=== PATIENT | male | born 1930 | race Caucasian/White ===

== ENCOUNTER 2016-04-12 10:40 | Emergency (ER) | payer MEDICARE ==
[~2016-04-12] VITALS: Ht 170.2 cm; Wt 73.0 kg
[~2016-04-12 10:40] MED LIST: ACET-2267 PO; AMLO5TAB2 PO; CEPH500T PO; LISI10TA2 PO; LOPE2CAP PO; LORA10TA7 PO; ONDA4TAB8 PO; PRAV40TA2 PO; RT-ALBUINH INH
--- OUTSIDE RECORDS SUMMARY | 2016-04-12 10:46 | XMS REPORT | Continuity of Care Document ---
Author Author [facility] Organization [facility] Address Unknown Phone Unavailable Care Team Providers Care Yacht Captain Name Role Phone ROSY CLANCY DO PCP Insurance Providers Payer Name Policy Number Subscriber Name Relationship [facility] [id number] Rea He 18 Self / Same As Patient Advance Directives Directive Response Recorded Date/Time Advance Directives Yes 01/25/16 2:05pm Organ Donor No 01/25/16 2:05pm Resuscitation Status Full Code 01/25/16 2:05pm Chief Complaint and Reason for Visit Chief Complaint ACUTE RENAL FAILURE VOLUME DEPLETION DIARRHEA Reason for Visit Cellulitis Dehydration Diarrhea Problems Active Problems Medical Problem Onset Date Status Acute renal failure Unknown Acute Cellulitis Unknown Acute Dehydration Unknown Acute Diarrhea Unknown Acute Medications Current Home Medications Medication Dose Units Route Directions Days/Qty Instructions Start Date Pravastatin Sodium 40 Mg 40 Mg Oral Bedtime 10/11/15 Albuterol Sulfate 8.5 Gm 2 Puff Inhalation Four Times Daily as needed for Shortness Of Breath 10/11/15 Lisinopril 10 Mg 10 Mg Oral Daily 10/11/15 Loratadine 10 Mg 10 Mg Oral Daily 01/25/16 Ondansetron 4 Mg 4 Mg Oral Three Times A Day as needed for Nausea Acetaminophen 500 Mg 1,500 Mg Oral Three Times A Day as needed for Pain TAKES 3 (500MG) TABLETS 01/25/16 Past Home Medications Medication Directions Ordered Status Amlodipine Besylate 5 Mg Tablet, 5 Mg Oral Daily 10/11/15 Discontinued Cephalexin 500 Mg Tablet, 500 Mg Oral Three Times A Day 10/11/15 Discontinued Loperamide Hcl 2 Mg Capsule, 2 Mg Oral Three Times A Day as needed for Diarrhea 01/25/16 Discontinued Social History Social History Problem Response Recorded Date/Time Alcohol Use Occasionally Uses 01/25/2016 2:07pm Recreational Drug Use No 01/25/2016 2:07pm Recent Foreign Travel No 01/25/2016 2:09pm Recent Infectious Disease Exposure No 01/25/2016 2:09pm Hospitalization with Isolation Denies 01/27/2016 1:46pm Smoking Status Never a Smoker 01/25/2016 2:09pm Recent Hopitalizations No 01/25/2016 2:07pm Hospitalization with Isolation Denies 01/27/2016 1:46pm Query Response Start Date Stop Date Smoking Status Never a Smoker Hospital Discharge Instructions No hospital discharge instructions. Plan of Care Discharge Date 01/27/16 1:15pm Disposition 01 HOME, SELF-CARE Instructions/Education Provided Acute Kidney Failure Forms Provided PDI Medical Prescriptions See Medication Section Referrals ROSY CLANCY DO (Unspecified) - 5 Days Address: [address] [place] [id number] [phone] Reason(s) for Referral: SEE DR. CLANCY SUNDAY () AT 11:00 AM Functional Status Query Response Date Recorded Patient Orientation Person Place Time Situation January 27, 2016 1:46pm Comprehension Ability Understands Concepts January 26, 2016 8:00am Allergies, Adverse Reactions, Alerts Allergen Type Severity Reaction Status Last Updated shellfish derived ([id number]) Allergy Severe HIVES Active 10/11/15 Immunizations No immunization records. Vital Signs Acute Vital Signs Vital Response Date/Time Temperature (Fahrenheit) 98.8 degrees F (97.6 - 99.5) 01/27/2016 8:00am Temperature (Calculated Celsius) 37.94277 degrees C (36.4 - 37.5) 01/27/2016 8:00am Temperature Source Tympanic 01/27/2016 8:00am Pulse Rate (adult) 76 bpm (60 - 90) 01/27/2016 8:00am Respiratory Rate 18 bpm (12 - 24) 01/27/2016 8:00am O2 Sat by Pulse Oximetry 90 % (88 - 100) 01/27/2016 11:52am Blood Pressure 146/68 mm Hg 01/27/2016 8:00am Blood Pressure Mean 94 mm Hg 01/27/2016 8:00am Pain Numeric Pain Scale 0-No Pain 01/27/2016 8:00am Pain Numeric Pain Scale 5-Moderate Pain 01/27/2016 8:00am Height (Feet) 5 feet 01/25/2016 2:09pm Height (Inches) 7.00 inches 01/25/2016 2:09pm Height (Calculated Centimeters) 170.432395 cm 01/25/2016 2:09pm Weight (Pounds) 161 pounds 01/25/2016 2:09pm Weight (Ounces) 0.0 oz 01/25/2016 2:09pm Weight (Calculated Grams) 22097.37 gm 01/25/2016 2:09pm Weight (Calculated Kilograms) 73.992804 kilograms 01/25/2016 2:09pm Calculated BMI 25.2 01/25/2016 2:09pm Capillary Refill Capillary Refill Less Than 3 Seconds 01/26/2016 8:15pm Results Pending Laboratory Results Test Name Collection Date/Time Pending Microbiology Results Procedure Source Collection Date/Time Procedures No known history of procedures. Encounters Encounter Location Arrival/Admit Date Discharge/Depart Date Attending Provider Discharged Inpatient [facility] 01/25/16 12:55pm 1:15pm ROSY CLANCY DO Registered Clinic [facility] 12/29/15 2:15pm ROSY CLANCY DO Recent Diagnosis Cellulitis Dehydration Diarrhea
[2016-04-12] MEDS ORDERED: LIDOCAINE UROJET 2% GEL 10 ML PKG TOP ONE (11:15)
--- NOTE | 2016-04-12 11:23 | ED GU-Male ---
General Chief Complaint: -Male Stated Complaint: UNABLE TO URINATE Source: patient Exam Limitations: no limitations History of Present Illness Time seen by provider: 11:20 Initial Comments To ER with concerns of kidney dysfunction. States that he was here in the past with "kidneys shut down". He states that his last urination was at 2 a.m. this morning. He currently feels the need to urinate. He went to the bathroom and urinated 500 mL of clear yellow urine. Severity/Quality: moderate Location: unknown Radiation: none Activities at Onset: none Allergies and Home Medications Allergies Coded Allergies: shellfish derived (Verified Allergy, Severe, HIVES, 10/11/15) Home Medications Acetaminophen 500 Mg Tablet 1,500 MG PO TID PRN PRN PAIN (Reported) TAKES 3 (500MG) TABLETS Albuterol Sulfate 8.5 Gm Hfa.aer.ad 2 PUFF INH QID PRN PRN SHORTNESS OF BREATH ( Reported) Lisinopril 10 Mg Tablet 10 MG PO DAILY (Reported) Loratadine 10 Mg Tablet 10 MG PO DAILY (Reported) Ondansetron 4 Mg Tab.rapdis 4 MG PO TID PRN PRN NAUSEA (Reported) Pravastatin Sodium 40 Mg Tablet 40 MG PO HS (Reported) Constitutional: see HPI EENTM: see HPI Respiratory: no symptoms reported Cardiovascular: no symptoms reported Genitourinary: no symptoms reported Musculoskeletal: no symptoms reported Skin: no symptoms reported Psychiatric/Neurological: No Symptoms Reported Endocrine: No Symptoms Reported Hematologic/Lymphatic: No Symptoms Reported Past Yaeexcm-Zqmkge-Bjfkpg Hx Patient Social History Alcohol Use: Occasionally Uses Recreational Drug Use: No Smoking Status: Never a Smoker 2nd Hand Smoke Exposure: No Recent Foreign Travel: No Contact w/Someone Who Travel: No Recent Hopitalizations: No Immunizations Up To Date Date of Pneumonia Vaccine: Nov 16, 2015 Date of Influenza Vaccine: Nov 15, 2015 Surgeries HX Surgeries: Yes Surgeries: Appendectomy, Orthopedic, Prostatectomy Respiratory Hx Respiratory Disorders: No Cardiovascular Hx Cardiac Disorders: Yes Cardiac Disorders: High Cholesterol, Hypertension Neurological Hx Neurological Disorders: No Reproductive System Hx Reproductive Disorders: No Genitourinary Hx Genitourinary Disorders: No Gastrointestinal Hx Gastrointestinal Disorders: Yes (diverticulitis ) Musculoskeletal Hx Musculoskeletal Disorders: Yes Musculoskeletal Disorders: Arthritis Endocrine Hx Endocrine Disorders: No HEENT HX ENT Disorders: No Cancer Hx Cancer: No Psychosocial Hx Psychiatric Problems: No Family Medical History Significant Family History: No Pertinent Family Hx Physical Exam Vital Signs Vital Sign - Last 12Hours 04/12/16 11:05 Temp 97.4 Pulse 90 Resp 18 B/P 189/99 Pulse Ox 94 O2 Delivery Room Air Capillary Refill : General Appearance: WD/WN no apparent distress HEENT: PERRL/EOMI normal ENT inspection Neck: non-tender full range of motion Cardiovascular: regular rate, rhythm no murmur Respiratory: normal breath sounds no respiratory distress no accessory muscle use Gastrointestinal: normal bowel sounds non tender soft Extremities: normal range of motion non-tender Neurologic/Psychiatric: alert normal mood/affect oriented x 3 Skin: normal color warm/dry Progress/Results/Core Measures Results/Orders Lab Results Laboratory Tests Test 04/12/16 11:07 04/12/16 11:09 04/12/16 11:17 Range/Units Basophils # (Auto) 0.0 0.0-0.1 10^3/uL Basophils (%) (Auto) 1 0-10 % Eosinophils # (Auto) 0.2 0.0-0.3 10^3/uL Eosinophils (%) (Auto) 4 0-10 % Hematocrit 40 40-54 % Hemoglobin 12.4 L 13.3-17.7 G/DL Lymphocytes # (Auto) 1.2 1.0-4.0 X 10^3 Lymphocytes (%) (Auto) 21 12-44 % Mean Corpuscular Hemoglobin 32 25-34 PG Mean Corpuscular Hemoglobin Concent 31 L 32-36 G/DL Mean Corpuscular Volume 103 H 80-99 FL Mean Platelet Volume 9.8 7.4-10.4 FL Monocytes # (Auto) 0.7 0.0-1.0 X 10^3 Monocytes (%) (Auto) 11 0-12 % Neutrophils # (Auto) 3.7 1.8-7.8 X 10^3 Neutrophils (%) (Auto) 63 42-75 % Platelet Count 201 130-400 10^3/uL Red Blood Count 3.84 L 4.35-5.85 10^6/uL Red Cell Distribution Width 11.9 10.0-14.5 % White Blood Count 5.9 4.3-11.0 10^3/uL Urine Bacteria NEGATIVE /HPF Urine Bilirubin NEGATIVE NEGATIVE Urine Casts NONE /LPF Urine Clarity CLEAR Urine Color YELLOW Urine Crystals NONE /LPF Urine Culture Indicated NO Urine Glucose (UA) NEGATIVE NEGATIVE Urine Ketones NEGATIVE NEGATIVE Urine Leukocyte Esterase NEGATIVE NEGATIVE Urine Mucus NEGATIVE /LPF Urine Nitrite NEGATIVE NEGATIVE Urine Protein NEGATIVE NEGATIVE Urine RBC NONE /HPF Urine RBC (Auto) NEGATIVE NEGATIVE Urine Specific [place] 1.005 L 1.016-1.022 Urine Squamous Epithelial Cells RARE /HPF Urine Urobilinogen NORMAL NORMAL MG/DL Urine WBC NONE /HPF Urine pH 6 5-9 Anion Gap 11 5-14 MMOL/L BUN/Creatinine Ratio 15 Blood Urea Nitrogen 16 7-18 MG/DL Calcium Level 8.9 8.5-10.1 MG/DL Carbon Dioxide Level 23 21-32 MMOL/L Chloride Level 109 H 98-107 MMOL/L Creatinine 1.10 0.60-1.30 MG/DL Estimat Glomerular Filtration Rate > 60 Glucose Level 88 70-105 MG/DL Potassium Level 4.4 3.6-5.0 MMOL/L Sodium Level 143 135-145 MMOL/L My Orders Orders-HARDIK BRUNSON APRN Ua Culture If Indicated (04/12/16 11:03) Cbc With Automated Diff (04/12/16 11:03) Basic Metabolic Panel (04/12/16 11:03) Lidocaine 2% (Urojet) (Xylocaine Urojet) (04/12/16 11:15) Clonidine Tablet (Catapres Tablet) (04/12/16 11:30) Saline Lock/Iv-Start (04/12/16 11:17) Medications Given in ED Current Medications Medications Dose Ordered Sig/Zoey Route Start Time Stop Time Status Last Admin Dose Admin Clonidine HCl 0.1 mg ONCE ONCE PO 04/12/16 11:30 04/12/16 11:31 DC 04/12/16 11:27 0.1 MG Vital Signs/I&O Vital Sign - Last 12Hours 04/12/16 11:05 Temp 97.4 Pulse 90 Resp 18 B/P 189/99 Pulse Ox 94 O2 Delivery Room Air Departure Impression Impression: Primary Impression: General medical examination Disposition: 01 HOME, SELF-CARE Condition: Stable Departure-Patient Inst. Decision time for Depature: 11:48 Referrals: ROSY CLANCY DO (PCP/Family) Primary Care Physician Patient Instructions: NO INSTRUCTIONS GIVEN Add. Discharge Instructions: 1. Follow-up with Dr. Dr. Clancy as needed and to address your high blood pressure All discharge instructions reviewed with patient and/or family. Voiced understanding. Copy Copies To 1: ROSY CLANCY PETER J APRN Apr 12, 2016 11:23
[2016-04-12 11:25] LABS: BASOPHILS % (AUTO) 1 % (0-10); EOSINOPHILS # (AUTO) 0.2 10^3/uL (0.0-0.3); EOSINOPHILS % (AUTO) 4 % (0-10); LYMPHOCYTES # (AUTO) 1.2 X 10^3 (1.0-4.0); LYMPHOCYTES % (AUTO) 21 % (12-44); MEAN CORPUSCULAR HEMOGLOBIN 32 PG (25-34); MEAN CORPUSCULAR HGB CONC 31 G/DL (32-36); MEAN CORPUSCULAR VOLUME 103 FL (80-99); MEAN PLATELET VOLUME 9.8 FL (7.4-10.4); MONOCYTES # (AUTO) 0.7 X 10^3 (0.0-1.0); MONOCYTES % (AUTO) 11 % (0-12); NEUTROPHILS # (AUTO) 3.7 X 10^3 (1.8-7.8); NEUTROPHILS % (AUTO) 63 % (42-75); PLATELET COUNT 201 10^3/uL (130-400); RED BLOOD COUNT 3.84 10^6/uL (4.35-5.85); RED CELL DISTRIBUTION WIDTH 11.9 % (10.0-14.5); WHITE BLOOD COUNT 5.9 10^3/uL (4.3-11.0)
[2016-04-12 11:27] LABS: BILIRUBIN,URINE NEGATIVE (NEGATIVE); KETONES,URINE NEGATIVE (NEGATIVE); LEUKOCYTE ESTERASE ,URINE NEGATIVE (NEGATIVE); NITRITE,URINE NEGATIVE (NEGATIVE); PH,URINE 6 (5-9); PROTEIN,URINE NEGATIVE (NEGATIVE); UROBILINOGEN,URINE NORMAL (NORMAL)
[2016-04-12] MEDS ORDERED: cloNIDine 0.1 MG (CATAPRES) TAB PO ONE (11:30)
[2016-04-12 11:35] LABS: SQUAMOUS EPITHELIAL CELL,UR RARE /HPF
[2016-04-12 11:46] LABS: ANION GAP 11 MMOL/L (5-14); BLOOD UREA NITROGEN 16 MG/DL (7-18); BUN/CREATININE RATIO 15; CALCIUM 8.9 MG/DL (8.5-10.1); CARBON DIOXIDE 23 MMOL/L (21-32); CHLORIDE 109 MMOL/L (98-107); GFR ESTIMATED > 60; GLUCOSE 88 MG/DL (70-105); POTASSIUM 4.4 MMOL/L (3.6-5.0); SODIUM 143 MMOL/L (135-145)
[2016-04-12 12:04] VITALS: BP 157/83
== END 2016-04-12 12:05 | disposition home or self-care (01) ==
LOC: EDUNIT# 10:40 → ER 10:42
DX: R33.9 Retention of urine, unspecified (principal); I10 Essential (primary) hypertension; Z79.899 Other long term (current) drug therapy
CPT/HCPCS: 36415; 80048; 81000; 85025

== ENCOUNTER → 2017-06-20 | Outpatient (CLI) | payer MEDICARE ==
[~2017-06-20] MED LIST changes: +ACHD5005 PO; +ASPI-983 PO; +ATOR10TA66 PO; +CLOP75TA28 PO; +CLOP75TA69 PO; +DOXY100C42 PO; +HYDR-3812 PO; +HYDR12.5 PO; +LISI40TA PO; +MONT10TA24 PO; +PANT40SU PO; +PANT40TA2 PO; +PENT400T9 PO; +RT-ALBUINH IH; +TAMS0.4C2 PO; +TRAM50TA2 PO
== END ==
LOC: WOUNDCARE 09:51
PROVIDERS: ATTEND Surgery
DX: I70.245 Atherosclerosis of native arteries of left leg with ulceration of other part of foot (principal); L97.512 Non-pressure chronic ulcer of other part of right foot with fat layer exposed; G60.8 Other hereditary and idiopathic neuropathies
CPT/HCPCS: 11042

== ENCOUNTER → 2017-06-20 | Outpatient (CLI) | payer MEDICARE ==
--- NOTE | 2017-06-20 12:55 | Diagnostic Imaging Report ---
EXAMINATION: Left foot. INDICATION: Chronic ulcer. TECHNIQUE: Three views were obtained. FINDINGS: As noted on the prior exam of 05/13/2007, there is an orthopedic fixation wire securing a displaced fracture of the neck of the fifth metatarsal. The orthopedic hardware appears to be in good position and the fracture has healed with residual deformity. There is also some deformity of the proximal phalanx of the fourth digit. This is felt to be secondary to prior trauma and this finding is stable when compared to the previous study. The fracture of the neck of the third metatarsal seen previously is also no different. There is no acute fracture visualized. Reportedly, there is clinical concern regarding possible osteomyelitis of the great toe. A marker was placed along the plantar surface of the soft tissues adjacent to the distal phalanx of the great toe. There is no sign of bony destruction in this area to suggest osteomyelitis. However if further imaging is desired, then either a three-phase nuclear medicine bone scan or MRI would be recommended. IMPRESSION: 1. There is no evidence for an acute bony abnormality. In particular, there is no sign of bony destruction of distal phalanx of the great toe to indicate osteomyelitis. Recommendations, as above. 2. There are postsurgical and post-traumatic changes involving the forefoot as described above. Dictated by: Dictated on workstation # [id number]
== END ==
LOC: RAD 11:41
PROVIDERS: ATTEND Surgery
DX: L97.512 Non-pressure chronic ulcer of other part of right foot with fat layer exposed (principal); I70.245 Atherosclerosis of native arteries of left leg with ulceration of other part of foot; Z98.890 Other specified postprocedural states
CPT/HCPCS: 73630

== ENCOUNTER 2017-06-25 14:00 | Day surgery (SDC) | payer MEDICARE ==
[~2017-06-25] VITALS: Ht 170.2 cm; Wt 69.2 kg
[2017-06-25 14:00] VITALS: BP 125/68
[~2017-06-25 14:00] MED LIST changes: -ACHD5005 PO; -CLOP75TA69 PO; -DOXY100C42 PO; -HYDR-3812 PO; -PANT40TA2 PO
[2017-06-25 15:34] LABS: HEMOGLOBIN 8.8 G/DL (13.3-17.7); RED BLOOD COUNT 3.12 10^6/uL (4.35-5.85); RED CELL DISTRIBUTION WIDTH 13.5 % (10.0-14.5)
[2017-06-25] MEDS ORDERED: AMLO5TAB2 PO (15:47)
[2017-06-25] MEDS ORDERED: PANT40TA2 PO (15:47)
[2017-06-25] MEDS ORDERED: ASPI-983 PO (15:47)
[2017-06-25] MEDS ORDERED: CLOP75TA69 PO (15:47)
[2017-06-25] MEDS ORDERED: ATOR10TA66 PO (15:47)
[2017-06-25] MEDS ORDERED: PENT400T9 PO (15:47)
[2017-06-25] MEDS ORDERED: HYDR-3812 PO (15:47)
[2017-06-25 15:52] LABS: ALANINE AMINOTRANSFERASE 8 U/L (0-55); ALBUMIN 3.5 GM/DL (3.2-4.5); ALKALINE PHOSPHATASE 69 U/L (40-136); BILIRUBIN,TOTAL 0.3 MG/DL (0.1-1.0); BUN/CREATININE RATIO 23; CALCIUM 8.8 MG/DL (8.5-10.1); CARBON DIOXIDE 24 MMOL/L (21-32); CHLORIDE 110 MMOL/L (98-107); CREATININE SERUM 1.47 MG/DL (0.60-1.30); GFR ESTIMATED 46; GLUCOSE 98 MG/DL (70-105); POTASSIUM 4.6 MMOL/L (3.6-5.0); SODIUM 143 MMOL/L (135-145); TOTAL PROTEIN 6.6 GM/DL (6.4-8.2)
[2017-06-25 15:58] LABS: MYOGLOBIN SERUM 232.7 NG/ML (10.0-92.0)
[2017-06-25 16:20] LABS: INR 1.1 (0.8-1.4); PROTHROMBIN TIME PATIENT 13.8 SEC (12.2-14.7)
[2017-06-25 16:40] VITALS: BP 141/65
[2017-06-25] MEDS ORDERED: NON-FORMULARY MEDICATION 1 EA EA (Hydrocodone/Acetaminophen (Hydrocodone-Acetamin 5-325 mg PO PRN (16:45)
[2017-06-25] MEDS: NS IV 1000 ML 1,000 ML IV SCH (17:06)
--- NOTE | 2017-06-25 18:17 | History & Physicial ---
History of Present Illness History of Present Illness Reason for visit/HPI Severe pain in the left big toe. Patient had angiography done. Patient is seen wound care. Patient states she's not getting better and the pain in the toe is worse. Date of Admission June 25, 2017 at 1:54 pm Time Seen by Provider: 06:05 I consulted on this patient on 06/25/17 18:12 Attending Physician Amyaa Bermudez MD Admitting Physician Lucas Clancy DO Consult Allergies and Home Medications Allergies Coded Allergies: shellfish derived (Verified Allergy, Severe, HIVES/SWELLING, 06/25/17) Home Medications Albuterol Sulfate 1 Puff Puff, 2 PUFF IH QID PRN for SHORTNESS OF BREATH, ( Reported) Amlodipine Besylate 5 Mg Tablet, 5 MG PO DAILY, (Reported) Aspirin 81 Mg Tablet.dr, 81 MG PO DAILY, (Reported) Atorvastatin Calcium 10 Mg Tablet, 10 MG PO HS, (Reported) Clopidogrel Bisulfate 75 Mg Tablet, 75 MG PO DAILY, (Reported) Hydrochlorothiazide 12.5 Mg Capsule, 25 MG PO DAILY, (Reported) TAKES 2 (12.5MG) CAPSULES Hydrocodone/Acetaminophen 1 Each Tablet, 1 TAB PO TID PRN for PAIN-MODERATE, ( Reported) Pantoprazole Sodium 40 Mg Tablet.dr, 40 MG PO DAILY, (Reported) Pentoxifylline 400 Mg Tablet.er, 400 MG PO TID, (Reported) Patient Home Medication List Home Medication List Reviewed: Yes Past Zoixstl-Rvlmgu-Jsciei Hx Patient Social History Marrital Status: Employed/Student: retired Alcohol Use: Regular Use Number of Drinks Today: 0 Alcohol Beverage of Choice: Whiskey, [place] Recreational Drug Use: No Smoking Status: Former Smoker Former Smoker, Quit: Jun 05, 1992 Type Used: Cigarettes 2nd Hand Smoke Exposure: No Physical Abuse Screen: No Sexual Abuse: No Recent Foreign Travel: No Contact w/other who traveled: No Recent Hopitalizations: Yes Recent Infectious Disease Expo: No Immunizations Up To Date Pediatric: No Date of Pneumonia Vaccine: Nov 16, 2015 Date of Influenza Vaccine: Nov 15, 2015 Seasonal Allergies Seasonal Allergies: No Surgeries Yes Appendectomy, Orthopedic, Prostatectomy Respiratory No (USES INHALER, BUT UNSURE WHY) Asthma Currently Using CPAP: No Currently Using BIPAP: No Cardiovascular Yes High Cholesterol, Hypertension Neurological No Reproductive System Hx Reproductive Disorders: No Genitourinary Yes Prostate Problems Gastrointestinal Yes (diverticulitis ) Musculoskeletal Yes Arthritis Endocrine History of Endocrine Disorders: No HEENT History of HEENT Disorders: Yes Hearing Impairment: Hard of Hearing Cancer Yes Prostate Type of Treatment: Surgical Intervention Psychosocial History of Psychiatric Problem: No Integumentary History of Skin or Integumenta: Yes Skin/Integumentary Disorders: Recent Skin Changes Blood Transfusions History of Blood Disorders: No Family Medical History Significant Family History: No Pertinent Family Hx Family Hx: Completed stroke G8 SISTER Diabetes mellitus 19 MOTHER FH: prostate cancer 19 FATHER Constitutional: no symptoms reported EENTM: no symptoms reported Respiratory: no symptoms reported, wheezing Cardiovascular: no symptoms reported Gastrointestinal: no symptoms reported Genitourinary: no symptoms reported Physical Exam Vital Signs Vital Signs - First Documented 06/25/17 14:00 Temp 97.9 Pulse 72 Resp 18 B/P (MAP) 125/68 (87) Pulse Ox 93 O2 Delivery Room Air Capillary Refill : General Appearance: No Apparent Distress, WD/WN Eyes: Bilateral Eye Normal Inspection HEENT: Normal ENT Inspection Neck: Full Range of Motion, Normal Inspection Respiratory: Chest Non Tender, Lungs Clear, Normal Breath Sounds, No Accessory Muscle Use, No Respiratory Distress Cardiovascular: Regular Rate, Rhythm, No Murmur Gastrointestinal: Non Tender, Soft Assessment/Plan Assessment and Plan Ischemic left big toe. Severe pain. Dermatitis in groin. History of wheezing. Hypertension Admission Diagnosis Admission Status: Inpatient Order (span 2 midnights) Reason for Inpatient Admission: Ischemic left big toe with severe pain. May need amputation Clinical Quality Measures DVT/VTE Risk/Contraindication: Risk Factor Score Per Nursin RFS Level Per Nursing on Admit: 4+=Very High LUCAS CLANCY DO June 25, 2017 6:17 pm
[2017-06-25 20:10] VITALS: BP 124/60
[2017-06-25] MEDS: HYDROcodone/APAP 5 MG/325 MG (LORTAB) TAB PO PRN (20:15)
[2017-06-25] MEDS: BETAMETHASONE/CLOTRIM CREAM (LOTRISONE) 45 GM TP SCH (20:15)
[2017-06-25] MEDS ORDERED: ATORVASTATIN 10 MG (LIPITOR) TABLET PO SCH (21:00)
[2017-06-25] MEDS ORDERED: PENTOXIFYLLINE 400 MG (TRENtal) TAB PO SCH (21:00)
[2017-06-26] VITALS (16 sets, daily range): BP systolic 104–176; BP diastolic 54–96
[2017-06-26] MEDS: HYDROcodone/APAP 5 MG/325 MG (LORTAB) TAB PO PRN ×3 (02:14→18:19)
[2017-06-26] MEDS: NS IV 1000 ML 1,000 ML IV SCH ×4 (02:14→18:19)
[2017-06-26 05:17] LABS: MEAN PLATELET VOLUME 9.6 FL (7.4-10.4); RED BLOOD COUNT 3.18 10^6/uL (4.35-5.85); RED CELL DISTRIBUTION WIDTH 13.3 % (10.0-14.5)
[2017-06-26 05:40] LABS: CALCIUM 8.9 MG/DL (8.5-10.1); CREATININE SERUM 1.2 MG/DL (0.60-1.30); MAGNESIUM 2.2 MG/DL (1.8-2.4); POTASSIUM 4.7 MMOL/L (3.6-5.0)
[2017-06-26] MEDS ORDERED: PANTOPRAZOLE 40 MG (PROTONIX) TAB PO SCH (07:00)
--- NOTE | 2017-06-26 07:38 | Consultation-Cardiology ---
HPI-Cardiology Cardiology Consultation Date of Consultation 06/26/17 Date of Admission Time Seen by Provider: 07:44 Indication: Peripheral arterial disease HPI 87 years old gentleman with history of ischemic toe on his left foot area I saw him initially late in May and he has cyanosis on his first and third toe, to come for angiogram and did balloon angioplasty to the anterior tibial artery and mid and distal SFA with good results, had some improvement initially but the pain and cyanosis became worse on his first toe. Return to the office yesterday having more significant pain. Patient is known to have severe disease of the posterior tibial artery also. I saw him this morning and he still having active pain. I am planning to proceed with angiogram and evaluate the SFA and popliteal artery and possible intervention on the posterior tibial artery and attempting for another intervention to the anterior tibial artery. Home Medications & Allergies Allergies: Coded Allergies: shellfish derived (Verified Allergy, Severe, HIVES/SWELLING, 06/25/17) Home Medication List Reviewed: Yes MDX-Uhyuxb-Ufxucx Hx Patient Social History Marital Status: Employed/Student: retired Alcohol Use: Regular Use Recreational Drug Use: No Smoking Status: Former Smoker Type Used: Cigarettes 2nd Hand Smoke Exposure: No Recent Foreign Travel: No Recent Infectious Disease Expo: No Recent Hopitalizations: Yes Physical Abuse Screen: No Sexual Abuse: No Immunizations Up To Date Date of Pneumonia Vaccine: Nov 16, 2015 Date of Influenza Vaccine: Nov 15, 2015 Past Medical History Past medical history is discussed below Family Medical History Significant Family History: No Pertinent Family Hx Family History: Completed stroke G8 SISTER Diabetes mellitus 19 MOTHER FH: prostate cancer 19 FATHER Constitutional: no symptoms reported, see HPI EENTM: see HPI, no symptoms reported Respiratory: see HPI; No cough, No dyspnea on exertion, No hemoptysis, No orthopnea, No phlegm, No short of breath, No stridor, No wheezing, No other Cardiovascular: see HPI; No chest pain, No edema, No Hx of Intervention, No palpitations, No syncope, No vascular heart diseas, No other Gastrointestinal: no symptoms reported, see HPI Genitourinary: see HPI Musculoskeletal: see HPI, other Skin: see HPI, other (Cyanosis of his great toe on the left foot) Psychiatric/Neurological: No Symptoms Reported, See HPI Reviewed Test Results Reviewed Test Results Lab Laboratory Tests Test 5/14/18 15:25 06/26/17 05:09 Range/Units White Blood Count 5.0 5.0 4.3-11.0 10^3/uL Red Blood Count 3.12 L 3.18 L 4.35-5.85 10^6/uL Hemoglobin 8.8 L 9.0 L 13.3-17.7 G/DL Hematocrit 29 L 29 L 40-54 % Mean Corpuscular Volume 92 92 80-99 FL Mean Corpuscular Hemoglobin 28 28 25-34 PG Mean Corpuscular Hemoglobin Concent 31 L 31 L 32-36 G/DL Red Cell Distribution Width 13.5 13.3 10.0-14.5 % Platelet Count 275 283 130-400 10^3/uL Mean Platelet Volume 9.0 9.6 7.4-10.4 FL Prothrombin Time 13.8 12.2-14.7 SEC INR Comment 1.1 0.8-1.4 Activated Partial Thromboplast Time 30 24-35 SEC Sodium Level 143 144 135-145 MMOL/L Potassium Level 4.6 4.7 3.6-5.0 MMOL/L Chloride Level 110 H 111 H 98-107 MMOL/L Carbon Dioxide Level 24 21 21-32 MMOL/L Anion Gap 9 12 5-14 MMOL/L Blood Urea Nitrogen 34 H 29 H 7-18 MG/DL Creatinine 1.47 H 1.20 0.60-1.30 MG/DL Estimat Glomerular Filtration Rate 46 58 BUN/Creatinine Ratio 23 24 Glucose Level 98 110 H 70-105 MG/DL Calcium Level 8.8 8.9 8.5-10.1 MG/DL Total Bilirubin 0.3 0.1-1.0 MG/DL Aspartate Amino Transf (AST/SGOT) 14 5-34 U/L Alanine Aminotransferase (ALT/SGPT) 8 0-55 U/L Alkaline Phosphatase 69 40-136 U/L Myoglobin 232.7 H 10.0-92.0 NG/ML Troponin I < 0.30 <0.30 NG/ML Total Protein 6.6 6.4-8.2 GM/DL Albumin 3.5 3.2-4.5 GM/DL Magnesium Level 2.2 1.8-2.4 MG/DL Triglycerides Level 96 <150 MG/DL Cholesterol Level 148 < 200 MG/DL LDL Cholesterol Direct 68 1-129 MG/DL VLDL Cholesterol 19 5-40 MG/DL HDL Cholesterol 56 40-60 MG/DL Physical Exam Vital Signs Vital Signs - First Documented 06/25/17 14:00 Temp 97.9 Pulse 72 Resp 18 B/P (MAP) 125/68 (87) Pulse Ox 93 O2 Delivery Room Air Capillary Refill : General Appearance: WD/WN Eyes: Bilateral Eye Normal Inspection, Bilateral Eye PERRL, Bilateral Eye EOMI HEENT: PERRL/EOMI, TMs Normal, Normal ENT Inspection, Pharynx Normal Neck: Full Range of Motion, Normal Inspection, Non Tender, Supple, Carotid Bruit Respiratory: Chest Non Tender, Lungs Clear, Normal Breath Sounds, No Accessory Muscle Use, No Respiratory Distress Cardiovascular: Regular Rate, Rhythm, No Edema, No Gallop, No JVD, No Murmur, Normal Peripheral Pulses Gastrointestinal: Normal Bowel Sounds, No Organomegaly, No Pulsatile Mass, Non Tender, Soft Back: Normal Inspection, No CVA Tenderness, No Vertebral Tenderness Extremity: Normal Range of Motion, No Calf Tenderness, No Pedal Edema, Other ( Cyanosis and pain with acute ischemic changes of the toe) Neurologic/Psychiatric: Alert, Oriented x3, No Motor/Sensory Deficits, Normal Mood/Affect Skin: Normal Color, Warm/Dry Lymphatic: No Adenopathy A/P-Cardiology Admission Diagnosis PAD Ischemic foot HTN Hyperlipidemia Assessment/Plan Severe peripheral arterial disease with ischemic toe on the left side, underwent angiogram on June 06, 2017 showing total occlusion of the anterior tibial artery with successful balloon angioplasty with some improvement of the flow still had the sluggish flow. Has severe proximal stenosis at the posterior tibial artery that was treated medically, the distal SFA and popliteal artery has severe stenosis underwent drug-coated balloon angioplasty with good results. Initially reported improvement, however continues to have worsening of the ulcer and cyanosis of his first great toe. The third toe has improved significantly. Patient having increasing pain over the past week, admitted yesterday, still having significant pain, planning to proceed with angiogram, possible angioplasty Hypertension, restarted on home meds Hyperlipidemia, lipid profile was done in May 2017 showing total cholesterol 158, triglyceride 46, HDL 80, LDL 63. Continue to monitor History of back pain. History of prostatectomy secondary to prostate cancer History of bilateral foot surgery History of tobaccoism in the remote past, stopped smoking 22 years ago Clinical Quality Measures DVT/VTE Risk/Contraindication: Risk Factor Score Per Nursin RFS Level Per Nursing on Admit: 4+=Very High EVITA LONDON MD June 26, 2017 07:38
--- NOTE | 2017-06-26 08:09 | Progress Note (SOAP) ---
Subjective Time Seen by Provider: 08:00 Subjective/Events-last exam having pain in this big toe. Severe peripheral artery disease. Ischemic big toe. Hypertension history. hyperlipidemia Objective Exam Vital Signs Date Time Temp Pulse Resp B/P (MAP) Pulse Ox O2 Delivery O2 Flow Rate FiO2 06/26/17 04:00 97.9 71 18 124/57 (79) 92 Room Air 06/26/17 00:00 97.4 81 18 149/65 (93) 92 Room Air 06/25/17 20:10 98.6 76 18 124/60 (81) 92 Room Air 06/25/17 16:40 97.5 78 20 141/65 (90) 93 Room Air 06/25/17 14:00 97.9 72 18 125/68 (87) 93 Room Air I & O 06/26/17 07:00 Intake Total 370 ml Balance 370 ml Capillary Refill : General Appearance: No Apparent Distress, WD/WN HEENT: Normal ENT Inspection Neck: Normal Inspection, Non Tender Respiratory: Chest Non Tender, Lungs Clear, No Accessory Muscle Use, No Respiratory Distress Cardiovascular: Regular Rate, Rhythm, No Murmur Gastrointestinal: non tender, soft Results Lab Laboratory Tests 06/25/17 15:25: White Blood Count 5.0, Red Blood Count 3.12L, Hemoglobin 8.8L, Hematocrit 29L, Mean Corpuscular Volume 92, Mean Corpuscular Hemoglobin 28, Mean Corpuscular Hemoglobin Concent 31L, Red Cell Distribution Width 13.5, Platelet Count 275, Mean Platelet Volume 9.0, Prothrombin Time 13.8, INR Comment 1.1, Activated Partial Thromboplast Time 30, Sodium Level 143, Potassium Level 4.6, Chloride Level 110H, Carbon Dioxide Level 24, Anion Gap 9, Blood Urea Nitrogen 34H, Creatinine 1.47H, Estimat Glomerular Filtration Rate 46, BUN/Creatinine Ratio 23 , Glucose Level 98, Calcium Level 8.8, Total Bilirubin 0.3, Aspartate Amino Transf (AST/SGOT) 14, Alanine Aminotransferase (ALT/SGPT) 8, Alkaline Phosphatase 69, Myoglobin 232.7H, Troponin I < 0.30, Total Protein 6.6, Albumin 3.5 06/26/17 05:09: White Blood Count 5.0, Red Blood Count 3.18L, Hemoglobin 9.0L, Hematocrit 29L, Mean Corpuscular Volume 92, Mean Corpuscular Hemoglobin 28, Mean Corpuscular Hemoglobin Concent 31L, Red Cell Distribution Width 13.3, Platelet Count 283, Mean Platelet Volume 9.6, Sodium Level 144, Potassium Level 4.7, Chloride Level 111H, Carbon Dioxide Level 21, Anion Gap 12, Blood Urea Nitrogen 29H, Creatinine 1.20, Estimat Glomerular Filtration Rate 58, BUN/Creatinine Ratio 24 , Glucose Level 110H, Calcium Level 8.9, Magnesium Level 2.2, Triglycerides Level 96, Cholesterol Level 148, LDL Cholesterol Direct 68, VLDL Cholesterol 19 , HDL Cholesterol 56 Assessment/Plan Assessment/Plan Assess & Plan/Chief Complaint Peripheral artery disease. Ischemic big toe. Ischemic foot. Hypertension. Hyperlipidemia. Breaking out in groin is getting better Clinical Quality Measures Admission Status Admission Dx Ischemic left big toe. Severe pain. Dermatitis in groin. History of wheezing. Hypertension DVT/VTE Risk/Contraindication: Risk Factor Score Per Nursin RFS Level Per Nursing on Admit: 4+=Very High ROSY CLANCY DO June 26, 2017 08:09
[2017-06-26] MEDS: BETAMETHASONE/CLOTRIM CREAM (LOTRISONE) 45 GM TP SCH ×3 (08:38→20:59)
[2017-06-26] MEDS ORDERED: PATIENT MAY USE OWN MEDS, ALL MC SCH (08:45)
[2017-06-26] MEDS ORDERED: CLOPIDOGREL 75 MG (PLAVIX) TABLET PO SCH (09:00)
[2017-06-26] MEDS ORDERED: NON-FORMULARY MEDICATION 1 EA EA (Hydrochlorothiazide 25 MG) PO SCH (09:00)
[2017-06-26] MEDS ORDERED: NON-FORMULARY MEDICATION 1 EA EA (Amlodipine Besylate 5 MG) PO SCH (09:00)
[2017-06-26] MEDS ORDERED: ASPIRIN E.C. 81 MG (ECOTRIN) TAB PO SCH (09:00)
[2017-06-26] MEDS ORDERED: amLODIPine 5 MG (NORVASC) TAB PO SCH (09:00)
[2017-06-26] MEDS: amLODIPine 5 MG (NORVASC) TAB PO SCH (09:15)
[2017-06-26] MEDS: HYDROCHLOROTHIAZIDE 25 MG (HCTZ) TAB PO SCH (09:15)
[2017-06-26] MEDS: ASPIRIN E.C. 81 MG (ECOTRIN) TAB PO SCH (09:17)
[2017-06-26] MEDS: PENTOXIFYLLINE 400 MG (TRENtal) TAB PO SCH ×3 (09:17→20:58)
[2017-06-26] MEDS: CLOPIDOGREL 75 MG (PLAVIX) TABLET PO SCH (09:18)
[2017-06-26] MEDS: PANTOPRAZOLE 40 MG (PROTONIX) TAB PO SCH (09:19)
[2017-06-26] MEDS ORDERED: LIDOCAINE 1% INJ 20 ML 20 ML VIAL ONE (14:53)
[2017-06-26] MEDS ORDERED: NS IV 1000 ML 1,000 ML ONE ×2 (14:53→15:24)
[2017-06-26] MEDS ORDERED: MIDAZOLAM 5 MG/5 ML (VERSED) VIAL ONE (14:58)
[2017-06-26] MEDS ORDERED: diphenhydrAMINE 50 MG/ML INJ (BENADRYL) ONE (14:58)
[2017-06-26] MEDS ORDERED: methylPREDNISolone 125 MG (Solu-MEDROL) VIAL ONE ×2 (14:59→15:28)
[2017-06-26] MEDS ORDERED: HEParin 1000 UNIT/ML (10ML VIAL) FOR BOLUS ONE (14:59)
[2017-06-26] MEDS ORDERED: fentaNYL INJECTION 100 MCG/2 ML AMP ONE (15:01)
--- NOTE | 2017-06-26 15:17 | Cardiac Procedure Note-CS/ASA ---
Pre-Procedure Note Pre-Op Procedure Note H&P Reviewed The H&P was reviewed, patient examined and no changes noted. Date H&P Reviewed: June 26, 2017 Time H&P Reviewed: 15:17 Conscious Sedation Pre-Proced Time Reviewed: 15:17 ASA Class: 3 Airway Mallampati Classification: (miami appropriate class) I. II. III, IV Lungs Heart ASA score ASA 1: a normal healthy patient ASA 2: a patient with a mild systemic disease (mid diabetes, controlled hypertension, obesity x ASA 3: a patient with a severe systemic disease that limits activity (angina , COPD, prior Myocardial infarction) ASA 4: a patient with an incapacitating disease that is a constant threat to life (CHF, renal failure) ASA 5: a moribund patient not expected to survive 24 hrs. (ruptured aneurysm) ASA 6: a declared brain patient whose organs are being harvested. For emergent operations, add the letter E after the classification Grade 3 Sedation Plan: Analgesia, Amnesia, Plan communicated to team members, Discussed options with patient/fam, Discussed risks with patient/fam Note The patient is an appropriate candidate to undergo the planned procedure, sedation, and anesthesia. The patient immediately re-assessed prior to indication. EVITA LONDON MD June 26, 2017 15:17
[2017-06-26] MEDS ORDERED: PATIENT MAY USE OWN MEDS, ALL PO SCH (16:15)
--- NOTE | 2017-06-26 16:24 | Peripheral Report ---
Peripheral Report Physician (s)/Caisson Worker (s) Physician EVITA LONDON MD Pre-Procedure Diagnosis Pre-Procedure Diagnosis: ischemic foot Post-Procedure Note Procedure Start Date: June 26, 2017 Name of Procedure: Unilateral lower extremity runoff Third order Findings/Procedure Note PROCEDURE NOTE: After explaining the procedure to the patient, all pros and cons were explained , all questions were answered. The patient signed the consent and then he was placed on the cardiac catheterization laboratory. The patient was placed on the cardiac catheterization laboratory. Groin was prepped SL fashion local anesthesia was used. Sheath placed in the right femoral artery. Using rim catheter I was able to cross over and did runoff of the left lower extremity using the rim catheter then advanced stroke wire down to the tibial peroneal trunk, exchanged the rim catheter into a long straight catheter and did multiple imaging of the left lower extremity below the knee and to the foot. Then the straight catheter was pulled back to the abdominal aortogram abdominal aortogram was done to evaluate the bifurcation, no complication noted , sheath was removed and closure device used with no complications FINDINGS: Left lower extremity runoff showed: 1. Total occlusion of the anterior tibial artery 2. Multiple segment of moderate to severe disease in the posterior tibial artery but still have excellent flow down to the toes 3. Peroneal artery has mild disease proximally 4. Superficial femoral artery and popliteal artery has mild disease with excellent flow CONCLUSIONS: Total occlusion of the anterior tibial artery at the midportion not amendable to intervention Moderate severe disease in multiple segment of the posterior tibial artery still providing excellent flow down to the toes Mild disease in the superficial femoral artery and popliteal artery DISCUSSION AND RECOMMENDATIONS: Medical therapy is recommended, it appear that the distal portion of the toe is receiving some collateral blood does not appear to be sufficient at that point. Patient had multiple balloon angioplasty to the anterior tibial artery with prolonged inflation up to 5 minutes at multiple segment with significant recoil and occlusion. Not a candidate for stent or bypass Anesthesia Type: Conscious Sedation Estimated blood loss (mL): 10 ml Contrast Amount: 28 ml Total Radiation Dose: 88 mGy Post-Procedure Diagnosis Post-operative diagnosis: Subacute ischemic foot Peripheral arterial disease Hypertension Gangrene EVITA LONDON MD June 26, 2017 16:24
[2017-06-26] MEDS ORDERED: NITROGLYCERIN 2% OINT 1 GM UNIT DOSE PACKET ONE (17:01)
[2017-06-26] MEDS: NITROGLYCERIN 2% OINT 1 GM UNIT DOSE PACKET TOP SCH ×2 (17:18→23:51)
--- NOTE | 2017-06-26 19:08 | Wound Care Assessment ---
Wound Care Assessment Date Seen by Provider: June 26, 2017 Time Seen by Provider: 18:30 Chief Complaint Pain L great toe. HPI The patient is an 87 year old male with recent ischemic changes of L forefoot, which has now progressed to gangrene of the distal pad of the L great toe. He is having a lot of pain in the toe, relieved with oral narcotic. Remainder of foot is warm and pink. There does not appear to be at this time an area of marginal viability. I do not believe that Hyperbaric Oxygen Treatments would be beneficial at this time because the tissue of the foot appears either clearly necrotic or clearly well perfused. Will change dressing to Betadine paint; I agree with topical NTG, in the hope that it might increase collateral flow. This is worth a try, but unlikely to change course of events. At this time the patient states his pain is enough that he would prefer an amputation to conservative measures. Past Medical History: Admits Cancer, Treaments (Prestate) Smoking Status: Former Smoker Recreational Drug Use: No Alcohol Use: Regular Use Review of Systems Pulmonary: No Dyspnea Cardiovascular: No: Chest Pain Musculoskeletal: foot pain (L great toe.) Exam Vital Signs Date Time Temp Pulse Resp B/P (MAP) Pulse Ox O2 Delivery O2 Flow Rate FiO2 06/26/17 18:00 74 14 153/68 (96) 94 Nasal Cannula 0.50 06/26/17 16:30 97.5 Capillary Refill : Less Than 3 Seconds General Appearance: no apparent distress Skin: other (L great toe --- 2.0 x 3.5 x 0.2 cm, base 100% moist black eschar , no drainage.) Results Laboratory Tests 06/26/17 05:09: White Blood Count 5.0, Red Blood Count 3.18L, Hemoglobin 9.0L, Hematocrit 29L, Mean Corpuscular Volume 92, Mean Corpuscular Hemoglobin 28, Mean Corpuscular Hemoglobin Concent 31L, Red Cell Distribution Width 13.3, Platelet Count 283, Mean Platelet Volume 9.6, Sodium Level 144, Potassium Level 4.7, Chloride Level 111H, Carbon Dioxide Level 21, Anion Gap 12, Blood Urea Nitrogen 29H, Creatinine 1.20, Estimat Glomerular Filtration Rate 58, BUN/Creatinine Ratio 24 , Glucose Level 110H, Calcium Level 8.9, Magnesium Level 2.2, Triglycerides Level 96, Cholesterol Level 148, LDL Cholesterol Direct 68, VLDL Cholesterol 19 , HDL Cholesterol 56 Assessment/Plan/Dx 1. Gangrene of L great toe, with arterial ulcer. 2. Atherosclerotic peripheral arterial disease, with re-occlusion of L anterior tibial artery. Plan: the appearance of the toe is such that it may well be possible to maintain the toe with careful dressings and local care. However, his pain is so great, it may well be the better option to proceed with amputation. However , with amputation the level of amputation at which healing is probable is a clinical judgement without a TCOM or other functional perfusion measure. BETO BUGROS MD June 26, 2017 19:08
[2017-06-26] MEDS: POVIDONE (BETADINE) 10% SOLN 240 ML BTL TOP SCH (20:57)
[2017-06-26] MEDS: ATORVASTATIN 10 MG (LIPITOR) TABLET PO SCH (20:58)
[2017-06-27] VITALS: BP 120/66
[2017-06-27 04:00] VITALS: BP 153/69
[2017-06-27] MEDS: NITROGLYCERIN 2% OINT 1 GM UNIT DOSE PACKET TOP SCH ×4 (05:40→23:51)
[2017-06-27] MEDS: NS IV 1000 ML 1,000 ML IV SCH ×3 (05:40→20:41)
[2017-06-27] MEDS: HYDROcodone/APAP 5 MG/325 MG (LORTAB) TAB PO PRN ×2 (05:40→18:51)
[2017-06-27] MEDS: PANTOPRAZOLE 40 MG (PROTONIX) TAB PO SCH (05:41)
[2017-06-27 05:51] LABS: HEMOGLOBIN 9.2 G/DL (13.3-17.7); MEAN PLATELET VOLUME 9.4 FL (7.4-10.4); RED BLOOD COUNT 3.26 10^6/uL (4.35-5.85); RED CELL DISTRIBUTION WIDTH 13.4 % (10.0-14.5); WHITE BLOOD COUNT 3.5 10^3/uL (4.3-11.0)
[2017-06-27 06:07] LABS: BUN/CREATININE RATIO 21; CALCIUM 8.7 MG/DL (8.5-10.1); CARBON DIOXIDE 18 MMOL/L (21-32); CHLORIDE 113 MMOL/L (98-107); CREATININE SERUM 1.08 MG/DL (0.60-1.30); GFR ESTIMATED > 60; GLUCOSE 121 MG/DL (70-105); POTASSIUM 4.7 MMOL/L (3.6-5.0); SODIUM 143 MMOL/L (135-145)
--- NOTE | 2017-06-27 07:56 | Cardiology Progress Note ---
Subjective Date Seen by Provider: June 27, 2017 Time Seen by Provider: 07:49 Subjective/Events-last exam Patient is in bed, still having pain in his toe, no chest pain or shortness of breath Review of Systems General: No Chills, No Night Sweats, No Fatigue, No Malaise, No Appetite, No Other HEENT: No Head Aches, No Visual Changes, No Eye Pain, No Ear Pain, No Dysphasia , No Sinus Congestion, No Post Nasal Drip, No Sore Throat, No Other Pulmonary: No Dyspnea, No Cough, No Pleuritic Chest Pain, No Other Cardiovascular: No: Chest Pain, Palpitations, Orthopnea, Paroxysmal Noc. Dyspnea, Edema, Lt Headedness, Other Objective-Cardiology Exam Last Set of Vital Signs Vital Signs 06/27/17 06/27/17 04:00 07:00 Temp 97.3 Pulse 78 Resp 16 B/P (MAP) 153/69 (97) Pulse Ox 96 O2 Delivery Nasal Cannula O2 Flow Rate 0.50 Capillary Refill : Less Than 3 Seconds I&O Intake and Output 06/27/17 00:00 Intake Total 470 ml Output Total 750 ml Balance -280 ml Intake Oral 470 ml Output Urine Total 750 ml # Voids 4 General: Alert, Oriented X3, Cooperative, Mild Distress HEENT: Atraumatic, PERRLA Neck: Supple, No JVD, No Thyromegaly Lungs: Clear to Auscultation, Normal Air Movement Heart: Regular Rate, Normal S1, Normal S2, Other (sm @lsb) Abdomen: Normal Bowel Sounds, Soft, No Tenderness, No Hepatosplenomegaly, No Masses Extremities: No Clubbing, No Edema, Other (pain and gangrene on the left 1st toe) Skin: No Rashes, No Breakdown, No Significant Lesion Neuro: Normal Gait, Normal Speech, Strength at 5/5 X4 Ext, Normal Tone, Sensation Intact Psych/Mental Status: Mental Status NL, Mood NL Results Lab Laboratory Tests 06/27/17 05:37 A/P-Cardiology Admission Diagnosis PAD Ischemic foot HTN Hyperlipidemia Assessment/Plan Severe peripheral arterial disease with ischemic toe on the left side, underwent angiogram on June 06, 2017 showing total occlusion of the anterior tibial artery with successful balloon angioplasty with some improvement of the flow still had the sluggish flow. Has severe proximal stenosis at the posterior tibial artery that was treated medically, the distal SFA and popliteal artery has severe stenosis underwent drug-coated balloon angioplasty with good results. Initially reported improvement, however continues to have worsening of the ulcer and cyanosis of his first great toe. The third toe has improved significantly. Patient having increasing pain over the past week, angiogram showed worsening of the small vessels disease on the foot at the distal anterior tibial, the 1st toe is painful and have a small gangrene, the 2nd and 3ed toes are much better, had a long discussion with the patient and Dr Chowdhury and Dr Mora, the best option for him at this point is amputation, patient is becoming disabled with the pain Last angiogram was done on 06/26/17 Total occlusion of the anterior tibial artery at the midportion not amendable to intervention Moderate severe disease in multiple segment of the posterior tibial artery still providing excellent flow down to the toes Mild disease in the superficial femoral artery and popliteal artery Hypertension, restarted on home meds Hyperlipidemia, lipid profile was done in May 2017 showing total cholesterol 158, triglyceride 46, HDL 80, LDL 63. Continue to monitor History of back pain. History of prostatectomy secondary to prostate cancer History of bilateral foot surgery History of tobaccoism in the remote past, stopped smoking 22 years ago Preoperative cardiovascular evaluation, patient is considered at intermediate risk for perioperative cardiovascular complications, decision regarding the surgery, risks vs benefits is deferred to the surgeon. Clinical Quality Measures DVT/VTE Risk/Contraindication: Risk Factor Score Per Nursin RFS Level Per Nursing on Admit: 4+=Very High EVITA LONDON MD June 27, 2017 07:55
[2017-06-27 08:00] VITALS: BP 160/74
[2017-06-27] MEDS: HYDROCHLOROTHIAZIDE 25 MG (HCTZ) TAB PO SCH (08:06)
[2017-06-27] MEDS: amLODIPine 5 MG (NORVASC) TAB PO SCH (08:06)
--- NOTE | 2017-06-27 08:08 | Progress Note (SOAP) ---
Subjective Time Seen by Provider: 08:00 Subjective/Events-last exam Patient having pain in big toe. Patient to have toe amputated today. Patient wanting pain to go away Objective Exam Vital Signs Date Time Temp Pulse Resp B/P (MAP) Pulse Ox O2 Delivery O2 Flow Rate FiO2 06/27/17 07:00 78 06/27/17 04:00 97.3 89 16 153/69 (97) 96 Nasal Cannula 0.50 06/27/17 01:00 79 06/27/17 00:00 97.7 74 18 120/66 (84) 98 Nasal Cannula 0.50 06/26/17 23:05 75 16 120/67 (84) 96 Nasal Cannula 0.50 06/26/17 22:00 85 18 114/65 (81) 95 Nasal Cannula 0.50 06/26/17 21:00 79 18 104/54 (71) 97 Nasal Cannula 0.50 06/26/17 20:18 Nasal Cannula 0.50 06/26/17 20:00 97.8 83 16 132/72 (92) 95 Nasal Cannula 0.50 06/26/17 19:00 95 06/26/17 19:00 86 16 174/82 (112) 96 Nasal Cannula 0.50 06/26/17 18:28 81 16 166/72 (103) 96 Nasal Cannula 0.50 06/26/17 18:00 74 14 153/68 (96) 94 Nasal Cannula 0.50 06/26/17 17:30 78 13 136/82 (100) 95 Room Air 06/26/17 17:15 77 15 147/74 (98) 96 Nasal Cannula 2.00 06/26/17 17:00 89 23 166/96 (119) 93 Nasal Cannula 2.00 06/26/17 16:45 80 16 152/78 (102) 94 Nasal Cannula 2.00 06/26/17 16:30 97.5 80 16 163/83 (109) 91 Nasal Cannula 2.00 06/26/17 13:00 76 06/26/17 12:30 97.2 76 20 150/72 (98) 92 Room Air 06/26/17 08:30 97.1 76 18 176/77 (110) 94 Room Air I & O 06/27/17 07:00 Intake Total 720 ml Output Total 1450 ml Balance -730 ml Capillary Refill : Less Than 3 Seconds General Appearance: No Apparent Distress, WD/WN HEENT: Normal ENT Inspection Neck: Full Range of Motion, Normal Inspection Respiratory: Chest Non Tender, Lungs Clear, No Accessory Muscle Use, No Respiratory Distress Cardiovascular: Regular Rate, Rhythm, No Murmur Gastrointestinal: non tender, soft Results Lab Laboratory Tests 06/27/17 05:37 Laboratory Tests 06/27/17 05:37: White Blood Count 3.5L, Red Blood Count 3.26L, Hemoglobin 9.2L, Hematocrit 30L, Mean Corpuscular Volume 91, Mean Corpuscular Hemoglobin 28, Mean Corpuscular Hemoglobin Concent 31L, Red Cell Distribution Width 13.4, Platelet Count 303, Mean Platelet Volume 9.4, Sodium Level 143, Potassium Level 4.7, Chloride Level 113H, Carbon Dioxide Level 18L, Anion Gap 12, Blood Urea Nitrogen 23H, Creatinine 1.08, Estimat Glomerular Filtration Rate > 60, BUN/Creatinine Ratio 21, Glucose Level 121H, Calcium Level 8.7 Assessment/Plan Assessment/Plan Assess & Plan/Chief Complaint Peripheral artery disease. Ischemic big toe. Ischemic foot. Hypertension. Hyperlipidemia. Breaking out in groin is getting better. . 06/27/17. Ischemic toe. Peripheral artery disease. Patient having severe pain and once toe removed. Gangrene Clinical Quality Measures Admission Status Admission Dx Ischemic left big toe. Severe pain. Dermatitis in groin. History of wheezing. Hypertension DVT/VTE Risk/Contraindication: Risk Factor Score Per Nursin RFS Level Per Nursing on Admit: 4+=Very High ROSY CLANCY DO June 27, 2017 08:08
[2017-06-27] MEDS: POVIDONE (BETADINE) 10% SOLN 240 ML BTL TOP SCH (09:00)
[2017-06-27] MEDS: ASPIRIN E.C. 81 MG (ECOTRIN) TAB PO SCH (09:00)
[2017-06-27] MEDS: PENTOXIFYLLINE 400 MG (TRENtal) TAB PO SCH ×3 (09:00→20:42)
[2017-06-27] MEDS: CLOPIDOGREL 75 MG (PLAVIX) TABLET PO SCH (09:00)
--- NOTE | 2017-06-27 10:41 | Progress Note-Pre Operative ---
Pre-Operative Progress Note H&P Reviewed The H&P was reviewed, patient examined and no changes noted. Date Seen by Provider: June 27, 2017 Time Seen by Provider: 09:55 Date H&P Reviewed: June 26, 2017 Time H&P Reviewed: 10:41 Pre-Operative Diagnosis: Gangrenous left big toe JULISA FLORES MD June 27, 2017 10:41 am
--- NOTE | 2017-06-27 10:41 | Progress Note-Standard ---
Standard Progress Note Progress Notes/Assess & Plan Date Seen by Provider: June 27, 2017 Time Seen by Provider: 09:55 Progress/Assessment & Plan This gentleman has developed gangrenous left big toe despite revascularization using angioplasty. On examination, the plantar aspect of his left big toe is gangrenous and very sensitive. The skin over the base of the toe is well- perfused and therefore the risk of flap necrosis following amputation is very minimal. I've discussed the procedure details and is in agreement Final Diagnosis Gangrenous left big toe JLUISA FLORES MD June 27, 2017 10:41 am
[2017-06-27] MEDS ORDERED: ceFAZolin INJECTION 1,000 MG in NS (IVPB) 50 ML IV NR (10:45)
[2017-06-27] MEDS ORDERED: BUP/EPI 0.5% 1:200,000 (SENSORCAINE) 30 ML VIAL ONE (11:06)
[2017-06-27] MEDS: BETAMETHASONE/CLOTRIM CREAM (LOTRISONE) 45 GM TP SCH ×3 (11:13→20:41)
[2017-06-27] MEDS ORDERED: LACTATED RINGERS 1,000 ML IV PRN (11:29)
[2017-06-27] MEDS ORDERED: SEVOFLURANE (ULTANE) 15 ML INHAL SOLN ONE ×2 (12:25→12:57)
[2017-06-27] MEDS ORDERED: fentaNYL INJECTION 100 MCG/2 ML AMP ONE (12:25)
[2017-06-27] MEDS ORDERED: LIDOCAINE PF 2% 5 ML (XYLOCAINE) VIAL ONE (12:25)
[2017-06-27] MEDS ORDERED: proPOfol 200 MG/20 ML (DIPRIVAN) VIAL IV ONE (12:25)
[2017-06-27] MEDS ORDERED: MIDAZOLAM 2 MG/2 ML (VERSED) VIAL ONE (12:27)
[2017-06-27] MEDS ORDERED: DEXAMETHASONE 10 MG/ML (DECADRON) 1 ML VIAL ONE (12:57)
[2017-06-27] MEDS ORDERED: ONDANSETRON 4 MG/2 ML (SDV) Z0FRAN ONE (12:57)
--- NOTE | 2017-06-27 13:08 | Operative Report ---
Operative Report Date of Procedure/Surgery June 27, 2017 Surgeon (s) JULISA FLORES MD Family And Divorce Legal Assistant (s): N/A Post-Operative Diagnosis Gangrenous left big toe Procedure Performed Amputation of left big toe Description of Procedure Anesthesia Type: General Estimated blood loss (mL): Minimal Specimen(s) collected/removed gangrenous left toe Description of the Procedure Indication for the procedure: This gentleman presented with a gangrenous left big toe due to peripheral vascular disease. Following angioplasty, perfusion was restored, but the big toe was ischemic with severe symptoms. Therefore, it was felt reasonable to amputate it. Informed consent was obtained after reviewing the details of the procedure and highlighting the potential for flap necrosis and further surgery. Description of carol procedure: He was placed supine on the operative table and general anesthesia induced. A gram of Ancef was administered intravenously as prophylaxis against wound infection. Left foot was prepared and draped in the usual sterile manner. Pre-emptive analgesia was established using 0.5 percent Marcaine with epinephrine. An elliptical incision was made at the base of the ischemic toe, dissection being continued to the metatarsophalangeal joint. It was disarticulated at the MTP joint and the gangrenous toe removed. The flexor tendons were trimmed short and the area was irrigated with saline. The incision was closed using 3-0 Vicryl for the subcutaneous tissue and 4-0 Vicryl for skin, in a subcuticular fashion. Steri-Strips and and a nonadherent dressing were then applied. He tolerated the procedure well, was extubated in the operating room and taken to the recovery room in a stable condition. Findings of the Procedure see op report Allergies and Home Medications Allergies Coded Allergies: shellfish derived (Verified Allergy, Severe, HIVES/SWELLING, 06/25/17) Home Medications Albuterol Sulfate 1 Puff Puff, 2 PUFF IH QID PRN for SHORTNESS OF BREATH, ( Reported) Amlodipine Besylate 5 Mg Tablet, 5 MG PO DAILY, (Reported) Aspirin 81 Mg Tablet.dr, 81 MG PO DAILY, (Reported) Atorvastatin Calcium 10 Mg Tablet, 10 MG PO HS, (Reported) Clopidogrel Bisulfate 75 Mg Tablet, 75 MG PO DAILY, (Reported) Hydrochlorothiazide 12.5 Mg Capsule, 25 MG PO DAILY, (Reported) TAKES 2 (12.5MG) CAPSULES Hydrocodone/Acetaminophen 1 Each Tablet, 1 TAB PO TID PRN for PAIN-MODERATE, ( Reported) Pantoprazole Sodium 40 Mg Tablet.dr, 40 MG PO DAILY, (Reported) Pentoxifylline 400 Mg Tablet.er, 400 MG PO TID, (Reported) Patient Home Medication List Home Medication List Reviewed: JULISA Dhaliwal MD June 27, 2017 1:08 pm
--- NOTE | 2017-06-27 13:46 | Anesthesia-General Post-Op ---
General Patient Condition Mental Status/LOC: Same as Preop Cardiovascular: Satisfactory Nausea/Vomiting: Absent Respiratory: Satisfactory Pain: Controlled Complications: Absent Post Op Complications Complications None Follow Up Care/Instructions Patient Instructions None needed. Anesthesia/Patient Condition Patient Condition Patient is doing well, no complaints, stable vital signs, no apparent adverse anesthesia problems. No complications reported per nursing. CRIS DENNIS CRNA June 27, 2017 13:46
[2017-06-27 14:19] VITALS: BP 132/68
[2017-06-27 15:45] VITALS: BP 135/61
[2017-06-27 19:15] VITALS: BP 118/55
[2017-06-27] MEDS: ATORVASTATIN 10 MG (LIPITOR) TABLET PO SCH (20:42)
[2017-06-27] MEDS: HYDROcodone/APAP 10 MG/325 MG (LORTAB) TAB PO PRN (23:51)
[2017-06-28 00:33] VITALS: BP 127/60
[2017-06-28 04:22] VITALS: BP 131/65
[2017-06-28] MEDS: PANTOPRAZOLE 40 MG (PROTONIX) TAB PO SCH (05:10)
[2017-06-28] MEDS: NITROGLYCERIN 2% OINT 1 GM UNIT DOSE PACKET TOP SCH ×2 (05:10→13:00)
[2017-06-28 05:40] LABS: HEMOGLOBIN 8.3 G/DL (13.3-17.7); MEAN PLATELET VOLUME 9.3 FL (7.4-10.4); RED BLOOD COUNT 2.94 10^6/uL (4.35-5.85); RED CELL DISTRIBUTION WIDTH 13.1 % (10.0-14.5); WHITE BLOOD COUNT 7.5 10^3/uL (4.3-11.0)
[2017-06-28 06:05] LABS: BUN/CREATININE RATIO 23; CALCIUM 8.6 MG/DL (8.5-10.1); CARBON DIOXIDE 22 MMOL/L (21-32); CHLORIDE 111 MMOL/L (98-107); GFR ESTIMATED > 60; GLUCOSE 114 MG/DL (70-105); POTASSIUM 4.9 MMOL/L (3.6-5.0); SODIUM 141 MMOL/L (135-145)
[2017-06-28] MEDS: NS IV 1000 ML 1,000 ML IV SCH (06:55)
[2017-06-28 07:52] VITALS: BP 139/63
--- NOTE | 2017-06-28 08:17 | Progress Note (SOAP) ---
Subjective Time Seen by Provider: 08:15 Subjective/Events-last exam feeling better today. No pain when had amputated big toe. Patient had only 1 pain pill last night Objective Exam Vital Signs Date Time Temp Pulse Resp B/P (MAP) Pulse Ox O2 Delivery O2 Flow Rate FiO2 06/28/17 07:52 98.1 70 16 139/63 (88) 92 Room Air 06/28/17 04:22 97.7 81 18 131/65 (87) 94 Room Air 06/28/17 01:00 75 06/28/17 00:33 97.8 77 17 127/60 (82) 93 Room Air 06/27/17 19:15 97.5 75 18 118/55 (76) 93 Room Air 06/27/17 19:00 91 06/27/17 15:45 97.0 82 16 135/61 (85) 93 Room Air 06/27/17 14:19 96.3 79 18 132/68 (89) 92 Room Air I & O 06/28/17 07:00 Intake Total 1520 ml Output Total 700 ml Balance 820 ml Capillary Refill : Less Than 3 Seconds General Appearance: No Apparent Distress, WD/WN HEENT: Normal ENT Inspection Neck: Full Range of Motion, Normal Inspection Respiratory: Lungs Clear, No Accessory Muscle Use, No Respiratory Distress Cardiovascular: Regular Rate, Rhythm, No Murmur Gastrointestinal: non tender, soft Results Lab Laboratory Tests 06/28/17 05:30: White Blood Count 7.5, Red Blood Count 2.94L, Hemoglobin 8.3L, Hematocrit 27L, Mean Corpuscular Volume 92, Mean Corpuscular Hemoglobin 28, Mean Corpuscular Hemoglobin Concent 31L, Red Cell Distribution Width 13.1, Platelet Count 281, Mean Platelet Volume 9.3, Sodium Level 141, Potassium Level 4.9, Chloride Level 111H, Carbon Dioxide Level 22, Anion Gap 8, Blood Urea Nitrogen 23H, Creatinine 1.00, Estimat Glomerular Filtration Rate > 60, BUN/Creatinine Ratio 23, Glucose Level 114H, Calcium Level 8.6 Microbiology 06/26/17 MRSA Screen - Final, Complete MRSA not isolated Assessment/Plan Assessment/Plan Assess & Plan/Chief Complaint Peripheral artery disease. Ischemic big toe. Ischemic foot. Hypertension. Hyperlipidemia. Breaking out in groin is getting better. . 06/27/17. Ischemic toe. Peripheral artery disease. Patient having severe pain and once toe removed. Gangrene. . 06/28/17. Ischemically toe. Peripheral artery disease. No more pain. Gangrene. Patient feeling good today Clinical Quality Measures Admission Status Admission Dx Ischemic left big toe. Severe pain. Dermatitis in groin. History of wheezing. Hypertension DVT/VTE Risk/Contraindication: Risk Factor Score Per Nursin RFS Level Per Nursing on Admit: 4+=Very High ROSY CLANCY DO June 28, 2017 08:17
--- NOTE | 2017-06-28 08:21 | Cardiology Progress Note ---
Subjective Date Seen by Provider: June 28, 2017 Time Seen by Provider: 08:15 Subjective/Events-last exam Patient is sitting up in bed, no new complaint. Reports significant improvement in pain since undergoing toe amputation yesterday. Review of Systems General: No Night Sweats, No Fatigue, No Malaise HEENT: No Visual Changes, No Dysphasia Pulmonary: No Dyspnea, No Cough Cardiovascular: No: Chest Pain, Palpitations Gastrointestinal: No: Nausea, Vomiting, Abdominal Pain Genitourinary: No Dysuria, No Frequency Musculoskeletal: No: neck pain, back pain Neurological: No: Weakness, Numbness, Change in speech, Confusion Objective-Cardiology Exam Last Set of Vital Signs Vital Signs 06/27/17 06/28/17 04:00 07:52 Temp 98.1 Pulse 70 Resp 16 B/P (MAP) 139/63 (88) Pulse Ox 92 O2 Delivery Room Air O2 Flow Rate 0.50 Capillary Refill : Less Than 3 Seconds I&O Intake and Output 06/28/17 00:00 Intake Total 620 ml Output Total 1400 ml Balance -780 ml Intake Oral 570 ml IV Total 50 ml Output Urine Total 1400 ml # Voids 2 # Bowel Movements 1 General: Alert, Oriented X3, Cooperative, Mild Distress HEENT: Atraumatic, PERRLA Neck: Supple, No JVD, No Thyromegaly Lungs: Clear to Auscultation, Normal Air Movement Heart: Regular Rate, Normal S1, Normal S2, Other (systolic murmur at LSB) Abdomen: Normal Bowel Sounds, Soft, No Tenderness, No Hepatosplenomegaly, No Masses Extremities: No Clubbing, No Edema, Other (dressing to left foot C/D/I) Skin: No Rashes, No Breakdown, No Significant Lesion Neuro: Normal Gait, Normal Speech, Strength at 5/5 X4 Ext, Normal Tone, Sensation Intact Psych/Mental Status: Mental Status NL, Mood NL Results Lab Laboratory Tests 06/28/17 05:30 A/P-Cardiology Admission Diagnosis PAD Ischemic foot HTN Hyperlipidemia Assessment/Plan Severe peripheral arterial disease with ischemic toe on the left side, underwent angiogram on June 06, 2017 showing total occlusion of the anterior tibial artery with successful balloon angioplasty with some improvement of the flow still had the sluggish flow. Has severe proximal stenosis at the posterior tibial artery that was treated medically, the distal SFA and popliteal artery has severe stenosis underwent drug-coated balloon angioplasty with good results. Initially reported improvement, however continues to have worsening of the ulcer and cyanosis of his first great toe. The third toe has improved significantly. s/p Left great toe amputation done yesterday by Dr. Mora with improvement in his pain. Last angiogram was done on 06/26/17 Total occlusion of the anterior tibial artery at the midportion not amendable to intervention Moderate severe disease in multiple segment of the posterior tibial artery still providing excellent flow down to the toes Mild disease in the superficial femoral artery and popliteal artery s/p Left great toe amputation done 06/27/17. Hypertension, controlled. Continue to monitor BP/HR. Hyperlipidemia, lipid profile was done in May 2017 showing total cholesterol 158, triglyceride 46, HDL 80, LDL 63. Continue to monitor History of back pain. History of prostatectomy secondary to prostate cancer History of bilateral foot surgery History of tobaccoism in the remote past, stopped smoking 22 years ago OK for discharge from cardiology standpoint. Follow up in office in 1-2 weeks. Clinical Quality Measures DVT/VTE Risk/Contraindication: Risk Factor Score Per Nursin RFS Level Per Nursing on Admit: 4+=Very High SCOTT ESPINOZA June 28, 2017 08:21
--- NOTE | 2017-06-28 08:43 | Cardiology Progress Note ---
Subjective Date Seen by Provider: June 28, 2017 Time Seen by Provider: 08:41 Subjective/Events-last exam Patient is laying down in bed, feeling better, reporting that the pain is better. Had some bleeding from his wound site Review of Systems General: No Chills, No Night Sweats, No Fatigue, No Malaise, No Appetite, No Other HEENT: No Head Aches, No Visual Changes, No Eye Pain, No Ear Pain, No Dysphasia , No Sinus Congestion, No Post Nasal Drip, No Sore Throat, No Other Pulmonary: No Dyspnea, No Cough, No Pleuritic Chest Pain, No Other Cardiovascular: No: Chest Pain, Palpitations, Orthopnea, Paroxysmal Noc. Dyspnea, Edema, Lt Headedness, Other Objective-Cardiology Exam Last Set of Vital Signs Vital Signs 06/27/17 06/28/17 04:00 07:52 Temp 98.1 Pulse 70 Resp 16 B/P (MAP) 139/63 (88) Pulse Ox 92 O2 Delivery Room Air O2 Flow Rate 0.50 Capillary Refill : Less Than 3 Seconds I&O Intake and Output 06/28/17 00:00 Intake Total 620 ml Output Total 1400 ml Balance -780 ml Intake Oral 570 ml IV Total 50 ml Output Urine Total 1400 ml # Voids 2 # Bowel Movements 1 General: Alert, Oriented X3, Cooperative, Mild Distress HEENT: Atraumatic, PERRLA Neck: Supple, No JVD, No Thyromegaly Lungs: Clear to Auscultation, Normal Air Movement Heart: Regular Rate, Normal S1, Normal S2, Other (systolic murmur at LSB) Abdomen: Normal Bowel Sounds, Soft, No Tenderness, No Hepatosplenomegaly, No Masses Extremities: No Clubbing, No Edema, Other (dressing to left foot C/D/I) Skin: No Rashes, No Breakdown, No Significant Lesion Neuro: Normal Gait, Normal Speech, Strength at 5/5 X4 Ext, Normal Tone, Sensation Intact Psych/Mental Status: Mental Status NL, Mood NL Results Lab Laboratory Tests 06/28/17 05:30 A/P-Cardiology Admission Diagnosis PAD Ischemic foot HTN Hyperlipidemia Assessment/Plan Severe peripheral arterial disease with ischemic toe on the left side, underwent angiogram on June 06, 2017 showing total occlusion of the anterior tibial artery with successful balloon angioplasty with some improvement of the flow still had the sluggish flow. Has severe proximal stenosis at the posterior tibial artery that was treated medically, the distal SFA and popliteal artery has severe stenosis underwent drug-coated balloon angioplasty with good results. Initially reported improvement, however continues to have worsening of the ulcer and cyanosis of his first great toe. The third toe has improved significantly. s/p Left great toe amputation done yesterday by Dr. Mora with improvement in his pain. Last angiogram was done on 06/26/17 Total occlusion of the anterior tibial artery at the midportion not amendable to intervention Moderate severe disease in multiple segment of the posterior tibial artery still providing excellent flow down to the toes Mild disease in the superficial femoral artery and popliteal artery S/p Left great toe amputation done 06/27/17, had some bleeding from the wound site, maintained on aspirin and Plavix, may hold them if needed but overall having active bleeding is considered good sign about perfusion for that area. Hypertension, controlled. Continue to monitor BP/HR. Hyperlipidemia, lipid profile was done in May 2017 showing total cholesterol 158, triglyceride 46, HDL 80, LDL 63. Continue to monitor History of back pain. History of prostatectomy secondary to prostate cancer History of bilateral foot surgery History of tobaccoism in the remote past, stopped smoking 22 years ago OK for discharge from cardiology standpoint. Follow up in office in 1-2 weeks. Clinical Quality Measures DVT/VTE Risk/Contraindication: Risk Factor Score Per Nursin RFS Level Per Nursing on Admit: 4+=Very High EVITA LONDON MD June 28, 2017 08:43
[2017-06-28] MEDS ORDERED: MILK OF MAGNESIA 400 MG/5 ML 30 ML UDC ONE (10:21)
[2017-06-28] MEDS ORDERED: MILK OF MAGNESIA 400 MG/5 ML 30 ML UDC PO ONE (10:30)
[2017-06-28] MEDS: amLODIPine 5 MG (NORVASC) TAB PO SCH (10:32)
[2017-06-28] MEDS: HYDROCHLOROTHIAZIDE 25 MG (HCTZ) TAB PO SCH (10:32)
[2017-06-28] MEDS: PENTOXIFYLLINE 400 MG (TRENtal) TAB PO SCH (10:33)
[2017-06-28] MEDS: BETAMETHASONE/CLOTRIM CREAM (LOTRISONE) 45 GM TP SCH ×2 (10:33→13:07)
[2017-06-28] MEDS: ASPIRIN E.C. 81 MG (ECOTRIN) TAB PO SCH (10:34)
[2017-06-28] MEDS: CLOPIDOGREL 75 MG (PLAVIX) TABLET PO SCH (10:34)
[2017-06-28 11:31] VITALS: BP 148/65
--- NOTE | 2017-06-28 12:50 | Progress Note-Standard ---
Standard Progress Note Progress Notes/Assess & Plan Date Seen by Provider: June 28, 2017 Time Seen by Provider: 12:49 Progress/Assessment & Plan This gentleman has developed gangrenous left big toe despite revascularization using angioplasty. On examination, the plantar aspect of his left big toe is gangrenous and very sensitive. The skin over the base of the toe is well- perfused and therefore the risk of flap necrosis following amputation is very minimal. I've discussed the procedure details and is in agreement 06/28/17: Ischemic pain resolved. Home today Final Diagnosis Gangrenous left big toe JULISA FLORES MD June 28, 2017 12:50 pm
[2017-06-28] MEDS ORDERED: ACHD5005 PO (12:51)
--- NOTE | 2017-06-28 12:52 | Discharge Inst-Simple/Standard ---
Discharge Inst-Standard Discharge Medications New, Converted or Re-Newed RX: RX on Chart Patient Instructions/Follow Up Plan of Care/Instructions/FU: F/U with my nurse on Sunday, the Activity as Tolerated: Yes Discharge Diet: No Restrictions JULISA FLORES MD June 28, 2017 12:52 pm
[2017-06-28] MEDS: HYDROcodone/APAP 10 MG/325 MG (LORTAB) TAB PO PRN (13:35)
--- NOTE | 2017-07-03 07:22 | Discharge Summary ---
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 Severe pain. Hypertension. Dermatitis in groin. History of wheezing. Peripheral artery disease. Hyperlipidemia. Renal insufficiency. Anemia Reason Hospital Visit Severe pain in the left big toe. Patient had angiography done. Patient is seen wound care. Patient states she's not getting better and the pain in the toe is worse. Discharge Summary Procedures Surgical amputation of big toe Consultations Surgeon. Cardiology. Wound care Discharge Physical Examination Allergies: Coded Allergies: shellfish derived (Verified Allergy, Severe, HIVES/SWELLING, 06/25/17) Vitals & I&Os Vital Signs Date Time Temp Pulse Resp B/P (MAP) Pulse Ox O2 Delivery O2 Flow Rate FiO2 06/28/17 13:39 06/28/17 11:31 96.9 74 18 94 Room Air 06/27/17 04:00 0.50 Hospital Course Patient in hospital did well Labs (last 24 hrs) Laboratory Tests 06/25/17 15:25: White Blood Count 5.0, Red Blood Count 3.12L, Hemoglobin 8.8L, Hematocrit 29L, Mean Corpuscular Volume 92, Mean Corpuscular Hemoglobin 28, Mean Corpuscular Hemoglobin Concent 31L, Red Cell Distribution Width 13.5, Platelet Count 275, Mean Platelet Volume 9.0, Prothrombin Time 13.8, INR Comment 1.1, Activated Partial Thromboplast Time 30, Sodium Level 143, Potassium Level 4.6, Chloride Level 110H, Carbon Dioxide Level 24, Anion Gap 9, Blood Urea Nitrogen 34H, Creatinine 1.47H, Estimat Glomerular Filtration Rate 46, BUN/Creatinine Ratio 23 , Glucose Level 98, Calcium Level 8.8, Total Bilirubin 0.3, Aspartate Amino Transf (AST/SGOT) 14, Alanine Aminotransferase (ALT/SGPT) 8, Alkaline Phosphatase 69, Myoglobin 232.7H, Troponin I < 0.30, Total Protein 6.6, Albumin 3.5 06/26/17 05:09: White Blood Count 5.0, Red Blood Count 3.18L, Hemoglobin 9.0L, Hematocrit 29L, Mean Corpuscular Volume 92, Mean Corpuscular Hemoglobin 28, Mean Corpuscular Hemoglobin Concent 31L, Red Cell Distribution Width 13.3, Platelet Count 283, Mean Platelet Volume 9.6, Sodium Level 144, Potassium Level 4.7, Chloride Level 111H, Carbon Dioxide Level 21, Anion Gap 12, Blood Urea Nitrogen 29H, Creatinine 1.20, Estimat Glomerular Filtration Rate 58, BUN/Creatinine Ratio 24 , Glucose Level 110H, Calcium Level 8.9, Magnesium Level 2.2, Triglycerides Level 96, Cholesterol Level 148, LDL Cholesterol Direct 68, VLDL Cholesterol 19 , HDL Cholesterol 56 06/27/17 05:37: White Blood Count 3.5L, Red Blood Count 3.26L, Hemoglobin 9.2L, Hematocrit 30L, Mean Corpuscular Volume 91, Mean Corpuscular Hemoglobin 28, Mean Corpuscular Hemoglobin Concent 31L, Red Cell Distribution Width 13.4, Platelet Count 303, Mean Platelet Volume 9.4, Sodium Level 143, Potassium Level 4.7, Chloride Level 113H, Carbon Dioxide Level 18L, Anion Gap 12, Blood Urea Nitrogen 23H, Creatinine 1.08, Estimat Glomerular Filtration Rate > 60, BUN/Creatinine Ratio 21, Glucose Level 121H, Calcium Level 8.7 06/28/17 05:30: White Blood Count 7.5, Red Blood Count 2.94L, Hemoglobin 8.3L, Hematocrit 27L, Mean Corpuscular Volume 92, Mean Corpuscular Hemoglobin 28, Mean Corpuscular Hemoglobin Concent 31L, Red Cell Distribution Width 13.1, Platelet Count 281, Mean Platelet Volume 9.3, Sodium Level 141, Potassium Level 4.9, Chloride Level 111H, Carbon Dioxide Level 22, Anion Gap 8, Blood Urea Nitrogen 23H, Creatinine 1.00, Estimat Glomerular Filtration Rate > 60, BUN/Creatinine Ratio 23, Glucose Level 114H, Calcium Level 8.6 Microbiology 06/26/17 MRSA Screen - Final, Complete MRSA not isolated Laboratory Tests 06/25/17 15:25 06/26/17 05:09 06/27/17 05:37 06/28/17 05:30 Pending Labs Microbiology Date/Time Source Procedure Growth Status 06/26/17 11:03 Nasal MRSA Screen - Final MRSA not isolated Complete Laboratory Tests 06/25/17 15:25: White Blood Count 5.0, Red Blood Count 3.12, Hemoglobin 8.8, Hematocrit 29, Mean Corpuscular Volume 92, Mean Corpuscular Hemoglobin 28, Mean Corpuscular Hemoglobin Concent 31, Red Cell Distribution Width 13.5, Platelet Count 275, Mean Platelet Volume 9.0, Prothrombin Time 13.8, INR Comment 1.1, Activated Partial Thromboplast Time 30, Sodium Level 143, Potassium Level 4.6, Chloride Level 110, Carbon Dioxide Level 24, Anion Gap 9, Blood Urea Nitrogen 34, Creatinine 1.47, Estimat Glomerular Filtration Rate 46, BUN/Creatinine Ratio 23 , Glucose Level 98, Calcium Level 8.8, Total Bilirubin 0.3, Aspartate Amino Transf (AST/SGOT) 14, Alanine Aminotransferase (ALT/SGPT) 8, Alkaline Phosphatase 69, Myoglobin 232.7, Troponin I < 0.30, Total Protein 6.6, Albumin 3.5 06/26/17 05:09: White Blood Count 5.0, Red Blood Count 3.18, Hemoglobin 9.0, Hematocrit 29, Mean Corpuscular Volume 92, Mean Corpuscular Hemoglobin 28, Mean Corpuscular Hemoglobin Concent 31, Red Cell Distribution Width 13.3, Platelet Count 283, Mean Platelet Volume 9.6, Sodium Level 144, Potassium Level 4.7, Chloride Level 111, Carbon Dioxide Level 21, Anion Gap 12, Blood Urea Nitrogen 29, Creatinine 1.20, Estimat Glomerular Filtration Rate 58, BUN/Creatinine Ratio 24, Glucose Level 110, Calcium Level 8.9, Magnesium Level 2.2, Triglycerides Level 96, Cholesterol Level 148, LDL Cholesterol Direct 68, VLDL Cholesterol 19, HDL Cholesterol 56 06/27/17 05:37: White Blood Count 3.5, Red Blood Count 3.26, Hemoglobin 9.2, Hematocrit 30, Mean Corpuscular Volume 91, Mean Corpuscular Hemoglobin 28, Mean Corpuscular Hemoglobin Concent 31, Red Cell Distribution Width 13.4, Platelet Count 303, Mean Platelet Volume 9.4, Sodium Level 143, Potassium Level 4.7, Chloride Level 113, Carbon Dioxide Level 18, Anion Gap 12, Blood Urea Nitrogen 23, Creatinine 1.08, Estimat Glomerular Filtration Rate > 60, BUN/Creatinine Ratio 21, Glucose Level 121, Calcium Level 8.7 06/28/17 05:30: White Blood Count 7.5, Red Blood Count 2.94, Hemoglobin 8.3, Hematocrit 27, Mean Corpuscular Volume 92, Mean Corpuscular Hemoglobin 28, Mean Corpuscular Hemoglobin Concent 31, Red Cell Distribution Width 13.1, Platelet Count 281, Mean Platelet Volume 9.3, Sodium Level 141, Potassium Level 4.9, Chloride Level 111, Carbon Dioxide Level 22, Anion Gap 8, Blood Urea Nitrogen 23, Creatinine 1.00, Estimat Glomerular Filtration Rate > 60, BUN/Creatinine Ratio 23, Glucose Level 114, Calcium Level 8.6 Discharge Home Medications: Active Scripts Active Reported Aspirin EC (Aspirin) 81 Mg Tablet.dr 81 Mg PO DAILY Protonix (Pantoprazole Sodium) 40 Mg Tablet.dr 40 Mg PO DAILY Plavix (Clopidogrel Bisulfate) 75 Mg Tablet 75 Mg PO DAILY Atorvastatin Calcium 10 Mg Tablet 10 Mg PO HS Amlodipine Besylate 5 Mg Tablet 5 Mg PO DAILY Pentoxifylline 400 Mg Tablet.er 400 Mg PO TID Proair Hfa (Albuterol Sulfate) 1 Puff Puff 2 Puff IH QID PRN Hydrochlorothiazide 12.5 Mg Capsule 25 Mg PO DAILY TAKES 2 (12.5MG) CAPSULES Instructions to patient/family Please see electronic discharge instructions given to patient. Clinical Quality Measures DVT/VTE Risk/Contraindication: Risk Factor Score Per Nursin RFS Level Per Nursing on Admit: 4+=Very High ROSY CLANCY DO July 03, 2017 07:22
[2017-07-10] MEDS ORDERED: DOXY100C42 PO (08:01)
== END 2017-06-28 13:39 | disposition home or self-care (01) ==
LOC: CATH 14:00 → UNDOADMIN 14:00 → UNDOADMOB 14:00 → 4TH 14:00 → EDSTATUS 14:35 → UNDODISOB 06-28 13:39 → UNDODISIN 06-28 13:39 → CATH 06-28 13:39
PROVIDERS: ATTEND Internal Medicine Cardiovascular Disease
DX: I70.245 Atherosclerosis of native arteries of left leg with ulceration of other part of foot (principal); I70.262 Atherosclerosis of native arteries of extremities with gangrene, left leg; I10 Essential (primary) hypertension; E78.5 Hyperlipidemia, unspecified; J45.909 Unspecified asthma, uncomplicated; L30.9 Dermatitis, unspecified; M19.91 Primary osteoarthritis, unspecified site; H91.90 Unspecified hearing loss, unspecified ear; Z87.891 Personal history of nicotine dependence; Z85.46 Personal history of malignant neoplasm of prostate; Z90.79 Acquired absence of other genital organ(s); Z87.19 Personal history of other diseases of the digestive system
CPT/HCPCS: 36248; 36415; 80048; 80053; 80061; 83735; 83874; 84484; 85027; 85610; 85730; 87081; 88305; 88311; 93306; G0378

== ENCOUNTER 2017-07-02 05:18 | Inpatient (IN) | payer MEDICARE ==
[~2017-07-02] VITALS: Ht 167.6 cm; Wt 77.1 kg
[~2017-07-02 05:18] MED LIST changes: +ACHD5005 PO; +CLOP75TA69 PO; +HYDR-3812 PO; +PANT40TA2 PO
[2017-07-02] MEDS ORDERED: LACTATED RINGERS 1,000 ML IV ONE (05:21)
[2017-07-02] MEDS ORDERED: fentaNYL INJECTION 100 MCG/2 ML AMP IVP STA (05:21)
[2017-07-02 05:43] LABS: BASOPHILS % (AUTO) 0 % (0-10); EOSINOPHILS # (AUTO) 0.2 10^3/uL (0.0-0.3); EOSINOPHILS % (AUTO) 2 % (0-10); HEMATOCRIT 28 % (40-54); HEMOGLOBIN 8.6 G/DL (13.3-17.7); LYMPHOCYTES # (AUTO) 1.3 X 10^3 (1.0-4.0); LYMPHOCYTES % (AUTO) 13 % (12-44); MEAN CORPUSCULAR HEMOGLOBIN 28 PG (25-34); MEAN CORPUSCULAR HGB CONC 31 G/DL (32-36); MEAN CORPUSCULAR VOLUME 89 FL (80-99); MEAN PLATELET VOLUME 9.9 FL (7.4-10.4); MONOCYTES # (AUTO) 1.2 X 10^3 (0.0-1.0); MONOCYTES % (AUTO) 13 % (0-12); NEUTROPHILS # (AUTO) 7.1 X 10^3 (1.8-7.8); NEUTROPHILS % (AUTO) 72 % (42-75); PLATELET COUNT 269 10^3/uL (130-400); RED BLOOD COUNT 3.13 10^6/uL (4.35-5.85); RED CELL DISTRIBUTION WIDTH 13.3 % (10.0-14.5); WHITE BLOOD COUNT 9.8 10^3/uL (4.3-11.0)
--- NOTE | 2017-07-02 05:55 | ED Lower Extremity ---
General Chief Complaint: Lower Extremity Stated Complaint: POST AMPUTATION L GREAT TOE/PAIN/REDNESS Source: patient, spouse History of Present Illness Date Seen by Provider: July 02, 2017 Time Seen by Provider: 05:20 Initial Comments PT ARRIVES VIA EMS FROM HOME PT HAD LEFT GREAT TOE AMPUTATED BY DR. FLORES ON 06/25/17. DISMISSED FROM HOSPITAL ON 06/28/17--PRIOR TO THAT, PT WAS ADMITTED 06/06-06/08 FOR ISCHEMIC FOOT AND UNDERWENT BALLOON ANGIOPLASTY OF LEFT LEG PT HAS NOT BEEN OUT OF BED FOR OVER 2 DAYS C/O GENERALIZED WEAKNESS C/O NO APPETITE, ONLY INTAKE YESTERDAY WAS A LITTLE OATMEAL "HAS BEEN URINATING ALL NIGHT" PER PT C/O PAIN TO TOE --WAS SUPPOSED TO HAVE A NURSE VISIT TODAY AT DR. FLORES' OFFICE FOR DRESSING CHANGE, BUT CAME HERE INSTEAD PT/ HAVE NOT REMOVED DRESSING SINCE HE WAS DISMISSED TO HOME DRESSING HAD SOAKED THROUGH WITH BLOOD DENIES ANY INJURY TO AREA SINCE HE GOT HOME PT HAS HAD SUBJECTIVE FEVER AND CHILLS TOOK HYDROCODONE AT 0330 FOR PAIN --NO RELIEF PT IS NOT CURRENTLY ON ANTIBIOTICS Allergies and Home Medications Allergies Coded Allergies: shellfish derived (Verified Allergy, Severe, HIVES/SWELLING, 06/25/17) Home Medications Albuterol Sulfate 1 Puff Puff, 2 PUFF IH QID PRN for SHORTNESS OF BREATH, ( Reported) Amlodipine Besylate 5 Mg Tablet, 5 MG PO DAILY, (Reported) Aspirin 81 Mg Tablet.dr, 81 MG PO DAILY, (Reported) Atorvastatin Calcium 10 Mg Tablet, 10 MG PO HS, (Reported) Clopidogrel Bisulfate 75 Mg Tablet, 75 MG PO DAILY, (Reported) Hydrochlorothiazide 12.5 Mg Capsule, 25 MG PO DAILY, (Reported) TAKES 2 (12.5MG) CAPSULES Hydrocodone Bit/Acetaminophen 1 Tab Tab, 1-2 TAB PO 4-6HR PRN for PAIN Prescribed by: JULISA FLORES on 06/28/17 1251 Hydrocodone/Acetaminophen 1 Each Tablet, 1 TAB PO TID PRN for PAIN-MODERATE, ( Reported) Pantoprazole Sodium 40 Mg Tablet.dr, 40 MG PO DAILY, (Reported) Pentoxifylline 400 Mg Tablet.er, 400 MG PO TID, (Reported) Patient Home Medication List Home Medication List Reviewed: Yes Constitutional: see HPI, chills, fever, malaise, weakness Respiratory: no symptoms reported; No cough, No short of breath Cardiovascular: no symptoms reported Gastrointestinal: see HPI, loss of appetite Musculoskeletal: see HPI Skin: no symptoms reported Psychiatric/Neurological: No Symptoms Reported Past Zfrcoco-Airzaw-Vuoqty Hx Patient Social History Alcohol Use: Regular Use Alcohol Beverage of Choice: Whiskey, [place] Recreational Drug Use: No Smoking Status: Former Smoker Type Used: Cigarettes Former Smoker, Quit: Jun 05, 1992 2nd Hand Smoke Exposure: No Recent Hopitalizations: Yes Immunizations Up To Date PED Vaccines UTD: No Date of Pneumonia Vaccine: Nov 16, 2015 Date of Influenza Vaccine: Nov 15, 2015 Seasonal Allergies Seasonal Allergies: No Past Medical History Surgeries: Yes (LEFT GREAT TOE AMPUTATION 06/27/17-DR. FLORES; BILATERAL FOOT SURGERY-LEFT 5TH METATARSAL WITH HARDWARE; ANGIOPLASTY OF LEFT LEG 06/06/17 ) Amputation, Appendectomy, Orthopedic, Prostatectomy Respiratory: No (USES INHALER, BUT UNSURE WHY) Currently Using CPAP: No Currently Using BIPAP: No Cardiac: Yes (SEVERE PAD--ESPECIALLY LEFT LEG--ISCHEMIC FOOT-S/P LEFT LEG ANGIOPLASTY AND GREAT TOE AMPUTATION ) High Cholesterol, Hypertension, Peripheral Vascular Neurological: No Reproductive Disorders: No Genitourinary: Yes Prostate Problems Gastrointestinal: Yes (diverticulitis ) Diverticulosis Musculoskeletal: Yes (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) Arthritis Endocrine: No HEENT: Yes Hearing Impairment: Hard of Hearing Cancer: Yes Prostate Did You Recieve Any Treatments: Yes What Type of Treatment Did You: Surgical Intervention Psychosocial: No Integumentary: Yes Recent Skin Changes Blood Disorders: No Family Medical History Completed stroke G8 SISTER Diabetes mellitus 19 MOTHER FH: prostate cancer 19 FATHER No Pertinent Family Hx Physical Exam Vital Signs Capillary Refill : General Appearance: WD/WN, no apparent distress Neck: normal inspection Cardiovascular: regular rate, rhythm, no murmur Respiratory: normal breath sounds, no respiratory distress, no accessory muscle use Gastrointestinal: soft Feet: left foot other (LEFT GREAT TOE AMPUTATION SITE--SLIGHT OOZING OF BLOOD FROM SURGICAL SITE. SURROUNDING AREA WITH MILD ERYTHEMA AND WARMTH AND MILD INDURATION. NO AREAS OF FLUCTUANCE. NO STREAKS. OTHER TOES ARM PINK AND WARM. 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, no motor/sensory deficits, alert, normal mood/affect, oriented x 3 Skin: normal color, warm/dry Progress/Results/Core Measures Results/Orders Lab Results Laboratory Tests Test 07/02/17 05:34 Range/Units White Blood Count 9.8 4.3-11.0 10^3/uL Red Blood Count 3.13 L 4.35-5.85 10^6/uL Hemoglobin 8.6 L 13.3-17.7 G/DL Hematocrit 28 L 40-54 % Mean Corpuscular Volume 89 80-99 FL Mean Corpuscular Hemoglobin 28 25-34 PG Mean Corpuscular Hemoglobin Concent 31 L 32-36 G/DL Red Cell Distribution Width 13.3 10.0-14.5 % Platelet Count 269 130-400 10^3/uL Mean Platelet Volume 9.9 7.4-10.4 FL Neutrophils (%) (Auto) 72 42-75 % Lymphocytes (%) (Auto) 13 12-44 % Monocytes (%) (Auto) 13 H 0-12 % Eosinophils (%) (Auto) 2 0-10 % Basophils (%) (Auto) 0 0-10 % Neutrophils # (Auto) 7.1 1.8-7.8 X 10^3 Lymphocytes # (Auto) 1.3 1.0-4.0 X 10^3 Monocytes # (Auto) 1.2 H 0.0-1.0 X 10^3 Eosinophils # (Auto) 0.2 0.0-0.3 10^3/uL Basophils # (Auto) 0.0 0.0-0.1 10^3/uL Sodium Level 137 135-145 MMOL/L Potassium Level 4.0 3.6-5.0 MMOL/L Chloride Level 104 98-107 MMOL/L Carbon Dioxide Level 21 21-32 MMOL/L Anion Gap 12 5-14 MMOL/L Blood Urea Nitrogen 20 H 7-18 MG/DL Creatinine 1.06 0.60-1.30 MG/DL Estimat Glomerular Filtration Rate > 60 BUN/Creatinine Ratio 19 Glucose Level 105 70-105 MG/DL Lactic Acid Level 0.82 0.50-2.00 MMOL/L Calcium Level 9.0 8.5-10.1 MG/DL Total Bilirubin 0.7 0.1-1.0 MG/DL Aspartate Amino Transf (AST/SGOT) 16 5-34 U/L Alanine Aminotransferase (ALT/SGPT) 7 0-55 U/L Alkaline Phosphatase 70 40-136 U/L Total Protein 6.5 6.4-8.2 GM/DL Albumin 3.5 3.2-4.5 GM/DL My Orders Orders - VIKI LESLIE DO Saline Lock/Iv-Start (07/02/17 05:21) Cbc With Automated Diff (07/02/17 05:21) Comprehensive Metabolic Panel (07/02/17 05:21) Lactic Acid Analyzer (07/02/17 05:21) Ua Culture If Indicated (07/02/17 05:21) Blood Culture (07/02/17 05:21) Wound Culture (07/02/17 05:21) Foot, Left, 3 Views (07/02/17 05:21) Saline Lock/Iv-Start (07/02/17 05:21) Lactated Ringers (Lr 1000 Ml Iv Solution (07/02/17 05:21) Fentanyl Injection (Sublimaze Injection (07/02/17 05:21) Medications Given in ED Current Medications Medications Dose Ordered Sig/Zoey Route Start Time Stop Time Status Last Admin Dose Admin Lactated Ringer's 1,000 ml @ 0 mls/hr Q0M ONCE IV 07/02/17 05:21 07/02/17 05:31 DC 07/02/17 05:46 0 MLS/HR Progress Progress Note : Progress Note PAIN RELIEVED WITH FENTANYL Diagnostic Imaging Comments XRAYS LEFT FOOT--POST SURGICAL CHANGES, NO ACUTE PROCESS--PENDING RADIOLOGIST REVIEW Reviewed: Reviewed by Me Departure Communication (Admissions) [id number]--SPOKE WITH DR. FLORES, ADVISES ADMIT TO PCP AND HE WILL SEE PT IN CONSULT. ADVISES TO START [facility]OS[facility] [id number]--SPOKE WITH DR. CLANCY, ACCEPTS PT FOR ADMIT Impression Primary Impression: POST OP WOUND INFECTION LEFT FOOT Additional Impressions: INTRACTABLE POST OP PAIN Anemia Mild dehydration Disposition: ADMITTED INPATIENT Condition: Improved Admissions Decision to Admit Reason: Admit from ER (General) Decision to Admit/Date: July 02, 2017 Time/Decision to Admit Time: 06:10 Departure-Patient Inst. Referrals: ROSY CLANCY DO (PCP/Family) Primary Care Physician VIKI LESLIE DO July 02, 2017 05:55
[2017-07-02 06:03] LABS: ALANINE AMINOTRANSFERASE 7 U/L (0-55); ALBUMIN 3.5 GM/DL (3.2-4.5); ALKALINE PHOSPHATASE 70 U/L (40-136); BILIRUBIN,TOTAL 0.7 MG/DL (0.1-1.0); BUN/CREATININE RATIO 19; CARBON DIOXIDE 21 MMOL/L (21-32); CHLORIDE 104 MMOL/L (98-107); CREATININE SERUM 1.06 MG/DL (0.60-1.30); GFR ESTIMATED > 60; GLUCOSE 105 MG/DL (70-105); SODIUM 137 MMOL/L (135-145); TOTAL PROTEIN 6.5 GM/DL (6.4-8.2)
[2017-07-02] MEDS ORDERED: PIPERACILLIN/TAZO 4.5 GM VIAL (ZOSYN) IV ONE (06:20)
[2017-07-02] MEDS ORDERED: D5W 100 ML IVPB 100 ML IV ONE (06:20)
[2017-07-02] MEDS ORDERED: PIPERACILLIN SODIUM/TAZOBACTAM 4.5 GM in D5W 100 ML IVPB 100 ML IV ONE (06:30)
--- NOTE | 2017-07-02 06:44 | Diagnostic Imaging Report ---
Indication: Recent amputation with wound drainage. Comparison: 06/20/2017 Findings: Three views of the left foot are obtained. There is mild generalized osteopenia. There are new postoperative findings of amputation of the first toe at the level of the metatarsophalangeal joint. There is some mild osseous fragmentation along the medial distal aspect of the first metatarsal head which is new. This may be postoperative. No underlying destructive process is seen at the first metatarsal head to suggest osteomyelitis at this time although plain radiographs are insensitive to early osteomyelitis. Postoperative changes of the distal fifth metatarsal are unchanged. Degenerative changes are stable. Impression: There is new amputation of the first toe at the level of the metatarsophalangeal joint as described. There is no convincing evidence of osteomyelitis at this time however plain radiographs are insensitive to early osteomyelitis and if clinical concern persists MRI or three-phase bone scan may be of additional benefit. Otherwise stable foot. Dictated by: Dictated on workstation # [id number]
[2017-07-02 07:16] LABS: BILIRUBIN,URINE NEGATIVE (NEGATIVE); CLARITY,URINE CLEAR; COLOR,URINE YELLOW; GLUCOSE, URINE (UA) NEGATIVE (NEGATIVE); KETONES,URINE NEGATIVE (NEGATIVE); LEUKOCYTE ESTERASE ,URINE NEGATIVE (NEGATIVE); NITRITE,URINE NEGATIVE (NEGATIVE); PH,URINE 7 (5-9); PROTEIN,URINE NEGATIVE (NEGATIVE); UROBILINOGEN,URINE NORMAL (NORMAL)
[2017-07-02 07:25] LABS: BACTERIA,URINE NEGATIVE /HPF
[2017-07-02 08:00] VITALS: BP 155/67
[2017-07-02] MEDS: fentaNYL INJECTION 100 MCG/2 ML AMP IV PRN ×3 (08:20→19:37)
[2017-07-02] MEDS: D5 1/2 NS 1000 ML IV SOLUTION 1,000 ML IV SCH ×2 (08:20→17:50)
--- NOTE | 2017-07-02 08:47 | History & Physicial ---
History of Present Illness History of Present Illness Reason for visit/HPI Patient came to the hospital by ambulance. Patient weak. Patient yesterday in bed all day. Patient had to call neighbor across the street to help him twice to get out of bed. Patient not eating much. Last week patient had amputation of the big toe. Has redness around amputated digit. Patient admitted Date of Admission July 02, 2017 at 06:10 Time Seen by Provider: 08:45 I consulted on this patient on 07/02/17 08:43 Attending Physician Lucas Clancy DO Admitting Physician Lucas Clancy DO Consult Allergies and Home Medications Allergies Coded Allergies: shellfish derived (Verified Allergy, Severe, HIVES/SWELLING, 06/25/17) Home Medications Albuterol Sulfate 1 Puff Puff, 2 PUFF IH QID PRN for SHORTNESS OF BREATH, ( Reported) Amlodipine Besylate 5 Mg Tablet, 5 MG PO DAILY, (Reported) Aspirin 81 Mg Tablet.dr, 81 MG PO DAILY, (Reported) Atorvastatin Calcium 10 Mg Tablet, 10 MG PO HS, (Reported) Clopidogrel Bisulfate 75 Mg Tablet, 75 MG PO DAILY, (Reported) Hydrochlorothiazide 12.5 Mg Capsule, 25 MG PO DAILY, (Reported) TAKES 2 (12.5MG) CAPSULES Hydrocodone Bit/Acetaminophen 1 Tab Tab, 1-2 TAB PO 4-6HR PRN for PAIN Prescribed by: JULISA FLORES on 06/28/17 1251 Hydrocodone/Acetaminophen 1 Each Tablet, 1 TAB PO TID PRN for PAIN-MODERATE, ( Reported) Pantoprazole Sodium 40 Mg Tablet.dr, 40 MG PO DAILY, (Reported) Pentoxifylline 400 Mg Tablet.er, 400 MG PO TID, (Reported) Patient Home Medication List Home Medication List Reviewed: No Past Vtzmywp-Ymfimf-Rvalor Hx Patient Social History Alcohol Use: Regular Use Number of Drinks Today: GG Alcohol Beverage of Choice: Whiskey, [place] Recreational Drug Use: No Smoking Status: Former Smoker Former Smoker, Quit: Jun 05, 1992 Type Used: Cigarettes 2nd Hand Smoke Exposure: No Recent Foreign Travel: No Contact w/other who traveled: No Recent Hopitalizations: Yes Recent Infectious Disease Expo: No Immunizations Up To Date Pediatric: No Date of Pneumonia Vaccine: Nov 16, 2015 Date of Influenza Vaccine: Nov 15, 2015 Seasonal Allergies Seasonal Allergies: No Surgeries Yes (LEFT GREAT TOE AMPUTATION 06/27/17-DR. FLORES; BILATERAL FOOT SURGERY- LEFT 5TH METATARSAL WITH HARDWARE; ANGIOPLASTY OF LEFT LEG 06/06/17 ) Amputation, Appendectomy, Orthopedic, Prostatectomy Respiratory No (USES INHALER, BUT UNSURE WHY) Asthma Currently Using CPAP: No Currently Using BIPAP: No Cardiovascular Yes (SEVERE PAD--ESPECIALLY LEFT LEG--ISCHEMIC FOOT-S/P LEFT LEG ANGIOPLASTY AND GREAT TOE AMPUTATION ) High Cholesterol, Hypertension, Peripheral Vascular Neurological No Reproductive System Hx Reproductive Disorders: No Genitourinary Yes Prostate Problems Gastrointestinal Yes (diverticulitis ) Diverticulosis Musculoskeletal Yes (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) Arthritis Endocrine History of Endocrine Disorders: No HEENT History of HEENT Disorders: Yes Hearing Impairment: Hard of Hearing Cancer Yes Prostate Did You Recieve Any Treatments: Yes Type of Treatment: Surgical Intervention Psychosocial History of Psychiatric Problem: No Integumentary History of Skin or Integumenta: Yes Skin/Integumentary Disorders: Recent Skin Changes Blood Transfusions History of Blood Disorders: No Family Medical History Significant Family History: No Pertinent Family Hx Family Hx: Completed stroke G8 SISTER Diabetes mellitus 19 MOTHER FH: prostate cancer 19 FATHER Constitutional: malaise, weakness EENTM: no symptoms reported Respiratory: no symptoms reported Cardiovascular: no symptoms reported Gastrointestinal: no symptoms reported Genitourinary: no symptoms reported Physical Exam Vital Signs Vital Signs - First Documented 07/02/17 06:15 Temp 97.4 Pulse 89 Resp 14 B/P (MAP) 147/68 (94) Pulse Ox 93 O2 Delivery Room Air Capillary Refill : Less Than 3 Seconds General Appearance: No Apparent Distress, WD/WN Eyes: Bilateral Eye Normal Inspection HEENT: Normal ENT Inspection Neck: Full Range of Motion, Normal Inspection Respiratory: Chest Non Tender, Lungs Clear, No Accessory Muscle Use, No Respiratory Distress Cardiovascular: Regular Rate, Rhythm, No Murmur Gastrointestinal: Non Tender, Soft Assessment/Plan Assessment and Plan Postop wound infected left big toe area. Intractable pain postop. Anemia. Mild dehydration Admission Diagnosis Admission Status: Observation Reason for Inpatient Admission: Cellulitis. Anemia. Mild dehydration. Weakness LUCAS CLANCY DO July 02, 2017 08:47
[2017-07-02 11:33] VITALS: BP 127/73
[2017-07-02] MEDS ORDERED: RT-ALBUTEROL SULF 2.5 MG/3 ML PRE-MIX VIAL IH PRN (11:45)
[2017-07-02] MEDS: PIPERACILLIN/TAZO 4.5 GM/D5W 100 ML IVPB IV SCH ×4 (12:47→21:14)
[2017-07-02 15:30] VITALS: BP 139/63
--- NOTE | 2017-07-02 15:56 | Physical Therapy Progress Note ---
Therapy Progress Note Attempted PT visit. Pt reports he just got back in bed as he walked with the Dr and the nurse. Reported he preferred to wait until tomorrow to get up again. Will re check tomorrow. RACHELLE FARIAS PT July 02, 2017 15:56
[2017-07-02] MEDS: PENTOXIFYLLINE 400 MG (TRENtal) TAB PO SCH ×2 (16:14→21:14)
[2017-07-02] MEDS: FERROUS SULF 325 MG (IRON) TAB PO SCH (16:16)
[2017-07-02] MEDS: HYDROcodone/APAP 5 MG/325 MG (LORTAB) TAB PO PRN ×2 (16:16→21:16)
[2017-07-02 19:10] VITALS: BP 118/56
[2017-07-02] MEDS: ATORVASTATIN 10 MG (LIPITOR) TABLET PO SCH (21:15)
[2017-07-03] VITALS (9 sets, daily range): BP systolic 100–128; BP diastolic 52–70
[2017-07-03] MEDS: D5 1/2 NS 1000 ML IV SOLUTION 1,000 ML IV SCH ×2 (03:48→11:02)
[2017-07-03] MEDS: PIPERACILLIN/TAZO 4.5 GM/D5W 100 ML IVPB IV SCH ×2 (04:35)
[2017-07-03] MEDS: HYDROcodone/APAP 5 MG/325 MG (LORTAB) TAB PO PRN ×4 (04:42→17:36)
[2017-07-03 04:48] LABS: BASOPHILS % (AUTO) 0 % (0-10); EOSINOPHILS # (AUTO) 0.4 10^3/uL (0.0-0.3); EOSINOPHILS % (AUTO) 5 % (0-10); HEMATOCRIT 24 % (40-54); HEMOGLOBIN 7.4 G/DL (13.3-17.7); LYMPHOCYTES # (AUTO) 1.2 X 10^3 (1.0-4.0); LYMPHOCYTES % (AUTO) 15 % (12-44); MEAN CORPUSCULAR HEMOGLOBIN 28 PG (25-34); MEAN CORPUSCULAR HGB CONC 31 G/DL (32-36); MEAN CORPUSCULAR VOLUME 90 FL (80-99); MEAN PLATELET VOLUME 10.2 FL (7.4-10.4); MONOCYTES # (AUTO) 1.2 X 10^3 (0.0-1.0); MONOCYTES % (AUTO) 16 % (0-12); NEUTROPHILS # (AUTO) 5.1 X 10^3 (1.8-7.8); NEUTROPHILS % (AUTO) 64 % (42-75); PLATELET COUNT 242 10^3/uL (130-400); RED BLOOD COUNT 2.68 10^6/uL (4.35-5.85); RED CELL DISTRIBUTION WIDTH 13.6 % (10.0-14.5); WHITE BLOOD COUNT 7.9 10^3/uL (4.3-11.0)
[2017-07-03 05:12] LABS: ALANINE AMINOTRANSFERASE 7 U/L (0-55); ALBUMIN 2.9 GM/DL (3.2-4.5); ALKALINE PHOSPHATASE 55 U/L (40-136); BILIRUBIN,TOTAL 0.4 MG/DL (0.1-1.0); BUN/CREATININE RATIO 14; CALCIUM 8.3 MG/DL (8.5-10.1); CARBON DIOXIDE 23 MMOL/L (21-32); CHLORIDE 108 MMOL/L (98-107); CREATININE SERUM 1.14 MG/DL (0.60-1.30); GFR ESTIMATED > 60; GLUCOSE 128 MG/DL (70-105); POTASSIUM 3.6 MMOL/L (3.6-5.0); SODIUM 141 MMOL/L (135-145); TOTAL PROTEIN 5.6 GM/DL (6.4-8.2)
[2017-07-03] MEDS: FERROUS SULF 325 MG (IRON) TAB PO SCH ×2 (06:21→17:33)
--- NOTE | 2017-07-03 08:13 | Progress Note (SOAP) ---
Subjective Time Seen by Provider: 08:10 Subjective/Events-last exam Patient feeling better today. Blood cultures came back positive MRSA to put on vancomycin. Patient more anemic. To give 1 unit of blood. Focused Exam Lactate Level 07/02/17 05:34: Lactic Acid Level 0.82 Objective Exam Vital Signs Date Time Temp Pulse Resp B/P (MAP) Pulse Ox O2 Delivery O2 Flow Rate FiO2 07/03/17 07:46 92 Nasal Cannula 2.00 07/03/17 04:00 97.8 76 16 107/53 (71) 92 Room Air 07/03/17 00:00 97.6 76 17 100/52 (68) 92 Room Air 07/02/17 20:50 92 Room Air 07/02/17 19:10 98.2 90 18 118/56 (76) 91 Room Air 07/02/17 15:30 99.8 85 18 139/63 (88) 95 Room Air 07/02/17 11:33 98.9 80 18 127/73 (91) 94 Room Air I & O 07/03/17 07:00 Intake Total 2180 ml Output Total 1300 ml Balance 880 ml Capillary Refill : Less Than 3 Seconds General Appearance: No Apparent Distress, WD/WN HEENT: Normal ENT Inspection Neck: Full Range of Motion, Normal Inspection Respiratory: No Accessory Muscle Use, No Respiratory Distress Cardiovascular: Regular Rate, Rhythm, No Murmur Gastrointestinal: non tender, soft Results Lab Laboratory Tests 07/03/17 03:35 Laboratory Tests 07/03/17 03:35: White Blood Count 7.9, Red Blood Count 2.68L, Hemoglobin 7.4L, Hematocrit 24L, Mean Corpuscular Volume 90, Mean Corpuscular Hemoglobin 28, Mean Corpuscular Hemoglobin Concent 31L, Red Cell Distribution Width 13.6, Platelet Count 242, Mean Platelet Volume 10.2, Neutrophils (%) (Auto) 64, Lymphocytes (%) (Auto) 15 , Monocytes (%) (Auto) 16H, Eosinophils (%) (Auto) 5, Basophils (%) (Auto) 0, Neutrophils # (Auto) 5.1, Lymphocytes # (Auto) 1.2, Monocytes # (Auto) 1.2H, Eosinophils # (Auto) 0.4H, Basophils # (Auto) 0.0, Sodium Level 141, Potassium Level 3.6, Chloride Level 108H, Carbon Dioxide Level 23, Anion Gap 10, Blood Urea Nitrogen 16, Creatinine 1.14, Estimat Glomerular Filtration Rate > 60, BUN/ Creatinine Ratio 14, Glucose Level 128H, Calcium Level 8.3L, Total Bilirubin 0.4 , Aspartate Amino Transf (AST/SGOT) 10, Alanine Aminotransferase (ALT/SGPT) 7, Alkaline Phosphatase 55, Total Protein 5.6L, Albumin 2.9L Microbiology 07/02/17 Blood Culture - Preliminary, Resulted No growth 07/02/17 Gram Stain - Final, Resulted 07/02/17 Wound Culture - Preliminary, Resulted Staphylococcus aureus Assessment/Plan Assessment/Plan Assess & Plan/Chief Complaint Cellulitis of amputated toe. MRSA positive. Patient anemic. Patient feeling good. Patient put on vancomycin. Patient be given a unit of blood Clinical Quality Measures Admission Status Admission Dx Postop wound infected left big toe area. Intractable pain postop. Anemia. Mild dehydration DVT/VTE Risk/Contraindication: Risk Factor Score Per Nursin RFS Level Per Nursing on Admit: 4+=Very High Contraindications-Pharm: Other *list below* ROSY CLANCY DO July 03, 2017 08:13
[2017-07-03] MEDS: amLODIPine 5 MG (NORVASC) TAB PO SCH (08:34)
[2017-07-03] MEDS: HYDROCHLOROTHIAZIDE 25 MG (HCTZ) TAB PO SCH (08:34)
[2017-07-03] MEDS: PANTOPRAZOLE 40 MG (PROTONIX) TAB PO SCH (08:34)
[2017-07-03] MEDS: PENTOXIFYLLINE 400 MG (TRENtal) TAB PO SCH ×3 (08:34→20:36)
[2017-07-03] MEDS: fentaNYL INJECTION 100 MCG/2 ML AMP IV PRN ×2 (08:35→20:36)
--- NOTE | 2017-07-03 08:38 | Consultation-Cardiology ---
HPI-Cardiology Cardiology Consultation Date of Consultation 07/03/17 Date of Admission Time Seen by Provider: 08:36 Indication: left foot pain, anemia HPI Patient is an 87 year old male with history of peripheral vascular disease, underwent left great toe amputation June 27, 2017. Complaining of increasing weakness and fatigue at home over the weekend. Patient began having left foot pain. He presented to the ER, found to have anemia, cellulitis of left foot. Wound culture revealed MRSA. Patient is currently on vancomycin. He is complaining of ongoing left foot pain. Denies any chest pain or palpitation. Complaining of generalized weakness. This is an 87 years old gentleman with history of peripheral arterial disease underwent left great toe amputation last week, patient came in for generalized weakness and loss of energy, unsteady gait and bleeding from his foot in addition to foot pain. Denied any chest pain or shortness of breath. He was severely anemic. Denied any palpitation or syncope. Home Medications & Allergies Allergies: Coded Allergies: shellfish derived (Verified Allergy, Severe, HIVES/SWELLING, 06/25/17) Home Medication List Reviewed: Yes [id number] Hx Patient Social History Marital Status: Employed/Student: retired Alcohol Use: Regular Use Recreational Drug Use: No Smoking Status: Former Smoker Type Used: Cigarettes 2nd Hand Smoke Exposure: No Recent Foreign Travel: No Recent Infectious Disease Expo: No Recent Hopitalizations: Yes Physical Abuse Screen: No Sexual Abuse: No Immunizations Up To Date Date of Pneumonia Vaccine: Nov 16, 2015 Date of Influenza Vaccine: Nov 15, 2015 Past Medical History Peripheral vascular disease, hypertension Family Medical History Significant Family History: No Pertinent Family Hx Family History: Completed stroke G8 SISTER Diabetes mellitus 19 MOTHER FH: prostate cancer 19 FATHER Constitutional: No chills, No diaphoresis, No fever; malaise, weakness EENTM: No blurred vision, No double vision, No vision loss, No nose pain, No throat pain Respiratory: No cough, No dyspnea on exertion Cardiovascular: No chest pain, No Hx of Intervention, No palpitations, No vascular heart diseas Gastrointestinal: No abdominal pain, No constipation; loss of appetite Genitourinary: No frequency, No hematuria Musculoskeletal: No back pain, No joint pain; other (left foot pain) Skin: other (cellulitis to left foot) Psychiatric/Neurological: Denies Anxiety, Denies Depressed Reviewed Test Results Reviewed Test Results Lab Laboratory Tests 07/03/17 03:35: White Blood Count 7.9, Red Blood Count 2.68L, Hemoglobin 7.4L, Hematocrit 24L, Mean Corpuscular Volume 90, Mean Corpuscular Hemoglobin 28, Mean Corpuscular Hemoglobin Concent 31L, Red Cell Distribution Width 13.6, Platelet Count 242, Mean Platelet Volume 10.2, Neutrophils (%) (Auto) 64, Lymphocytes (%) (Auto) 15 , Monocytes (%) (Auto) 16H, Eosinophils (%) (Auto) 5, Basophils (%) (Auto) 0, Neutrophils # (Auto) 5.1, Lymphocytes # (Auto) 1.2, Monocytes # (Auto) 1.2H, Eosinophils # (Auto) 0.4H, Basophils # (Auto) 0.0, Sodium Level 141, Potassium Level 3.6, Chloride Level 108H, Carbon Dioxide Level 23, Anion Gap 10, Blood Urea Nitrogen 16, Creatinine 1.14, Estimat Glomerular Filtration Rate > 60, BUN/ Creatinine Ratio 14, Glucose Level 128H, Calcium Level 8.3L, Total Bilirubin 0.4 , Aspartate Amino Transf (AST/SGOT) 10, Alanine Aminotransferase (ALT/SGPT) 7, Alkaline Phosphatase 55, Total Protein 5.6L, Albumin 2.9L Microbiology 07/02/17 Blood Culture - Preliminary, Resulted No growth 07/02/17 Gram Stain - Final, Resulted 07/02/17 Wound Culture - Preliminary, Resulted Staphylococcus aureus Physical Exam Vital Signs Vital Signs - First Documented 07/02/17 07/03/17 06:15 07:46 Temp 97.4 Pulse 89 Resp 14 B/P (MAP) 147/68 (94) Pulse Ox 93 O2 Delivery Room Air O2 Flow Rate 2.00 Capillary Refill : Less Than 3 Seconds General Appearance: No Apparent Distress, WD/WN HEENT: Normal ENT Inspection Neck: Full Range of Motion, Non Tender, Supple Respiratory: Chest Non Tender, Lungs Clear, Normal Breath Sounds, No Accessory Muscle Use, No Respiratory Distress Cardiovascular: Regular Rate, Rhythm, No Edema, No Gallop, No JVD, No Murmur, Other (diminished pulse left lower extremity, however present. Left foot is warm to touch.) Gastrointestinal: No Pulsatile Mass, Non Tender, Soft Rectal: Deferred Back: No CVA Tenderness Extremity: Non Tender, No Calf Tenderness, No Pedal Edema Neurologic/Psychiatric: Alert, Oriented x3, golf stud riveter II-XII Norm as Tested A/P-Cardiology Admission Diagnosis left foot cellulitis PVD Anemia HTN Assessment/Plan Left foot cellulitis, MRSA + culture, started on IV Vanco. Continue antibiotics and continue to monitor. Anemia-hemoglobin 7.5 today. Patient getting blood transfusion. We will hold aspirin and Plavix at this point. Continue to monitor. Severe peripheral arterial disease with ischemic toe on the left side, underwent angiogram on June 06, 2017 showing total occlusion of the anterior tibial artery with successful balloon angioplasty with some improvement of the flow still had the sluggish flow. Has severe proximal stenosis at the posterior tibial artery that was treated medically, the distal SFA and popliteal artery has severe stenosis underwent drug-coated balloon angioplasty with good results. Initially reported improvement, however continued to have worsening of the ulcer and cyanosis of his first great toe and subsequently underwent left great toe amputation on June 27, 2017. Left foot is warm to touch with diminished, yet present palpable pulse. We will continue conservative treatment. Unable to tolerate aspirin and Plavix at this time secondary to anemia. 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 Currently being treated for cellulitis of left foot. Continue to monitor. Hypertension, restart home blood pressure medication and continue to monitor. Hyperlipidemia, lipid profile was done in May 2017 showing total cholesterol 158, triglyceride 46, HDL 80, LDL 63. Continue to monitor Generalized weakness, likely secondary to his anemia. Continue to monitor. Continue PT/OT. History of back pain. History of prostatectomy secondary to prostate cancer History of bilateral foot surgery History of tobaccoism in the remote past, stopped smoking 22 years ago Thank you for allowing us to participate in management of Mr. Mcguire. This is Clarissa Giron, acting as a scribe for Dr. Bermudez. This is Dr. Bermudez, I have seen and evaluated the patient with Clarissa, interviewed the patient and examine him, I agree with the current scribe. Patient had left foot cellulitis, has been having worsening weakness, he is severely anemic requiring blood transfusion. At this time I'll hold aspirin and Plavix. Continue to monitor his electrolytes. Monitor H&H. On examination lungs were clear to auscultation bilaterally, heart is regular rate and rhythm. I reviewed the note and made few minor modifications using Italic Font Clinical Quality Measures DVT/VTE Risk/Contraindication: Risk Factor Score Per Nursin RFS Level Per Nursing on Admit: 4+=Very High Contraindications-Pharm: Other *list below* CLARISSA ESPINOZA July 03, 2017 08:38 EVITA BERMUDEZ MD July 03, 2017 14:29
[2017-07-03] MEDS ORDERED: VANCOMYCIN 1,750 MG/NS 500 ML IVPB IV NR ×2 (09:00)
[2017-07-03] MEDS ORDERED: ASPIRIN E.C. 81 MG (ECOTRIN) TAB PO SCH (09:00)
[2017-07-03] MEDS ORDERED: CLOPIDOGREL 75 MG (PLAVIX) TABLET PO SCH (09:00)
[2017-07-03] MEDS ORDERED: diphenhydrAMINE 25 MG TAB (BENADRYL) PO NR (09:46)
--- NOTE | 2017-07-03 10:09 | Physical Therapy Evaluation ---
PT Evaluation-General Medical Diagnosis Admission Date July 02, 2017 at 06:10 Medical Diagnosis: post op infection Onset Date: July 02, 2017 Therapy Diagnosis Therapy Diagnosis: weakness; abn gait Height/Weight Height (Feet): 5 Height (Inches): 6.00 Weight (Pounds): 170 Weight (Ounces): 0.0 Precautions Precautions/Isolations: Fall Prevention, Contact/Enteric Isolation Weight Bear Status Right Lower Extremity: Right Weight Bearing/Tolerated Left Lower Extremity: Left Weight Bearing/Tolerated Referral Physician: Morgan Reason for Referral: Evaluation/Treatment Medical History Pertinent Medical History: HTN, PVD Additional Medical History high cholesterol angioplasty left LE 06/06/17; amputation right great toe 06/27/17 Current History Admitted to Acute due to post op infection post amputation of great toe; cellulitis Reviewed History: Yes Social History Home: Single Level Current Living Status: Spouse Entry Into Home: Stairs With Railing Prior/Core FIM Prior Level of Function Functional [place] Measure 0=Not Assessed/NA 4=Minimal Assistance 1=Total Assistance 5=Supervision or Setup 2=Maximal Assistance 6=Modified [place] 3=Moderate Assistance 7=Complete [place] Bed Mobility: 7 Transfers (B,C,W/C) (FIM): 6 Gait: 6 Pt uses a cane at home; he is a community ambulator. PT Evaluation-Current Subjective Agrees to PT after encouragement. Pt/Family Goals Home with spouse when able. Objective Patient Orientation: Person, Place, Time, Situation Problem Solving: Fair Attachments: Oxygen ROM/Strength ROM Lower Extremities WFL Strength Lower Extremities grossly 4-/5 throughout Integumentary/Posture Integumentary refer to nursing notes. Bowel Incontinence: No Bladder Incontinence: Yes Posture rounded shoulders. Neuromuscular (Tone, Coordination, Reflexes) WFL Sensory Vision: Wears Glasses Hearing: Functional Hand Dominance: Right Sensation Right Lower Extremit: Intact Sensation Left Lower Extremity: Intact Transfers Functional [place] Measure 0=Not Assessed/NA 4=Minimal Assistance 1=Total Assistance 5=Supervision or Setup 2=Maximal Assistance 6=Modified [place] 3=Moderate Assistance 7=Complete [place] Transfers (B, C, W/C) (FIM): 4 (min assist to transfer to sit EOB) Supine to/from Sit: 4 Sit to/from Stand: 4 Gait Mode of Locomotion: Walk Anticipated Mode of Locomotion: Walk Gait (FIM): 2 Distance (FIM): 1=up to 49 ft Distance: 40 ft Gait Level of Assist: 4 (min assist for safety) Gait Assistive Device: FWW Comments/Gait Description slow gait, narrow DEBORAH and decreased step length. Tends to lean slightly to the right Balance Sitting Static: Good Sitting Dynamic: Good Standing Static: Fair Standing Dynamic: Fair Treatment Gait training. Pt up in chair after treatment with needs met, oxygen in situ. Assessment/Needs Decreased functional strength and ability to safely ambulate. He will benefit from skilled PT to work on functional mobility and safety to allow hime to return [email or web address] Rehab Potential: Good PT Half-Way Goals Half-Way Goals PT Preparer Making Department Goals Time Frame: July 10, 2017 Transfers (B,C,W/C) (FIM): 7 Gait (FIM): 6 Gait distance (FIM): 3=150 ft Gait Assistive Device: FWW PT Plan Problem List Problem List: Activity Tolerance, Functional Strength, Safety, Balance, Gait, Transfer, Bed Mobility Treatment/Plan Treatment Plan: Continue Plan of Care Treatment Plan: Bed Mobility, Education, Functional Activity Vito, Functional Strength, Gait, Safety, Therapeutic Exercise, Transfers Treatment Duration: July 10, 2017 Frequency: 6 times per week Estimated Hrs Per Day: .5 hour per day Patient and/or Family Agrees t: Yes Safety Risks/Education Patient Education: Transfer Techniques, Safety Issues Teaching Recipient: Patient Teaching Methods: Demonstration, Discussion Response to Teaching: Reinforcement Needed Time/GCodes Time In: 835 Time Out: 904 Total Billed Treatment Time: 29 Total Billed Treatment visit EVM 15 GT 14 RACHELLE FARIAS PT July 03, 2017 10:09
[2017-07-03] MEDS ORDERED: ACETAMINOPHEN 325 MG TABLET/CAPLET (TYLENOL) PO ONE (11:30)
[2017-07-03] MEDS ORDERED: NS IV 500 ML 500 ML IV SCH (12:15)
--- NOTE | 2017-07-03 14:35 | Progress Note-Standard ---
Standard Progress Note Progress Notes/Assess & Plan Date Seen by Provider: July 02, 2017 Time Seen by Provider: 15:00 Progress/Assessment & Plan 07/02/17: Readmitted with cellulitis around the site of recent amputation of the big toe. Very faint Doppler signal over the dorsalis pedis artery. We'll continue to the observe and use antibiotics Final Diagnosis Gangrenous big toe. Postoperative cellulitis Focused Exam Lactate Level 07/02/17 05:34: Lactic Acid Level 0.82 JULISA FLORES MD July 03, 2017 2:34 pm
[2017-07-03] MEDS: ATORVASTATIN 10 MG (LIPITOR) TABLET PO SCH (20:36)
[2017-07-04 00:10] VITALS: BP 120/61
[2017-07-04 04:45] VITALS: BP 134/73
[2017-07-04] MEDS: HYDROcodone/APAP 5 MG/325 MG (LORTAB) TAB PO PRN ×3 (04:56→20:43)
[2017-07-04 06:15] LABS: HEMOGLOBIN 8.5 G/DL (13.3-17.7); RED BLOOD COUNT 3.09 10^6/uL (4.35-5.85); RED CELL DISTRIBUTION WIDTH 14.6 % (10.0-14.5); WHITE BLOOD COUNT 7.7 10^3/uL (4.3-11.0)
[2017-07-04] MEDS: FERROUS SULF 325 MG (IRON) TAB PO SCH ×2 (06:20→16:45)
[2017-07-04 06:30] LABS: BUN/CREATININE RATIO 16; CALCIUM 8.4 MG/DL (8.5-10.1); CARBON DIOXIDE 23 MMOL/L (21-32); CHLORIDE 108 MMOL/L (98-107); CREATININE SERUM 1.01 MG/DL (0.60-1.30); GFR ESTIMATED > 60; GLUCOSE 106 MG/DL (70-105); SODIUM 141 MMOL/L (135-145)
--- NOTE | 2017-07-04 07:58 | Progress Note (SOAP) ---
Subjective Time Seen by Provider: 07:55 Subjective/Events-last exam Patient feeling better today. Patient having less pain in amputated toe. Blood culture so MRSA. Patient constipated to put on milk of magnesia and prune juice. Focused Exam Lactate Level 07/02/17 05:34: Lactic Acid Level 0.82 Objective Exam Vital Signs Date Time Temp Pulse Resp B/P (MAP) Pulse Ox O2 Delivery O2 Flow Rate FiO2 07/04/17 04:45 97.7 80 17 134/73 (93) 94 Room Air 07/04/17 00:10 97.8 89 17 120/61 (80) 95 Room Air 07/03/17 20:35 Room Air 07/03/17 19:57 90 Room Air 2.00 07/03/17 19:30 98.6 78 18 123/56 (78) 94 Room Air 07/03/17 16:00 97.3 62 18 128/63 (84) 95 Room Air 07/03/17 15:50 97.3 62 128/63 07/03/17 13:45 97.8 71 112/70 07/03/17 13:27 98.3 71 112/55 07/03/17 12:00 98.3 71 20 112/55 (74) 97 Room Air 07/03/17 08:15 92 Room Air 07/03/17 08:00 97.3 65 20 100/52 (68) 99 Room Air I & O 07/04/17 07:00 Intake Total 1817 ml Output Total 1300 ml Balance 517 ml Capillary Refill : Less Than 3 Seconds General Appearance: No Apparent Distress, WD/WN HEENT: Normal ENT Inspection Neck: Full Range of Motion, Normal Inspection Respiratory: No Accessory Muscle Use, No Respiratory Distress Cardiovascular: Regular Rate, Rhythm, No Murmur Gastrointestinal: non tender, soft Results Lab Laboratory Tests 07/04/17 06:00: White Blood Count 7.7, Red Blood Count 3.09L, Hemoglobin 8.5L, Hematocrit 28L, Mean Corpuscular Volume 89, Mean Corpuscular Hemoglobin 28, Mean Corpuscular Hemoglobin Concent 31L, Red Cell Distribution Width 14.6H, Platelet Count 255, Mean Platelet Volume 10.0, Sodium Level 141, Potassium Level 4.0, Chloride Level 108H, Carbon Dioxide Level 23, Anion Gap 10, Blood Urea Nitrogen 16, Creatinine 1.01, Estimat Glomerular Filtration Rate > 60, BUN/Creatinine Ratio 16, Glucose Level 106H, Calcium Level 8.4L Microbiology 07/02/17 Blood Culture - Preliminary, Resulted No growth 07/02/17 Gram Stain - Final, Resulted 07/02/17 Wound Culture - Preliminary, Resulted Staphylococcus aureus Assessment/Plan Assessment/Plan Assess & Plan/Chief Complaint Cellulitis of amputated toe. MRSA positive. Patient anemic. Patient feeling good. Patient put on vancomycin. Patient be given a unit of blood. . 07/04/17. MRSA and blood strain. Anemia. Patient received a unit of blood yesterday. Patient constipated. Patient feeling better area Patient on vancomycin Clinical Quality Measures Admission Status Admission Dx Postop wound infected left big toe area. Intractable pain postop. Anemia. Mild dehydration DVT/VTE Risk/Contraindication: Risk Factor Score Per Nursin RFS Level Per Nursing on Admit: 4+=Very High Contraindications-Pharm: Other *list below* ROSY CLANCY DO July 04, 2017 07:58
[2017-07-04 08:00] VITALS: BP 136/61
--- NOTE | 2017-07-04 08:34 | Cardiology Progress Note ---
Subjective Date Seen by Provider: July 04, 2017 Time Seen by Provider: 08:31 Subjective/Events-last exam Patient is sitting up in bed, continues to complain of left foot pain. Denies any CP or dyspnea. Review of Systems General: No Night Sweats, No Fatigue, No Malaise HEENT: No Visual Changes, No Dysphasia, No Sore Throat Pulmonary: No Dyspnea, No Cough Cardiovascular: No: Chest Pain, Palpitations, Paroxysmal Noc. Dyspnea, Edema Gastrointestinal: No: Nausea, Vomiting, Abdominal Pain Genitourinary: No Dysuria, No Frequency Musculoskeletal: foot pain (left foot pain, erythema); No: neck pain, back pain Neurological: No: Weakness, Numbness Focused Exam Lactate Level 07/02/17 05:34: Lactic Acid Level 0.82 Objective-Cardiology Exam Last Set of Vital Signs Vital Signs 07/03/17 07/04/17 07/04/17 19:57 04:45 08:15 Temp 97.7 Pulse 80 Resp 17 B/P (MAP) 134/73 (93) Pulse Ox 91 O2 Delivery Room Air O2 Flow Rate 2.00 Capillary Refill : Less Than 3 Seconds I&O Intake and Output 07/04/17 00:00 Intake Total 3267 ml Output Total 1350 ml Balance 1917 ml Intake Oral 1550 ml IV Total 1717 ml Output Urine Total 1350 ml General: Alert, Oriented X3, Cooperative HEENT: Atraumatic, PERRLA Neck: Supple, No JVD, No Thyromegaly Lungs: Clear to Auscultation, Normal Air Movement Heart: Regular Rate, Normal S1, Normal S2, No Murmurs Abdomen: Normal Bowel Sounds, Soft, No Tenderness, No Hepatosplenomegaly, No Masses Extremities: No Clubbing, No Cyanosis, No Edema, Normal Pulses, No Tenderness/ Swelling Skin: No Rashes, No Significant Lesion, Other (left foot mildly erythematous, warm to touch) Neuro: Cranial Nerves 3-12 NL Psych/Mental Status: Mental Status NL, Mood NL Results Lab Laboratory Tests 07/04/17 06:00 A/P-Cardiology Admission Diagnosis left foot cellulitis PVD Anemia HTN Assessment/Plan Left foot cellulitis, MRSA + culture, started on IV Vanco. Continue antibiotics and continue to monitor. Anemia-s/p transfusion yesterday. H/H improving. We will continue to hold aspirin and Plavix at this point. Continue to monitor. Severe peripheral arterial disease with ischemic toe on the left side, underwent angiogram on June 06, 2017 showing total occlusion of the anterior tibial artery with successful balloon angioplasty with some improvement of the flow still had the sluggish flow. Has severe proximal stenosis at the posterior tibial artery that was treated medically, the distal SFA and popliteal artery has severe stenosis underwent drug-coated balloon angioplasty with good results. Initially reported improvement, however continued to have worsening of the ulcer and cyanosis of his first great toe and subsequently underwent left great toe amputation on June 27, 2017. Left foot is warm to touch with diminished, yet present palpable pulse. We will continue conservative treatment. Unable to tolerate aspirin and Plavix at this time secondary to anemia. 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 Currently being treated for cellulitis of left foot. Continue to monitor. Hypertension, controlled, continue to monitor BP/HR> Hyperlipidemia, lipid profile was done in May 2017 showing total cholesterol 158, triglyceride 46, HDL 80, LDL 63. Continue to monitor Generalized weakness, likely secondary to his anemia. Continue to monitor. Continue PT/OT. History of back pain. History of prostatectomy secondary to prostate cancer History of bilateral foot surgery History of tobaccoism in the remote past, stopped smoking 22 years ago Clinical Quality Measures DVT/VTE Risk/Contraindication: Risk Factor Score Per Nursin RFS Level Per Nursing on Admit: 4+=Very High Contraindications-Pharm: Other *list below* SCOTT ESPINOZA July 04, 2017 08:34
[2017-07-04] MEDS: VANCOMYCIN INJECTION 1,250 MG in NS (IVPB) 250 ML IV SCH (09:45)
[2017-07-04] MEDS: amLODIPine 5 MG (NORVASC) TAB PO SCH (09:45)
[2017-07-04] MEDS: PANTOPRAZOLE 40 MG (PROTONIX) TAB PO SCH (09:45)
[2017-07-04] MEDS: PENTOXIFYLLINE 400 MG (TRENtal) TAB PO SCH ×3 (09:45→20:43)
[2017-07-04] MEDS: HYDROCHLOROTHIAZIDE 25 MG (HCTZ) TAB PO SCH (09:45)
[2017-07-04] MEDS: MILK OF MAGNESIA 400 MG/5 ML 30 ML UDC PO SCH ×2 (10:48→20:43)
--- NOTE | 2017-07-04 10:59 | Progress Note-Standard ---
Standard Progress Note Progress Notes/Assess & Plan Date Seen by Provider: July 04, 2017 Time Seen by Provider: 10:54 Progress/Assessment & Plan 07/02/17: Readmitted with cellulitis around the site of recent amputation of the big toe. Very faint Doppler signal over the dorsalis pedis artery. We'll continue to the observe and use antibiotics 07/03/17:pain control slightly improved. Continue IV antibiotics. Focused Exam Lactate Level 07/02/17 05:34: Lactic Acid Level 0.82 JULISA FLORES MD July 04, 2017 10:59
[2017-07-04 12:00] VITALS: BP 124/62
--- NOTE | 2017-07-04 13:01 | Physical Therapy Daily Note ---
PT Daily Note-Current Subjective Pt laying Supine in bed upon arrival. Pt agrees to PT. Pain Location: No Pain Reported Mental Status Patient Orientation: Person, Place, Situation Transfers Functional [place] Measure 0=Not Assessed/NA 4=Minimal Assistance 1=Total Assistance 5=Supervision or Setup 2=Maximal Assistance 6=Modified [place] 3=Moderate Assistance 7=Complete IndependenceIRFPAI Quality Coding Scale 6 Independent with activity with or without an assistive device 5 Patient requires set up or clean up by helper. Patient completes activity by themselves 4 Supervision or touching assist (CGA). [place] provide cues , steadying assist 3 The helper provides less than half the effort to complete the activity 2 The helper provides more than half the effort to complete the activity 1 Dependent. The helper does all the effort to complete an activity 7 Patient refused to complete or attempt activity 9 The patient did not perform the activity before the current illness or injury 88 Not attempted due to Medical conditions or safety concerns Scootin Rollin Roll Left to Right (QC): 5 Supine to/from Sit: 5 Sit to/from Stand: 5 Sit to Lying (QC): 5 Sit to Stand (QC): 5 Weight Bearing Right Lower Extremity: Right Weight Bearing/Tolerated Left Lower Extremity: Left Weight Bearing/Tolerated Gait Training Does the Patient Walk?: Yes Distance (FIM): 3=150 ft Distance: 200' Walk 10 feet (QC): 5 Walk 50 ft with 2 Turns(QC): 5 Walk 150 ft (QC): 5 Gait Level of Assist: 5 Gait Persons Needed: 1 Gait Assistive Device: FWW Pt asked about using crutches but CAMP NURSE advised at this time that FWW is more stable for pt. PT can revisit as pt's strength improves. Pt ambulates increased distance today w/o pain. Treatments Pt transfers from Supine to EOB to Standing at close SBA. Pt uses FWW to ambulate at close SBA in hallway. Pt returns to room to rest in bed. Pt transfers to Supine in bed at SBA. Pt resting in bed at end of tx with all needs met, including call light. Assessment Current Status: Good Progress Pt is walking increased distance without pain. Pt asked about using crutches for ambulation but CAMP NURSE feels at this times pt needs increased strength before attempting. PT will revisit crutches as strength improves. PT Mapping Specialist Goals Fdc Goals PT Fdc Goals Time Frame: July 10, 2017 Transfers (B,C,W/C) (FIM): 7 Gait (FIM): 6 Gait distance (FIM): 3=150 ft Gait Assistive Device: FWW PT Plan Problem List Problem List: Activity Tolerance, Functional Strength, Gait Treatment/Plan Treatment Plan: Continue Plan of Care Treatment Plan: Bed Mobility, Education, Functional Activity Vito, Functional Strength, Gait, Safety, Therapeutic Exercise, Transfers Treatment Duration: July 10, 2017 Frequency: 6 times per week Estimated Hrs Per Day: .5 hour per day Patient and/or Family Agrees t: Yes Safety Risks/Education Patient Education: Gait Training, Transfer Techniques, Correct Positioning, Safety Issues Teaching Recipient: Patient Teaching Methods: Discussion Response to Teaching: Verbalize Understanding Time/GCodes Time In: 1115 Time Out: 1132 Total Billed Treatment Time: 17 Total Billed Treatment 1, GT (17m) G Codes Necessary: AGUSTIN Kat CAMP NURSE July 04, 2017 13:01
--- NOTE | 2017-07-04 13:47 | Physical Therapy Daily Note ---
PT Daily Note-Current Subjective Pt laying Supine in bed upon arrival. Pt agrees to PT. Pain Location: No Pain Reported Mental Status Patient Orientation: Person, Place, Situation Attachments: IV Transfers Functional [place] Measure 0=Not Assessed/NA 4=Minimal Assistance 1=Total Assistance 5=Supervision or Setup 2=Maximal Assistance 6=Modified [place] 3=Moderate Assistance 7=Complete IndependenceIRFPAI Quality Coding Scale 6 Independent with activity with or without an assistive device 5 Patient requires set up or clean up by helper. Patient completes activity by themselves 4 Supervision or touching assist (CGA). [place] provide cues , steadying assist 3 The helper provides less than half the effort to complete the activity 2 The helper provides more than half the effort to complete the activity 1 Dependent. The helper does all the effort to complete an activity 7 Patient refused to complete or attempt activity 9 The patient did not perform the activity before the current illness or injury 88 Not attempted due to Medical conditions or safety concerns Weight Bearing Right Lower Extremity: Right Weight Bearing/Tolerated Left Lower Extremity: Left Weight Bearing/Tolerated PT Clinical Specialist Vascular Goals Chcf Goals PT Chcf Goals Time Frame: July 10, 2017 Transfers (B,C,W/C) (FIM): 7 Gait (FIM): 6 Gait distance (FIM): 3=150 ft Gait Assistive Device: FWW PT Plan Treatment/Plan Treatment Plan: Bed Mobility, Education, Functional Activity Vito, Functional Strength, Gait, Safety, Therapeutic Exercise, Transfers Treatment Duration: July 10, 2017 Frequency: 6 times per week Estimated Hrs Per Day: .5 hour per day Patient and/or Family Agrees t: Yes AGUSTIN TENA SALES MARKETING DIRECTOR July 04, 2017 13:47
[2017-07-04 16:15] VITALS: BP 134/64
[2017-07-04] MEDS: fentaNYL INJECTION 100 MCG/2 ML AMP IV PRN (16:28)
--- NOTE | 2017-07-04 16:43 | Cardiology Progress Note ---
Subjective Date Seen by Provider: July 04, 2017 Time Seen by Provider: 16:42 Subjective/Events-last exam Patient is in bed, feeling better, no new complaint, foot is better Review of Systems General: No Chills, No Night Sweats, No Fatigue, No Malaise, No Appetite, No Other HEENT: No Head Aches, No Visual Changes, No Eye Pain, No Ear Pain, No Dysphasia , No Sinus Congestion, No Post Nasal Drip, No Sore Throat, No Other Pulmonary: No Dyspnea, No Cough, No Pleuritic Chest Pain, No Other Cardiovascular: No: Chest Pain, Palpitations, Orthopnea, Paroxysmal Noc. Dyspnea, Edema, Lt Headedness, Other Focused Exam Lactate Level 07/02/17 05:34: Lactic Acid Level 0.82 Objective-Cardiology Exam Last Set of Vital Signs Vital Signs 07/03/17 07/04/17 07/04/17 19:57 12:00 14:23 Temp 97.5 Pulse 78 Resp 18 B/P (MAP) 124/62 (82) Pulse Ox 94 O2 Delivery Room Air O2 Flow Rate 2.00 Capillary Refill : Less Than 3 Seconds I&O Intake and Output 07/04/17 00:00 Intake Total 3267 ml Output Total 1350 ml Balance 1917 ml Intake Oral 1550 ml IV Total 1717 ml Output Urine Total 1350 ml General: Alert, Oriented X3, Cooperative HEENT: Atraumatic, PERRLA Neck: Supple, No JVD, No Thyromegaly Lungs: Clear to Auscultation, Normal Air Movement Heart: Regular Rate, Normal S1, Normal S2, No Murmurs Abdomen: Normal Bowel Sounds, Soft, No Tenderness, No Hepatosplenomegaly, No Masses Extremities: No Clubbing, No Cyanosis, No Edema, Normal Pulses, No Tenderness/ Swelling Skin: No Rashes, No Significant Lesion, Other (left foot mildly erythematous, warm to touch) Neuro: Cranial Nerves 3-12 NL Psych/Mental Status: Mental Status NL, Mood NL Results Lab Laboratory Tests 07/04/17 06:00 A/P-Cardiology Admission Diagnosis left foot cellulitis PVD Anemia HTN Assessment/Plan Left foot cellulitis, MRSA + culture, started on IV Vanco. Continue antibiotics and continue to monitor. Anemia-s/p transfusion yesterday. H/H improving. We will continue to hold aspirin and Plavix at this point. Continue to monitor. Severe peripheral arterial disease with ischemic toe on the left side, underwent angiogram on June 06, 2017 showing total occlusion of the anterior tibial artery with successful balloon angioplasty with some improvement of the flow still had the sluggish flow. Has severe proximal stenosis at the posterior tibial artery that was treated medically, the distal SFA and popliteal artery has severe stenosis underwent drug-coated balloon angioplasty with good results. Initially reported improvement, however continued to have worsening of the ulcer and cyanosis of his first great toe and subsequently underwent left great toe amputation on June 27, 2017. Left foot is warm to touch with diminished, yet present palpable pulse. We will continue conservative treatment. Unable to tolerate aspirin and Plavix at this time secondary to anemia. 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 Currently being treated for cellulitis of left foot. Continue to monitor. Hypertension, controlled, continue to monitor BP/HR> Hyperlipidemia, lipid profile was done in May 2017 showing total cholesterol 158, triglyceride 46, HDL 80, LDL 63. Continue to monitor Generalized weakness, likely secondary to his anemia. Continue to monitor. Continue PT/OT. History of back pain. History of prostatectomy secondary to prostate cancer History of bilateral foot surgery History of tobaccoism in the remote past, stopped smoking 22 years ago Continue with physical therapy and monitor H &H Clinical Quality Measures DVT/VTE Risk/Contraindication: Risk Factor Score Per Nursin RFS Level Per Nursing on Admit: 4+=Very High Contraindications-Pharm: Other *list below* EVITA LONDON MD July 04, 2017 4:43 pm
[2017-07-04 19:51] VITALS: BP 138/63
[2017-07-04] MEDS: ATORVASTATIN 10 MG (LIPITOR) TABLET PO SCH (20:42)
[2017-07-04] MEDS ORDERED: MILK OF MAGNESIA 400 MG/5 ML 30 ML UDC PO SCH (21:00)
[2017-07-05 00:21] VITALS: BP 120/60
[2017-07-05 04:08] VITALS: BP 126/62
[2017-07-05] MEDS: FERROUS SULF 325 MG (IRON) TAB PO SCH ×2 (06:32→17:02)
[2017-07-05] MEDS: HYDROcodone/APAP 5 MG/325 MG (LORTAB) TAB PO PRN ×4 (06:37→21:28)
[2017-07-05] MEDS: MILK OF MAGNESIA 400 MG/5 ML 30 ML UDC PO SCH ×2 (07:37→19:50)
[2017-07-05 08:00] VITALS: BP 170/77
[2017-07-05] MEDS ORDERED: TROUGH ORDER-PHARMACY XX NR (08:00)
--- NOTE | 2017-07-05 08:00 | Progress Note (SOAP) ---
Subjective Time Seen by Provider: 07:45 Subjective/Events-last exam Patient still has a at 10 pain in amputated toe area. She needs pain medicine. Otherwise patient feeling better. MRSA positive in blood Objective Exam Vital Signs Date Time Temp Pulse Resp B/P (MAP) Pulse Ox O2 Delivery O2 Flow Rate FiO2 07/05/17 07:26 Room Air 07/05/17 05:06 92 Room Air 07/05/17 04:08 97.9 80 16 126/62 (83) 94 Room Air 07/05/17 00:21 97.6 75 17 120/60 (80) 93 Room Air 07/04/17 19:51 99.1 93 18 138/63 (88) 96 Room Air 07/04/17 19:45 Room Air 07/04/17 17:00 98.5 07/04/17 16:15 98.5 80 18 134/64 (87) 94 Room Air 07/04/17 14:23 97.5 07/04/17 12:00 97.5 78 18 124/62 (82) 94 Room Air 07/04/17 08:15 91 Room Air 07/04/17 08:00 Room Air 07/04/17 08:00 98.0 86 18 136/61 (86) 94 Room Air I & O 07/05/17 07:00 Intake Total 1442.5 ml Output Total 875 ml Balance 567.5 ml Capillary Refill : Less Than 3 Seconds General Appearance: No Apparent Distress, WD/WN HEENT: Normal ENT Inspection Neck: Full Range of Motion, Normal Inspection Respiratory: No Accessory Muscle Use, No Respiratory Distress Cardiovascular: Regular Rate, Rhythm Results Lab Laboratory Tests 07/04/17 11:11: Lab Scanned Report Transfusion Reaction Form Microbiology 07/02/17 Blood Culture - Preliminary, Resulted No growth 07/02/17 Gram Stain - Final, Resulted 07/02/17 Wound Culture - Preliminary, Resulted Staphylococcus aureus Assessment/Plan Assessment/Plan Assess & Plan/Chief Complaint Cellulitis of amputated toe. MRSA positive. Patient anemic. Patient feeling good. Patient put on vancomycin. Patient be given a unit of blood. . 07/04/17. MRSA and blood strain. Anemia. Patient received a unit of blood yesterday. Patient constipated. Patient feeling better area Patient on vancomycin. . 07/05/17. MRSA positive. Anemia. Patient still having pain and foot area Clinical Quality Measures Admission Status Admission Dx Postop wound infected left big toe area. Intractable pain postop. Anemia. Mild dehydration DVT/VTE Risk/Contraindication: Risk Factor Score Per Nursin RFS Level Per Nursing on Admit: 4+=Very High Contraindications-Pharm: Other *list below* ROSY CLANCY DO July 05, 2017 08:00
--- NOTE | 2017-07-05 08:26 | Cardiology Progress Note ---
Subjective Date Seen by Provider: July 05, 2017 Time Seen by Provider: 08:15 Subjective/Events-last exam Patient is in bed, feeling well, still having pain in foot Review of Systems General: No Chills, No Night Sweats, No Fatigue, No Malaise, No Appetite, No Other HEENT: No Head Aches, No Visual Changes, No Eye Pain, No Ear Pain, No Dysphasia , No Sinus Congestion, No Post Nasal Drip, No Sore Throat, No Other Pulmonary: No Dyspnea, No Cough, No Pleuritic Chest Pain, No Other Cardiovascular: No: Chest Pain, Palpitations, Orthopnea, Paroxysmal Noc. Dyspnea, Edema, Lt Headedness, Other Objective-Cardiology Exam Last Set of Vital Signs Vital Signs 07/03/17 07/05/17 07/05/17 07/05/17 19:57 04:08 05:06 07:26 Temp 97.9 Pulse 80 Resp 16 B/P (MAP) 126/62 (83) Pulse Ox 92 O2 Delivery Room Air O2 Flow Rate 2.00 Capillary Refill : Less Than 3 Seconds I&O Intake and Output 07/05/17 00:00 Intake Total 1392.5 ml Output Total 1375 ml Balance 17.5 ml Intake Oral 1130 ml IV Total 262.5 ml Output Urine Total 1375 ml # Bowel Movements 4 General: Alert, Oriented X3, Cooperative HEENT: Atraumatic, PERRLA Neck: Supple, No JVD, No Thyromegaly Lungs: Clear to Auscultation, Normal Air Movement Heart: Regular Rate, Normal S1, Normal S2, No Murmurs Abdomen: Normal Bowel Sounds, Soft, No Tenderness, No Hepatosplenomegaly, No Masses Extremities: No Clubbing, No Cyanosis, No Edema, Normal Pulses, No Tenderness/ Swelling Skin: No Rashes, No Significant Lesion, Other (left foot mildly erythematous, warm to touch) Neuro: Cranial Nerves 3-12 NL Psych/Mental Status: Mental Status NL, Mood NL A/P-Cardiology Admission Diagnosis left foot cellulitis PVD Anemia HTN Assessment/Plan Left foot cellulitis, MRSA + culture, started on IV Vanco. Continue antibiotics , Consult Dr Chowdhury Anemia-s/p transfusion yesterday. H/H improving. We will continue to hold aspirin and Plavix at this point. Continue to monitor. Severe peripheral arterial disease with ischemic toe on the left side, underwent angiogram on June 06, 2017 showing total occlusion of the anterior tibial artery with successful balloon angioplasty with some improvement of the flow still had the sluggish flow. Has severe proximal stenosis at the posterior tibial artery that was treated medically, the distal SFA and popliteal artery has severe stenosis underwent drug-coated balloon angioplasty with good results. Initially reported improvement, however continued to have worsening of the ulcer and cyanosis of his first great toe and subsequently underwent left great toe amputation on June 27, 2017. Left foot is warm to touch with diminished, yet present palpable pulse. We will continue conservative treatment. Unable to tolerate aspirin and Plavix at this time secondary to anemia. 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 Currently being treated for cellulitis of left foot. Continue to monitor. Hypertension, controlled, continue to monitor BP/HR> Hyperlipidemia, lipid profile was done in May 2017 showing total cholesterol 158, triglyceride 46, HDL 80, LDL 63. Continue to monitor Generalized weakness, likely secondary to his anemia. Continue to monitor. Continue PT/OT. History of back pain. History of prostatectomy secondary to prostate cancer History of bilateral foot surgery History of tobaccoism in the remote past, stopped smoking 22 years ago Clinical Quality Measures DVT/VTE Risk/Contraindication: Risk Factor Score Per Nursin RFS Level Per Nursing on Admit: 4+=Very High Contraindications-Pharm: Other *list below* EVITA LONDON MD July 05, 2017 08:26
[2017-07-05 08:27] LABS: BASOPHILS # (AUTO) 0.1 10^3/uL (0.0-0.1); BASOPHILS % (AUTO) 1 % (0-10); EOSINOPHILS # (AUTO) 0.4 10^3/uL (0.0-0.3); EOSINOPHILS % (AUTO) 7 % (0-10); HEMATOCRIT 28 % (40-54); HEMOGLOBIN 8.6 G/DL (13.3-17.7); LYMPHOCYTES # (AUTO) 1.1 X 10^3 (1.0-4.0); LYMPHOCYTES % (AUTO) 17 % (12-44); MEAN CORPUSCULAR HEMOGLOBIN 28 PG (25-34); MEAN CORPUSCULAR HGB CONC 31 G/DL (32-36); MEAN CORPUSCULAR VOLUME 90 FL (80-99); MEAN PLATELET VOLUME 9.7 FL (7.4-10.4); MONOCYTES # (AUTO) 0.8 X 10^3 (0.0-1.0); MONOCYTES % (AUTO) 13 % (0-12); NEUTROPHILS % (AUTO) 63 % (42-75); PLATELET COUNT 277 10^3/uL (130-400); RED BLOOD COUNT 3.09 10^6/uL (4.35-5.85); RED CELL DISTRIBUTION WIDTH 14.7 % (10.0-14.5); WHITE BLOOD COUNT 6.3 10^3/uL (4.3-11.0)
[2017-07-05 08:50] LABS: BUN/CREATININE RATIO 12; CALCIUM 8.9 MG/DL (8.5-10.1); CARBON DIOXIDE 25 MMOL/L (21-32); CHLORIDE 108 MMOL/L (98-107); CREATININE SERUM 1.06 MG/DL (0.60-1.30); GFR ESTIMATED > 60; GLUCOSE 99 MG/DL (70-105); POTASSIUM 4.4 MMOL/L (3.6-5.0); SODIUM 142 MMOL/L (135-145)
[2017-07-05] MEDS: HYDROCHLOROTHIAZIDE 25 MG (HCTZ) TAB PO SCH (09:24)
[2017-07-05] MEDS: VANCOMYCIN INJECTION 1,250 MG in NS (IVPB) 250 ML IV SCH (09:24)
[2017-07-05] MEDS: PANTOPRAZOLE 40 MG (PROTONIX) TAB PO SCH (09:24)
[2017-07-05] MEDS: PENTOXIFYLLINE 400 MG (TRENtal) TAB PO SCH ×3 (09:24→21:28)
[2017-07-05] MEDS: amLODIPine 5 MG (NORVASC) TAB PO SCH (09:25)
--- NOTE | 2017-07-05 11:37 | Physical Therapy Daily Note ---
PT Daily Note-Current Subjective Patient is very agreeable to participate with PT. Patient donns surgical shoe left foot. Pain Numeric Pain Scale: 0-No Pain Location: No Pain Reported Mental Status Patient Orientation: Normal For Age Transfers Functional [place] Measure 0=Not Assessed/NA 4=Minimal Assistance 1=Total Assistance 5=Supervision or Setup 2=Maximal Assistance 6=Modified [place] 3=Moderate Assistance 7=Complete IndependenceIRFPAI Quality Coding Scale 6 Independent with activity with or without an assistive device 5 Patient requires set up or clean up by helper. Patient completes activity by themselves 4 Supervision or touching assist (CGA). [place] provide cues , steadying assist 3 The helper provides less than half the effort to complete the activity 2 The helper provides more than half the effort to complete the activity 1 Dependent. The helper does all the effort to complete an activity 7 Patient refused to complete or attempt activity 9 The patient did not perform the activity before the current illness or injury 88 Not attempted due to Medical conditions or safety concerns Transfers (B, C, W/C) (FIM): 6 Scootin Rollin Supine to/from Sit: 6 Sit to/from Stand: 6 Weight Bearing Right Lower Extremity: Right Weight Bearing/Tolerated Left Lower Extremity: Left Weight Bearing/Tolerated Gait Training Gait (FIM): 6 Distance (FIM): 3=150 ft Distance: 280' x 2 Gait Level of Assist: 6 Gait Persons Needed: 1 Gait Assistive Device: FWW very slow, reciprocal pattern Assessment Patient returned to bed to elevate left foot. Patient desires to return to home tomorrow and from a PT standpoint, is safe to do so. PT Corporate Sales Manager Goals Corporate Sales Manager Goals PT [facility] Goals Time Frame: July 10, 2017 Transfers (B,C,W/C) (FIM): 7 Gait (FIM): 6 Gait distance (FIM): 3=150 ft Gait Assistive Device: FWW PT Plan Treatment/Plan Treatment Plan: Continue Plan of Care Treatment Plan: Bed Mobility, Education, Functional Activity Vito, Functional Strength, Gait, Safety, Therapeutic Exercise, Transfers Treatment Duration: July 10, 2017 Frequency: 6 times per week Estimated Hrs Per Day: .5 hour per day Patient and/or Family Agrees t: Yes Time/GCodes Time In: 1032 Time Out: 1100 Total Billed Treatment Time: 28 Total Billed Treatment 1 visit FA x 2 28 min SHEYLA DURANT PT July 05, 2017 11:37
[2017-07-05 12:00] VITALS: BP 142/65
[2017-07-05 16:00] VITALS: BP 125/61
--- NOTE | 2017-07-05 16:39 | Progress Note-Standard ---
Standard Progress Note Progress Notes/Assess & Plan Date Seen by Provider: July 05, 2017 Time Seen by Provider: 09:15 Progress/Assessment & Plan 07/02/17: Readmitted with cellulitis around the site of recent amputation of the big toe. Very faint Doppler signal over the dorsalis pedis artery. We'll continue to the observe and use antibiotics 07/03/17:pain control slightly improved. Continue IV antibiotics. 07/05/17: Wound care measures in progress. Local pain appears to be improving. MRSA from the wound and IV antibiotics in progress. Final Diagnosis Cellulitis of amputation stump JULISA FLORES MD July 05, 2017 16:39
[2017-07-05 19:51] VITALS: BP 123/60
[2017-07-05] MEDS: ATORVASTATIN 10 MG (LIPITOR) TABLET PO SCH (21:28)
[2017-07-06] VITALS: BP 128/64
[2017-07-06 05:38] LABS: BASOPHILS # (AUTO) 0.1 10^3/uL (0.0-0.1); BASOPHILS % (AUTO) 1 % (0-10); EOSINOPHILS # (AUTO) 0.5 10^3/uL (0.0-0.3); EOSINOPHILS % (AUTO) 8 % (0-10); HEMATOCRIT 28 % (40-54); HEMOGLOBIN 8.4 G/DL (13.3-17.7); LYMPHOCYTES % (AUTO) 19 % (12-44); MEAN CORPUSCULAR HEMOGLOBIN 27 PG (25-34); MEAN CORPUSCULAR HGB CONC 30 G/DL (32-36); MEAN CORPUSCULAR VOLUME 91 FL (80-99); MONOCYTES # (AUTO) 0.8 X 10^3 (0.0-1.0); MONOCYTES % (AUTO) 15 % (0-12); NEUTROPHILS # (AUTO) 3.1 X 10^3 (1.8-7.8); NEUTROPHILS % (AUTO) 57 % (42-75); PLATELET COUNT 268 10^3/uL (130-400); RED CELL DISTRIBUTION WIDTH 14.8 % (10.0-14.5); WHITE BLOOD COUNT 5.5 10^3/uL (4.3-11.0)
[2017-07-06 05:46] LABS: BUN/CREATININE RATIO 13; CALCIUM 8.8 MG/DL (8.5-10.1); CARBON DIOXIDE 26 MMOL/L (21-32); CHLORIDE 108 MMOL/L (98-107); CREATININE SERUM 1.08 MG/DL (0.60-1.30); GFR ESTIMATED > 60; GLUCOSE 90 MG/DL (70-105); POTASSIUM 4.3 MMOL/L (3.6-5.0); SODIUM 142 MMOL/L (135-145)
[2017-07-06] MEDS: FERROUS SULF 325 MG (IRON) TAB PO SCH ×2 (06:20→16:45)
[2017-07-06] MEDS: HYDROcodone/APAP 5 MG/325 MG (LORTAB) TAB PO PRN ×4 (06:20→18:13)
--- NOTE | 2017-07-06 07:46 | Cardiology Progress Note ---
Subjective Date Seen by Provider: July 06, 2017 Time Seen by Provider: 07:45 Subjective/Events-last exam Patient is in bed, feeling better, still having some pain in his foot, no new complaint Review of Systems General: No Chills, No Night Sweats, No Fatigue, No Malaise, No Appetite, No Other HEENT: No Head Aches, No Visual Changes, No Eye Pain, No Ear Pain, No Dysphasia , No Sinus Congestion, No Post Nasal Drip, No Sore Throat, No Other Pulmonary: No Dyspnea, No Cough, No Pleuritic Chest Pain, No Other Cardiovascular: No: Chest Pain, Palpitations, Orthopnea, Paroxysmal Noc. Dyspnea, Edema, Lt Headedness, Other Objective-Cardiology Exam Last Set of Vital Signs Vital Signs 07/03/17 07/06/17 19:57 00:00 Temp 97.8 Pulse 82 Resp 16 B/P (MAP) 128/64 (85) Pulse Ox 96 O2 Delivery Room Air O2 Flow Rate 2.00 Capillary Refill : Less Than 3 Seconds I&O Intake and Output 07/06/17 00:00 Intake Total 1350 ml Output Total 500 ml Balance 850 ml Intake Oral 1350 ml Output Urine Total 500 ml General: Alert, Oriented X3, Cooperative HEENT: Atraumatic, PERRLA Neck: Supple, No JVD, No Thyromegaly Lungs: Clear to Auscultation, Normal Air Movement Heart: Regular Rate, Normal S1, Normal S2, No Murmurs Abdomen: Normal Bowel Sounds, Soft, No Tenderness, No Hepatosplenomegaly, No Masses Extremities: No Clubbing, No Cyanosis, No Edema, Normal Pulses, No Tenderness/ Swelling Skin: No Rashes, No Significant Lesion, Other (left foot mildly erythematous, warm to touch) Neuro: Normal Speech, Cranial Nerves 3-12 NL Psych/Mental Status: Mental Status NL, Mood NL Results Lab Laboratory Tests 07/05/17 08:18 07/06/17 04:11 A/P-Cardiology Admission Diagnosis left foot cellulitis PVD Anemia HTN Assessment/Plan Left foot cellulitis, MRSA + culture, started on IV Vanco. Continue antibiotics , Consult Dr Chowdhury Anemia-s/p transfusion yesterday. H/H improving. We will continue to hold aspirin and Plavix at this point. Continue to monitor. Severe peripheral arterial disease with ischemic toe on the left side, underwent angiogram on June 06, 2017 showing total occlusion of the anterior tibial artery with successful balloon angioplasty with some improvement of the flow still had the sluggish flow. Has severe proximal stenosis at the posterior tibial artery that was treated medically, the distal SFA and popliteal artery has severe stenosis underwent drug-coated balloon angioplasty with good results. Initially reported improvement, however continued to have worsening of the ulcer and cyanosis of his first great toe and subsequently underwent left great toe amputation on June 27, 2017. Left foot is warm to touch with diminished, yet present palpable pulse. We will continue conservative treatment. Unable to tolerate aspirin and Plavix at this time secondary to anemia. 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 Currently being treated for cellulitis of left foot. Continue to monitor. Hypertension, controlled, continue to monitor BP/HR Hyperlipidemia, lipid profile was done in May 2017 showing total cholesterol 158, triglyceride 46, HDL 80, LDL 63. Continue to monitor Generalized weakness, likely secondary to his anemia. Continue to monitor. Continue PT/OT. History of back pain. History of prostatectomy secondary to prostate cancer History of bilateral foot surgery History of tobaccoism in the remote past, stopped smoking 22 years ago Clinical Quality Measures DVT/VTE Risk/Contraindication: Risk Factor Score Per Nursin RFS Level Per Nursing on Admit: 4+=Very High Contraindications-Pharm: Other *list below* EVITA LONDON MD July 06, 2017 07:46
[2017-07-06 08:00] VITALS: BP 148/65
--- NOTE | 2017-07-06 08:09 | Progress Note (SOAP) ---
Subjective Time Seen by Provider: 08:05 Subjective/Events-last exam Patient feels he is not rated go home. Patient has cellulitis in stump area. Patient work in progress. To continue with IV antibiotics Objective Exam Vital Signs Date Time Temp Pulse Resp B/P (MAP) Pulse Ox O2 Delivery O2 Flow Rate FiO2 07/06/17 00:00 97.8 82 16 128/64 (85) 96 Room Air 07/05/17 20:00 Room Air 07/05/17 19:51 98.7 81 18 123/60 (81) 95 Room Air 07/05/17 16:00 98.4 73 17 125/61 (82) 94 Room Air 07/05/17 12:00 98.9 78 18 142/65 (90) 95 Room Air 07/05/17 08:15 Room Air I & O 07/06/17 07:00 Intake Total 1350 ml Output Total 850 ml Balance 500 ml Capillary Refill : Less Than 3 Seconds General Appearance: No Apparent Distress, WD/WN HEENT: Normal ENT Inspection Neck: Full Range of Motion, Normal Inspection Respiratory: Chest Non Tender, Lungs Clear, Normal Breath Sounds, No Accessory Muscle Use, No Respiratory Distress Cardiovascular: Regular Rate, Rhythm Gastrointestinal: non tender, soft Results Lab Laboratory Tests 07/05/17 08:18 07/06/17 04:11 Laboratory Tests 07/05/17 08:18: White Blood Count 6.3, Red Blood Count 3.09L, Hemoglobin 8.6L, Hematocrit 28L, Mean Corpuscular Volume 90, Mean Corpuscular Hemoglobin 28, Mean Corpuscular Hemoglobin Concent 31L, Red Cell Distribution Width 14.7H, Platelet Count 277, Mean Platelet Volume 9.7, Neutrophils (%) (Auto) 63, Lymphocytes (%) (Auto) 17, Monocytes (%) (Auto) 13H, Eosinophils (%) (Auto) 7, Basophils (%) (Auto) 1, Neutrophils # (Auto) 4.0, Lymphocytes # (Auto) 1.1, Monocytes # (Auto) 0.8, Eosinophils # (Auto) 0.4H, Basophils # (Auto) 0.1, Sodium Level 142, Potassium Level 4.4, Chloride Level 108H, Carbon Dioxide Level 25, Anion Gap 9, Blood Urea Nitrogen 13, Creatinine 1.06, Estimat Glomerular Filtration Rate > 60, BUN/ Creatinine Ratio 12, Glucose Level 99, Calcium Level 8.9, Vancomycin Level Trough 15.6 07/06/17 04:11: White Blood Count 5.5, Red Blood Count 3.10L, Hemoglobin 8.4L, Hematocrit 28L, Mean Corpuscular Volume 91, Mean Corpuscular Hemoglobin 27, Mean Corpuscular Hemoglobin Concent 30L, Red Cell Distribution Width 14.8H, Platelet Count 268, Mean Platelet Volume 10.0, Neutrophils (%) (Auto) 57, Lymphocytes (%) (Auto) 19 , Monocytes (%) (Auto) 15H, Eosinophils (%) (Auto) 8, Basophils (%) (Auto) 1, Neutrophils # (Auto) 3.1, Lymphocytes # (Auto) 1.0, Monocytes # (Auto) 0.8, Eosinophils # (Auto) 0.5H, Basophils # (Auto) 0.1, Sodium Level 142, Potassium Level 4.3, Chloride Level 108H, Carbon Dioxide Level 26, Anion Gap 8, Blood Urea Nitrogen 14, Creatinine 1.08, Estimat Glomerular Filtration Rate > 60, BUN/ Creatinine Ratio 13, Glucose Level 90, Calcium Level 8.8 Microbiology 07/02/17 Blood Culture - Preliminary, Resulted No growth 07/02/17 Gram Stain - Final, Resulted 07/02/17 Wound Culture - Preliminary, Resulted Staphylococcus aureus Assessment/Plan Assessment/Plan Assess & Plan/Chief Complaint Cellulitis of amputated toe. MRSA positive. Patient anemic. Patient feeling good. Patient put on vancomycin. Patient be given a unit of blood. . 07/04/17. MRSA and blood strain. Anemia. Patient received a unit of blood yesterday. Patient constipated. Patient feeling better area Patient on vancomycin. . 07/05/17. MRSA positive. Anemia. Patient still having pain and foot area. . 07/06/17. MRSA. Anemia stable. Patient still has infection in the area. To continue with IV antibiotics Clinical Quality Measures Admission Status Admission Dx Postop wound infected left big toe area. Intractable pain postop. Anemia. Mild dehydration DVT/VTE Risk/Contraindication: Risk Factor Score Per Nursin RFS Level Per Nursing on Admit: 4+=Very High Contraindications-Pharm: Other *list below* ROSY CLANCY DO July 06, 2017 08:09
[2017-07-06] MEDS: VANCOMYCIN INJECTION 1,250 MG in NS (IVPB) 250 ML IV SCH (08:43)
[2017-07-06] MEDS: HYDROCHLOROTHIAZIDE 25 MG (HCTZ) TAB PO SCH (08:44)
[2017-07-06] MEDS: amLODIPine 5 MG (NORVASC) TAB PO SCH (08:44)
[2017-07-06] MEDS: PANTOPRAZOLE 40 MG (PROTONIX) TAB PO SCH (08:44)
[2017-07-06] MEDS: GABAPENTIN 300 MG (NEURONTIN) CAP PO SCH ×2 (08:44→20:38)
[2017-07-06] MEDS: PENTOXIFYLLINE 400 MG (TRENtal) TAB PO SCH ×3 (08:44→20:38)
[2017-07-06] MEDS: MILK OF MAGNESIA 400 MG/5 ML 30 ML UDC PO SCH ×2 (09:11→20:38)
--- NOTE | 2017-07-06 11:33 | Progress Note-Standard ---
Standard Progress Note Progress Notes/Assess & Plan Date Seen by Provider: July 06, 2017 Time Seen by Provider: 11:32 Progress/Assessment & Plan 07/02/17: Readmitted with cellulitis around the site of recent amputation of the big toe. Very faint Doppler signal over the dorsalis pedis artery. We'll continue to the observe and use antibiotics 07/03/17:pain control slightly improved. Continue IV antibiotics. 07/05/17: Wound care measures in progress. Local pain appears to be improving. MRSA from the wound and IV antibiotics in progress. 07/06/17: Purulent drainage from the medial aspect of the wound. On vancomycin. Pain control reasonable. We'll continue wound care. Final Diagnosis Gangrenous left big toe. Erythema was liver disease. Postoperative wound infection JULISA FLORES MD July 06, 2017 11:33
--- NOTE | 2017-07-06 11:41 | Physical Therapy Daily Note ---
PT Daily Note-Current Subjective Patient agrees to PT. No c/o. Pain Numeric Pain Scale: 0-No Pain Location: No Pain Reported Mental Status Patient Orientation: Normal For Age Transfers Functional [place] Measure 0=Not Assessed/NA 4=Minimal Assistance 1=Total Assistance 5=Supervision or Setup 2=Maximal Assistance 6=Modified [place] 3=Moderate Assistance 7=Complete IndependenceIRFPAI Quality Coding Scale 6 Independent with activity with or without an assistive device 5 Patient requires set up or clean up by helper. Patient completes activity by themselves 4 Supervision or touching assist (CGA). [place] provide cues , steadying assist 3 The helper provides less than half the effort to complete the activity 2 The helper provides more than half the effort to complete the activity 1 Dependent. The helper does all the effort to complete an activity 7 Patient refused to complete or attempt activity 9 The patient did not perform the activity before the current illness or injury 88 Not attempted due to Medical conditions or safety concerns Transfers (B, C, W/C) (FIM): 5 Scootin Rollin Supine to/from Sit: 5 Sit to/from Stand: 5 Bed to/from Chair: 5 Weight Bearing Right Lower Extremity: Right Weight Bearing/Tolerated Left Lower Extremity: Left Weight Bearing/Tolerated Gait Training Gait (FIM): 6 Distance (FIM): 3=150 ft Distance: 300' x 2 Gait Level of Assist: 6 Gait Assistive Device: FWW very slow, steady (noted foot drop left) Assessment Patient requires time to complete all tasks. Patient is motivated with progress. PT Correction Goals Correction Goals PT Correction Goals Time Frame: July 10, 2017 Transfers (B,C,W/C) (FIM): 7 Gait (FIM): 6 Gait distance (FIM): 3=150 ft Gait Assistive Device: FWW PT Plan Treatment/Plan Treatment Plan: Continue Plan of Care Treatment Plan: Bed Mobility, Education, Functional Activity Vito, Functional Strength, Gait, Safety, Therapeutic Exercise, Transfers Treatment Duration: July 10, 2017 Frequency: 6 times per week Estimated Hrs Per Day: .5 hour per day Patient and/or Family Agrees t: Yes Time/GCodes Time In: 1110 Time Out: 1133 Total Billed Treatment Time: 23 Total Billed Treatment 1 visit FA x 2 23 min SHEYLA DURANT PT July 06, 2017 11:41
[2017-07-06 16:20] VITALS: BP 144/64
--- NOTE | 2017-07-06 17:16 | Wound Care Assessment ---
Wound Care Assessment Date Seen by Provider: July 06, 2017 Time Seen by Provider: 16:00 Chief Complaint L forefoot wound. HPI The patient is an 87 year old male with an open area of the L forefoot after L great toe amputation for gangrene. The wound was macerated when previously examined, and my concern is that an occlusive dressing may lead to more maceration. A call is placed to Dr. Mora. Past Medical History: Admits Cancer, Treaments Smoking Status: Former Smoker Recreational Drug Use: No Alcohol Use: Regular Use Review of Systems Pulmonary: No Dyspnea Cardiovascular: No: Chest Pain Exam Vital Signs Date Time Temp Pulse Resp B/P (MAP) Pulse Ox O2 Delivery O2 Flow Rate FiO2 07/06/17 14:37 18 Room Air 07/06/17 08:00 98.4 86 148/65 (92) 94 07/03/17 19:57 2.00 Capillary Refill : Less Than 3 Seconds General Appearance: no apparent distress Respiratory: no respiratory distress Skin: other (L great toe amputation site -- 0.5 x 0.7 x 0.1 cm area of slough with surrounding maceration) Results Laboratory Tests 07/06/17 04:11: White Blood Count 5.5, Red Blood Count 3.10L, Hemoglobin 8.4L, Hematocrit 28L, Mean Corpuscular Volume 91, Mean Corpuscular Hemoglobin 27, Mean Corpuscular Hemoglobin Concent 30L, Red Cell Distribution Width 14.8H, Platelet Count 268, Mean Platelet Volume 10.0, Neutrophils (%) (Auto) 57, Lymphocytes (%) (Auto) 19 , Monocytes (%) (Auto) 15H, Eosinophils (%) (Auto) 8, Basophils (%) (Auto) 1, Neutrophils # (Auto) 3.1, Lymphocytes # (Auto) 1.0, Monocytes # (Auto) 0.8, Eosinophils # (Auto) 0.5H, Basophils # (Auto) 0.1, Sodium Level 142, Potassium Level 4.3, Chloride Level 108H, Carbon Dioxide Level 26, Anion Gap 8, Blood Urea Nitrogen 14, Creatinine 1.08, Estimat Glomerular Filtration Rate > 60, BUN/ Creatinine Ratio 13, Glucose Level 90, Calcium Level 8.8 Microbiology 07/02/17 Blood Culture - Preliminary, Resulted No growth 07/02/17 Gram Stain - Final, Complete 07/02/17 Wound Culture - Final, Complete Staphylococcus aureus Assessment/Plan/Dx 1. Post-operative L forefoot sound with maceration. Plan: would avoid occlusive dressings as this will exacerbate the maceration present. Call is placed to Dr. Mora. BETO BURGOS MD July 06, 2017 17:16
[2017-07-06] MEDS: ATORVASTATIN 10 MG (LIPITOR) TABLET PO SCH (20:38)
[2017-07-07 01:08] VITALS: BP 127/72
[2017-07-07 04:30] LABS: HEMOGLOBIN 8.4 G/DL (13.3-17.7); MEAN PLATELET VOLUME 9.9 FL (7.4-10.4); RED BLOOD COUNT 3.07 10^6/uL (4.35-5.85); RED CELL DISTRIBUTION WIDTH 14.9 % (10.0-14.5); WHITE BLOOD COUNT 5.1 10^3/uL (4.3-11.0)
[2017-07-07 05:13] LABS: CALCIUM 8.7 MG/DL (8.5-10.1); CREATININE SERUM 1.18 MG/DL (0.60-1.30); POTASSIUM 4.3 MMOL/L (3.6-5.0)
[2017-07-07] MEDS: FERROUS SULF 325 MG (IRON) TAB PO SCH ×2 (06:05→16:59)
[2017-07-07 08:00] VITALS: BP 151/72
[2017-07-07] MEDS: PANTOPRAZOLE 40 MG (PROTONIX) TAB PO SCH (08:47)
[2017-07-07] MEDS: HYDROcodone/APAP 5 MG/325 MG (LORTAB) TAB PO PRN ×3 (08:47→20:49)
[2017-07-07] MEDS: PENTOXIFYLLINE 400 MG (TRENtal) TAB PO SCH ×3 (08:47→20:49)
[2017-07-07] MEDS: amLODIPine 5 MG (NORVASC) TAB PO SCH (08:47)
[2017-07-07] MEDS: GABAPENTIN 300 MG (NEURONTIN) CAP PO SCH ×2 (08:47→20:49)
[2017-07-07] MEDS: MILK OF MAGNESIA 400 MG/5 ML 30 ML UDC PO SCH ×3 (08:47→20:57)
[2017-07-07] MEDS: HYDROCHLOROTHIAZIDE 25 MG (HCTZ) TAB PO SCH (08:47)
[2017-07-07] MEDS: VANCOMYCIN INJECTION 1,250 MG in NS (IVPB) 250 ML IV SCH (08:48)
--- NOTE | 2017-07-07 10:05 | Physical Therapy Daily Note ---
PT Daily Note-Current Subjective Patient was in bed and had O2 off. SAO2 >90% RA Pain Numeric Pain Scale: 0-No Pain Location: No Pain Reported Mental Status Patient Orientation: Normal For Age Attachments: Oxygen, IV Transfers Functional [place] Measure 0=Not Assessed/NA 4=Minimal Assistance 1=Total Assistance 5=Supervision or Setup 2=Maximal Assistance 6=Modified [place] 3=Moderate Assistance 7=Complete IndependenceIRFPAI Quality Coding Scale 6 Independent with activity with or without an assistive device 5 Patient requires set up or clean up by helper. Patient completes activity by themselves 4 Supervision or touching assist (CGA). [place] provide cues , steadying assist 3 The helper provides less than half the effort to complete the activity 2 The helper provides more than half the effort to complete the activity 1 Dependent. The helper does all the effort to complete an activity 7 Patient refused to complete or attempt activity 9 The patient did not perform the activity before the current illness or injury 88 Not attempted due to Medical conditions or safety concerns Transfers (B, C, W/C) (FIM): 4 Scootin Rollin Supine to/from Sit: 4 Sit to/from Stand: 4 Weight Bearing Right Lower Extremity: Right Weight Bearing/Tolerated Left Lower Extremity: Left Weight Bearing/Tolerated Gait Training Gait (FIM): 5 Distance (FIM): 3=150 ft Distance: 250' x 2 Gait Level of Assist: 5 Gait Persons Needed: 1 Gait Assistive Device: FWW very slow, steady gait. Noted increase in left LE lag due to fatigue. Exercises Seated Therapy Exercises: Ankle pumps, Long arc quads Seated Reps: 20 Assessment Patient is up in recliner with needs met. Patient desires to return to home by Sunday. PT Wireless Field Technician Goals Retirement Goals PT Retirement Goals Time Frame: July 10, 2017 Transfers (B,C,W/C) (FIM): 7 Gait (FIM): 6 Gait distance (FIM): 3=150 ft Gait Assistive Device: FWW PT Plan Treatment/Plan Treatment Plan: Continue Plan of Care Treatment Plan: Bed Mobility, Education, Functional Activity Vito, Functional Strength, Gait, Safety, Therapeutic Exercise, Transfers Treatment Duration: July 10, 2017 Frequency: 6 times per week Estimated Hrs Per Day: .5 hour per day Patient and/or Family Agrees t: Yes Time/GCodes Time In: 930 Time Out: 953 Total Billed Treatment Time: 23 Total Billed Treatment 1 visit FA x 2 23 min SHEYLA DURANT PT July 07, 2017 10:05
--- NOTE | 2017-07-07 14:12 | Progress Note-Hospitalist ---
Subjective HPI/CC On Admission Date Seen by Provider: July 07, 2017 Time Seen by Provider: 11:15 Subjective/Events-last exam Patient doing well Ambulating with walker Maintain on vancomycin Bowels are moving Denies any issues Reviewed general surgery consultation note Review of Systems General: Fatigue Objective Exam Vital Signs Vital Signs Date Time Temp Pulse Resp B/P (MAP) Pulse Ox O2 Delivery O2 Flow Rate FiO2 07/07/17 08:00 98.4 87 20 151/72 (98) 92 Nasal Cannula 2.00 Capillary Refill : Less Than 3 Seconds General Appearance: No Apparent Distress, WD/WN, Chronically ill Respiratory: Lungs Clear, Normal Breath Sounds Cardiovascular: Regular Rate, Rhythm, No Edema Extremity: Other (Left foot dressing intact) Neurologic/Psychiatric: Alert, Oriented x3, No Motor/Sensory Deficits, Normal Mood/Affect Results/Procedures Lab Laboratory Tests 07/07/17 03:56 Patient resulted labs reviewed. Assessment/Plan Assessment and Plan Assess & Plan/Chief Complaint Assessment: Left great toe amputation wound infection maintained on vancomycin and local wound care Anemia status post transfusion Severe peripheral vascular disease History of smoking 22 years ago stopped Hypertension Hyperlipidemia Plan: Continue vancomycin Monitor hemoglobin Ambulate Diagnosis/Problems Diagnosis/Problems (1) Cellulitis and abscess of foot Status: Acute (2) PVD (peripheral vascular disease) Status: Chronic (3) Hypertension Status: Chronic Qualifiers: Hypertension type: essential hypertension Qualified Codes: I10 - Essential (primary) hypertension (4) Hyperlipidemia Status: Chronic Qualifiers: Hyperlipidemia type: mixed hyperlipidemia Qualified Codes: E78.2 - Mixed hyperlipidemia (5) Anemia Status: Acute Qualifiers: Anemia type: unspecified type Qualified Codes: D64.9 - Anemia, unspecified (6) Transfusion of blood during current hospitalization Status: Resolved Clinical Quality Measures DVT/VTE Risk/Contraindication: Risk Factor Score Per Nursin RFS Level Per Nursing on Admit: 4+=Very High Contraindications-Pharm: Other *list below* DINESH WATT DO July 07, 2017 14:12
--- NOTE | 2017-07-07 14:20 | Progress Note ---
Subjective Time Seen by Provider: 14:02 Subjective/Events-last exam Pt seen and examined, no acute distress. Pt states minimal pain in left foot. Review of Systems General: No Chills, No Night Sweats; Fatigue Pulmonary: No Cough Cardiovascular: No: Chest Pain Gastrointestinal: No: Nausea, Vomiting Objective Exam Vital Signs Date Time Temp Pulse Resp B/P (MAP) Pulse Ox O2 Delivery O2 Flow Rate FiO2 07/07/17 08:00 98.4 87 20 151/72 (98) 92 Nasal Cannula 2.00 07/07/17 01:08 98.7 72 18 127/72 (90) 96 Nasal Cannula 2.00 07/06/17 20:56 93 Nasal Cannula 2.00 07/06/17 20:00 Nasal Cannula 2.00 07/06/17 16:20 94 Nasal Cannula 2.00 07/06/17 16:20 98.3 80 18 144/64 (90) 85 Room Air 07/06/17 14:37 18 Room Air I & O 07/07/17 07:00 Intake Total 1630 ml Output Total 500 ml Balance 1130 ml Capillary Refill : Less Than 3 Seconds General Appearance: No Apparent Distress, WD/WN Neck: Full Range of Motion; No Thyromegaly Respiratory: Lungs Clear, Normal Breath Sounds Cardiovascular: Regular Rate, Rhythm, No Edema Gastrointestinal: non tender, soft Extremity: Other (Left foot no erythema, no fluctuance, no signs of infection, no drainage) Neurologic/Psychiatric: Alert, Oriented x3, Normal Mood/Affect Results Lab Laboratory Tests 07/07/17 03:56: White Blood Count 5.1, Red Blood Count 3.07L, Hemoglobin 8.4L, Hematocrit 29L, Mean Corpuscular Volume 93, Mean Corpuscular Hemoglobin 27, Mean Corpuscular Hemoglobin Concent 29L, Red Cell Distribution Width 14.9H, Platelet Count 258, Mean Platelet Volume 9.9, Sodium Level 144, Potassium Level 4.3, Chloride Level 108H, Carbon Dioxide Level 26, Anion Gap 10, Blood Urea Nitrogen 17, Creatinine 1.18, Estimat Glomerular Filtration Rate 59, BUN/Creatinine Ratio 14, Glucose Level 103, Calcium Level 8.7 Microbiology 07/02/17 Blood Culture - Preliminary, Resulted No growth 07/02/17 Gram Stain - Final, Complete 07/02/17 Wound Culture - Final, Complete Staphylococcus aureus Assessment/Plan Assessment/Plan Assessment/Plan MRSA positive at site of amputated LEFT toe. Anemia - stable Would switch pt to oral clindamycin and/or Bactrim (MRSA is sensitive to these) and D/C pt home. Clinical Quality Measures DVT/VTE Risk/Contraindication: Risk Factor Score Per Nursin RFS Level Per Nursing on Admit: 4+=Very High Contraindications-Pharm: Other *list below* CARLOS BROCK DO July 07, 2017 14:20
--- NOTE | 2017-07-07 15:48 | Progress Note-Cardiology ---
Cardiology SOAP Progress Note Subjective: No c/p or palp or syncope or shortness of breath or leg discomfort Objective: I&O/Vital Signs 07/07/17 08:00 Temp 98.4 Pulse 87 Resp 20 B/P (MAP) 151/72 (98) Pulse Ox 92 O2 Delivery Nasal Cannula O2 Flow Rate 2.00 07/07/17 00:00 Intake Total 1230 ml Output Total 350 ml Balance 880 ml Weight (Pounds): 170 Weight (Ounces): 0.0 Weight (Calculated Kilograms): 77.955744 Constitutional: AAO x 3, well-developed, well-nourished Respiratory: No accessory muscle use; lungs clear to percussion, lungs clear to auscultation Cardiovascular: regular rate-rhythm, S1 and S2, systolic murmur (soft SCOTT at card base) Gastrointestional: No tender; soft; No guarding, No rebound; audible bowel sounds Extremities: other (S/p amputated L great toe); No clubbing, No cyanosis, No significant edema Neurologic/Psychiatric: grossly intact, power is 5/5 both on sides Skin: No rash on exposed areas, No ulcerations on exposed areas Results/Procedures: Labs Laboratory Tests 07/07/17 03:56: White Blood Count 5.1, Red Blood Count 3.07L, Hemoglobin 8.4L, Hematocrit 29L, Mean Corpuscular Volume 93, Mean Corpuscular Hemoglobin 27, Mean Corpuscular Hemoglobin Concent 29L, Red Cell Distribution Width 14.9H, Platelet Count 258, Mean Platelet Volume 9.9, Sodium Level 144, Potassium Level 4.3, Chloride Level 108H, Carbon Dioxide Level 26, Anion Gap 10, Blood Urea Nitrogen 17, Creatinine 1.18, Estimat Glomerular Filtration Rate 59, BUN/Creatinine Ratio 14, Glucose Level 103, Calcium Level 8.7 Microbiology 07/02/17 Blood Culture - Preliminary, Resulted No growth 07/02/17 Gram Stain - Final, Complete 07/02/17 Wound Culture - Final, Complete Staphylococcus aureus A/P: Assessment: S/p Left great toe amputation done 06/27/17; 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 Blood-loss anemia, requiring withholding of antiplatelet therapy PAD of the L leg 06/26/17: Total occlusion of the anterior tibial artery at the midportion not amenable to intervention; moderate severe disease in multiple segment of the posterior tibial artery still providing excellent flow down to the toes; mild disease in the superficial femoral artery and popliteal artery Hypertension Hyperlipidemia History of back pain History of prostatectomy secondary to prostate cancer History of bilateral foot surgery History of tobaccoism in the remote past, stopped smoking 22 years ago Plan: * I interviewed the patient, examined him, reviewed his chart, and answered his questions * Continue to monitor labs closely * Resume antiplatelet therapy when no further blood loss and anemia stable JESSICA CURRIE MD FACP FAC CCDS July 07, 2017 15:48
[2017-07-07 16:00] VITALS: BP 106/51
[2017-07-07] MEDS: ATORVASTATIN 10 MG (LIPITOR) TABLET PO SCH (20:49)
[2017-07-08 00:32] VITALS: BP 100/61
[2017-07-08] MEDS: HYDROcodone/APAP 5 MG/325 MG (LORTAB) TAB PO PRN ×4 (06:33→20:30)
[2017-07-08] MEDS: FERROUS SULF 325 MG (IRON) TAB PO SCH ×2 (06:33→18:12)
[2017-07-08 08:00] VITALS: BP 129/60
[2017-07-08] MEDS: GABAPENTIN 300 MG (NEURONTIN) CAP PO SCH ×2 (09:58→20:28)
[2017-07-08] MEDS: MILK OF MAGNESIA 400 MG/5 ML 30 ML UDC PO SCH ×2 (09:58→20:28)
[2017-07-08] MEDS: VANCOMYCIN INJECTION 1,250 MG in NS (IVPB) 250 ML IV SCH (09:58)
[2017-07-08] MEDS: amLODIPine 5 MG (NORVASC) TAB PO SCH (09:58)
[2017-07-08] MEDS: PENTOXIFYLLINE 400 MG (TRENtal) TAB PO SCH ×3 (09:58→20:28)
[2017-07-08] MEDS: HYDROCHLOROTHIAZIDE 25 MG (HCTZ) TAB PO SCH (09:58)
[2017-07-08] MEDS: PANTOPRAZOLE 40 MG (PROTONIX) TAB PO SCH (09:58)
--- NOTE | 2017-07-08 12:41 | Progress Note-Hospitalist ---
Subjective HPI/CC On Admission Date Seen by Provider: July 08, 2017 Time Seen by Provider: 11:00 Subjective/Events-last exam Patient doing about the same Dr. Tong thinks the toe is healing nicely Maintain on vancomycin Discharge planned for Sunday Review of Systems General: Malaise Musculoskeletal: foot pain Objective Exam Vital Signs Vital Signs Date Time Temp Pulse Resp B/P (MAP) Pulse Ox O2 Delivery O2 Flow Rate FiO2 07/08/17 08:00 99.3 91 18 129/60 (83) 92 Room Air 07/08/17 00:32 2.00 Capillary Refill : Less Than 3 Seconds General Appearance: No Apparent Distress, WD/WN, Chronically ill Respiratory: Lungs Clear, Normal Breath Sounds Cardiovascular: Regular Rate, Rhythm, No Edema Extremity: Other (left foot in dressing) Neurologic/Psychiatric: Alert, Oriented x3, No Motor/Sensory Deficits, Normal Mood/Affect Results/Procedures Lab Patient resulted labs reviewed. Assessment/Plan Assessment and Plan Assess & Plan/Chief Complaint Assessment: Left great toe amputation wound infection maintained on vancomycin and local wound care Anemia status post transfusion Severe peripheral vascular disease History of smoking 22 years ago stopped Hypertension Hyperlipidemia Plan: Continue vancomycin Monitor hemoglobin Ambulate Diagnosis/Problems Diagnosis/Problems (1) Cellulitis and abscess of foot Status: Acute (2) PVD (peripheral vascular disease) Status: Chronic (3) Hypertension Status: Chronic Qualifiers: Hypertension type: essential hypertension Qualified Codes: I10 - Essential (primary) hypertension (4) Hyperlipidemia Status: Chronic Qualifiers: Hyperlipidemia type: mixed hyperlipidemia Qualified Codes: E78.2 - Mixed hyperlipidemia (5) Anemia Status: Acute Qualifiers: Anemia type: unspecified type Qualified Codes: D64.9 - Anemia, unspecified (6) Transfusion of blood during current hospitalization Status: Resolved Clinical Quality Measures DVT/VTE Risk/Contraindication: Risk Factor Score Per Nursin RFS Level Per Nursing on Admit: 4+=Very High Contraindications-Pharm: Other *list below* DINESH WATT DO July 08, 2017 12:41
--- NOTE | 2017-07-08 13:15 | Progress Note-Cardiology ---
Cardiology SOAP Progress Note Subjective: No new symptoms Denies cp or palp or shortness of breath or foot pain Objective: I&O/Vital Signs 07/08/17 08:00 Temp 99.3 Pulse 91 Resp 18 B/P (MAP) 129/60 (83) Pulse Ox 92 O2 Delivery Room Air 07/08/17 00:00 Intake Total 1390 ml Output Total 300 ml Balance 1090 ml Weight (Pounds): 170 Weight (Ounces): 0.0 Weight (Calculated Kilograms): 77.867038 Constitutional: AAO x 3, well-developed, well-nourished Respiratory: No accessory muscle use; lungs clear to percussion, lungs clear to auscultation Cardiovascular: regular rate-rhythm, S1 and S2, systolic murmur (soft SCOTT at card base) Gastrointestional: No tender; soft; No guarding, No rebound; audible bowel sounds Extremities: other (S/p amputated L great toe); No clubbing, No cyanosis, No significant edema Neurologic/Psychiatric: grossly intact, power is 5/5 both on sides Skin: No rash on exposed areas, No ulcerations on exposed areas Results/Procedures: Labs Microbiology 07/02/17 Blood Culture - Final, Complete No growth 07/02/17 Gram Stain - Final, Complete 07/02/17 Wound Culture - Final, Complete Staphylococcus aureus A/P: Assessment: S/p Left great toe amputation done 06/27/17; 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 Blood-loss anemia, requiring withholding of antiplatelet therapy PAD of the L leg 06/26/17: Total occlusion of the anterior tibial artery at the midportion not amenable to intervention; moderate severe disease in multiple segment of the posterior tibial artery still providing excellent flow down to the toes; mild disease in the superficial femoral artery and popliteal artery Hypertension Hyperlipidemia History of back pain History of prostatectomy secondary to prostate cancer History of bilateral foot surgery History of tobaccoism in the remote past, stopped smoking 22 years ago Plan: * Continue to monitor labs closely * Resume antiplatelet therapy when no further blood loss and anemia stable JESSICA CURRIE MD FACP FAC CCDS July 08, 2017 13:14
[2017-07-08 16:00] VITALS: BP 105/51
[2017-07-08] MEDS: ATORVASTATIN 10 MG (LIPITOR) TABLET PO SCH (20:28)
[2017-07-09 00:13] VITALS: BP 135/63
[2017-07-09] MEDS: FERROUS SULF 325 MG (IRON) TAB PO SCH ×2 (06:15→16:52)
[2017-07-09 08:00] VITALS: BP 117/63
[2017-07-09] MEDS ORDERED: TROUGH ORDER-PHARMACY XX ONE (08:00)
[2017-07-09] MEDS: MILK OF MAGNESIA 400 MG/5 ML 30 ML UDC PO SCH ×2 (08:09→21:00)
[2017-07-09] MEDS: PANTOPRAZOLE 40 MG (PROTONIX) TAB PO SCH (08:10)
[2017-07-09] MEDS: PENTOXIFYLLINE 400 MG (TRENtal) TAB PO SCH ×3 (08:10→22:05)
[2017-07-09] MEDS: HYDROCHLOROTHIAZIDE 25 MG (HCTZ) TAB PO SCH (08:10)
[2017-07-09] MEDS: amLODIPine 5 MG (NORVASC) TAB PO SCH (08:10)
[2017-07-09] MEDS: GABAPENTIN 300 MG (NEURONTIN) CAP PO SCH ×2 (08:10→22:05)
[2017-07-09] MEDS: HYDROcodone/APAP 5 MG/325 MG (LORTAB) TAB PO PRN ×2 (08:11→22:09)
--- NOTE | 2017-07-09 11:22 | Physical Therapy Daily Note ---
PT Daily Note-Current Subjective Pt in bed, agreeable. When asked about pain Pt states, "I've had my pain meds". No rating given. Eager to walk. Mental Status Patient Orientation: Person, Place, Time, Situation Attachments: Oxygen Transfers Functional [place] Measure 0=Not Assessed/NA 4=Minimal Assistance 1=Total Assistance 5=Supervision or Setup 2=Maximal Assistance 6=Modified [place] 3=Moderate Assistance 7=Complete IndependenceIRFPAI Quality Coding Scale 6 Independent with activity with or without an assistive device 5 Patient requires set up or clean up by helper. Patient completes activity by themselves 4 Supervision or touching assist (CGA). Ethel provide cues , steadying assist 3 The helper provides less than half the effort to complete the activity 2 The helper provides more than half the effort to complete the activity 1 Dependent. The helper does all the effort to complete an activity 7 Patient refused to complete or attempt activity 9 The patient did not perform the activity before the current illness or injury 88 Not attempted due to Medical conditions or safety concerns Transfers (B, C, W/C) (FIM): 4 Supine to/from Sit: 4 Sit to/from Stand: 5 Weight Bearing Right Lower Extremity: Right Weight Bearing/Tolerated Left Lower Extremity: Left Weight Bearing/Tolerated Gait Training Gait (FIM): 5 Distance (FIM): 3=150 ft Distance: 450 Gait Level of Assist: 5 Gait Persons Needed: 1 Gait Assistive Device: FWW Pt ambulated with walking shoe on (L). Pt ambulated with SBA with FWW. Slow, steady gait. Occasionally drags (L) foot during swing but no LOB. Treatments Ambulation with FWW. Up in recliner with O2 in situ, needs met. Assessment Current Status: Good Progress Pt tolerated very well. Slow but safe gait demonstrated this date. PT Tier Lift Truck Operator Goals Tier Lift Truck Operator Goals PT Tier Lift Truck Operator Goals Time Frame: July 10, 2017 Transfers (B,C,W/C) (FIM): 7 Gait (FIM): 6 Gait distance (FIM): 3=150 ft Gait Assistive Device: FWW PT Plan Problem List Problem List: Activity Tolerance, Functional Strength, Safety, Balance, Gait, Transfer, Bed Mobility Treatment/Plan Treatment Plan: Continue Plan of Care Treatment Plan: Bed Mobility, Education, Functional Activity Vito, Functional Strength, Gait, Safety, Therapeutic Exercise, Transfers Treatment Duration: July 10, 2017 Frequency: 6 times per week Estimated Hrs Per Day: .5 hour per day Patient and/or Family Agrees t: Yes Time/GCodes Time In: 0853 Time Out: 915 Total Billed Treatment Time: 23 Total Billed Treatment 1, FA x 23' G Codes Necessary: LETTY Pereira DPT July 09, 2017 11:22
--- NOTE | 2017-07-09 12:00 | Progress Note-Cardiology ---
Cardiology SOAP Progress Note Subjective: No cp or palp or syncope or shortness of breath or significant foot discomfort Objective: I&O/Vital Signs 07/09/17 07/09/17 07/09/17 00:13 08:00 10:09 Temp 98.9 98.6 Pulse 72 88 Resp 18 20 B/P (MAP) 135/63 (87) 117/63 (81) Pulse Ox 91 91 O2 Delivery Nasal Cannula Room Air Nasal Cannula O2 Flow Rate 2.00 2.00 07/09/17 00:00 Intake Total 1090 ml Balance 1090 ml Weight (Pounds): 170 Weight (Ounces): 0.0 Weight (Calculated Kilograms): 77.902713 Constitutional: AAO x 3, well-developed, well-nourished Respiratory: lungs clear to percussion, lungs clear to auscultation Cardiovascular: regular rate-rhythm, S1 and S2, systolic murmur Gastrointestional: soft, audible bowel sounds Extremities: other Neurologic/Psychiatric: grossly intact, power is 5/5 both on sides Skin: No rash on exposed areas, No ulcerations on exposed areas; other (L forefoot under dressing) Results/Procedures: Labs Laboratory Tests 07/09/17 07:50: Vancomycin Level Trough 25.8*H Microbiology 07/02/17 Blood Culture - Final, Complete No growth 07/02/17 Gram Stain - Final, Complete 07/02/17 Wound Culture - Final, Complete Staphylococcus aureus A/P: Assessment: S/p Left great toe amputation done 06/27/17; 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 Anemia currently stable PAD of the L leg 06/26/17: Total occlusion of the anterior tibial artery at the midportion not amenable to intervention; moderate severe disease in multiple segment of the posterior tibial artery still providing excellent flow down to the toes; mild disease in the superficial femoral artery and popliteal artery Hypertension Hyperlipidemia History of back pain History of prostatectomy secondary to prostate cancer History of bilateral foot surgery History of tobaccoism in the remote past, stopped smoking 22 years ago Plan: * Resume antiplatelet therapy because anemia stable * Repeat labs tomorrow JESSICA CURRIE MD FACP FAC CCDS July 09, 2017 12:00
[2017-07-09] MEDS ORDERED: ASPIRIN E.C. 81 MG (ECOTRIN) TAB PO NR (12:14)
--- NOTE | 2017-07-09 12:31 | Progress Note-Hospitalist ---
Subjective HPI/CC On Admission Date Seen by Provider: July 09, 2017 Time Seen by Provider: 11:15 Subjective/Events-last exam Patient doing about the same and doing well Ready for discharge by tomorrow as planned Wound looks good by general surgery No issues discussed Review of Systems Musculoskeletal: foot pain Objective Exam Vital Signs Vital Signs Date Time Temp Pulse Resp B/P (MAP) Pulse Ox O2 Delivery O2 Flow Rate FiO2 07/09/17 16:59 98.2 86 18 141/64 (89) 90 Room Air 07/09/17 10:09 2.00 Capillary Refill : Less Than 3 Seconds General Appearance: No Apparent Distress, WD/WN, Chronically ill Respiratory: Lungs Clear, Normal Breath Sounds Cardiovascular: Irregularly Irregular Neurologic/Psychiatric: Alert, Oriented x3, No Motor/Sensory Deficits, Normal Mood/Affect Results/Procedures Lab Patient resulted labs reviewed. Assessment/Plan Assessment and Plan Assess & Plan/Chief Complaint Assessment: Left great toe amputation wound infection maintained on vancomycin and local wound care Anemia status post transfusion Severe peripheral vascular disease History of smoking 22 years ago stopped Hypertension Hyperlipidemia Plan: Continue vancomycin Monitor hemoglobin Ambulate Diagnosis/Problems Diagnosis/Problems (1) Cellulitis and abscess of foot Status: Acute (2) PVD (peripheral vascular disease) Status: Chronic (3) Hypertension Status: Chronic Qualifiers: Hypertension type: essential hypertension Qualified Codes: I10 - Essential (primary) hypertension (4) Hyperlipidemia Status: Chronic Qualifiers: Hyperlipidemia type: mixed hyperlipidemia Qualified Codes: E78.2 - Mixed hyperlipidemia (5) Anemia Status: Acute Qualifiers: Anemia type: unspecified type Qualified Codes: D64.9 - Anemia, unspecified (6) Transfusion of blood during current hospitalization Status: Resolved Clinical Quality Measures DVT/VTE Risk/Contraindication: Risk Factor Score Per Nursin RFS Level Per Nursing on Admit: 4+=Very High Contraindications-Pharm: Other *list below* DINESH WATT DO July 09, 2017 12:31
[2017-07-09 16:59] VITALS: BP 141/64
[2017-07-09] MEDS: ATORVASTATIN 10 MG (LIPITOR) TABLET PO SCH (22:05)
[2017-07-10] VITALS: BP 138/68
[2017-07-10] MEDS: HYDROcodone/APAP 5 MG/325 MG (LORTAB) TAB PO PRN (05:20)
[2017-07-10] MEDS: FERROUS SULF 325 MG (IRON) TAB PO SCH (05:59)
[2017-07-10 06:28] LABS: BASOPHILS % (AUTO) 1 % (0-10); EOSINOPHILS # (AUTO) 0.4 10^3/uL (0.0-0.3); EOSINOPHILS % (AUTO) 10 % (0-10); HEMATOCRIT 28 % (40-54); HEMOGLOBIN 8.2 G/DL (13.3-17.7); LYMPHOCYTES % (AUTO) 23 % (12-44); MEAN CORPUSCULAR HEMOGLOBIN 27 PG (25-34); MEAN CORPUSCULAR HGB CONC 30 G/DL (32-36); MEAN CORPUSCULAR VOLUME 93 FL (80-99); MEAN PLATELET VOLUME 9.9 FL (7.4-10.4); MONOCYTES # (AUTO) 0.5 X 10^3 (0.0-1.0); MONOCYTES % (AUTO) 11 % (0-12); NEUTROPHILS # (AUTO) 2.3 X 10^3 (1.8-7.8); NEUTROPHILS % (AUTO) 55 % (42-75); PLATELET COUNT 209 10^3/uL (130-400); RED BLOOD COUNT 2.99 10^6/uL (4.35-5.85); RED CELL DISTRIBUTION WIDTH 14.9 % (10.0-14.5); WHITE BLOOD COUNT 4.1 10^3/uL (4.3-11.0)
[2017-07-10 07:18] LABS: ALBUMIN 3.1 GM/DL (3.2-4.5); BILIRUBIN,TOTAL 0.2 MG/DL (0.1-1.0); CALCIUM 8.4 MG/DL (8.5-10.1); CREATININE SERUM 1.32 MG/DL (0.60-1.30); POTASSIUM 4.4 MMOL/L (3.6-5.0); TOTAL PROTEIN 6.4 GM/DL (6.4-8.2)
--- NOTE | 2017-07-10 07:54 | Progress Note (SOAP) ---
Subjective Time Seen by Provider: 07:50 Subjective/Events-last exam Patient feeling better. MRSA of toe better. No pain. Patient be discharged today on doxycycline Objective Exam Vital Signs Date Time Temp Pulse Resp B/P (MAP) Pulse Ox O2 Delivery O2 Flow Rate FiO2 07/10/17 07:34 91 Room Air 07/10/17 00:00 98.2 82 17 138/68 (91) 92 Room Air 07/09/17 20:00 92 Nasal Cannula 2.00 07/09/17 19:37 94 Nasal Cannula 2.00 07/09/17 16:59 98.2 86 18 141/64 (89) 90 Room Air 07/09/17 10:09 Nasal Cannula 2.00 07/09/17 08:00 91 Nasal Cannula 2.00 07/09/17 08:00 98.6 88 20 117/63 (81) 91 Room Air I & O 07/10/17 07:00 Intake Total 1180 ml Output Total 200 ml Balance 980 ml Capillary Refill : Less Than 3 Seconds General Appearance: No Apparent Distress, WD/WN HEENT: Normal ENT Inspection Neck: Full Range of Motion, Normal Inspection Respiratory: No Accessory Muscle Use, No Respiratory Distress Cardiovascular: Regular Rate, Rhythm Gastrointestinal: non tender, soft Results Lab Laboratory Tests 07/10/17 06:14: White Blood Count 4.1L, Red Blood Count 2.99L, Hemoglobin 8.2L, Hematocrit 28L, Mean Corpuscular Volume 93, Mean Corpuscular Hemoglobin 27, Mean Corpuscular Hemoglobin Concent 30L, Red Cell Distribution Width 14.9H, Platelet Count 209, Mean Platelet Volume 9.9, Neutrophils (%) (Auto) 55, Lymphocytes (%) (Auto) 23, Monocytes (%) (Auto) 11, Eosinophils (%) (Auto) 10, Basophils (%) (Auto) 1, Neutrophils # (Auto) 2.3, Lymphocytes # (Auto) 1.0, Monocytes # (Auto) 0.5, Eosinophils # (Auto) 0.4H, Basophils # (Auto) 0.0, Sodium Level 140, Potassium Level 4.4, Chloride Level 104, Carbon Dioxide Level 28, Anion Gap 8, Blood Urea Nitrogen 22H, Creatinine 1.32H, Estimat Glomerular Filtration Rate 52, BUN/ Creatinine Ratio 17, Glucose Level 93, Calcium Level 8.4L, Total Bilirubin 0.2, Aspartate Amino Transf (AST/SGOT) 14, Alanine Aminotransferase (ALT/SGPT) 10, Alkaline Phosphatase 71, Total Protein 6.4, Albumin 3.1L Microbiology 07/02/17 Blood Culture - Final, Complete No growth 07/02/17 Gram Stain - Final, Complete 07/02/17 Wound Culture - Final, Complete Staphylococcus aureus Assessment/Plan Assessment/Plan Assess & Plan/Chief Complaint Cellulitis of amputated toe. MRSA positive. Patient anemic. Patient feeling good. Patient put on vancomycin. Patient be given a unit of blood. . 07/04/17. MRSA and blood strain. Anemia. Patient received a unit of blood yesterday. Patient constipated. Patient feeling better area Patient on vancomycin. . 07/05/17. MRSA positive. Anemia. Patient still having pain and foot area. . 07/06/17. MRSA. Anemia stable. Patient still has infection in the area. To continue with IV antibiotics. . 07/10/17. MRSA positive. Amputated big toe. Anemia. No phantom pain. Patient be discharged today. Patient be followed up in the office this Sunday at 10 a.m. Clinical Quality Measures Admission Status Admission Dx Postop wound infected left big toe area. Intractable pain postop. Anemia. Mild dehydration DVT/VTE Risk/Contraindication: Risk Factor Score Per Nursin RFS Level Per Nursing on Admit: 4+=Very High Contraindications-Pharm: Other *list below* ROSY CLANCY DO July 10, 2017 07:54
--- NOTE | 2017-07-10 07:58 | Discharge Inst-Simple/Standard ---
Discharge Inst-Standard Discharge Medications New, Converted or Re-Newed RX: Call to Patients Pharmacy Patient Instructions/Follow Up Plan of Care/Instructions/FU: 2 office this Sunday at 10 a.m. area To take doxycycline 100 mg one twice a day Activity as Tolerated: Yes Discharge Diet: No Restrictions ROSY CLANCY DO July 10, 2017 07:58
[2017-07-10 08:01] VITALS: BP 109/52
[2017-07-10] MEDS ORDERED: DOXY100C42 PO (08:01)
--- NOTE | 2017-07-10 08:25 | Cardiology Progress Note ---
Subjective Date Seen by Provider: July 10, 2017 Time Seen by Provider: 08:24 Subjective/Events-last exam Patient is sitting in a chair, feeling better, his foot pain is better Review of Systems General: No Chills, No Night Sweats, No Fatigue, No Malaise, No Appetite, No Other HEENT: No Head Aches, No Visual Changes, No Eye Pain, No Ear Pain, No Dysphasia , No Sinus Congestion, No Post Nasal Drip, No Sore Throat, No Other Pulmonary: No Dyspnea, No Cough, No Pleuritic Chest Pain, No Other Cardiovascular: No: Chest Pain, Palpitations, Orthopnea, Paroxysmal Noc. Dyspnea, Edema, Lt Headedness, Other Objective-Cardiology Exam Last Set of Vital Signs Vital Signs 07/09/17 07/10/17 20:00 08:01 Temp 98.0 Pulse 83 Resp 20 B/P (MAP) 109/52 (71) Pulse Ox 92 O2 Delivery Room Air O2 Flow Rate 2.00 Capillary Refill : Less Than 3 Seconds I&O Intake and Output 07/10/17 00:00 Intake Total 955 ml Balance 955 ml Intake Oral 880 ml IV Total 0 ml Tube Feeding 75 ml # Voids 8 # Bowel Movements 3 General: Alert, Oriented X3, Cooperative HEENT: Atraumatic, PERRLA Neck: Supple, No JVD, No Thyromegaly Lungs: Clear to Auscultation, Normal Air Movement Heart: Regular Rate, Normal S1, Normal S2, No Murmurs Abdomen: Normal Bowel Sounds, Soft, No Tenderness, No Hepatosplenomegaly, No Masses Extremities: No Clubbing, No Cyanosis, No Edema, Normal Pulses, No Tenderness/ Swelling Skin: No Rashes, No Significant Lesion, Other (left foot mildly erythematous, warm to touch) Neuro: Normal Speech, Cranial Nerves 3-12 NL Psych/Mental Status: Mental Status NL, Mood NL Results Lab Laboratory Tests 07/10/17 06:14 A/P-Cardiology Admission Diagnosis left foot cellulitis PVD Anemia HTN Assessment/Plan Left foot cellulitis, MRSA + culture, started on IV Vanco. Reporting improvement at this time. Managed by Dr. Mello Anemia-s/p transfusion, H&H are better. Continue to monitor. Consider restarting aspirin Severe peripheral arterial disease with ischemic toe on the left side, underwent angiogram on June 06, 2017 showing total occlusion of the anterior tibial artery with successful balloon angioplasty with some improvement of the flow still had the sluggish flow. Has severe proximal stenosis at the posterior tibial artery that was treated medically, the distal SFA and popliteal artery has severe stenosis underwent drug-coated balloon angioplasty with good results. Initially reported improvement, however continued to have worsening of the ulcer and cyanosis of his first great toe and subsequently underwent left great toe amputation on June 27, 2017. Left foot is warm to touch with diminished, yet present palpable pulse. We will continue conservative treatment. Unable to tolerate aspirin and Plavix at this time secondary to anemia. 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 Currently being treated for cellulitis of left foot. Continue to monitor. Hypertension, controlled, continue to monitor BP/HR Hyperlipidemia, lipid profile was done in May 2017 showing total cholesterol 158, triglyceride 46, HDL 80, LDL 63. Continue to monitor Generalized weakness, likely secondary to his anemia. Continue to monitor. Continue PT/OT. History of back pain. History of prostatectomy secondary to prostate cancer History of bilateral foot surgery History of tobaccoism in the remote past, stopped smoking 22 years ago Clinical Quality Measures DVT/VTE Risk/Contraindication: Risk Factor Score Per Nursin RFS Level Per Nursing on Admit: 4+=Very High Contraindications-Pharm: Other *list below* EVITA LONDON MD July 10, 2017 08:25
[2017-07-10] MEDS: amLODIPine 5 MG (NORVASC) TAB PO SCH (08:40)
[2017-07-10] MEDS: MILK OF MAGNESIA 400 MG/5 ML 30 ML UDC PO SCH (08:40)
[2017-07-10] MEDS: HYDROCHLOROTHIAZIDE 25 MG (HCTZ) TAB PO SCH (08:40)
[2017-07-10] MEDS: GABAPENTIN 300 MG (NEURONTIN) CAP PO SCH (08:40)
[2017-07-10] MEDS: PENTOXIFYLLINE 400 MG (TRENtal) TAB PO SCH (08:40)
[2017-07-10] MEDS: PANTOPRAZOLE 40 MG (PROTONIX) TAB PO SCH (08:40)
[2017-07-10] MEDS ORDERED: ASPIRIN E.C. 81 MG (ECOTRIN) TAB PO SCH (09:00)
--- NOTE | 2017-07-12 07:20 | Discharge Summary ---
Diagnosis/Chief Complaint Date of Admission July 02, 2017 at 06:10 Date of Discharge July 10, 2017 at 10:15 Discharge Date: July 10, 2017 Discharge Time: 07:15 Discharge Diagnosis MRSA. Of toe. Anemia. Severe pain in left foot. Phantom pain. Anemia. Peripheral vascular disease. Hypertension. Acquired absence of left great toe. Cellulitis of left toe. 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 Reason Hospital Visit Patient came to the hospital by ambulance. Patient weak. Patient yesterday in bed all day. Patient had to call neighbor across the street to help him twice to get out of bed. Patient not eating much. Last week patient had amputation of the big toe. Has redness around amputated digit. Patient admitted Discharge Summary Consultations Cardiology. Surgery. Discharge Physical Examination Allergies: Coded Allergies: shellfish derived (Verified Allergy, Severe, HIVES/SWELLING, 06/25/17) Vitals & I&Os Vital Signs Date Time Temp Pulse Resp B/P (MAP) Pulse Ox O2 Delivery O2 Flow Rate FiO2 07/10/17 08:01 98.0 83 20 109/52 (71) 92 Room Air 07/09/17 20:00 2.00 Hospital Course Patient had severe pain in the left foot. When patient discharged had no severe pain. MRSA amputated toe big toe Labs (last 24 hrs) Laboratory Tests 07/02/17 05:34: White Blood Count 9.8, Red Blood Count 3.13L, Hemoglobin 8.6L, Hematocrit 28L, Mean Corpuscular Volume 89, Mean Corpuscular Hemoglobin 28, Mean Corpuscular Hemoglobin Concent 31L, Red Cell Distribution Width 13.3, Platelet Count 269, Mean Platelet Volume 9.9, Neutrophils (%) (Auto) 72, Lymphocytes (%) (Auto) 13, Monocytes (%) (Auto) 13H, Eosinophils (%) (Auto) 2, Basophils (%) (Auto) 0, Neutrophils # (Auto) 7.1, Lymphocytes # (Auto) 1.3, Monocytes # (Auto) 1.2H, Eosinophils # (Auto) 0.2, Basophils # (Auto) 0.0, Sodium Level 137, Potassium Level 4.0, Chloride Level 104, Carbon Dioxide Level 21, Anion Gap 12, Blood Urea Nitrogen 20H, Creatinine 1.06, Estimat Glomerular Filtration Rate > 60, BUN /Creatinine Ratio 19, Glucose Level 105, Lactic Acid Level 0.82, Calcium Level 9.0, Total Bilirubin 0.7, Aspartate Amino Transf (AST/SGOT) 16, Alanine Aminotransferase (ALT/SGPT) 7, Alkaline Phosphatase 70, Total Protein 6.5, Albumin 3.5 07/02/17 07:07: Urine Color YELLOW, Urine Clarity CLEAR, Urine pH 7, Urine Specific [place] 1.005L, Urine Protein NEGATIVE, Urine Glucose (UA) NEGATIVE, Urine Ketones NEGATIVE, Urine Nitrite NEGATIVE, Urine Bilirubin NEGATIVE, Urine Urobilinogen NORMAL, Urine Leukocyte Esterase NEGATIVE, Urine RBC (Auto) NEGATIVE, Urine RBC NONE, Urine WBC NONE, Urine Squamous Epithelial Cells NONE, Urine Crystals NONE , Urine Bacteria NEGATIVE, Urine Casts NONE, Urine Mucus NEGATIVE, Urine Culture Indicated NO 07/03/17 03:35: White Blood Count 7.9, Red Blood Count 2.68L, Hemoglobin 7.4L, Hematocrit 24L, Mean Corpuscular Volume 90, Mean Corpuscular Hemoglobin 28, Mean Corpuscular Hemoglobin Concent 31L, Red Cell Distribution Width 13.6, Platelet Count 242, Mean Platelet Volume 10.2, Neutrophils (%) (Auto) 64, Lymphocytes (%) (Auto) 15 , Monocytes (%) (Auto) 16H, Eosinophils (%) (Auto) 5, Basophils (%) (Auto) 0, Neutrophils # (Auto) 5.1, Lymphocytes # (Auto) 1.2, Monocytes # (Auto) 1.2H, Eosinophils # (Auto) 0.4H, Basophils # (Auto) 0.0, Sodium Level 141, Potassium Level 3.6, Chloride Level 108H, Carbon Dioxide Level 23, Anion Gap 10, Blood Urea Nitrogen 16, Creatinine 1.14, Estimat Glomerular Filtration Rate > 60, BUN/ Creatinine Ratio 14, Glucose Level 128H, Calcium Level 8.3L, Total Bilirubin 0.4 , Aspartate Amino Transf (AST/SGOT) 10, Alanine Aminotransferase (ALT/SGPT) 7, Alkaline Phosphatase 55, Total Protein 5.6L, Albumin 2.9L 07/04/17 06:00: White Blood Count 7.7, Red Blood Count 3.09L, Hemoglobin 8.5L, Hematocrit 28L, Mean Corpuscular Volume 89, Mean Corpuscular Hemoglobin 28, Mean Corpuscular Hemoglobin Concent 31L, Red Cell Distribution Width 14.6H, Platelet Count 255, Mean Platelet Volume 10.0, Sodium Level 141, Potassium Level 4.0, Chloride Level 108H, Carbon Dioxide Level 23, Anion Gap 10, Blood Urea Nitrogen 16, Creatinine 1.01, Estimat Glomerular Filtration Rate > 60, BUN/Creatinine Ratio 16, Glucose Level 106H, Calcium Level 8.4L 07/04/17 11:11: Lab Scanned Report Transfusion Reaction Form 07/05/17 08:18: White Blood Count 6.3, Red Blood Count 3.09L, Hemoglobin 8.6L, Hematocrit 28L, Mean Corpuscular Volume 90, Mean Corpuscular Hemoglobin 28, Mean Corpuscular Hemoglobin Concent 31L, Red Cell Distribution Width 14.7H, Platelet Count 277, Mean Platelet Volume 9.7, Neutrophils (%) (Auto) 63, Lymphocytes (%) (Auto) 17, Monocytes (%) (Auto) 13H, Eosinophils (%) (Auto) 7, Basophils (%) (Auto) 1, Neutrophils # (Auto) 4.0, Lymphocytes # (Auto) 1.1, Monocytes # (Auto) 0.8, Eosinophils # (Auto) 0.4H, Basophils # (Auto) 0.1, Sodium Level 142, Potassium Level 4.4, Chloride Level 108H, Carbon Dioxide Level 25, Anion Gap 9, Blood Urea Nitrogen 13, Creatinine 1.06, Estimat Glomerular Filtration Rate > 60, BUN/ Creatinine Ratio 12, Glucose Level 99, Calcium Level 8.9, Vancomycin Level Trough 15.6 07/06/17 04:11: White Blood Count 5.5, Red Blood Count 3.10L, Hemoglobin 8.4L, Hematocrit 28L, Mean Corpuscular Volume 91, Mean Corpuscular Hemoglobin 27, Mean Corpuscular Hemoglobin Concent 30L, Red Cell Distribution Width 14.8H, Platelet Count 268, Mean Platelet Volume 10.0, Neutrophils (%) (Auto) 57, Lymphocytes (%) (Auto) 19 , Monocytes (%) (Auto) 15H, Eosinophils (%) (Auto) 8, Basophils (%) (Auto) 1, Neutrophils # (Auto) 3.1, Lymphocytes # (Auto) 1.0, Monocytes # (Auto) 0.8, Eosinophils # (Auto) 0.5H, Basophils # (Auto) 0.1, Sodium Level 142, Potassium Level 4.3, Chloride Level 108H, Carbon Dioxide Level 26, Anion Gap 8, Blood Urea Nitrogen 14, Creatinine 1.08, Estimat Glomerular Filtration Rate > 60, BUN/ Creatinine Ratio 13, Glucose Level 90, Calcium Level 8.8 07/07/17 03:56: White Blood Count 5.1, Red Blood Count 3.07L, Hemoglobin 8.4L, Hematocrit 29L, Mean Corpuscular Volume 93, Mean Corpuscular Hemoglobin 27, Mean Corpuscular Hemoglobin Concent 29L, Red Cell Distribution Width 14.9H, Platelet Count 258, Mean Platelet Volume 9.9, Sodium Level 144, Potassium Level 4.3, Chloride Level 108H, Carbon Dioxide Level 26, Anion Gap 10, Blood Urea Nitrogen 17, Creatinine 1.18, Estimat Glomerular Filtration Rate 59, BUN/Creatinine Ratio 14, Glucose Level 103, Calcium Level 8.7 07/09/17 07:50: Vancomycin Level Trough 25.8*H 07/10/17 06:14: White Blood Count 4.1L, Red Blood Count 2.99L, Hemoglobin 8.2L, Hematocrit 28L, Mean Corpuscular Volume 93, Mean Corpuscular Hemoglobin 27, Mean Corpuscular Hemoglobin Concent 30L, Red Cell Distribution Width 14.9H, Platelet Count 209, Mean Platelet Volume 9.9, Neutrophils (%) (Auto) 55, Lymphocytes (%) (Auto) 23, Monocytes (%) (Auto) 11, Eosinophils (%) (Auto) 10, Basophils (%) (Auto) 1, Neutrophils # (Auto) 2.3, Lymphocytes # (Auto) 1.0, Monocytes # (Auto) 0.5, Eosinophils # (Auto) 0.4H, Basophils # (Auto) 0.0, Sodium Level 140, Potassium Level 4.4, Chloride Level 104, Carbon Dioxide Level 28, Anion Gap 8, Blood Urea Nitrogen 22H, Creatinine 1.32H, Estimat Glomerular Filtration Rate 52, BUN/ Creatinine Ratio 17, Glucose Level 93, Calcium Level 8.4L, Total Bilirubin 0.2, Aspartate Amino Transf (AST/SGOT) 14, Alanine Aminotransferase (ALT/SGPT) 10, Alkaline Phosphatase 71, Total Protein 6.4, Albumin 3.1L Microbiology 07/02/17 Blood Culture - Final, Complete No growth 5/21/18 Gram Stain - Final, Complete 07/02/17 Wound Culture - Final, Complete Staphylococcus aureus Laboratory Tests 07/02/17 05:34 07/03/17 03:35 07/04/17 06:00 07/05/17 08:18 07/06/17 04:11 07/07/17 03:56 07/10/17 06:14 Pending Labs Microbiology Date/Time Source Procedure Growth Status 07/02/17 05:41 Peripheral Rt Ac Blood Culture - Final No growth Complete 07/02/17 05:34 Peripheral Left Wrist Blood Culture - Final No growth Complete 07/02/17 05:55 Incision Foot, Left Gram Stain - Final Complete 07/02/17 05:55 Wound Culture - Final Staphylococcus aureus Complete Laboratory Tests 07/02/17 05:34: White Blood Count 9.8, Red Blood Count 3.13, Hemoglobin 8.6, Hematocrit 28, Mean Corpuscular Volume 89, Mean Corpuscular Hemoglobin 28, Mean Corpuscular Hemoglobin Concent 31, Red Cell Distribution Width 13.3, Platelet Count 269, Mean Platelet Volume 9.9, Neutrophils (%) (Auto) 72, Lymphocytes (%) (Auto) 13, Monocytes (%) (Auto) 13, Eosinophils (%) (Auto) 2, Basophils (%) (Auto) 0, Neutrophils # (Auto) 7.1, Lymphocytes # (Auto) 1.3, Monocytes # (Auto) 1.2, Eosinophils # (Auto) 0.2, Basophils # (Auto) 0.0, Sodium Level 137, Potassium Level 4.0, Chloride Level 104, Carbon Dioxide Level 21, Anion Gap 12, Blood Urea Nitrogen 20, Creatinine 1.06, Estimat Glomerular Filtration Rate > 60, BUN/ Creatinine Ratio 19, Glucose Level 105, Lactic Acid Level 0.82, Calcium Level 9.0, Total Bilirubin 0.7, Aspartate Amino Transf (AST/SGOT) 16, Alanine Aminotransferase (ALT/SGPT) 7, Alkaline Phosphatase 70, Total Protein 6.5, Albumin 3.5 07/02/17 07:07: Urine Color YELLOW, Urine Clarity CLEAR, Urine pH 7, Urine Specific [place] 1.005, Urine Protein NEGATIVE, Urine Glucose (UA) NEGATIVE, Urine Ketones NEGATIVE, Urine Nitrite NEGATIVE, Urine Bilirubin NEGATIVE, Urine Urobilinogen NORMAL, Urine Leukocyte Esterase NEGATIVE, Urine RBC (Auto) NEGATIVE, Urine RBC NONE, Urine WBC NONE, Urine Squamous Epithelial Cells NONE, Urine Crystals NONE , Urine Bacteria NEGATIVE, Urine Casts NONE, Urine Mucus NEGATIVE, Urine Culture Indicated NO 07/03/17 03:35: White Blood Count 7.9, Red Blood Count 2.68, Hemoglobin 7.4, Hematocrit 24, Mean Corpuscular Volume 90, Mean Corpuscular Hemoglobin 28, Mean Corpuscular Hemoglobin Concent 31, Red Cell Distribution Width 13.6, Platelet Count 242, Mean Platelet Volume 10.2, Neutrophils (%) (Auto) 64, Lymphocytes (%) (Auto) 15 , Monocytes (%) (Auto) 16, Eosinophils (%) (Auto) 5, Basophils (%) (Auto) 0, Neutrophils # (Auto) 5.1, Lymphocytes # (Auto) 1.2, Monocytes # (Auto) 1.2, Eosinophils # (Auto) 0.4, Basophils # (Auto) 0.0, Sodium Level 141, Potassium Level 3.6, Chloride Level 108, Carbon Dioxide Level 23, Anion Gap 10, Blood Urea Nitrogen 16, Creatinine 1.14, Estimat Glomerular Filtration Rate > 60, BUN/ Creatinine Ratio 14, Glucose Level 128, Calcium Level 8.3, Total Bilirubin 0.4, Aspartate Amino Transf (AST/SGOT) 10, Alanine Aminotransferase (ALT/SGPT) 7, Alkaline Phosphatase 55, Total Protein 5.6, Albumin 2.9 07/04/17 06:00: White Blood Count 7.7, Red Blood Count 3.09, Hemoglobin 8.5, Hematocrit 28, Mean Corpuscular Volume 89, Mean Corpuscular Hemoglobin 28, Mean Corpuscular Hemoglobin Concent 31, Red Cell Distribution Width 14.6, Platelet Count 255, Mean Platelet Volume 10.0, Sodium Level 141, Potassium Level 4.0, Chloride Level 108, Carbon Dioxide Level 23, Anion Gap 10, Blood Urea Nitrogen 16, Creatinine 1.01, Estimat Glomerular Filtration Rate > 60, BUN/Creatinine Ratio 16, Glucose Level 106, Calcium Level 8.4 07/04/17 11:11: Lab Scanned Report Transfusion Reaction Form 07/05/17 08:18: White Blood Count 6.3, Red Blood Count 3.09, Hemoglobin 8.6, Hematocrit 28, Mean Corpuscular Volume 90, Mean Corpuscular Hemoglobin 28, Mean Corpuscular Hemoglobin Concent 31, Red Cell Distribution Width 14.7, Platelet Count 277, Mean Platelet Volume 9.7, Neutrophils (%) (Auto) 63, Lymphocytes (%) (Auto) 17, Monocytes (%) (Auto) 13, Eosinophils (%) (Auto) 7, Basophils (%) (Auto) 1, Neutrophils # (Auto) 4.0, Lymphocytes # (Auto) 1.1, Monocytes # (Auto) 0.8, Eosinophils # (Auto) 0.4, Basophils # (Auto) 0.1, Sodium Level 142, Potassium Level 4.4, Chloride Level 108, Carbon Dioxide Level 25, Anion Gap 9, Blood Urea Nitrogen 13, Creatinine 1.06, Estimat Glomerular Filtration Rate > 60, BUN/ Creatinine Ratio 12, Glucose Level 99, Calcium Level 8.9, Vancomycin Level Trough 15.6 07/06/17 04:11: White Blood Count 5.5, Red Blood Count 3.10, Hemoglobin 8.4, Hematocrit 28, Mean Corpuscular Volume 91, Mean Corpuscular Hemoglobin 27, Mean Corpuscular Hemoglobin Concent 30, Red Cell Distribution Width 14.8, Platelet Count 268, Mean Platelet Volume 10.0, Neutrophils (%) (Auto) 57, Lymphocytes (%) (Auto) 19 , Monocytes (%) (Auto) 15, Eosinophils (%) (Auto) 8, Basophils (%) (Auto) 1, Neutrophils # (Auto) 3.1, Lymphocytes # (Auto) 1.0, Monocytes # (Auto) 0.8, Eosinophils # (Auto) 0.5, Basophils # (Auto) 0.1, Sodium Level 142, Potassium Level 4.3, Chloride Level 108, Carbon Dioxide Level 26, Anion Gap 8, Blood Urea Nitrogen 14, Creatinine 1.08, Estimat Glomerular Filtration Rate > 60, BUN/ Creatinine Ratio 13, Glucose Level 90, Calcium Level 8.8 07/07/17 03:56: White Blood Count 5.1, Red Blood Count 3.07, Hemoglobin 8.4, Hematocrit 29, Mean Corpuscular Volume 93, Mean Corpuscular Hemoglobin 27, Mean Corpuscular Hemoglobin Concent 29, Red Cell Distribution Width 14.9, Platelet Count 258, Mean Platelet Volume 9.9, Sodium Level 144, Potassium Level 4.3, Chloride Level 108, Carbon Dioxide Level 26, Anion Gap 10, Blood Urea Nitrogen 17, Creatinine 1.18, Estimat Glomerular Filtration Rate 59, BUN/Creatinine Ratio 14, Glucose Level 103, Calcium Level 8.7 07/09/17 07:50: Vancomycin Level Trough 25.8 07/10/17 06:14: White Blood Count 4.1, Red Blood Count 2.99, Hemoglobin 8.2, Hematocrit 28, Mean Corpuscular Volume 93, Mean Corpuscular Hemoglobin 27, Mean Corpuscular Hemoglobin Concent 30, Red Cell Distribution Width 14.9, Platelet Count 209, Mean Platelet Volume 9.9, Neutrophils (%) (Auto) 55, Lymphocytes (%) (Auto) 23, Monocytes (%) (Auto) 11, Eosinophils (%) (Auto) 10, Basophils (%) (Auto) 1, Neutrophils # (Auto) 2.3, Lymphocytes # (Auto) 1.0, Monocytes # (Auto) 0.5, Eosinophils # (Auto) 0.4, Basophils # (Auto) 0.0, Sodium Level 140, Potassium Level 4.4, Chloride Level 104, Carbon Dioxide Level 28, Anion Gap 8, Blood Urea Nitrogen 22, Creatinine 1.32, Estimat Glomerular Filtration Rate 52, BUN/ Creatinine Ratio 17, Glucose Level 93, Calcium Level 8.4, Total Bilirubin 0.2, Aspartate Amino Transf (AST/SGOT) 14, Alanine Aminotransferase (ALT/SGPT) 10, Alkaline Phosphatase 71, Total Protein 6.4, Albumin 3.1 Discussion & Recommendations Patient sent home on antibiotics Discharge Home Medications: Active Scripts Active Doxycycline Monohydrate 100 Mg Capsule 100 Mg PO BID 7 Days Reported Protonix (Pantoprazole Sodium) 40 Mg Tablet.dr 40 Mg PO DAILY Atorvastatin Calcium 10 Mg Tablet 10 Mg PO HS Amlodipine Besylate 5 Mg Tablet 5 Mg PO DAILY Pentoxifylline 400 Mg Tablet.er 400 Mg PO TID Proair Hfa (Albuterol Sulfate) 1 Puff Puff 2 Puff IH QID PRN Hydrochlorothiazide 12.5 Mg Capsule 25 Mg PO DAILY TAKES 2 (12.5MG) CAPSULES Instructions to patient/family Please see electronic discharge instructions given to patient. Clinical Quality Measures DVT/VTE Risk/Contraindication: Risk Factor Score Per Nursin RFS Level Per Nursing on Admit: 4+=Very High Contraindications-Pharm: Other *list below* ROSY CLANCY DO July 12, 2017 07:19
== END 2017-07-10 10:15 | disposition home or self-care (01) | DRG 565 ==
LOC: EDUNIT# 05:18 → ER 05:19 → 4TH 06:10
PROVIDERS: ADMIT Family Medicine; ATTEND Family Medicine
DX: T87.44 Infection of amputation stump, left lower extremity (principal); L03.116 Cellulitis of left lower limb; I70.202 Unspecified atherosclerosis of native arteries of extremities, left leg; I70.92 Chronic total occlusion of artery of the extremities; D64.9 Anemia, unspecified; E86.0 Dehydration; G89.18 Other acute postprocedural pain; J45.909 Unspecified asthma, uncomplicated; I10 Essential (primary) hypertension; E78.00 Pure hypercholesterolemia, unspecified; M19.91 Primary osteoarthritis, unspecified site; K57.90 Diverticulosis of intestine, part unspecified, without perforation or abscess without bleeding; B95.62 Methicillin resistant Staphylococcus aureus infection as the cause of diseases classified elsewhere; R53.1 Weakness; K59.00 Constipation, unspecified; Z87.891 Personal history of nicotine dependence; Z90.79 Acquired absence of other genital organ(s); Z89.412 Acquired absence of left great toe; Z85.46 Personal history of malignant neoplasm of prostate; Z95.820 Peripheral vascular angioplasty status with implants and grafts
CPT/HCPCS: 36415; 73630; 80048; 80053; 80202; 81000; 83605; 85025; 85027; 86850; 86900; 86901; 86920; 87040; 87070; 87077; 87186; 87205; 94760; 96361; 96374; 96375

== ENCOUNTER → 2017-08-10 | Outpatient (CLI) | payer MEDICARE ==
[~2017-08-10] MED LIST changes: +DOXY100C42 PO; +HYDR-3816 PO; +MONT10TA21 PO
== END ==
LOC: WOUNDCARE 10:44
PROVIDERS: ATTEND Surgery
DX: L97.522 Non-pressure chronic ulcer of other part of left foot with fat layer exposed (principal); I70.245 Atherosclerosis of native arteries of left leg with ulceration of other part of foot; G60.8 Other hereditary and idiopathic neuropathies
CPT/HCPCS: 99212

== ENCOUNTER → 2017-08-24 | Outpatient (CLI) | payer MEDICARE | LOC: WOUNDCARE 10:25 | PROVIDERS: ATTEND Surgery | DX: L97.522 Non-pressure chronic ulcer of other part of left foot with fat layer exposed (principal); I70.245 Atherosclerosis of native arteries of left leg with ulceration of other part of foot; G60.8 Other hereditary and idiopathic neuropathies | CPT/HCPCS: 99212 ==

== ENCOUNTER → 2017-09-07 | Outpatient (CLI) | payer MEDICARE | LOC: WOUNDCARE 10:40 | PROVIDERS: ATTEND Surgery | DX: L97.522 Non-pressure chronic ulcer of other part of left foot with fat layer exposed (principal); I70.245 Atherosclerosis of native arteries of left leg with ulceration of other part of foot; G60.8 Other hereditary and idiopathic neuropathies | CPT/HCPCS: 99212 ==

== ENCOUNTER 2017-09-12 12:11 | Outpatient (CLI) | payer MEDICARE ==
[~2017-09-12] VITALS: Ht 167.6 cm; Wt 77.1 kg
[~2017-09-12 12:11] MED LIST changes: -HYDR-3816 PO; -MONT10TA21 PO
[2017-09-12] MEDS ORDERED: NS IV 500 ML 500 ML ONE (12:34)
[2017-09-12 12:50] VITALS: BP 133/71
[2017-09-12] MEDS ORDERED: diphenhydrAMINE 25 MG TAB (BENADRYL) PO ONE ×2 (13:04→13:30)
[2017-09-12] MEDS ORDERED: ACETAMINOPHEN 325 MG TABLET ONE (13:04)
[2017-09-12 13:24] VITALS: BP 129/73
[2017-09-12] MEDS ORDERED: ACETAMINOPHEN 325 MG TABLET PO ONE (13:30)
[2017-09-12 13:40] VITALS: BP 142/72
--- NOTE | 2017-09-12 14:31 | History & Physical-Surgical ---
History of Present Illness History of Present Illness Reason for visit/HPI Surgery asked to consult regarding Anemia, possible GI bleed. HPI: Patient is an 87-year-old male who was having some weakness and feeling tired at home; states that she had to help him get out of bed and on for over 6 or 7 months. His primary care physician andry a blood work and he states he uses any other home on the couch we got a call to come in and get a blood transfusion because his blood was low. He has been on iron supplementation but apparently was not working well enough. Patient states he's only seen black bowel movements since he started iron replacement. He states he's never seen black bowel movement or bloody bowel moves prior to this. Patient remembers having a colonoscopy over 10 years ago does not remember what they found. He does not think is ever had an EGD. Patient does have some atherosclerotic cardiovascular disease and has had stents placed and has been on blood thinners which may be contributing to his anemia. Patient denies any abdominal pain. Date of Admission Date Seen by Provider: Sep 12, 2017 Time Seen by Provider: 13:42 I consulted on this patient on 09/12/17 14:26 Attending Physician Lucas Mello DO Admitting Physician Lucas Mello DO Consult Allergies and Home Medications Allergies Coded Allergies: shellfish derived (Verified Allergy, Severe, HIVES/SWELLING, 06/25/17) Home Medications Albuterol Sulfate 1 Puff Puff, 2 PUFF IH QID PRN for SHORTNESS OF BREATH, ( Reported) Amlodipine Besylate 5 Mg Tablet, 5 MG PO DAILY, (Reported) Atorvastatin Calcium 10 Mg Tablet, 10 MG PO HS, (Reported) Hydrochlorothiazide 12.5 Mg Capsule, 25 MG PO DAILY, (Reported) TAKES 2 (12.5MG) CAPSULES Pantoprazole Sodium 40 Mg Tablet.dr, 40 MG PO DAILY, (Reported) Patient Home Medication List Home Medication List Reviewed: Yes Past [id number]-Ufdico Hx Patient Social History Alcohol Use: Denies Use Recreational Drug Use: No Smoking Status: Former Smoker Former Smoker, Quit: Jun 05, 1992 Type Used: Cigarettes 2nd Hand Smoke Exposure: No Recent Foreign Travel: No Contact w/Someone Who Travel: No Recent Infectious Disease Expo: No Recent Hopitalizations: Yes Immunizations Up To Date PED Vaccines UTD: No Date of Pneumonia Vaccine: Nov 16, 2015 Date of Influenza Vaccine: Nov 15, 2015 Seasonal Allergies Seasonal Allergies: No Surgeries History of Surgeries: Yes Surgeries: Amputation, Appendectomy, Orthopedic, Prostatectomy Respiratory History of Respiratory Disorde: No (USES INHALER, BUT UNSURE WHY) Cardiovascular History of Cardiac Disorders: Yes Cardiac Disorders: High Cholesterol, Hypertension, Peripheral Vascular Neurological History of Neurological Disord: No Reproductive System Hx Reproductive Disorders: No Genitourinary History of Genitourinary Disor: Yes Genitourinary Disorders: Prostate Problems Gastrointestinal History of Gastrointestinal Di: Yes (diverticulitis ) Gastrointestinal Disorders: Diverticulosis Musculoskeletal History of Musculoskeletal Dis: Yes (LEFT GREAT TOE AMPUTATED FOR SEVERE PAD/ ISCHEMIC FOOT) Musculoskeletal Disorders: Arthritis Endocrine History of Endocrine Disorders: No HEENT History of HEENT Disorders: Yes Hearing Impairment: Hard of Hearing Cancer History of Cancer: Yes Cancer: Prostate Psychosocial History of Psychiatric Problem: No Integumentary History of Skin or Integumenta: Yes Skin/Integumentary Disorders: Recent Skin Changes Blood Transfusions History of Blood Disorders: No Family Medical History Significant Family History: Cancer Family Medial History: Completed stroke G8 SISTER Diabetes mellitus 19 MOTHER FH: prostate cancer 19 FATHER Constitutional: No chills, No diaphoresis; malaise, weakness EENTM: No blurred vision, No double vision, No hoarseness, No throat pain, No throat swelling Respiratory: No cough, No dyspnea on exertion, No hemoptysis Cardiovascular: No chest pain; Hx of Intervention; No syncope Gastrointestinal: No abdominal pain, No diarrhea; melena Genitourinary: frequency; No hematuria; hesitancy Musculoskeletal: back pain, joint pain, joint swelling, muscle stiffness Skin: No change in hair/nails; dryness, lesions Psychiatric/Neurological: Denies Anxiety, Denies Depressed, Denies Seizure, Denies Tingling Pt denies any abnormal bruising or bleeding, no heat or cold intolerance Physical Exam Vital Signs Vital Signs - First Documented 09/12/17 09/12/17 12:50 13:24 Temp 97.9 Pulse 80 Resp 18 B/P (MAP) 133/71 Pulse Ox 93 O2 Delivery Room Air Capillary Refill : Less Than 3 Seconds Height, Weight, BMI Height: 5'6.00" Weight: 170lbs. 0.0oz. [id number]; 27.4 BMI Method:Estimated General Appearance: No Apparent Distress, WD/WN Eyes: Bilateral Eye PERRL, Bilateral Eye EOMI HEENT: Pharynx Normal; No Scleral Icterus (L), No Scleral Icterus (R) Neck: Supple; No Thyromegaly Respiratory: Chest Non Tender, Lungs Clear, Normal Breath Sounds, No Accessory Muscle Use, No Respiratory Distress Cardiovascular: Regular Rate, Rhythm, No Murmur Gastrointestinal: Normal Bowel Sounds, No Organomegaly, No Pulsatile Mass, Non Tender, Soft Rectal: Deferred Back: No CVA Tenderness, No Vertebral Tenderness Extremity: No Calf Tenderness, No Pedal Edema, Other (Pt has amputated toe) Neurologic/Psychiatric: Alert, Oriented x3, No Motor/Sensory Deficits, Normal Mood/Affect, snowboard designer II-XII Norm as Tested Skin: Normal Color, Warm/Dry Lymphatic: No Adenopathy (neck, axilla or groin) Assessment/Plan Assessment/Plan Admission Diagonsis Anemia Admission Status: Other (Outpt Proc) Assessment/Plan Anemia GI Bleed Patient is currently receiving 1 unit of packed red blood cells. I am unsure where the anemia is coming from it could be from the blood thinners he is on, or on a consumption or some microscopic bleeding from somewhere. Patient doesn' t history of diverticulitis and diverticular Bleed. Do not believe patient needs to be admitted today he only has mild symptoms of weakness and fatigue. I discussed the options with the patient; 10 to be just treating symptoms or 2) would be a colonoscopy EGD to try and find a source of bleeding. I did tell him that we may not find any source of bleeding and I asked him what would happen if we did find some something major like cancer or something else. Patient thinks he wants to have the EGD and colonoscopy done because he wants surgery because he believes he will little while longer. I did go over the risk and, cases of the procedure with the patient including but not limited to pain bleeding infection possible intestinal perforation or even esophageal perforation both which could be catastrophic for this patient at his age. He is at increased risk of intestinal perforation because of his age because his intestinal cote not as thick and the muscles not as strong. Patient understood all this and all questions answered to his and his 's satisfaction and we will set up the EGD and colonoscopy as an outpatient. CARLOS BROCK DO Sep 12, 2017 14:31
[2017-09-12 15:15] VITALS: BP 143/75
[2017-09-12 15:57] LABS: HEMOGLOBIN 7.5 G/DL (13.3-17.7)
[2017-09-12 16:10] VITALS: BP 143/75
== END 2017-09-12 16:10 | disposition home or self-care (01) ==
LOC: SDC 12:11
PROVIDERS: ATTEND Family Medicine
DX: D64.9 Anemia, unspecified (principal); K92.2 Gastrointestinal hemorrhage, unspecified; I10 Essential (primary) hypertension; E78.00 Pure hypercholesterolemia, unspecified; I73.9 Peripheral vascular disease, unspecified; K57.30 Diverticulosis of large intestine without perforation or abscess without bleeding; Z89.422 Acquired absence of other left toe(s); Z87.891 Personal history of nicotine dependence; Z79.899 Other long term (current) drug therapy
CPT/HCPCS: 36415; 36430; 85014; 85018; 86850; 86900; 86901; 86920

== ENCOUNTER → 2017-09-13 | Outpatient (CLI) | payer MEDICARE ==
[~2017-09-13] MED LIST changes: +HYDR-3816 PO; +MONT10TA21 PO
== END ==
LOC: PREOP 08:36
PROVIDERS: ATTEND Surgery
DX: Z01.818 Encounter for other preprocedural examination (principal)

== ENCOUNTER 2017-09-14 06:28 | Day surgery (SDC) | payer MEDICARE ==
[~2017-09-14] VITALS: Ht 167.6 cm; Wt 65.3 kg
[~2017-09-14 06:28] MED LIST changes: -HYDR-3816 PO; -MONT10TA21 PO
[2017-09-14 07:05] VITALS: BP 138/72
[2017-09-14] MEDS ORDERED: LACTATED RINGERS 1,000 ML IV STA (07:08)
[2017-09-14] MEDS ORDERED: LACTATED RINGERS 1,000 ML IV ONE (07:08)
[2017-09-14] MEDS ORDERED: HURRICAINE EXT TUBE (BENZOCAINE) XX PRN (07:15)
[2017-09-14] MEDS ORDERED: PROPOFOL INJECTION 50 ML IV ONE (07:22)
--- NOTE | 2017-09-14 07:32 | Progress Note-Pre Operative ---
Pre-Operative Progress Note H&P Reviewed The H&P was reviewed, patient examined and no changes noted. Time Seen by Provider: 07:29 Date H&P Reviewed: Sep 14, 2017 Time H&P Reviewed: 07:31 Pre-Operative Diagnosis: GI Bleed, anemia CARLOS BROCK DO Sep 14, 2017 07:32
[2017-09-14] MEDS ORDERED: proPOfol 200 MG/20 ML (DIPRIVAN) VIAL IV ONE (08:14)
--- NOTE | 2017-09-14 08:34 | Progress Note-Post Operative ---
Post-Operative Progess Note Surgeon (s)/Painter Ski Edge (s) Surgeon CARLOS BROCK DO Painter Ski Edge: Hadley Johnson MSIII Pre-Operative Diagnosis GI Bleed, anemia Post-Operative Diagnosis Gastritis, Duodenal Ulcer, Hiatal hernia Colonic mass ?? Hepatic flexure Diverticula Internal hemorrhoids Procedure & Operative Findings Date of Procedure 09/14/17 Procedure Performed/Findings EGD with bx Colonoscopy with hot bx Colonoscopy with injection of ink Anesthesia Type IV sedation by DEPUTY SHERIFF CUSTODY Estimated Blood Loss Estimated blood loss (mL): scant Specimens/Packing Specimens Removed Duodenal bx Antral bx Colonic mass bx CARLOS BROCK DO Sep 14, 2017 08:34
[2017-09-14 08:35] VITALS: BP 131/61
--- NOTE | 2017-09-14 08:36 | Endoscopy Discharge Instruct ---
Endo Procedure/Findings Findings 1.: Duodenal Ulcer 2.: Gastritis 3.: Other Findings (colonic mass) 4.: Diverticulosis, Internal Hemorrhoids Discharge Instructions - Activity: You might feel a little sleepy until tomorrow. This is due to the medicine you received to relax you. Until tomorrow, you should: NOT drive a car, operate machinery or power tools. NOT drink any alcoholic beverages. NOT make any important decisions or sign importortant papers. Do not return to work until tomorrow, unless otherwise instructed. Resume previous activities tomorrow. Diet: Start by taking liquids. If you tolerate liquids, advance to solid food. Make appointment to see me in 10 days Notify Physician - If you experience excessive bleeding, unusual abdominal pain, fever, or chest pain, contact your doctor immediately. Follow-Up: - I have received and understand the above instructions and will call my doctor if I have any further questions. Patient Signature Date Nurse Signature Other (Relationship) CARLOS BROCK DO Sep 14, 2017 08:36
[2017-09-14] MEDS ORDERED: HURRICAINE EXT TUBE (BENZOCAINE) ONE (08:53)
[2017-09-14 09:05] VITALS: BP 138/68
[2017-09-14 09:40] VITALS: BP 138/68
--- NOTE | 2017-09-14 20:09 | OPERATIVE REPORT ---
DATE OF SERVICE: 09/14/2017 PREOPERATIVE DIAGNOSES: Gastrointestinal bleed and anemia. POSTOPERATIVE DIAGNOSES: 1. Duodenal ulcer. 2. Gastritis. 3. Hiatal hernia. 4. Colonic mass. 5. Diverticula. 6. Internal hemorrhoids. 7. Hiatal hernia. PROCEDURES: 1. EGD with biopsy. 2. Colonoscopy with hot biopsy. 3. Injection of Radha ink. SURGEON: Carlos Tong DO. RN LONG TERM CARE: Hadley Aquino, medical student level 3. ANESTHESIA: IV sedation by SECURITY INCIDENT RESPONSE SPECIALIST. SPECIMEN: One biopsy from the duodenum, one biopsy from antrum and then one biopsy from the colon, possible hepatic flexure. BLOOD LOSS: Scant. FLUIDS: Per anesthesia. POSTOPERATIVE CONDITION: Stable. INDICATION FOR PROCEDURE: The patient is an 87-year-old male who was recently found to have anemia. He denied seeing any blood, but recently thought he saw some melena and needed a workup. FINDINGS: The patient had what looked like a healing duodenal ulcer. He had some gastritis, hiatal hernia and then in the colon almost a near obstructing mass thought to be in hepatic flexure; diverticula also seen and some internal hemorrhoids. PROCEDURE NOTE: After informed consent was obtained, the patient was brought to the endoscopy suite, placed in the left lateral decubitus position. He was administered IV sedation during the case by the SECURITY INCIDENT RESPONSE SPECIALIST who then monitored his vitals the entire time, heart rate, blood pressure and pulse ox and then started with the EGD, pushed the scope down the mouth into the esophagus and down into the stomach. Upon entering the stomach, noted some inflammation. Pushed it and so it looked like possibly a healing ulcer, took a picture of this, pushed past this into the second portion of duodenum. This looked normal. Pulled back and then did a biopsy and then used some hot biopsy to do this. Pulled back in the antrum, did another biopsy, retroflexed the scope and saw a very small hiatal hernia. GE junction looked okay. Elected not to do a biopsy here and pulled the scope up to suction out this air and pulled the scope up the esophagus and out the mouth. The patient tolerated this portion of the procedure. Switched gloves and switched camera, and went to the other side, started the colonoscopy. Pushed the scope in and about 100 cm in had noted some bleeding some diverticula, some food particles, saw what looked like a colonic mass, did some hot biopsies of this mass, tried to push past, it could not get past it with a scope and then elected to place some Radha ink around this area, so we could see it during a possible colon resection. At this time, then slowly withdrew the scope insufflating to look circumferentially at the cote, believed to be a transverse hepatic pull back through the transverse colon, there were diverticula through here descending colon, then continue to see some diverticula and then possibly a small polyp continued down to the sigmoid into the rectum, retroflexed the rectal vault, saw some very minimal internal hemorrhoids, took a picture of this and then removed the scope. The patient tolerated the procedure and he was recovered in the endoscopy suite. Job ID: [id number] DocumentID: [id number] Dictated Date: 09/14/2017 09:10:18 Weed Control Inspector Date: 09/14/2017 13:48:15 Dictated By: CARLOS TONG DO MTDShira
== END 2017-09-14 09:40 | disposition home or self-care (01) ==
LOC: ENDO 06:28
PROVIDERS: ATTEND Surgery
DX: C18.3 Malignant neoplasm of hepatic flexure (principal); K57.31 Diverticulosis of large intestine without perforation or abscess with bleeding; K26.9 Duodenal ulcer, unspecified as acute or chronic, without hemorrhage or perforation; K29.70 Gastritis, unspecified, without bleeding; K44.9 Diaphragmatic hernia without obstruction or gangrene; K64.8 Other hemorrhoids; I10 Essential (primary) hypertension; K21.9 Gastro-esophageal reflux disease without esophagitis; Z79.02 Long term (current) use of antithrombotics/antiplatelets

== ENCOUNTER → 2017-09-21 | Outpatient (CLI) | payer MEDICARE ==
[~2017-09-21] MED LIST changes: +HYDR-3816 PO; +MONT10TA21 PO
== END ==
LOC: WOUNDCARE 10:17
PROVIDERS: ATTEND Surgery
DX: L97.522 Non-pressure chronic ulcer of other part of left foot with fat layer exposed (principal); I70.243 Atherosclerosis of native arteries of left leg with ulceration of ankle; G60.8 Other hereditary and idiopathic neuropathies
CPT/HCPCS: 99212

== ENCOUNTER 2017-09-27 13:56 | Outpatient (CLI) | payer MEDICARE ==
[~2017-09-27] VITALS: Ht 167.6 cm; Wt 65.3 kg
[~2017-09-27 13:56] MED LIST changes: -HYDR-3816 PO; -MONT10TA21 PO
[2017-09-27 15:28] LABS: BASOPHILS # (AUTO) 0.1 10^3/uL (0.0-0.1); BASOPHILS % (AUTO) 1 % (0-10); EOSINOPHILS # (AUTO) 0.1 10^3/uL (0.0-0.3); EOSINOPHILS % (AUTO) 3 % (0-10); HEMATOCRIT 25 % (40-54); HEMOGLOBIN 7.3 G/DL (13.3-17.7); LYMPHOCYTES # (AUTO) 1.1 X 10^3 (1.0-4.0); LYMPHOCYTES % (AUTO) 25 % (12-44); MEAN CORPUSCULAR HEMOGLOBIN 24 PG (25-34); MEAN CORPUSCULAR HGB CONC 29 G/DL (32-36); MEAN CORPUSCULAR VOLUME 83 FL (80-99); MEAN PLATELET VOLUME 10.2 FL (7.4-10.4); MONOCYTES # (AUTO) 0.6 X 10^3 (0.0-1.0); MONOCYTES % (AUTO) 13 % (0-12); NEUTROPHILS # (AUTO) 2.6 X 10^3 (1.8-7.8); NEUTROPHILS % (AUTO) 58 % (42-75); PLATELET COUNT 291 10^3/uL (130-400); RED BLOOD COUNT 3.02 10^6/uL (4.35-5.85); RED CELL DISTRIBUTION WIDTH 16.3 % (10.0-14.5); WHITE BLOOD COUNT 4.4 10^3/uL (4.3-11.0)
[2017-09-27 15:33] LABS: CREATININE SERUM 1.15 MG/DL (0.60-1.30)
[2017-09-27 15:34] LABS: CALCIUM 9.2 MG/DL (8.5-10.1)
[2017-09-27] MEDS ORDERED: TAMS0.4C2 PO (16:04)
[2017-09-27] MEDS ORDERED: HYDR-3816 PO (16:04)
[2017-09-27] MEDS ORDERED: MONT10TA21 PO (16:04)
[2017-09-27] MEDS ORDERED: LISI40TA PO (16:04)
== END 2017-09-27 16:20 | disposition home or self-care (01) ==
LOC: PREOP 13:56
PROVIDERS: ATTEND Surgery
DX: Z01.812 Encounter for preprocedural laboratory examination (principal); Z11.2 Encounter for screening for other bacterial diseases; C18.9 Malignant neoplasm of colon, unspecified
CPT/HCPCS: 36415; 80048; 85025; 86850; 86900; 86901; 87081

== ENCOUNTER 2017-10-01 08:00 | Inpatient (IN) | payer MEDICARE ==
[~2017-10-01] VITALS: Ht 167.6 cm; Wt 65.3 kg
[~2017-10-01 08:00] MED LIST changes: -AMLO5TAB2 PO; +AMLO5TAB7 PO; +HYDR-3816 PO; +MONT10TA21 PO
[2017-10-01 08:15] VITALS: BP 135/54
[2017-10-01] MEDS: LACTATED RINGERS 1,000 ML IV PRN ×3 (08:30→11:10)
[2017-10-01] MEDS ORDERED: SEVOFLURANE (ULTANE) 15 ML INHAL SOLN ONE ×5 (08:36→12:43)
[2017-10-01] MEDS ORDERED: fentaNYL INJECTION 100 MCG/2 ML AMP ONE (08:36)
[2017-10-01] MEDS ORDERED: proPOfol 200 MG/20 ML (DIPRIVAN) VIAL IV ONE (08:36)
[2017-10-01] MEDS ORDERED: MIDAZOLAM 2 MG/2 ML (VERSED) VIAL ONE (08:36)
[2017-10-01] MEDS ORDERED: LIDOCAINE PF 2% 5 ML (XYLOCAINE) VIAL ONE (08:36)
[2017-10-01] MEDS ORDERED: ROCURONIUM 10 MG/ML 5 ML SYRINGE IV ONE (08:36)
[2017-10-01] MEDS ORDERED: ONDANSETRON 4 MG/2 ML (SDV) Z0FRAN ONE (08:36)
[2017-10-01] MEDS ORDERED: DEXAMETHASONE 10 MG/ML (DECADRON) 1 ML VIAL ONE (08:36)
[2017-10-01] MEDS ORDERED: ceFAZolin 2 GM IV Premixed 50 ML IV ONE (08:45)
[2017-10-01] MEDS ORDERED: ROPIVACAINE 5MG/ML 30ML VIAL ONE (09:15)
[2017-10-01] MEDS ORDERED: LIDOCAINE/EPI 1%-1:200,000 (XYLOCAINE) 10 ML VIAL ONE (09:30)
--- NOTE | 2017-10-01 10:37 | Progress Note-Pre Operative ---
Pre-Operative Progress Note H&P Reviewed The H&P was reviewed, patient examined and no changes noted. Time Seen by Provider: 10:29 Date H&P Reviewed: Oct 01, 2017 Time H&P Reviewed: 10:31 Pre-Operative Diagnosis: Colon Cancer CARLOS BROCK DO Oct 01, 2017 10:37
[2017-10-01] MEDS ORDERED: LACTATED RINGERS 1,000 ML IV SCH (12:16)
--- NOTE | 2017-10-01 12:16 | Progress Note-Post Operative ---
Post-Operative Progess Note Surgeon (s)/Cook Cold Meat (s) Surgeon CARLOS BROCK DO Cook Cold Meat: Dr. Melendez Pre-Operative Diagnosis Colon Cancer Post-Operative Diagnosis Right Colon CA Adhesions Liver Lesion Procedure & Operative Findings Date of Procedure 10/01/17 Procedure Performed/Findings Lap hand assisted Right hemicolectomy Partial omentectomy Excision of liver lesion Anesthesia Type GET Estimated Blood Loss Estimated blood loss (mL): 25ml Specimens/Packing Specimens Removed Right colon with portion of TI Liver lesion CARLOS BROCK DO Oct 01, 2017 12:16
[2017-10-01] MEDS ORDERED: NEOSTIGMINE 1 MG/ML 5 ML SYRINGE ONE (12:19)
[2017-10-01] MEDS ORDERED: GLYCOPYRROLATE 0.2 MG/ML (ROBINUL) 2 ML VIAL ONE ×2 (12:19→13:00)
[2017-10-01] MEDS ORDERED: morphine INJ 10 MG/ML 1ML (SYR OR VIAL) IVP PRN ×2 (12:30→13:45)
[2017-10-01] MEDS ORDERED: LACTATED RINGERS 1,000 ML IV ONE (12:44)
[2017-10-01] MEDS ORDERED: NS IV 1000 ML 1,000 ML ONE (12:44)
[2017-10-01] MEDS ORDERED: KETOROLAC 30 MG/ML VIAL ONE (13:19)
[2017-10-01] MEDS: KETOROLAC 15 MG/ML VIAL IVP PRN (13:23)
[2017-10-01] MEDS ORDERED: morphine INJ 10 MG/ML 1ML (SYR OR VIAL) ONE (13:27)
[2017-10-01] MEDS: morphine INJ 10 MG/ML 1ML (SYR OR VIAL) IVP PRN ×2 (13:30→13:35)
[2017-10-01] MEDS ORDERED: ONDANSETRON 4 MG/2 ML (SDV) Z0FRAN IVP PRN (13:45)
[2017-10-01 14:00] VITALS: BP 127/57
[2017-10-01 15:20] VITALS: BP 122/59
[2017-10-01] MEDS: ACETAMINOPHEN 500 MG TAB (TYLENOL) PO PRN (15:38)
[2017-10-01] MEDS: ceFAZolin 2 GM IV Premixed 50 ML IV SCH (18:55)
[2017-10-01 19:45] VITALS: BP 94/50
[2017-10-01 19:50] VITALS: BP 110/52
[2017-10-02 00:46] VITALS: BP 116/61
[2017-10-02 03:52] VITALS: BP 127/68
--- NOTE | 2017-10-02 04:43 | OPERATIVE REPORT ---
DATE OF SERVICE: 10/01/2017 PREOPERATIVE DIAGNOSIS: Right colon cancer. POSTOPERATIVE DIAGNOSES: 1. Right colon cancer, pending pathology: 2. Small liver lesions. 3. Adhesions. PROCEDURES: 1. Laparoscopic hand-assisted right hemicolectomy. 2. Partial omentectomy. 3. Excision of liver lesion. SURGEON: Erasmo Tong DO PIPELINE DISPATCHER: John Melendez DO ANESTHESIA: General endotracheal tube. SPECIMENS: 1. A portion of terminal ileum as well as right colon and portion of omentum. 2. Liver mass. BLOOD LOSS: Less than 25 mL. FLUIDS: Per anesthesia. POSTOPERATIVE CONDITION: Stable. INDICATION FOR PROCEDURE: The patient is an 87-year-old male who had some bleeding, anemia and a colonoscopy showed a near obstructing colon lesion thought to be at the hepatic flexure. FINDINGS: The patient had adhesions. The colon was stuck in the right pericolic gutter. He also had what looked like a liver lesion and the mass was actually more towards the cecum area not really at the hepatic flexure. PROCEDURE NOTE: After informed consent was obtained, the patient was brought to the operating room, placed on table in supine position, sterilely prepped and draped in normal fashion with Ioban placed. I then made an incision just starting above the umbilicus to down just below the umbilicus with a #10 blade, carried down through the skin into the subcutaneous tissue, then deepened down to subcutaneous tissue with Bovie electrocautery down to fascia. Fascia incised with Bovie electrocautery and bluntly entered the abdomen, continued to open incision superiorly and inferiorly protecting the intestine with my hand. There were some adhesions, grasped the fascia with Germán's and carefully started taking these adhesions down in the right side and then the left side. I did not take all of them down some of them were deep, so elected to place the wound protector and then the Gelport. Prior to placing this, first made a small stab incision right in the midline with a #[address] an 11 mm trocar port. A VersaStep port was placed under direct visualization. Once this was in, then placed the wound protector and a Gelport and then closed this and then created pneumoperitoneum. Placed another port in the left lower quadrant again using an 11 blade for stab incision and the VersaStep 12 mm port under direct visualization. I was then able to use my hand and LigaSure to take down the rest of the adhesions. Most of these were on the right side, used some finger fracturing to free up the mass in the right side and then come along the white line of Toldt in the pericolic gutter and using LigaSure, clamping, coagulating and transecting freeing up this right colon to be able to move it more midline, also came below the terminal ileum through the mesentery to the terminal ileum, clamping and coagulating come across the vessels including the ileocolic vessel and then started going up towards the hepatic flexure. I identified the duodenum and stayed away from this freeing all this area, but once this was freed up, then elected to open the Gelport, able to pull all this through the incision through the wound protector, clamped a HARSH-75 across the terminal ileum, clamped and fired thereby transecting this. Continued to take the mesentery off the LigaSure, clamping, coagulating and transecting, then removed the right half of the omentum to be able to take the right colon off. Once this was freed up, then right at the dome of the hepatic flexure or just distal to the hepatic flexure came under the mesentery under the colon clamped with a HARSH-75 and then held for 30 seconds and fired and held for 20 seconds and then let go and then continued to take the rest of the mesentery off down to the base of the retroperitoneum, removed this portion of intestine. I passed this off the table. I then made a small cut off a corner of the terminal ileum and then made an opening along the tinea of the transverse colon. Placed the small portion of the HARSH into the small intestine and larger portion put into the transverse colon. The intestine was then brought together held for 30 seconds, used a 3-0 Vicryl popoff to throw crotch stitch and then fired the HARSH creating a [id number] functional end-to-end anastomosis. Used another HARSH reload to then take off the opening to the ileocolic anastomosis. This was then passed off the table. Palpating the liver found a small little mass, elected to remove this using some blunt dissection and some sharp dissection to remove a small mass passed this off the table. Liver was then cauterized with Bovie electrocautery. Looked around, no obvious bleeding, no other obvious pathology. At this point, then removed the wound protector and closed the fascia of the midline incision with a #1 double stranded PDS suture running from the superior portion to inferior portion and tying to itself. Created pneumoperitoneum again, the incision looked great. At this point, I then removed the two 12 mm VersaStep ports, then closed the skin of the midline incision with rusty. I then closed the two 12 mm port site incisions with rusty as well. The area was cleaned and dried. A dressing was placed and the patient was then transferred to recovery room in stable condition. Sponge, instrument and needle count was correct at the end of the case. Dr. Melendez assisted in this case helping to make incisions, closed the incisions, hold the anatomy and run the camera. Job ID: [id number] DocumentID: [id number] Dictated Date: 10/01/2017 18:11:24 Corporate Controller Date: 10/02/2017 02:30:41 Dictated By: DO DELMA GOODWIN
[2017-10-02] MEDS: ceFAZolin 2 GM IV Premixed 50 ML IV SCH (05:28)
[2017-10-02] MEDS: ACETAMINOPHEN 500 MG TAB (TYLENOL) PO PRN ×2 (05:34→17:15)
[2017-10-02 08:00] VITALS: BP 104/54
[2017-10-02] MEDS: KETOROLAC 15 MG/ML VIAL IVP PRN (08:32)
[2017-10-02] MEDS ORDERED: PANTOPRAZOLE 40 MG (PROTONIX) VIAL IVP SCH (09:00)
[2017-10-02] MEDS ORDERED: PANT40TA3 PO (10:38)
[2017-10-02] MEDS ORDERED: IRON150C13 PO (10:38)
[2017-10-02] MEDS ORDERED: NON-FORMULARY MEDICATION 1 EA EA (Hydrocodone/Acetaminophen (Hydrocodone-Acetamin 7.5-325) PO PRN (11:30)
[2017-10-02] MEDS ORDERED: RT-ALBUTEROL SULF 2.5 MG/3 ML PRE-MIX VIAL IH PRN (11:30)
[2017-10-02 12:00] VITALS: BP 111/62
--- NOTE | 2017-10-02 12:29 | Anesthesia-General Post-Op ---
General Patient Condition Mental Status/LOC: Same as Preop Cardiovascular: Satisfactory Nausea/Vomiting: Absent Respiratory: Satisfactory Pain: Controlled Complications: Absent Post Op Complications Complications None Follow Up Care/Instructions Patient Instructions None needed. Anesthesia/Patient Condition Patient Condition Patient is doing well, no complaints, stable vital signs, no apparent adverse anesthesia problems. No complications reported per nursing. CRIS DENNIS CRNA Oct 02, 2017 12:29
[2017-10-02] MEDS ORDERED: ENOXAPARIN 30 MG/0.3 ML (LOVENOX) SYR SC SCH (12:30)
--- NOTE | 2017-10-02 13:18 | Progress Note ---
Subjective Time Seen by Provider: 13:08 Subjective/Events-last exam Pt seen and examined, states he feels great. He has only taken Tylenol for pain. Denies N/V. Has not had flatus or BM yet. Tolerating liquids. Review of Systems General: No Chills, No Night Sweats Pulmonary: No Dyspnea, No Cough Cardiovascular: No: Chest Pain Gastrointestinal: No: Nausea, Vomiting Objective Exam Vital Signs Date Time Temp Pulse Resp B/P (MAP) Pulse Ox O2 Delivery O2 Flow Rate FiO2 10/02/17 09:05 98.5 10/02/17 09:00 Nasal Cannula 2.00 10/02/17 08:32 98.5 10/02/17 08:00 97.5 76 18 104/54 (71) 92 Room Air 10/02/17 07:56 Nasal Cannula 2.00 10/02/17 03:52 98.5 73 19 127/68 (87) 93 Room Air 10/02/17 00:46 97.7 77 17 116/61 (79) 95 Room Air 10/01/17 21:00 Nasal Cannula 2.00 10/01/17 19:50 110/52 (71) 92 Nasal Cannula 2.00 10/01/17 19:45 98.5 76 16 94/50 (65) 88 Room Air 10/01/17 15:58 Nasal Cannula 2.50 10/01/17 15:20 97.4 97 18 122/59 (80) 91 Nasal Cannula 2.50 10/01/17 14:00 96.8 83 16 127/57 (80) 93 Nasal Cannula 2.50 I & O 10/02/17 07:00 Intake Total 2210 ml Output Total 800 ml Balance 1410 ml Capillary Refill : General Appearance: No Apparent Distress, WD/WN Respiratory: Lungs Clear, Normal Breath Sounds, No Accessory Muscle Use, No Respiratory Distress Cardiovascular: Regular Rate, Rhythm, No Edema Gastrointestinal: soft, other (incisions are clean, dry and intact) Assessment/Plan Assessment/Plan Assessment/Plan S/P Lap Hand assisted Right Hemicolectomy Encourage ambulation and IS use. Increase to soft diet. If pt is doing well tomorrow will probably send him home. He had no questions at this time. Clinical Quality Measures DVT/VTE Risk/Contraindication: Risk Factor Score Per Nursin RFS Level Per Nursing on Admit: 4+=Very High CARLOS BROCK DO Oct 02, 2017 13:18
[2017-10-02] MEDS: RT-ALBUTEROL SULF 2.5 MG/3 ML PRE-MIX VIAL IH SCH ×2 (15:24→18:43)
[2017-10-02 16:00] VITALS: BP 108/56
[2017-10-02] MEDS: TAMSULOSIN 0.4 MG (FLOMAX) CAP PO SCH (17:03)
[2017-10-02] MEDS: IRON POLYSAC 150 MG CAP (NIFEREX) PO SCH (17:03)
[2017-10-02 20:38] VITALS: BP 114/57
[2017-10-02] MEDS ORDERED: NON-FORMULARY MEDICATION 1 EA EA (Montelukast Sodium (Singulair) 10 MG) PO SCH (21:00)
[2017-10-02] MEDS ORDERED: IRON POLYSACCHARIDE COMPLEX 150 MG PO SCH (21:00)
[2017-10-02] MEDS: ATORVASTATIN 10 MG (LIPITOR) TABLET PO SCH (21:06)
[2017-10-02] MEDS: MONTELUKAST 10 MG (SINGULAIR) TAB PO SCH (21:06)
[2017-10-02] MEDS: HYDROcodone/APAP 7.5 MG/325 MG (LORTAB, LORCET PLUS) TABLET PO PRN (22:36)
[2017-10-03 00:06] VITALS: BP 132/61
[2017-10-03] MEDS: ACETAMINOPHEN 500 MG TAB (TYLENOL) PO PRN (03:35)
[2017-10-03 04:37] VITALS: BP 130/59
[2017-10-03] MEDS: IRON POLYSAC 150 MG CAP (NIFEREX) PO SCH ×2 (06:50→16:16)
[2017-10-03] MEDS: PANTOPRAZOLE 40 MG (PROTONIX) TAB PO SCH (06:50)
[2017-10-03] MEDS: RT-ALBUTEROL SULF 2.5 MG/3 ML PRE-MIX VIAL IH SCH ×5 (07:21→19:27)
[2017-10-03 08:00] VITALS: BP 124/60
[2017-10-03] MEDS: HYDROCHLOROTHIAZIDE 25 MG (HCTZ) TAB PO SCH (08:47)
[2017-10-03] MEDS: amLODIPine 5 MG (NORVASC) TAB PO SCH (08:48)
[2017-10-03] MEDS: HYDROcodone/APAP 7.5 MG/325 MG (LORTAB, LORCET PLUS) TABLET PO PRN ×2 (08:48→16:16)
[2017-10-03] MEDS: lisINopril 40 MG (PRINIVIL) TABLET PO SCH (08:48)
[2017-10-03] MEDS ORDERED: NON-FORMULARY MEDICATION 1 EA EA (Amlodipine Besylate 5 MG) PO SCH (09:00)
[2017-10-03] MEDS ORDERED: NON-FORMULARY MEDICATION 1 EA EA (Hydrochlorothiazide 25 MG) PO SCH (09:00)
[2017-10-03 12:00] VITALS: BP 115/64
[2017-10-03] MEDS ORDERED: ENOXAPARIN 40 MG/0.4 ML (LOVENOX) SYR SC SCH (12:00)
--- NOTE | 2017-10-03 13:00 | Progress Note ---
Subjective Time Seen by Provider: 12:36 Subjective/Events-last exam Pt seen and examined, unfortunately did not get catheter d/c'd yesterday and did not ambulate yesterday. Pain still controlled, he is passing gas but no BM. Review of Systems General: No Chills, No Night Sweats Pulmonary: No Cough Cardiovascular: No: Chest Pain Gastrointestinal: No: Nausea, Vomiting Objective Exam Vital Signs Date Time Temp Pulse Resp B/P (MAP) Pulse Ox O2 Delivery O2 Flow Rate FiO2 10/03/17 08:17 Nasal Cannula 2.00 10/03/17 08:00 98.5 90 18 124/60 (81) 92 Nasal Cannula 1.00 10/03/17 07:22 90 Nasal Cannula 2.00 10/03/17 04:37 98.8 78 17 130/59 (82) 94 Room Air 10/03/17 00:06 99.8 88 16 132/61 (84) 94 Room Air 10/02/17 20:38 98.2 90 24 114/57 (76) 93 Room Air 10/02/17 20:10 Nasal Cannula 2.00 10/02/17 18:45 95 Nasal Cannula 2.00 10/02/17 17:50 98.2 10/02/17 16:00 98.2 86 20 108/56 (73) 94 Room Air 10/02/17 15:24 87 Room Air I & O 10/03/17 07:00 Intake Total 760 ml Output Total 975 ml Balance -215 ml Capillary Refill : General Appearance: No Apparent Distress, WD/WN Respiratory: Lungs Clear, Normal Breath Sounds, No Accessory Muscle Use, No Respiratory Distress Cardiovascular: Regular Rate, Rhythm, No Edema Gastrointestinal: soft, other (incisions are clean, dry and intact) Assessment/Plan Assessment/Plan Assessment/Plan S/P Lap Hand assisted Right Hemicolectomy Encourage ambulation and IS use. Continue soft diet. Will keep one more day, to make sure he is stronger, it is only his at home. He had no questions at this time. Clinical Quality Measures DVT/VTE Risk/Contraindication: Risk Factor Score Per Nursin RFS Level Per Nursing on Admit: 4+=Very High CARLOS BROCK DO Oct 03, 2017 13:00
[2017-10-03] MEDS: TAMSULOSIN 0.4 MG (FLOMAX) CAP PO SCH (16:16)
[2017-10-03 16:25] VITALS: BP 96/50
[2017-10-03] MEDS: ATORVASTATIN 10 MG (LIPITOR) TABLET PO SCH (20:28)
[2017-10-03] MEDS: MONTELUKAST 10 MG (SINGULAIR) TAB PO SCH (20:28)
[2017-10-03 20:29] VITALS: BP 113/52
[2017-10-04] VITALS: BP 110/53
[2017-10-04] MEDS: ACETAMINOPHEN 500 MG TAB (TYLENOL) PO PRN (01:13)
[2017-10-04 04:00] VITALS: BP 128/61
[2017-10-04] MEDS: HYDROcodone/APAP 7.5 MG/325 MG (LORTAB, LORCET PLUS) TABLET PO PRN (04:41)
[2017-10-04] MEDS: PANTOPRAZOLE 40 MG (PROTONIX) TAB PO SCH (06:42)
[2017-10-04] MEDS: IRON POLYSAC 150 MG CAP (NIFEREX) PO SCH (06:42)
[2017-10-04] MEDS: RT-ALBUTEROL SULF 2.5 MG/3 ML PRE-MIX VIAL IH SCH (07:08)
[2017-10-04 08:00] VITALS: BP 112/53
[2017-10-04] MEDS: HYDROCHLOROTHIAZIDE 25 MG (HCTZ) TAB PO SCH (08:59)
[2017-10-04] MEDS: lisINopril 40 MG (PRINIVIL) TABLET PO SCH (08:59)
[2017-10-04] MEDS: amLODIPine 5 MG (NORVASC) TAB PO SCH (08:59)
--- NOTE | 2017-10-04 09:43 | Progress Note ---
Subjective Time Seen by Provider: 09:19 Subjective/Events-last exam Pt seen and examined, denies abdominal pain. + Flatus, still no BM. Pt had an O2 at 84% when asleep, that has since come up. Review of Systems General: No Chills, No Night Sweats Pulmonary: No Dyspnea, No Cough Objective Exam Vital Signs Date Time Temp Pulse Resp B/P (MAP) Pulse Ox O2 Delivery O2 Flow Rate FiO2 10/04/17 08:00 98.3 94 18 112/53 (72) 90 Room Air 10/04/17 07:17 90 Nasal Cannula 2.00 10/04/17 04:00 99.7 91 20 128/61 (83) 94 Nasal Cannula 2.00 10/04/17 02:00 98.9 10/04/17 00:00 100.1 88 20 110/53 (72) 90 Nasal Cannula 2.00 10/03/17 20:29 98.6 74 14 113/52 (72) 91 Room Air 10/03/17 20:00 Room Air 10/03/17 19:30 90 Room Air 10/03/17 16:25 98.5 74 18 96/50 (65) 91 Room Air 10/03/17 15:20 91 Room Air 10/03/17 12:00 97.6 68 18 115/64 (81) 98 Nasal Cannula 1.00 I & O 10/04/17 07:00 Intake Total 1512 ml Output Total 1535 ml Balance -23 ml Capillary Refill : General Appearance: No Apparent Distress, WD/WN Respiratory: Lungs Clear, Normal Breath Sounds, No Accessory Muscle Use, No Respiratory Distress Cardiovascular: Regular Rate, Rhythm, No Edema Gastrointestinal: soft, other (incisions are clean, dry and intact) Assessment/Plan Assessment/Plan Assessment/Plan S/P Lap Hand assisted Right Hemicolectomy D/C home Clinical Quality Measures DVT/VTE Risk/Contraindication: Risk Factor Score Per Nursin RFS Level Per Nursing on Admit: 4+=Very High CARLOS BROCK DO Oct 04, 2017 09:43
[2017-10-04] MEDS ORDERED: HYDR-3816 PO (09:44)
--- NOTE | 2017-10-04 09:46 | Discharge Inst-Surgical ---
Discharge Inst-Surgical Depart Medication/Instructions New, Converted or Re-Newed RX: RX Given to Pt/Family Patient Instructions Follow up Appt: Make appointment for 1 week. Instructions: No lifting greater than 10 pounds. No strenuous activity. May shower in 24 hours, no tub bath or soaking. Use incentive spirometer at home as directed. No Smoking Skin/Wound Care: May remove bandages. You need to leave the white strips over incision on they will fall off on their own. Symptoms to Report: Appetite Changes, Extremity Discoloration, Numbness/Tingling, Swelling Increased , Bleeding Excessive, Eyesight Changes, Pain Increased, Urine Color Change, Constipation(Persistent), Fever over 101 degree F, Pain/Pressure in chest, Urinating Difficulty, Cough Up/Vomit Blood, Heart Beat Irreg/Pounding, Pain/ Pressure in jaw, Cramps in feet or legs, Lightheadedness, Pain/Pressure in shoulder, Diarrhea(Persistent), Memory Changes Suddenly, Questions/Concerns, Weight gain consecutive days, Dizziness/Fainting, Nausea/Vomiting, Shortness of Breath, Weight gain over 2 pounds If questions or concerns contact your physician Or seek help at emergency department. Activity Activity Instructions: Avoid Pulling & Pushing, Avoid Stress to Incision Driving Instructions: No Driving/Refer to Diet Discharge Diet: No Restrictions If Any Problems/Questions/Issu: Contact Your Physician, Go to Emergency Room Skin/Wound Care Infection Signs and Symptoms: Increased Redness, Foul Odor of Wound, Increased Drainage, Skin Itchy or Has a Rash, Increased Swelling, Temperature Above 101 F Bathing Instructions: Shower Stitches/Jason/Dermabond Dis: Care of CARLOS Echeverria DO Oct 04, 2017 09:46
--- NOTE | 2017-10-10 08:41 | Physician Query Clarification ---
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 hemicolectomy Question: Can you further specify the primary and metastatic site(s) per the clinical indicators above? Please document below. 1. 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 Malignant neoplasm hepatic flexure 3. Other, with explanation of the clinical findings. 4. Clinically undetermined, no explanation for the clinical findings. PHYSICIAN RESPONSE Can you specify per above: 1 In responding to this query, please exercise your independent professional judgment. The purpose of this communication is to more accurately reflect the complexity of your patients condition. The fact that a question is asked does not imply that any particular answer is desired or expected. Thank you for your timely response to this clarification. Requestors name: Stefania THIS PHYSICIAN QUERY FORM IS A PERMANENT PART OF THE MEDICAL RECORD STEFANIA ROBERTS Oct 10, 2017 08:41 CARLOS BROCK DO Oct 22, 2017 14:04
== END 2017-10-04 12:28 | disposition home or self-care (01) | DRG 330 ==
LOC: 4TH 08:00 → SURG 08:01 → 4TH 14:00
PROVIDERS: ADMIT Surgery; ATTEND Surgery
PROC: 0DBU0ZX Excision of Omentum, Open Approach, Diagnostic (ICD-10-PCS; 2017-10-01)
PROC: 0FB00ZX Excision of Liver, Open Approach, Diagnostic (ICD-10-PCS; 2017-10-01)
PROC: 0DTF0ZZ Resection of Right Large Intestine, Open Approach (ICD-10-PCS; principal; 2017-10-01 10:39)
DX: C18.0 Malignant neoplasm of cecum (principal); C78.6 Secondary malignant neoplasm of retroperitoneum and peritoneum; C77.2 Secondary and unspecified malignant neoplasm of intra-abdominal lymph nodes; I70.203 Unspecified atherosclerosis of native arteries of extremities, bilateral legs; I10 Essential (primary) hypertension; K57.30 Diverticulosis of large intestine without perforation or abscess without bleeding; N40.0 Benign prostatic hyperplasia without lower urinary tract symptoms; E78.2 Mixed hyperlipidemia
CPT/HCPCS: 36415; 86850; 86900; 86901; 86920; 88307; 88309; 88312; 94640; 94664; 94760; 94761

== ENCOUNTER → 2018-04-26 | Outpatient (CLI) | payer MEDICARE, OTHER ==
[~2018-04-26] MED LIST changes: -AMLO5TAB7 PO; +AMLO5TAB9 PO; +HOLD METFORMIN - RECEIVED CONTRAST 20 ML VIAL IV SCH; +IRON150C13 PO; +PANT40TA3 PO
[2018-04-26 12:34] LABS: CREATININE SERUM 1.47 MG/DL (0.60-1.30)
[2018-04-26] MEDS: NS 100 ML (IVPB) BAG IV ONE (12:53)
[2018-04-26] MEDS: IOHEXOL 350 MG/ML 100 ML (OMNIPAQUE 350) VIAL IV ONE (12:53)
--- NOTE | 2018-04-26 13:29 | Diagnostic Imaging Report ---
PROCEDURE: CT abdomen and pelvis with contrast. TECHNIQUE: Multiple contiguous axial images were obtained through the abdomen and pelvis after administration of intravenous contrast. DATE: April 26, 2018. COMPARISON: Right upper quadrant ultrasound January 15, 2009. CT abdomen and pelvis December 02, 2007. INDICATION: 88-year-old male, hematuria. FINDINGS: There are mild linear opacities in the left lower lobe likely relating to mild scarring and/or atelectasis. The heart is not enlarged. There is no identified pericardial effusion. There are atherosclerotic calcifications. The common hepatic artery is arising directly off the aortic arch. The liver is normal in size and contour. There is no identified liver lesion. The main, right, and left portal veins are patent. The gallbladder is unremarkable. There is no intrahepatic or extrahepatic bile duct dilation. The main pancreatic duct is not abnormally dilated. Unremarkable appearance of the pancreatic parenchyma. The spleen is normal in size. The adrenal glands are unremarkable. Unremarkable appearance of the renal parenchyma. The urinary collecting systems are not distended. The urinary bladder is without prominent wall thickening. There are multiple surgical clips in the pelvis and probable changes of prostatectomy. There is diverticulosis without evidence of acute diverticulitis. There are sutures at the level of the right colon. The intestinal tract is not distended. There is no free intraperitoneal air. There is no drainable fluid collection. There is no free pelvic fluid. There is no identified abnormally enlarged lymph node in the abdomen or pelvis which meets CT size criteria for adenopathy. There are multilevel degenerative changes of the spine. There is sclerosis of both femoral heads and necks which may relate to avascular necrosis. There is no evidence of subchondral collapse. There is mild osteoarthritis of both hips. There is no identified acute bony abnormality. IMPRESSION: CT ABDOMEN AND PELVIS. 1. No identified cause of hematuria. 2. Status post prostatectomy. 3. No identified acute abnormality in the abdomen or pelvis. 4. Sclerosis of both femoral heads and necks which may relate to avascular necrosis without evidence of subchondral collapse. Mild osteoarthritis of both hips. Dictated by: Dictated on workstation # [id number]
== END ==
LOC: RAD 12:00
PROVIDERS: ATTEND Family Medicine
DX: N28.9 Disorder of kidney and ureter, unspecified (principal); R31.9 Hematuria, unspecified; M16.0 Bilateral primary osteoarthritis of hip; M89.9 Disorder of bone, unspecified; Z90.79 Acquired absence of other genital organ(s)
CPT/HCPCS: 36415; 74177; 82565; 84520

== ENCOUNTER 2018-05-27 13:52 | Emergency (ER) | payer MEDICARE, OTHER ==
[~2018-05-27] VITALS: Ht 162.6 cm; Wt 63.5 kg
[~2018-05-27 13:52] MED LIST changes: -HOLD METFORMIN - RECEIVED CONTRAST 20 ML VIAL IV SCH
[2018-05-27] MEDS ORDERED: NS IV 1000 ML 1,000 ML IV ONE (14:05)
[2018-05-27 14:31] LABS: BASOPHILS % (AUTO) 0 % (0-10); EOSINOPHILS % (AUTO) 0 % (0-10); HEMATOCRIT 31 % (40-54); HEMOGLOBIN 9.2 G/DL (13.3-17.7); LYMPHOCYTES # (AUTO) 0.6 X 10^3 (1.0-4.0); LYMPHOCYTES % (AUTO) 8 % (12-44); MEAN CORPUSCULAR HEMOGLOBIN 25 PG (25-34); MEAN CORPUSCULAR HGB CONC 30 G/DL (32-36); MEAN CORPUSCULAR VOLUME 84 FL (80-99); MEAN PLATELET VOLUME 10.6 FL (7.4-10.4); MONOCYTES # (AUTO) 0.8 X 10^3 (0.0-1.0); MONOCYTES % (AUTO) 10 % (0-12); NEUTROPHILS # (AUTO) 6.7 X 10^3 (1.8-7.8); NEUTROPHILS % (AUTO) 83 % (42-75); PLATELET COUNT 276 10^3/uL (130-400); RED CELL DISTRIBUTION WIDTH 15.9 % (10.0-14.5); WHITE BLOOD COUNT 8.1 10^3/uL (4.3-11.0)
[2018-05-27 14:50] LABS: BILIRUBIN,TOTAL 0.5 MG/DL (0.1-1.0); CALCIUM 9.4 MG/DL (8.5-10.1); CREATININE SERUM 1.7 MG/DL (0.60-1.30); POTASSIUM 4.9 MMOL/L (3.6-5.0); TOTAL PROTEIN 7.1 GM/DL (6.4-8.2)
[2018-05-27 14:53] LABS: PROTHROMBIN TIME PATIENT 13.1 SEC (12.2-14.7)
[2018-05-27 15:04] LABS: BAND NEUTROPHILS 0 %; BASOPHILS % (MANUAL) 0 %; EOSINOPHILS % (MANUAL) 0 %; LYMPHOCYTES % (MANUAL) 7 %; MONOCYTES % (MANUAL) 10 %; NEUTROPHILS % (MANUAL) 83 %
[2018-05-27 15:05] LABS: ANISOCYTOSIS SLIGHT
--- NOTE | 2018-05-27 15:10 | Diagnostic Imaging Report ---
INDICATION: Abdominal pain and nausea. TIME OF EXAM: 02:51 p.m. COMPARISON: Comparison is made with prior chest from 01/25/2016. FINDINGS: The heart size is stable. The lungs are clear. No infiltrates are seen. There is no effusion or pneumothorax. IMPRESSION: No acute cardiopulmonary process is detected. Dictated by: Dictated on workstation # [id number]
--- NOTE | 2018-05-27 15:42 | ED GI ---
General Chief Complaint: Abdominal/GI Problems Stated Complaint: ABD PAIN Nursing Triage Note: HAD EPISODES OF VOMITING STARTING LAST NIGHT SAW PCP AND HAD LABS DONE PCP THEN CALLED PT AND TOLD PT TO GO TO ED Sepsis Screen: No Definite Risk Source of Information: Patient Exam Limitations: No Limitations History of Present Illness Date Seen by Provider: May 27, 2018 Time Seen by Provider: 14:01 Initial Comments Here with report of vomiting last evening's morning. Apparently had gone to the PCPs office and then instructed to come here due to not feeling well and blood pressure 90s systolic. Overall patient states he feels better now and does not have vomiting. He drove here. Denies chest pain or breathing problems. Denies fever or chills. Timing/Duration: 12-24 Hours, Changing Over Time, Other (much better now) Severity/Quality: Moderate, Cramping, Other (with vomiting earlier) Location: Generalized Abdomen Radiation: No Radiation Activities at Onset: None Associated Symptoms: No Back Pain, No Chest Pain, No Fever/Chills; Nausea/ Vomiting; No Shortness of Air, No Syncope; Weakness Allergies and Home Medications Allergies Coded Allergies: shellfish derived (Verified Allergy, Severe, HIVES/SWELLING, 06/25/17) Home Medications Albuterol Sulfate 1 Puff Puff, 2 PUFF IH QID PRN for SHORTNESS OF BREATH, ( Reported) Amlodipine Besylate 5 Mg Tablet, 5 MG PO DAILY, (Reported) LAST FILLED #90 06-08-17 Atorvastatin Calcium 10 Mg Tablet, 10 MG PO HS, (Reported) LAST FILLED #90 06-08-17 Hydrochlorothiazide 12.5 Mg Capsule, 25 MG PO DAILY, (Reported) TAKES 2 (12.5MG) CAPSULES Hydrocodone/Acetaminophen 1 Each Tablet, 1 TAB PO BID PRN for PAIN-MODERATE Prescribed by: CARLOS BROCK on 10/04/17 0944 Iron Polysaccharide Complex 150 Mg Capsule, 150 MG PO BID, (Reported) Lisinopril 40 Mg Tablet, 40 MG PO DAILY, (Reported) Montelukast Sodium 10 Mg Tablet, 10 MG PO HS, (Reported) Pantoprazole Sodium 40 Mg Tablet.dr, 40 MG PO DAILY, (Reported) LAST FILLED #90 06-08-17 Tamsulosin HCl 0.4 Mg Cap.er.24h, 0.4 MG PO 1730, (Reported) Patient Home Medication List Home Medication List Reviewed: Yes Review of Systems Review of Systems Constitutional: see HPI; No chills, No fever EENTM: No Symptoms Reported Respiratory: No Symptoms Reported Cardiovascular: No Symptoms Reported Gastrointestinal: See HPI, Abdominal Pain; Denies Diarrhea; Nausea, Vomiting Genitourinary: No Symptoms Reported Musculoskeletal: no symptoms reported All Other Systems Reviewed Negative Unless Noted: Yes Past Bgooswp-Mcienl-Mghfqg Hx Past Med/Social Hx: Reviewed Nursing Past Med/Soc Hx Patient Social History Alcohol Use: Denies Use Number of Drinks Today: GG Alcohol Beverage of Choice: Whiskey, [place] Recreational Drug Use: No Smoking Status: Former Smoker Type Used: Cigarettes Former Smoker, Quit: Jun 05, 1992 2nd Hand Smoke Exposure: No Recent Foreign Travel: No Contact w/Someone Who Travel: No Recent Infectious Disease Expo: No Recent Hopitalizations: Yes Immunizations Up To Date Tetanus Booster (TDap): Unknown PED Vaccines UTD: No Date of Pneumonia Vaccine: Nov 16, 2015 Date of Influenza Vaccine: Nov 15, 2015 Seasonal Allergies Seasonal Allergies: No Past Medical History Surgeries: Yes (AMPUTATION OF BIG TOE, SKIN CA REMOVED FROM ARM) Amputation, Appendectomy, Orthopedic, Prostatectomy Respiratory: No (USES INHALER, BUT UNSURE WHY) Currently Using CPAP: No Currently Using BIPAP: No Cardiac: Yes High Cholesterol, Hypertension, Peripheral Vascular Neurological: No Reproductive Disorders: No Genitourinary: Yes Prostate Problems Gastrointestinal: Yes (diverticulitis ) Diverticulosis Musculoskeletal: Yes (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) Arthritis Endocrine: No HEENT: Yes Hearing Impairment: Hard of Hearing Cancer: Yes Prostate, Colon Did You Recieve Any Treatments: Yes What Type of Treatment Did You: Surgical Intervention Psychosocial: No Integumentary: Yes Recent Skin Changes Blood Disorders: No Adverse Reaction/Blood Tranf: No Family Medical History Reviewed Nursing Family Hx Completed stroke G8 SISTER Diabetes mellitus 19 MOTHER FH: prostate cancer 19 FATHER Cancer Physical Exam Vital Signs Vital Signs - First Documented 05/27/18 05/27/18 14:17 16:01 Temp 96.7 Pulse 85 Resp 18 B/P (MAP) 98/52 (67) Pulse Ox 93 O2 Delivery Room Air Capillary Refill : Less Than 3 Seconds Height/Weight/BMI Height: 5'4.00" Weight: 140lbs. 0.0oz. [id number]; 23.2 BMI Method:Stated General Appearance: WD/WN, no apparent distress HEENT: PERRL/EOMI, pharynx normal Neck: full range of motion, supple Respiratory: lungs clear, normal breath sounds Cardiovascular: regular rate, rhythm, no murmur Gastrointestinal: normal bowel sounds, non tender, soft Extremities: non-tender, normal inspection Back: normal inspection, no CVA tenderness, no vertebral tenderness Neurologic/Psychiatric: alert, oriented x 3 Skin: normal color, warm/dry Focused Exam Lactate Level 05/27/18 14:18: Lactic Acid Level 1.51 Lactic Acid Level Laboratory Tests Test 05/27/18 14:18 Lactic Acid Level 1.51 MMOL/L (0.50-2.00) Progress/Results/Core Measures Results/Orders Lab Results Laboratory Tests Test 05/27/18 14:18 05/27/18 16:10 Range/Units White Blood Count 8.1 4.3-11.0 10^3/uL Red Blood Count 3.71 L 4.35-5.85 10^6/uL Hemoglobin 9.2 L 13.3-17.7 G/DL Hematocrit 31 L 40-54 % Mean Corpuscular Volume 84 80-99 FL Mean Corpuscular Hemoglobin 25 25-34 PG Mean Corpuscular Hemoglobin Concent 30 L 32-36 G/DL Red Cell Distribution Width 15.9 H 10.0-14.5 % Platelet Count 276 130-400 10^3/uL Mean Platelet Volume 10.6 H 7.4-10.4 FL Neutrophils (%) (Auto) 83 H 42-75 % Lymphocytes (%) (Auto) 8 L 12-44 % Monocytes (%) (Auto) 10 0-12 % Eosinophils (%) (Auto) 0 0-10 % Basophils (%) (Auto) 0 0-10 % Neutrophils # (Auto) 6.7 1.8-7.8 X 10^3 Lymphocytes # (Auto) 0.6 L 1.0-4.0 X 10^3 Monocytes # (Auto) 0.8 0.0-1.0 X 10^3 Eosinophils # (Auto) 0.0 0.0-0.3 10^3/uL Basophils # (Auto) 0.0 0.0-0.1 10^3/uL Neutrophils % (Manual) 83 % Lymphocytes % (Manual) 7 % Monocytes % (Manual) 10 % Eosinophils % (Manual) 0 % Basophils % (Manual) 0 % Band Neutrophils 0 % Anisocytosis SLIGHT Prothrombin Time 13.1 12.2-14.7 SEC INR Comment 1.0 0.8-1.4 Activated Partial Thromboplast Time 31 24-35 SEC Sodium Level 142 135-145 MMOL/L Potassium Level 4.9 3.6-5.0 MMOL/L Chloride Level 106 98-107 MMOL/L Carbon Dioxide Level 24 21-32 MMOL/L Anion Gap 12 5-14 MMOL/L Blood Urea Nitrogen 37 H 7-18 MG/DL Creatinine 1.70 H 0.60-1.30 MG/DL Estimat Glomerular Filtration Rate 38 BUN/Creatinine Ratio 22 Glucose Level 130 H 70-105 MG/DL Lactic Acid Level 1.51 0.50-2.00 MMOL/L Calcium Level 9.4 8.5-10.1 MG/DL Corrected Calcium 9.4 8.5-10.1 MG/DL Total Bilirubin 0.5 0.1-1.0 MG/DL Aspartate Amino Transf (AST/SGOT) 19 5-34 U/L Alanine Aminotransferase (ALT/SGPT) 12 0-55 U/L Alkaline Phosphatase 77 40-136 U/L Total Protein 7.1 6.4-8.2 GM/DL Albumin 4.0 3.2-4.5 GM/DL Urine Color YELLOW Urine Clarity CLEAR Urine pH 7 5-9 Urine Specific [place] 1.010 L 1.016-1.022 Urine Protein 2+ H NEGATIVE Urine Glucose (UA) NEGATIVE NEGATIVE Urine Ketones NEGATIVE NEGATIVE Urine Nitrite NEGATIVE NEGATIVE Urine Bilirubin 1+ H NEGATIVE Urine Urobilinogen NORMAL NORMAL MG/DL Urine Leukocyte Esterase 1+ H NEGATIVE Urine RBC (Auto) 1+ H NEGATIVE Urine RBC 5-10 H /HPF Urine WBC 2-5 /HPF Urine Crystals NONE /LPF Urine Bacteria NEGATIVE /HPF Urine Casts PRESENT /LPF Urine Hyaline Casts 5-10 H /LPF Urine Mucus NEGATIVE /LPF Urine Culture Indicated NO My Orders Orders - PACO SMITH MD Cbc With Automated Diff (05/27/18 14:05) Comprehensive Metabolic Panel (05/27/18 14:05) Blood Culture (05/27/18 14:05) Sputum Culture (05/27/18 14:05) Urinalysis (05/27/18 14:05) Urine Culture (05/27/18 14:05) Protime With Inr (05/27/18 14:05) Partial Thromboplastin Time (05/27/18 14:05) Chest 1 View, Ap/Pa Only (05/27/18 14:05) Ed Iv/Invasive Line Start (05/27/18 14:05) Ed Iv/Invasive Line Start (05/27/18 14:05) Vital Signs Adult Sepsis Patie Q15M (05/27/18 14:05) O2 (05/27/18 14:05) Remove Rings In Anticipation O (05/27/18 14:05) Lactic Acid Analyzer (05/27/18 14:05) Ns Iv 1000 Ml (Sodium Chloride 0.9%) (05/27/18 14:05) Manual Differential (05/27/18 14:18) Medications Given in ED Current Medications Medications Dose Ordered Sig/Zoey Route Start Time Stop Time Status Last Admin Dose Admin Sodium Chloride 1,000 ml @ 0 mls/hr Q0M ONCE IV 05/27/18 14:05 05/27/18 14:07 DC 05/27/18 14:24 0 MLS/HR Vital Signs/I&O 05/27/18 05/27/18 05/27/18 14:17 15:04 16:01 Temp 96.7 96.7 Pulse 85 81 83 Resp 18 16 16 B/P (MAP) 98/52 (67) 122/69 112/56 (74) Pulse Ox 93 O2 Delivery Room Air Blood Pressure Mean: 86 Progress Progress Note : Progress Note Seen and evaluated. IV, labs, UA, blood cultures and lactic acid. Chest x-ray ordered. Normal saline 1 L bolus. Monitor patient. 1540: Patient walked to the bathroom and back without difficulty and did give small urine sample although contaminated with clothing so we will await new sample. Monitor Patient. 1645: Urine obtained as negative for infectious symptoms. There is trace amount of blood. Patient has been walking about the emergency department without difficulty. Overall safe for discharge home. Discharged home with return precautions. Patient verbalize understanding instructions and agreement with plan. We'll send a copy of the chart to Dr. Clancy. Diagnostic Imaging Diagonstic Imaging: Xray Plain Films/CT/US/NM/MRI: chest Comments [facility] [place], [place] NAME: REA [facility] REC#: [id number] PT STATUS: REG ER : 1932 PHYSICIAN: PACO SMITH MD ADMIT DATE: 05/27/18/ER Signed Date of Exam:05/27/18 CHEST 1 VIEW, AP/PA ONLY INDICATION: Abdominal pain and nausea. TIME OF EXAM: 02:51 p.m. COMPARISON: Comparison is made with prior chest from 01/25/2016. FINDINGS: The heart size is stable. The lungs are clear. No infiltrates are seen. There is no effusion or pneumothorax. IMPRESSION: No acute cardiopulmonary process is detected. Dictated by: Dictated on workstation # [id number] Dict: 05/27/18 1505 Trans: 05/27/18 1536 [facility] [id number] Interpreted by: SANTOSH LOWE MD Electronically signed by: SANTOSH LOWE MD 05/27/18 1536 Departure Impression Primary Impression: Nausea and vomiting Qualified Codes: R11.2 - Nausea with vomiting, unspecified Additional Impressions: Acute dehydration Hematuria Qualified Codes: R31.9 - Hematuria, unspecified Disposition: 01 HOME, SELF-CARE Condition: Improved Departure-Patient Inst. Decision time for Depature: 16:49 Referrals: ROSY CLANCY DO (PCP/Family) Primary Care Physician Patient Instructions: Dehydration, Adult (DC), Blood in the Urine (Hematuria), Adult (DC), Nausea and Vomiting, Adult (DC) Add. Discharge Instructions: All discharge instructions reviewed with patient and/or family. Voiced understanding. Continue home medications as previously prescribed. Follow-up with Dr. Clancy for recheck and further evaluation. You did have just a little bit of blood in your urine and that needs to be rechecked again as well. Return for worse pain, fever, vomiting, weakness, breathing problems or other concerns as needed. Continue to drink plenty of fluids and eat a normal diet. Copy Copies To 1: ROSY CLANCY TIMOTHY D MD May 27, 2018 15:42
[2018-05-27 16:01] VITALS: BP 112/56
[2018-05-27 16:20] LABS: CLARITY,URINE CLEAR; COLOR,URINE YELLOW; GLUCOSE, URINE (UA) NEGATIVE (NEGATIVE); KETONES,URINE NEGATIVE (NEGATIVE); LEUKOCYTE ESTERASE ,URINE 1+ (NEGATIVE); NITRITE,URINE NEGATIVE (NEGATIVE); PH,URINE 7 (5-9); PROTEIN,URINE 2+ (NEGATIVE); UROBILINOGEN,URINE NORMAL (NORMAL)
[2018-05-27 16:36] LABS: BILIRUBIN,URINE 1+ (NEGATIVE)
[2018-05-27 16:39] LABS: BACTERIA,URINE NEGATIVE /HPF
[2018-05-27 17:05] VITALS: BP 123/70
== END 2018-05-27 17:02 | disposition home or self-care (01) ==
LOC: EDUNIT# 13:52 → ER 13:53
DX: R11.2 Nausea with vomiting, unspecified (principal); E86.0 Dehydration; R31.9 Hematuria, unspecified; E78.00 Pure hypercholesterolemia, unspecified; I10 Essential (primary) hypertension; I73.9 Peripheral vascular disease, unspecified; Z89.412 Acquired absence of left great toe; Z80.42 Family history of malignant neoplasm of prostate; Z85.038 Personal history of other malignant neoplasm of large intestine; Z85.46 Personal history of malignant neoplasm of prostate; Z87.19 Personal history of other diseases of the digestive system; Z87.891 Personal history of nicotine dependence; Z90.49 Acquired absence of other specified parts of digestive tract; Z85.828 Personal history of other malignant neoplasm of skin; Z90.79 Acquired absence of other genital organ(s)
CPT/HCPCS: 36415; 71045; 80053; 81000; 83605; 85007; 85027; 85610; 85730; 87040; 87088; 96360

== ENCOUNTER 2018-06-16 16:24 | Emergency (ER) | payer MEDICARE, OTHER ==
[~2018-06-16] VITALS: Ht 162.6 cm; Wt 66.2 kg
[2018-06-16] MEDS ORDERED: NS IV 1000 ML 1,000 ML IV ONE (16:48)
[2018-06-16] MEDS ORDERED: HYOSCYAMINE 0.125 MG (LEVSIN) TAB SL ONE (17:00)
[2018-06-16 17:05] LABS: BASOPHILS % (AUTO) 1 % (0-10); EOSINOPHILS % (AUTO) 0 % (0-10); HEMATOCRIT 30 % (40-54); HEMOGLOBIN 8.5 G/DL (13.3-17.7); LYMPHOCYTES # (AUTO) 0.9 X 10^3 (1.0-4.0); LYMPHOCYTES % (AUTO) 14 % (12-44); MEAN CORPUSCULAR HEMOGLOBIN 24 PG (25-34); MEAN CORPUSCULAR HGB CONC 29 G/DL (32-36); MEAN CORPUSCULAR VOLUME 83 FL (80-99); MEAN PLATELET VOLUME 10.6 FL (7.4-10.4); MONOCYTES # (AUTO) 0.8 X 10^3 (0.0-1.0); MONOCYTES % (AUTO) 12 % (0-12); NEUTROPHILS # (AUTO) 4.8 X 10^3 (1.8-7.8); NEUTROPHILS % (AUTO) 74 % (42-75); PLATELET COUNT 238 10^3/uL (130-400); RED CELL DISTRIBUTION WIDTH 15.6 % (10.0-14.5); WHITE BLOOD COUNT 6.5 10^3/uL (4.3-11.0)
[2018-06-16 17:22] LABS: ALBUMIN 3.8 GM/DL (3.2-4.5); BILIRUBIN,TOTAL 0.5 MG/DL (0.1-1.0); CREATININE SERUM 1.21 MG/DL (0.60-1.30); POTASSIUM 4.9 MMOL/L (3.6-5.0)
--- NOTE | 2018-06-16 17:29 | ED General ---
General Chief Complaint: General Problems/Pain Stated Complaint: WEAKNESS/VOMITING Nursing Triage Note: PT REPORTS INCREASING WEAKNESS D/T ROUGHLY 24HRS OF NAUSEA, VOMITING AND DIARRHEA. PT DENIES FEELING FEVERISH OR FLUSH. DENIES ABDOMINAL PAIN. Nursing Sepsis Screen: No Definite Risk Source of Information: Patient, Family Exam Limitations: No Limitations (PACO SMITH MD) History of Present Illness Date Seen by Provider: June 16, 2018 Time Seen by Provider: 16:41 Initial Comments Here with report of nausea, vomiting and diarrhea over the last 24 hours. States that he feels like he lost weight and checked on a scale and was 146 this morning and 140 this afternoon. Reports he hasn't eaten anything because of the vomiting and diarrhea. Had an episode similar a few weeks back that got better after a liter of fluids and some time. Does have history of diverticulitis and multiple surgeries. Denies blood in his vomit or stool. Denies fever or chills. Timing/Duration: 12-24 Hours Severity: Moderate Modifying Factors: worse with Eating; improves with Rest Associated Systoms: No Chest Pain, No Cough, No Fever/Chills; Nausea/Vomiting; No Shortness of Air; Weakness (PACO SMITH MD) Allergies and Home Medications Allergies Coded Allergies: shellfish derived (Verified Allergy, Severe, HIVES/SWELLING, 06/25/17) Home Medications Albuterol Sulfate 1 Puff Puff, 2 PUFF IH QID PRN for SHORTNESS OF BREATH, ( Reported) Amlodipine Besylate 5 Mg Tablet, 5 MG PO DAILY, (Reported) LAST FILLED #90 06-08-17 Atorvastatin Calcium 10 Mg Tablet, 10 MG PO HS, (Reported) LAST FILLED #90 18 Hydrochlorothiazide 12.5 Mg Capsule, 25 MG PO DAILY, (Reported) TAKES 2 (12.5MG) CAPSULES Hydrocodone/Acetaminophen 1 Each Tablet, 1 TAB PO BID PRN for PAIN-MODERATE Prescribed by: CARLOS BROCK on 10/04/17 0944 Iron Polysaccharide Complex 150 Mg Capsule, 150 MG PO BID, (Reported) Lisinopril 40 Mg Tablet, 40 MG PO DAILY, (Reported) Montelukast Sodium 10 Mg Tablet, 10 MG PO HS, (Reported) Pantoprazole Sodium 40 Mg Tablet.dr, 40 MG PO DAILY, (Reported) LAST FILLED #90 18 Tamsulosin HCl 0.4 Mg Cap.er.24h, 0.4 MG PO 1730, (Reported) Patient Home Medication List Home Medication List Reviewed: Yes (PACO SMITH MD) Review of Systems Review of Systems Constitutional: see HPI; No chills, No fever EENTM: no symptoms reported Respiratory: no symptoms reported Cardiovascular: no symptoms reported Gastrointestinal: abdominal pain (generalized cramping prior to diarrhea or vomiting that resolves until the next episode fits.), diarrhea, nausea, vomiting Genitourinary: No dysuria; frequency Musculoskeletal: no symptoms reported Skin: no symptoms reported Psychiatric/Neurological: No Symptoms Reported (PACO SMITH MD) All Other Systems Reviewed Negative Unless Noted: Yes (PACO SMITH MD) Past Pqpdxhi-Uveyyb-Lwlgad Hx Past Med/Social Hx: Reviewed Nursing Past Med/Soc Hx (PACO SMITH MD) Patient Social History Alcohol Use: Occasionally Uses Alcohol Beverage of Choice: Whiskey, [place] Recreational Drug Use: No Smoking Status: Former Smoker Type Used: Cigarettes Former Smoker, Quit: Jun 05, 1992 2nd Hand Smoke Exposure: No Recent Foreign Travel: No Contact w/Someone Who Travel: No Recent Infectious Disease Expo: No Recent Hopitalizations: Yes (PACO SMITH MD) Immunizations Up To Date Tetanus Booster (TDap): Unknown PED Vaccines UTD: No Date of Pneumonia Vaccine: Nov 16, 2015 Date of Influenza Vaccine: Nov 15, 2015 (PACO SMITH MD) Seasonal Allergies Seasonal Allergies: No (PACO SMITH MD) Past Medical History Surgeries: Yes (AMPUTATION OF BIG TOE, SKIN CA REMOVED FROM ARM) Amputation, Appendectomy, Orthopedic, Prostatectomy Respiratory: No (USES INHALER, BUT UNSURE WHY) Currently Using CPAP: No Currently Using BIPAP: No Cardiac: Yes High Cholesterol, Hypertension, Peripheral Vascular Neurological: No Reproductive Disorders: No Genitourinary: Yes Prostate Problems Gastrointestinal: Yes (diverticulitis ) Diverticulosis Musculoskeletal: Yes (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) Arthritis Endocrine: No HEENT: Yes Hearing Impairment: Hard of Hearing Cancer: Yes Prostate, Colon Did You Recieve Any Treatments: Yes What Type of Treatment Did You: Surgical Intervention Psychosocial: No Integumentary: Yes Recent Skin Changes Blood Disorders: No Adverse Reaction/Blood Tranf: No (PACO SMITH MD) Family Medical History Reviewed Nursing Family Hx (PACO SMITH MD) Completed stroke G8 SISTER Diabetes mellitus 19 MOTHER FH: prostate cancer 19 FATHER Cancer (PACO SMITH MD) Physical Exam Vital Signs Vital Signs - First Documented 06/16/18 16:39 Temp 98.1 Pulse 86 Resp 20 B/P (MAP) 142/45 (77) Pulse Ox 93 (KAREL,BURKE J) Vital Signs Capillary Refill : Less Than 3 Seconds (PACO SMITH MD) Height, Weight, BMI Height: 5'4.00" Weight: 146lbs. 0.0oz. 66.627280me; 23.2 BMI Method:Stated General Appearance: No Apparent Distress, WD/WN HEENT: PERRL/EOMI, Pharynx Normal Neck: Non Tender, Supple Respiratory: Lungs Clear, Normal Breath Sounds Cardiovascular: Regular Rate, Rhythm, No Murmur Gastrointestinal: Non Tender, Soft, Abnormal Bowel Sounds (active to hyperactive); No Distended, No Guarding, No Rebound Back: Normal Inspection, No CVA Tenderness, No Vertebral Tenderness Extremity: Normal Range of Motion, Non Tender Neurologic/Psychiatric: Alert, Oriented x3 Skin: Normal Color, Warm/Dry (PACO SMITH MD) Progress/Results/Core Measures Suspected Sepsis Recent Fever Within 48 Hours: No Infection Criteria Present: Suspected New Infection New/Unexplained Altered Menta: No Sepsis Screen: No Definite Risk SIRS Temperature:98.1 Pulse: 86 Respiratory Rate: 20 Laboratory Tests 06/16/18 16:51: White Blood Count 6.5 Blood Pressure 142 /45 Mean: 77 Laboratory Tests 06/16/18 16:51: Creatinine 1.21, Platelet Count 238, Total Bilirubin 0.5 (PACO SMITH MD) Results/Orders Lab Results Laboratory Tests Test 06/16/18 16:51 06/16/18 17:58 Range/Units White Blood Count 6.5 4.3-11.0 10^3/uL Red Blood Count 3.56 L 4.35-5.85 10^6/uL Hemoglobin 8.5 L 13.3-17.7 G/DL Hematocrit 30 L 40-54 % Mean Corpuscular Volume 83 80-99 FL Mean Corpuscular Hemoglobin 24 L 25-34 PG Mean Corpuscular Hemoglobin Concent 29 L 32-36 G/DL Red Cell Distribution Width 15.6 H 10.0-14.5 % Platelet Count 238 130-400 10^3/uL Mean Platelet Volume 10.6 H 7.4-10.4 FL Neutrophils (%) (Auto) 74 42-75 % Lymphocytes (%) (Auto) 14 12-44 % Monocytes (%) (Auto) 12 0-12 % Eosinophils (%) (Auto) 0 0-10 % Basophils (%) (Auto) 1 0-10 % Neutrophils # (Auto) 4.8 1.8-7.8 X 10^3 Lymphocytes # (Auto) 0.9 L 1.0-4.0 X 10^3 Monocytes # (Auto) 0.8 0.0-1.0 X 10^3 Eosinophils # (Auto) 0.0 0.0-0.3 10^3/uL Basophils # (Auto) 0.0 0.0-0.1 10^3/uL Sodium Level 141 135-145 MMOL/L Potassium Level 4.9 3.6-5.0 MMOL/L Chloride Level 109 H 98-107 MMOL/L Carbon Dioxide Level 24 21-32 MMOL/L Anion Gap 8 5-14 MMOL/L Blood Urea Nitrogen 28 H 7-18 MG/DL Creatinine 1.21 0.60-1.30 MG/DL Estimat Glomerular Filtration Rate 57 BUN/Creatinine Ratio 23 Glucose Level 117 H 70-105 MG/DL Calcium Level 9.0 8.5-10.1 MG/DL Corrected Calcium 9.2 8.5-10.1 MG/DL Total Bilirubin 0.5 0.1-1.0 MG/DL Aspartate Amino Transf (AST/SGOT) 15 5-34 U/L Alanine Aminotransferase (ALT/SGPT) 12 0-55 U/L Alkaline Phosphatase 70 40-136 U/L C-Reactive Protein High Sensitivity 1.07 H 0.00-0.50 MG/DL Total Protein 7.0 6.4-8.2 GM/DL Albumin 3.8 3.2-4.5 GM/DL Urine Color YELLOW Urine Clarity CLEAR Urine pH 7 5-9 Urine Specific [place] 1.010 L 1.016-1.022 Urine Protein 2+ H NEGATIVE Urine Glucose (UA) NEGATIVE NEGATIVE Urine Ketones NEGATIVE NEGATIVE Urine Nitrite NEGATIVE NEGATIVE Urine Bilirubin NEGATIVE NEGATIVE Urine Urobilinogen NORMAL NORMAL MG/DL Urine Leukocyte Esterase NEGATIVE NEGATIVE Urine RBC (Auto) NEGATIVE NEGATIVE Urine RBC RARE /HPF Urine WBC RARE /HPF Urine Squamous Epithelial Cells 0-2 /HPF Urine Crystals NONE /LPF Urine Bacteria NEGATIVE /HPF Urine Casts NONE /LPF Urine Mucus NEGATIVE /LPF Urine Culture Indicated NO (BURKE VINSON) Medications Given in ED Current Medications Medications Dose Ordered Sig/Zoey Route Start Time Stop Time Status Last Admin Dose Admin Hyoscyamine Sulfate 0.125 mg ONCE ONCE SL 06/16/18 17:00 06/16/18 17:01 DC 06/16/18 17:03 0.125 MG Sodium Chloride 1,000 ml @ 0 mls/hr Q0M ONCE IV 06/16/18 16:48 06/16/18 16:50 DC 06/16/18 17:00 1,000 MLS/HR (BURKE VINSON) Vital Signs/I&O 06/16/18 16:39 Temp 98.1 Pulse 86 Resp 20 B/P (MAP) 142/45 (77) Pulse Ox 93 (BURKE VINSON) Vital Signs/I&O Capillary Refill : Less Than 3 Seconds (PACO SMITH MD) Blood Pressure Mean: 77 Progress Note : Progress Note Seen and evaluated. IV, labs and UA ordered. Normal saline 1 L bolus and Levsin 0.125 mg by mouth ordered. Monitor patient. (PACO SMITH MD) Progress Note : Time: 18:04 Progress Note 's and examine the patient alongside Dr. Smith to [facility]'s care at shift change. A agree with the above documented history physical exam and plan. The patient states he feels much better and is ready to go home. We would like to see what his urinalysis is based on the history of urinary frequency however so we will provide a sample and is in the lab (BURKE VINSON) Departure Impression Primary Impression: Gastroenteritis and colitis, viral Additional Impression: Mild dehydration Disposition: 01 HOME, SELF-CARE Condition: Improved Departure-Patient Inst. Decision time for Depature: 18:18 (BURKE VINSON) Referrals: ROSY CLANCY DO (PCP/Family) Primary Care Physician Patient Instructions: Viral Gastroenteritis, Adult (DC) Add. Discharge Instructions: Continue to drink adequate fluids. You can use Imodium 2 tablets followed by one tablet every 4 hours afterwards that you have watery diarrhea. You can use Zofran 1 tablet every 6 hours as needed for nausea. All discharge instructions reviewed with patient and/or family. Voiced understanding. Scripts Ondansetron (Ondansetron Odt) 4 Mg Tab.rapdis 4 MG PO Q6H PRN for NAUSEA/VOMITING, #8 TAB 0 Refills Prov: BURKE VINSON 06/16/18 PACO SMITH MD June 16, 2018 17:29 BURKE VINSON June 16, 2018 18:05
[2018-06-16 18:04] LABS: BILIRUBIN,URINE NEGATIVE (NEGATIVE); CLARITY,URINE CLEAR; COLOR,URINE YELLOW; GLUCOSE, URINE (UA) NEGATIVE (NEGATIVE); KETONES,URINE NEGATIVE (NEGATIVE); LEUKOCYTE ESTERASE ,URINE NEGATIVE (NEGATIVE); NITRITE,URINE NEGATIVE (NEGATIVE); PH,URINE 7 (5-9); PROTEIN,URINE 2+ (NEGATIVE); UROBILINOGEN,URINE NORMAL (NORMAL)
[2018-06-16 18:13] LABS: BACTERIA,URINE NEGATIVE /HPF; RBC,URINE RARE /HPF; SQUAMOUS EPITHELIAL CELL,UR 0-2 /HPF; WBC,URINE RARE /HPF
[2018-06-16] MEDS ORDERED: ONDA4TAB11 PO (18:19)
[2018-06-16 18:28] VITALS: BP 129/71
== END 2018-06-16 18:31 | disposition home or self-care (01) ==
LOC: EDUNIT# 16:24 → ER 16:25
DX: A08.4 Viral intestinal infection, unspecified (principal); E86.0 Dehydration; E78.00 Pure hypercholesterolemia, unspecified; I10 Essential (primary) hypertension; I73.9 Peripheral vascular disease, unspecified; Z85.038 Personal history of other malignant neoplasm of large intestine; Z85.46 Personal history of malignant neoplasm of prostate; Z87.19 Personal history of other diseases of the digestive system; Z98.890 Other specified postprocedural states; Z80.42 Family history of malignant neoplasm of prostate; Z87.891 Personal history of nicotine dependence; Z85.828 Personal history of other malignant neoplasm of skin; Z90.49 Acquired absence of other specified parts of digestive tract; Z90.79 Acquired absence of other genital organ(s); Z89.412 Acquired absence of left great toe
CPT/HCPCS: 36415; 80053; 81000; 85025; 86141; 96360

== ENCOUNTER 2018-07-28 10:15 | Emergency (ER) | payer MEDICARE ==
[~2018-07-28] VITALS: Ht 170.2 cm; Wt 61.7 kg
[~2018-07-28 10:15] MED LIST changes: +ONDA4TAB11 PO
[2018-07-28] MEDS ORDERED: NS IV 1000 ML 1,000 ML IV SCH (10:30)
--- NOTE | 2018-07-28 10:31 | ED General ---
General Stated Complaint: DEHYDRATED/LOSING WEIGHT/UPSET STOMACH Source of Information: Patient, Family Exam Limitations: No Limitations History of Present Illness Date Seen by Provider: Jul 28, 2018 Time Seen by Provider: 10:27 Initial Comments This 88-year-old white male presents with symptoms of dehydration. Patient has had similar presentations to the emergency department in the past requiring a liter of IV fluids to resolve patient's symptoms. There is no clear history of vomiting, inadequate intake, vomiting, black or tarry stools, significant new medications, fever or chills, or other ready explanation. The patient has complained of an upset stomach intermittently. Patient in the care of Dr. Clancy. Allergies and Home Medications Allergies Coded Allergies: shellfish derived (Verified Allergy, Severe, HIVES/SWELLING, 06/25/17) Home Medications Albuterol Sulfate 1 Puff Puff, 2 PUFF IH QID PRN for SHORTNESS OF BREATH, (Reported) Amlodipine Besylate 5 Mg Tablet, 5 MG PO DAILY, (Reported) LAST FILLED #90 06-08-17 Atorvastatin Calcium 10 Mg Tablet, 10 MG PO HS, (Reported) LAST FILLED #90 06-08-17 Hydrochlorothiazide 12.5 Mg Capsule, 25 MG PO DAILY, (Reported) TAKES 2 (12.5MG) CAPSULES Hydrocodone/Acetaminophen 1 Each Tablet, 1 TAB PO BID PRN for PAIN-MODERATE Prescribed by: CARLOS BROCK on 10/04/17 0944 Iron Polysaccharide Complex 150 Mg Capsule, 150 MG PO BID, (Reported) Lisinopril 40 Mg Tablet, 40 MG PO DAILY, (Reported) Montelukast Sodium 10 Mg Tablet, 10 MG PO HS, (Reported) Ondansetron 4 Mg Tab.rapdis, 4 MG PO Q6H PRN for NAUSEA/VOMITING Prescribed by: BURKE VINSON on 06/16/18 1819 Pantoprazole Sodium 40 Mg Tablet.dr, 40 MG PO DAILY, (Reported) LAST FILLED #90 06-08-17 Tamsulosin HCl 0.4 Mg Cap.er.24h, 0.4 MG PO 1730, (Reported) Patient Home Medication List Home Medication List Reviewed: Yes Review of Systems Review of Systems Constitutional: No chills, No fever; malaise EENTM: no symptoms reported Respiratory: no symptoms reported; No cough, No short of breath Cardiovascular: No chest pain Gastrointestinal: No abdominal pain; heartburn; No melena, No nausea, No vomiting Genitourinary: no symptoms reported Musculoskeletal: no symptoms reported Skin: no symptoms reported Psychiatric/Neurological: No Symptoms Reported Hematologic/Lymphatic: No Symptoms Reported Immunological/Allergic: no symptoms reported Past Vsopiez-Bodtpv-Bplspr Hx Past Med/Social Hx: Reviewed Nursing Past Med/Soc Hx Patient Social History Alcohol Beverage of Choice: Whiskey, [place] Type Used: Cigarettes Former Smoker, Quit: Jun 05, 1992 2nd Hand Smoke Exposure: No Recent Foreign Travel: No Contact w/Someone Who Travel: No Recent Hopitalizations: Yes Immunizations Up To Date Tetanus Booster (TDap): Unknown PED Vaccines UTD: No Date of Pneumonia Vaccine: Nov 16, 2015 Date of Influenza Vaccine: Nov 15, 2015 Seasonal Allergies Seasonal Allergies: No Past Medical History Surgeries: Yes (AMPUTATION OF BIG TOE, SKIN CA REMOVED FROM ARM) Amputation, Appendectomy, Orthopedic, Prostatectomy Respiratory: No (USES INHALER, BUT UNSURE WHY) Currently Using CPAP: No Currently Using BIPAP: No Cardiac: Yes High Cholesterol, Hypertension, Peripheral Vascular Neurological: No Reproductive Disorders: No Genitourinary: Yes Prostate Problems Gastrointestinal: Yes (diverticulitis ) Diverticulosis Musculoskeletal: Yes (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) Arthritis Endocrine: No HEENT: Yes Hearing Impairment: Hard of Hearing Cancer: Yes Prostate, Colon Did You Recieve Any Treatments: Yes What Type of Treatment Did You: Surgical Intervention Psychosocial: No Integumentary: Yes Recent Skin Changes Blood Disorders: No Adverse Reaction/Blood Tranf: No Family Medical History Completed stroke G8 SISTER Diabetes mellitus 19 MOTHER FH: prostate cancer 19 FATHER Cancer Physical Exam Vital Signs Vital Signs - First Documented 07/28/18 10:16 Temp 98.2 Pulse 91 Resp 16 B/P (MAP) 134/62 (86) Pulse Ox 94 O2 Delivery Room Air Capillary Refill : Height, Weight, BMI Height: 5'4.00" Weight: 146lbs. 0.0oz. [id number]; 23.2 BMI Method:Stated General Appearance: No Apparent Distress, WD/WN Eyes: Bilateral Eye Normal Inspection HEENT: Normal ENT Inspection Neck: Normal Inspection Respiratory: Lungs Clear Cardiovascular: Regular Rate, Rhythm Gastrointestinal: Non Tender, Soft Extremity: Normal Inspection Neurologic/Psychiatric: Oriented x3, No Motor/Sensory Deficits, Normal Mood/Affect Skin: Normal Color, Warm/Dry Progress/Results/Core Measures Suspected Sepsis SIRS Temperature: Pulse: Respiratory Rate: Laboratory Tests 07/28/18 10:25: White Blood Count 7.3 Blood Pressure / Mean: Laboratory Tests 07/28/18 10:25: Creatinine 1.37H, Platelet Count 273, Total Bilirubin 0.4 Results/Orders Lab Results Laboratory Tests Test 07/28/18 10:25 Range/Units White Blood Count 7.3 4.3-11.0 10^3/uL Red Blood Count 3.76 L 4.35-5.85 10^6/uL Hemoglobin 9.0 L 13.3-17.7 G/DL Hematocrit 31 L 40-54 % Mean Corpuscular Volume 83 80-99 FL Mean Corpuscular Hemoglobin 24 L 25-34 PG Mean Corpuscular Hemoglobin Concent 29 L 32-36 G/DL Red Cell Distribution Width 17.7 H 10.0-14.5 % Platelet Count 273 130-400 10^3/uL Mean Platelet Volume 10.1 7.4-10.4 FL Neutrophils (%) (Auto) 71 42-75 % Lymphocytes (%) (Auto) 16 12-44 % Monocytes (%) (Auto) 11 0-12 % Eosinophils (%) (Auto) 1 0-10 % Basophils (%) (Auto) 1 0-10 % Neutrophils # (Auto) 5.2 1.8-7.8 X 10^3 Lymphocytes # (Auto) 1.2 1.0-4.0 X 10^3 Monocytes # (Auto) 0.8 0.0-1.0 X 10^3 Eosinophils # (Auto) 0.1 0.0-0.3 10^3/uL Basophils # (Auto) 0.1 0.0-0.1 10^3/uL Sodium Level 141 135-145 MMOL/L Potassium Level 5.1 H 3.6-5.0 MMOL/L Chloride Level 104 98-107 MMOL/L Carbon Dioxide Level 24 21-32 MMOL/L Anion Gap 13 5-14 MMOL/L Blood Urea Nitrogen 32 H 7-18 MG/DL Creatinine 1.37 H 0.60-1.30 MG/DL Estimat Glomerular Filtration Rate 49 BUN/Creatinine Ratio 23 Glucose Level 113 H 70-105 MG/DL Calcium Level 9.5 8.5-10.1 MG/DL Corrected Calcium 9.4 8.5-10.1 MG/DL Total Bilirubin 0.4 0.1-1.0 MG/DL Aspartate Amino Transf (AST/SGOT) 17 5-34 U/L Alanine Aminotransferase (ALT/SGPT) 10 0-55 U/L Alkaline Phosphatase 73 40-136 U/L Total Protein 7.6 6.4-8.2 GM/DL Albumin 4.1 3.2-4.5 GM/DL My Orders Orders - CARTER GARCÍA MD Cbc With Automated Diff (07/28/18 10:23) Comprehensive Metabolic Panel (07/28/18 10:23) Ua Culture If Indicated (07/28/18 10:23) Ns Iv 1000 Ml (Sodium Chloride 0.9%) (07/28/18 10:30) Vital Signs/I&O 07/28/18 10:16 Temp 98.2 Pulse 91 Resp 16 B/P (MAP) 134/62 (86) Pulse Ox 94 O2 Delivery Room Air Capillary Refill : Progress Note : Time: 11:31 Progress Note Patient was symptomatically much improved with a liter of normal saline. His laboratory evaluation demonstrated a hemoglobin of 9. The patient states that he is aware of been anemic in the past. Departure Impression Primary Impression: Anemia Qualified Codes: D64.9 - Anemia, unspecified Additional Impression: Generalized weakness Disposition: 01 HOME, SELF-CARE Condition: Improved Departure-Patient Inst. Decision time for Depature: 11:33 Referrals: ROSY CLANCY DO (PCP/Family) Primary Care Physician Patient Instructions: Generalized Weakness (DC) CARTER GARCÍA MD Jul 28, 2018 10:31
[2018-07-28 10:38] LABS: BASOPHILS # (AUTO) 0.1 10^3/uL (0.0-0.1); BASOPHILS % (AUTO) 1 % (0-10); EOSINOPHILS # (AUTO) 0.1 10^3/uL (0.0-0.3); EOSINOPHILS % (AUTO) 1 % (0-10); HEMATOCRIT 31 % (40-54); LYMPHOCYTES # (AUTO) 1.2 X 10^3 (1.0-4.0); LYMPHOCYTES % (AUTO) 16 % (12-44); MEAN CORPUSCULAR HEMOGLOBIN 24 PG (25-34); MEAN CORPUSCULAR HGB CONC 29 G/DL (32-36); MEAN CORPUSCULAR VOLUME 83 FL (80-99); MEAN PLATELET VOLUME 10.1 FL (7.4-10.4); MONOCYTES # (AUTO) 0.8 X 10^3 (0.0-1.0); MONOCYTES % (AUTO) 11 % (0-12); NEUTROPHILS # (AUTO) 5.2 X 10^3 (1.8-7.8); NEUTROPHILS % (AUTO) 71 % (42-75); PLATELET COUNT 273 10^3/uL (130-400); RED CELL DISTRIBUTION WIDTH 17.7 % (10.0-14.5); WHITE BLOOD COUNT 7.3 10^3/uL (4.3-11.0)
[2018-07-28 10:57] LABS: ALBUMIN 4.1 GM/DL (3.2-4.5); BILIRUBIN,TOTAL 0.4 MG/DL (0.1-1.0); CALCIUM 9.5 MG/DL (8.5-10.1); CREATININE SERUM 1.37 MG/DL (0.60-1.30); POTASSIUM 5.1 MMOL/L (3.6-5.0); TOTAL PROTEIN 7.6 GM/DL (6.4-8.2)
[2018-07-28 11:38] VITALS: BP 141/74
== END 2018-07-28 11:38 | disposition home or self-care (01) ==
LOC: EDUNIT# 10:15 → ER 10:16
DX: D64.9 Anemia, unspecified (principal); R53.1 Weakness; E78.00 Pure hypercholesterolemia, unspecified; I10 Essential (primary) hypertension; I73.9 Peripheral vascular disease, unspecified; Z87.19 Personal history of other diseases of the digestive system; Z87.891 Personal history of nicotine dependence; Z90.49 Acquired absence of other specified parts of digestive tract; Z85.828 Personal history of other malignant neoplasm of skin; Z89.412 Acquired absence of left great toe; Z90.79 Acquired absence of other genital organ(s); Z85.038 Personal history of other malignant neoplasm of large intestine; Z85.46 Personal history of malignant neoplasm of prostate; Z80.42 Family history of malignant neoplasm of prostate
CPT/HCPCS: 36415; 80053; 85025; 96360

== ENCOUNTER → 2018-08-08 | Emergency (ER) | payer MEDICARE ==
[~2018-08-08] VITALS: Ht 162.6 cm; Wt 61.2 kg
[~2018-08-08] MED LIST changes: +LACTATED RINGERS 1,000 ML IV SCH
[2018-08-08 11:12] LABS: BASOPHILS % (AUTO) 1 % (0-10); EOSINOPHILS % (AUTO) 0 % (0-10); HEMATOCRIT 32 % (40-54); HEMOGLOBIN 9.3 G/DL (13.3-17.7); LYMPHOCYTES # (AUTO) 0.8 X 10^3 (1.0-4.0); LYMPHOCYTES % (AUTO) 10 % (12-44); MEAN CORPUSCULAR HEMOGLOBIN 24 PG (25-34); MEAN CORPUSCULAR HGB CONC 29 G/DL (32-36); MEAN CORPUSCULAR VOLUME 82 FL (80-99); MEAN PLATELET VOLUME 9.8 FL (7.4-10.4); MONOCYTES # (AUTO) 0.7 X 10^3 (0.0-1.0); MONOCYTES % (AUTO) 9 % (0-12); NEUTROPHILS # (AUTO) 6.7 X 10^3 (1.8-7.8); NEUTROPHILS % (AUTO) 81 % (42-75); PLATELET COUNT 286 10^3/uL (130-400); RED CELL DISTRIBUTION WIDTH 17.4 % (10.0-14.5); WHITE BLOOD COUNT 8.3 10^3/uL (4.3-11.0)
--- NOTE | 2018-08-08 11:12 | ED General ---
General Stated Complaint: DEHYDRATED Source of Information: Patient Exam Limitations: No Limitations History of Present Illness Date Seen by Provider: Aug 08, 2018 Time Seen by Provider: 11:07 Initial Comments To ER by private vehicle with reports of concerns about dehydration. States he vomited a few times last night and has had some intermittent abdominal pain but none currently. No diarrhea. No fevers or chills. He's had this a few times before, states that he comes here gets IV fluids and feels better Timing/Duration: 1-2 Days Severity: Moderate Associated Systoms: No Chest Pain, No Fever/Chills, No Headaches, No Loss of Appetite, No Malaise; Nausea/Vomiting Allergies and Home Medications Allergies Coded Allergies: shellfish derived (Verified Allergy, Severe, HIVES/SWELLING, 06/25/17) Home Medications Albuterol Sulfate 1 Puff Puff, 2 PUFF IH QID PRN for SHORTNESS OF BREATH, (Reported) Amlodipine Besylate 5 Mg Tablet, 5 MG PO DAILY, (Reported) LAST FILLED #90 06-08-17 Atorvastatin Calcium 10 Mg Tablet, 10 MG PO HS, (Reported) LAST FILLED #90 06-08-17 Hydrochlorothiazide 12.5 Mg Capsule, 25 MG PO DAILY, (Reported) TAKES 2 (12.5MG) CAPSULES Hydrocodone/Acetaminophen 1 Each Tablet, 1 TAB PO BID PRN for PAIN-MODERATE Prescribed by: CARLOS BROCK on 10/04/17 0944 Iron Polysaccharide Complex 150 Mg Capsule, 150 MG PO BID, (Reported) Lisinopril 40 Mg Tablet, 40 MG PO DAILY, (Reported) Montelukast Sodium 10 Mg Tablet, 10 MG PO HS, (Reported) Ondansetron 4 Mg Tab.rapdis, 4 MG PO Q6H PRN for NAUSEA/VOMITING Prescribed by: BURKE VINSON on 06/16/18 1819 Pantoprazole Sodium 40 Mg Tablet.dr, 40 MG PO DAILY, (Reported) LAST FILLED #90 06-08-17 Tamsulosin HCl 0.4 Mg Cap.er.24h, 0.4 MG PO 1730, (Reported) Patient Home Medication List Home Medication List Reviewed: Yes Review of Systems Review of Systems Constitutional: see HPI EENTM: see HPI Respiratory: no symptoms reported Cardiovascular: no symptoms reported Gastrointestinal: abdominal pain, nausea, vomiting Genitourinary: no symptoms reported Musculoskeletal: no symptoms reported Skin: no symptoms reported Psychiatric/Neurological: No Symptoms Reported Hematologic/Lymphatic: No Symptoms Reported Immunological/Allergic: no symptoms reported Past Iwvoodf-Lbzesr-Cgzwbb Hx Patient Social History Alcohol Beverage of Choice: Whiskey, [place] Type Used: Cigarettes Former Smoker, Quit: Jun 05, 1992 2nd Hand Smoke Exposure: No Recent Foreign Travel: No Contact w/Someone Who Travel: No Recent Hopitalizations: Yes Immunizations Up To Date Tetanus Booster (TDap): Unknown PED Vaccines UTD: No Date of Pneumonia Vaccine: Nov 16, 2015 Date of Influenza Vaccine: Nov 15, 2015 Seasonal Allergies Seasonal Allergies: No Past Medical History Surgeries: Yes (AMPUTATION OF BIG TOE, SKIN CA REMOVED FROM ARM) Amputation, Appendectomy, Orthopedic, Prostatectomy Respiratory: No (USES INHALER, BUT UNSURE WHY) Currently Using CPAP: No Currently Using BIPAP: No Cardiac: Yes High Cholesterol, Hypertension, Peripheral Vascular Neurological: No Reproductive Disorders: No Genitourinary: Yes Prostate Problems Gastrointestinal: Yes (diverticulitis ) Diverticulosis Musculoskeletal: Yes (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) Arthritis Endocrine: No HEENT: Yes Hearing Impairment: Hard of Hearing Cancer: Yes Prostate, Colon Did You Recieve Any Treatments: Yes What Type of Treatment Did You: Surgical Intervention Psychosocial: No Integumentary: Yes Recent Skin Changes Blood Disorders: No Adverse Reaction/Blood Tranf: No Family Medical History Completed stroke G8 SISTER Diabetes mellitus 19 MOTHER FH: prostate cancer 19 FATHER Cancer Physical Exam Vital Signs Vital Signs - First Documented 08/08/18 10:55 Temp 98.0 Pulse 89 Resp 19 B/P (MAP) 100/69 (79) Pulse Ox 94 O2 Delivery Room Air Capillary Refill : Height, Weight, BMI Height: 5'7.00" Weight: 136lbs. 0.0oz. 61.433344pj; 23.2 BMI Method:Stated General Appearance: No Apparent Distress, WD/WN, Other (alert oriented pleasant) Eyes: Bilateral Eye Normal Inspection, Bilateral Eye PERRL, Bilateral Eye EOMI Neck: Full Range of Motion, Normal Inspection Respiratory: No Accessory Muscle Use, No Respiratory Distress Gastrointestinal: Normal Bowel Sounds, Non Tender, Soft, Other (no nausea currently no tenderness to palpation) Extremity: Normal Capillary Refill, Normal Inspection Neurologic/Psychiatric: Alert, Oriented x3 Skin: Normal Color, Warm/Dry Progress/Results/Core Measures Suspected Sepsis SIRS Temperature: Pulse: Respiratory Rate: Laboratory Tests 08/08/18 11:00: White Blood Count 8.3 Blood Pressure / Mean: Laboratory Tests 08/08/18 11:00: Creatinine 1.37H, Platelet Count 286, Total Bilirubin 0.5 Results/Orders Lab Results Laboratory Tests Test 08/08/18 11:00 Range/Units White Blood Count 8.3 4.3-11.0 10^3/uL Red Blood Count 3.91 L 4.35-5.85 10^6/uL Hemoglobin 9.3 L 13.3-17.7 G/DL Hematocrit 32 L 40-54 % Mean Corpuscular Volume 82 80-99 FL Mean Corpuscular Hemoglobin 24 L 25-34 PG Mean Corpuscular Hemoglobin Concent 29 L 32-36 G/DL Red Cell Distribution Width 17.4 H 10.0-14.5 % Platelet Count 286 130-400 10^3/uL Mean Platelet Volume 9.8 7.4-10.4 FL Neutrophils (%) (Auto) 81 H 42-75 % Lymphocytes (%) (Auto) 10 L 12-44 % Monocytes (%) (Auto) 9 0-12 % Eosinophils (%) (Auto) 0 0-10 % Basophils (%) (Auto) 1 0-10 % Neutrophils # (Auto) 6.7 1.8-7.8 X 10^3 Lymphocytes # (Auto) 0.8 L 1.0-4.0 X 10^3 Monocytes # (Auto) 0.7 0.0-1.0 X 10^3 Eosinophils # (Auto) 0.0 0.0-0.3 10^3/uL Basophils # (Auto) 0.0 0.0-0.1 10^3/uL Sodium Level 142 135-145 MMOL/L Potassium Level 5.1 H 3.6-5.0 MMOL/L Chloride Level 103 98-107 MMOL/L Carbon Dioxide Level 27 21-32 MMOL/L Anion Gap 12 5-14 MMOL/L Blood Urea Nitrogen 38 H 7-18 MG/DL Creatinine 1.37 H 0.60-1.30 MG/DL Estimat Glomerular Filtration Rate 49 BUN/Creatinine Ratio 28 Glucose Level 123 H 70-105 MG/DL Calcium Level 9.7 8.5-10.1 MG/DL Corrected Calcium 9.5 8.5-10.1 MG/DL Total Bilirubin 0.5 0.1-1.0 MG/DL Aspartate Amino Transf (AST/SGOT) 18 5-34 U/L Alanine Aminotransferase (ALT/SGPT) 10 0-55 U/L Alkaline Phosphatase 76 40-136 U/L Total Protein 7.6 6.4-8.2 GM/DL Albumin 4.2 3.2-4.5 GM/DL My Orders Orders - HARDIK BRUNSON APRN Cbc With Automated Diff (08/08/18 11:06) Comprehensive Metabolic Panel (08/08/18 11:06) Ed Iv/Invasive Line Start (08/08/18 11:06) Lactated Ringers (Lr 1000 Ml Iv Solution (08/08/18 11:15) Vital Signs/I&O 08/08/18 10:55 Temp 98.0 Pulse 89 Resp 19 B/P (MAP) 100/69 (79) Pulse Ox 94 O2 Delivery Room Air Capillary Refill : Departure Impression Primary Impression: Dehydration Disposition: 01 HOME, SELF-CARE Condition: Stable Departure-Patient Inst. Decision time for Depature: 11:32 Referrals: ROSY CLANCY DO (PCP/Family) Primary Care Physician Patient Instructions: Dehydration, Adult (DC) HARDIK BRUNSON APRN Aug 08, 2018 11:12
[2018-08-08 11:29] LABS: ALBUMIN 4.2 GM/DL (3.2-4.5); BILIRUBIN,TOTAL 0.5 MG/DL (0.1-1.0); CALCIUM 9.7 MG/DL (8.5-10.1); CREATININE SERUM 1.37 MG/DL (0.60-1.30); POTASSIUM 5.1 MMOL/L (3.6-5.0); TOTAL PROTEIN 7.6 GM/DL (6.4-8.2)
[2018-08-08 11:39] VITALS: BP 116/53
== END | disposition home or self-care (01) ==
LOC: ER 10:49 → EDUNIT# 10:49
DX: E86.0 Dehydration (principal); I10 Essential (primary) hypertension; E78.00 Pure hypercholesterolemia, unspecified; I73.9 Peripheral vascular disease, unspecified; Z85.46 Personal history of malignant neoplasm of prostate; Z85.038 Personal history of other malignant neoplasm of large intestine; Z87.19 Personal history of other diseases of the digestive system; Z89.412 Acquired absence of left great toe; Z85.828 Personal history of other malignant neoplasm of skin; Z90.49 Acquired absence of other specified parts of digestive tract; Z80.42 Family history of malignant neoplasm of prostate; Z91.013 Allergy to seafood
CPT/HCPCS: 36415; 80053; 85025; 96360

== ENCOUNTER 2019-02-10 15:00 | Emergency (ER) | payer MEDICARE ==
[~2019-02-10] VITALS: Ht 167 cm; Wt 59.1 kg
[~2019-02-10 15:00] MED LIST changes: -LACTATED RINGERS 1,000 ML IV SCH; -PENT400T9 PO; +PNT400TCR PO
[2019-02-10] MEDS ORDERED: DILTIAZEM 25 MG/5 ML INJ (CARDIZEM) VIAL IVP ONE (16:00)
[2019-02-10] MEDS ORDERED: DILTIAZEM IV FOR DRIP 125 MG in NS (IVPB) 100 ML IV SCH (16:00)
--- NOTE | 2019-02-10 16:00 | ED Cardiac General ---
History of Present Illness General Chief Complaint: Respiratory Problems Stated Complaint: SOB Nursing Triage Note: Pt ambulates to triage with c/o SOB w/ exertion. Pt was sent from Dr. oCbos. Pt reports taking 2 puffs of albuterol sloop captain. Pt is 98% on RA on arrival. Source: patient Exam Limitations: no limitations History of Present Illness Date Seen by Provider: Feb 10, 2019 Time Seen by Provider: 15:24 Initial Comments Patient presents to ER by private conveyance from Dr. Clancy's clinic. He was complaining of some shortness of breath took some albuterol and that helped. By time he got to the ER is not having any concerns no shortness of breath or chest pain. He does not have any prior either. Dr. Clancy noted him to be in atrial fibrillation and this is a new finding. He is also concerned because some labs that they were reviewing for mag lab demonstrated hemoglobin of 6.1. Patient is a history of peripheral arterial disease but no coronary disease. 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 He does not have any st ents in his heart. He is followed by Dr. Bermudez for cardiology. He denies cough fever chills. He says he has a son who is in town passing through and will be leaving tomorrow and he really wants to go home and spend time with him. He does not have any swelling in his hands or feet. Last year he had a colonoscopy revealing a colon cancer that was surgically removed. He did not do fidencio motherapy. He has had blood transfusions before. If necessary he would prefer to do it outpatient. He denies any melena or black tarry stools. Allergies and Home Medications Allergies Coded Allergies: shellfish derived (Verified Allergy, Severe, HIVES/SWELLING, 06/25/17) Home Medications Albuterol Sulfate 1 Puff Puff, 2 PUFF IH QID PRN for SHORTNESS OF BREATH, (Reported) Amlodipine Besylate 5 Mg Tablet, 5 MG PO DAILY, (Reported) LAST FILLED #90 06-08-17 Atorvastatin Calcium 10 Mg Tablet, 10 MG PO HS, (Reported) LAST FILLED #90 06-08-17 Hydrochlorothiazide 12.5 Mg Capsule, 25 MG PO DAILY, (Reported) TAKES 2 (12.5MG) CAPSULES Hydrocodone/Acetaminophen 1 Each Tablet, 1 TAB PO BID PRN for PAIN-MODERATE Prescribed by: CARLOS BROCK on 10/04/17 0944 Iron Polysaccharide Complex 150 Mg Capsule, 150 MG PO BID, (Reported) Lisinopril 40 Mg Tablet, 40 MG PO DAILY, (Reported) Montelukast Sodium 10 Mg Tablet, 10 MG PO HS, (Reported) Ondansetron 4 Mg Tab.rapdis, 4 MG PO Q6H PRN for NAUSEA/VOMITING Prescribed by: BURKE VINSON on 06/16/181818 Pantoprazole Sodium 40 Mg Tablet.dr, 40 MG PO DAILY, (Reported) LAST FILLED #90 06-08-17 Tamsulosin HCl 0.4 Mg Cap.er.24h, 0.4 MG PO 1730, (Reported) Patient Home Medication List Home Medication List Reviewed: Yes Review of Systems Review of Systems Constitutional: No chills, No diaphoresis EENTM: No Blurred Vision, No Double Vision Respiratory: Denies Cough; Shortness of Air Cardiovascular: Denies Chest Pain, Denies Edema; Irregular Heart Rate; Denies Lightheadedness Gastrointestinal: Denies Constipated, Denies Diarrhea, Denies Nausea Genitourinary: Denies Discharge, Denies Drainage Musculoskeletal: No back pain, No joint pain Skin: No pruritus, No rash All Other Systems Reviewed Negative Unless Noted: Yes Past Lyxxoqh-Rlgaup-Jtagho Hx Patient Social History Alcohol Use: Denies Use Number of Drinks Today: GG Alcohol Beverage of Choice: Whiskey, [place] Recreational Drug Use: No Smoking Status: Former Smoker Type Used: Cigarettes Former Smoker, Quit: Jun 05, 1992 2nd Hand Smoke Exposure: No Recent Foreign Travel: No Contact w/Someone Who Travel: No Recent Infectious Disease Expo: No Recent Hopitalizations: Yes Physical Abuse: No Sexual Abuse: No Mistreated: No Fear: No Immunizations Up To Date Tetanus Booster (TDap): Unknown PED Vaccines UTD: No Date of Pneumonia Vaccine: Nov 16, 2015 Date of Influenza Vaccine: Nov 14, 2018 Seasonal Allergies Seasonal Allergies: No Past Medical History Surgeries: Yes (AMPUTATION OF BIG TOE, SKIN CA REMOVED FROM ARM) Amputation, Appendectomy, Orthopedic, Prostatectomy Respiratory: No (USES INHALER, BUT UNSURE WHY) Currently Using CPAP: No Currently Using BIPAP: No Cardiac: Yes High Cholesterol, Hypertension, Peripheral Vascular Neurological: No Reproductive Disorders: No Genitourinary: Yes Prostate Problems Gastrointestinal: Yes (diverticulitis ) Diverticulosis Musculoskeletal: Yes (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) Arthritis Endocrine: No HEENT: Yes Hearing Impairment: Hard of Hearing Cancer: Yes Prostate, Colon Did You Recieve Any Treatments: Yes What Type of Treatment Did You: Surgical Intervention Psychosocial: No Integumentary: Yes Recent Skin Changes Blood Disorders: No Adverse Reaction/Blood Tranf: No Family Medical History Completed stroke G8 SISTER Diabetes mellitus 19 MOTHER FH: prostate cancer 19 FATHER Cancer Physical Exam Vital Signs Vital Signs - First Documented 02/10/19 15:13 Temp 36.6 Pulse 114 Resp 20 B/P (MAP) 138/75 (96) Pulse Ox 98 O2 Delivery Room Air Capillary Refill : Less Than 3 Seconds Height, Weight, BMI Height: 5'4.00" Weight: 135lbs. 0.0oz. 61.849764ox; 21.00 BMI Method:Stated General Appearance: No Apparent Distress, Thin HEENT: PERRL/EOMI, Pharynx Normal, Moist Mucous Membranes Neck: Normal Inspection, Non Tender Respiratory: Lungs Clear, Normal Breath Sounds, No Accessory Muscle Use, No Respiratory Distress Cardiovascular: Regular Rate, Rhythm, No Edema, Normal Peripheral Pulses Gastrointestinal: Normal Bowel Sounds, Non Tender, Soft Genital/Rectal: Normal Rectal Exam, Normal Rectal Tone, Heme Positive Stool Extremity: Normal Capillary Refill, Normal Inspection, No Pedal Edema Neurologic/Psychiatric: Alert, Oriented x3, No Motor/Sensory Deficits Skin: Normal Color, Warm/Dry Progress/Results/Core Measures Results/Orders Lab Results Laboratory Tests Test 02/10/19 15:50 02/10/19 15:55 Range/Units Stool Occult Blood Immunoassay POSITIVE H NEGATIVE White Blood Count 5.6 4.3-11.0 10^3/uL Red Blood Count 3.18 L 4.35-5.85 10^6/uL Hemoglobin 6.2 *L 13.3-17.7 G/DL Hematocrit 23 L 40-54 % Mean Corpuscular Volume 72 L 80-99 FL Mean Corpuscular Hemoglobin 19 L 25-34 PG Mean Corpuscular Hemoglobin Concent 27 L 32-36 G/DL Red Cell Distribution Width 19.4 H 10.0-14.5 % Platelet Count 242 130-400 10^3/uL Mean Platelet Volume 11.4 H 7.4-10.4 FL Neutrophils (%) (Auto) 64 42-75 % Lymphocytes (%) (Auto) 20 12-44 % Monocytes (%) (Auto) 13 H 0-12 % Eosinophils (%) (Auto) 2 0-10 % Basophils (%) (Auto) 1 0-10 % Neutrophils # (Auto) 3.6 1.8-7.8 X 10^3 Lymphocytes # (Auto) 1.1 1.0-4.0 X 10^3 Monocytes # (Auto) 0.7 0.0-1.0 X 10^3 Eosinophils # (Auto) 0.1 0.0-0.3 10^3/uL Basophils # (Auto) 0.1 0.0-0.1 10^3/uL Prothrombin Time 14.5 12.2-14.7 SEC INR Comment 1.1 0.8-1.4 Activated Partial Thromboplast Time 34 24-35 SEC Sodium Level 141 135-145 MMOL/L Potassium Level 3.2 L 3.6-5.0 MMOL/L Chloride Level 109 H 98-107 MMOL/L Carbon Dioxide Level 20 L 21-32 MMOL/L Anion Gap 12 5-14 MMOL/L Blood Urea Nitrogen 16 7-18 MG/DL Creatinine 1.11 0.60-1.30 MG/DL Estimat Glomerular Filtration Rate > 60 BUN/Creatinine Ratio 14 Glucose Level 92 70-105 MG/DL Calcium Level 7.7 L 8.5-10.1 MG/DL Corrected Calcium 8.3 L 8.5-10.1 MG/DL Total Bilirubin 0.3 0.1-1.0 MG/DL Aspartate Amino Transf (AST/SGOT) 25 5-34 U/L Alanine Aminotransferase (ALT/SGPT) 14 0-55 U/L Alkaline Phosphatase 93 40-136 U/L Troponin I 0.031 H <0.028 NG/ML Total Protein 6.5 6.4-8.2 GM/DL Albumin 3.3 3.2-4.5 GM/DL Smear Scan YES My Orders Orders - BURKE VINSON Type And Screen (02/10/19 15:41) Protime With Inr (02/10/19 15:41) Partial Thromboplastin Time (02/10/19 15:41) Cbc With Automated Diff (12/30/19 15:41) Comprehensive Metabolic Panel (02/10/19 15:41) Troponin I (02/10/19 15:41) Chest 1 View, Ap/Pa Only (02/10/19 15:41) Ekg Tracing (02/10/19 15:41) Continuous Ekg Monitoring (02/10/19 15:41) Occult Blood Stool (02/10/19 15:41) Ed Iv/Invasive Line Start (02/10/19 15:41) Diltiazem Injection (Cardizem Injection) (02/10/19 16:00) Ns (Ivpb) (Sodium C... W/Diltiazem Iv Fo (02/10/19 16:00) Medications Given in ED Current Medications Medications Dose Ordered Sig/Zoey Route Start Time Stop Time Status Last Admin Dose Admin Diltiazem HCl 20 mg ONCE ONCE IVP 02/10/19 16:00 02/10/19 16:01 DC 02/10/19 16:02 20 MG Vital Signs/I&O 02/10/19 02/10/19 15:13 16:14 Temp 36.6 Pulse 114 130 Resp 20 B/P (MAP) 138/75 (96) 123/78 Pulse Ox 98 O2 Delivery Room Air Blood Pressure Mean: 96 Progress Progress Note #1: Time: 15:59 Progress Note Patient really does not want stay in the hospital. Return to give him a bolus of Cardizem as he is in A. fib with RVR normal onset. We'll talk to him about anticoagulants. We'll get some labs. He's not having any symptoms at this time. Labs sent over by Dr. Clancy demonstrated today he has hemoglobin of 6.1 and hematocrit 22.4%. Normal white count of 6. Creatinine is 1.1 and BUNs 16. Platelets normal. Fecal occult blood test obtained. Progress Note #2: Time: 17:10 Progress Note Patient said he does not want to stay in the hospital for Cardizem drip. He did receive a 20 mg bolus and was on the drip for about an hour and his heart rate stayed about 100 -120. He was not having any shortness of breath or chest pain or other symptoms. He had good blood pressure. He is not on a blood thinner and he says he has an appointment first thing in the morning at Dr. Gellender's office and he would follow up with that. We have important that he stay and if not the risks of stroke, heart attack or even were explained. He accepted the risks and went AGAINST MEDICAL ADVICE. He has agreed however follow-up with his primary care tomorrow morning to get set up on appropriate medicines. Initial ECG Impression Date: Feb 10, 2019 Diagnostic Imaging Diagonstic Imaging: Xray Plain Films/CT/US/NM/MRI: chest (1v) Comments [facility] [place], [place] NAME: REA HE [facility] REC#: [id number] PT STATUS: REG ER : [id number] PHYSICIAN: BURKE VINSON MD ADMIT DATE: 02/10/19/ER Signed Date of Exam:02/10/19 CHEST 1 VIEW, AP/PA ONLY INDICATION: Shortness of breath PA and lateral chest Heart size and pulmonary vascularity are normal. Lungs are clear. There is a 1 cm pulmonary nodule in the right upper lobe 1.8 cm and a pulmonary nodule at the right medial lung base, both of which appear to be new since 05/27/2018. There is a small left pleural effusion. IMPRESSION: Two pulmonary nodules, right lung. Small left pleural effusion. Recommend short interval follow-up to reevaluate the pulmonary nodules. Dictated by: Dictated on workstation # [id number] Dict: 02/10/19 1624 Trans: 02/10/[address] [facility] [id number] Interpreted by: PACO ENCARNACION MD Electronically signed by: PACO ENCARNACION MD 02/10/19 1632 Reviewed: Reviewed by Me Departure Communication (PCP) 1830: Discussed the case with Dr. Clancy who sent him over. Dr. Clancy said he would call the patient and attempt to get him to come back out. We told him would be happy to receive him or do a direct admit. We discussed the positive fecal occult blood test in the history of his colon cancer and encourage follow-up on this. We gave Dr. Clancy the phone number for his home on record. Impression Primary Impression: Atrial fibrillation with rapid ventricular response Additional Impressions: Anemia Qualified Codes: D50.0 - Iron deficiency anemia secondary to blood loss (chronic) Occult blood positive stool Pulmonary nodules/lesions, multiple Disposition: 07 AGAINST MEDICAL ADVICE Condition: Against Medical Advice Departure-Patient Inst. Decision time for Depature: 17:10 Referrals: ROSY CLANCY DO (PCP/Family) Primary Care Physician Patient Instructions: Anemia Caused by Low Iron, Adult (DC), Medicines for Atr ial Fibrillation Add. Discharge Instructions: Please follow up tomorrow morning with Dr. Clancy and get started on appropriate medications. Return to the ER if you have weakness, shortness of breath or chest pain. If you cannot get in to follow-up with Dr. Clancy tomorrow then please return to the ER and we can help start you on your appropriate medications. All discharge instructions reviewed with patient and/or family. Voiced understanding. Copy Copies To 1: ROSY CLANCY TITUS J Feb 10, 2019 16:00
[2019-02-10 16:04] LABS: BASOPHILS # (AUTO) 0.1 10^3/uL (0.0-0.1); BASOPHILS % (AUTO) 1 % (0-10); EOSINOPHILS # (AUTO) 0.1 10^3/uL (0.0-0.3); EOSINOPHILS % (AUTO) 2 % (0-10); HEMATOCRIT 23 % (40-54); LYMPHOCYTES # (AUTO) 1.1 X 10^3 (1.0-4.0); LYMPHOCYTES % (AUTO) 20 % (12-44); MEAN CORPUSCULAR HGB CONC 27 G/DL (32-36); MEAN CORPUSCULAR VOLUME 72 FL (80-99); MEAN PLATELET VOLUME 11.4 FL (7.4-10.4); MONOCYTES # (AUTO) 0.7 X 10^3 (0.0-1.0); MONOCYTES % (AUTO) 13 % (0-12); NEUTROPHILS # (AUTO) 3.6 X 10^3 (1.8-7.8); NEUTROPHILS % (AUTO) 64 % (42-75); PLATELET COUNT 242 10^3/uL (130-400); RED CELL DISTRIBUTION WIDTH 19.4 % (10.0-14.5); WHITE BLOOD COUNT 5.6 10^3/uL (4.3-11.0)
[2019-02-10 16:06] LABS: HEMOGLOBIN 6.2 G/DL (13.3-17.7); MEAN CORPUSCULAR HEMOGLOBIN 19 PG (25-34); SMEAR SCAN COMMENT YES
[2019-02-10 16:24] LABS: INR 1.1 (0.8-1.4); PROTHROMBIN TIME PATIENT 14.5 SEC (12.2-14.7)
[2019-02-10 16:30] LABS: ALANINE AMINOTRANSFERASE 14 U/L (0-55); ALBUMIN 3.3 GM/DL (3.2-4.5); ALKALINE PHOSPHATASE 93 U/L (40-136); BILIRUBIN,TOTAL 0.3 MG/DL (0.1-1.0); BUN/CREATININE RATIO 14; CALCIUM 7.7 MG/DL (8.5-10.1); CARBON DIOXIDE 20 MMOL/L (21-32); CHLORIDE 109 MMOL/L (98-107); CREATININE SERUM 1.11 MG/DL (0.60-1.30); GFR ESTIMATED > 60; GLUCOSE 92 MG/DL (70-105); POTASSIUM 3.2 MMOL/L (3.6-5.0); SODIUM 141 MMOL/L (135-145); TOTAL PROTEIN 6.5 GM/DL (6.4-8.2)
--- NOTE | 2019-02-10 16:31 | Diagnostic Imaging Report ---
INDICATION: Shortness of breath PA and lateral chest Heart size and pulmonary vascularity are normal. Lungs are clear. There is a 1 cm pulmonary nodule in the right upper lobe 1.8 cm and a pulmonary nodule at the right medial lung base, both of which appear to be new since 05/27/2018. There is a small left pleural effusion. IMPRESSION: Two pulmonary nodules, right lung. Small left pleural effusion. Recommend short interval follow-up to reevaluate the pulmonary nodules. Dictated by: Dictated on workstation # [id number]
[2019-02-10 19:46] VITALS: BP 135/78
[2019-02-11] MEDS ORDERED: FURO20TA4 PO (09:19)
[2019-02-11] MEDS ORDERED: PRAV40TA2 PO (09:19)
[2019-02-11] MEDS ORDERED: HYDR-3812 PO (09:19)
[2019-02-11] MEDS ORDERED: ASPI-983 PO (09:20)
[2019-02-11] MEDS ORDERED: CETI10TA20 PO (09:24)
[2019-02-11] MEDS ORDERED: LORA10TA7 PO (09:24)
[2019-02-15] MEDS ORDERED: DILT180C90 PO (13:50)
[2019-02-15] MEDS ORDERED: DIGO250T15 PO (13:50)
== END 2019-02-10 17:10 | disposition left against medical advice (07) ==
LOC: EDUNIT# 15:00 → ER 15:01
DX: I48.91 Unspecified atrial fibrillation (principal); D64.9 Anemia, unspecified; R19.5 Other fecal abnormalities; R91.8 Other nonspecific abnormal finding of lung field; J98.4 Other disorders of lung; I10 Essential (primary) hypertension; E78.00 Pure hypercholesterolemia, unspecified; Z85.46 Personal history of malignant neoplasm of prostate; Z89.412 Acquired absence of left great toe; Z85.038 Personal history of other malignant neoplasm of large intestine; Z87.891 Personal history of nicotine dependence; Z90.49 Acquired absence of other specified parts of digestive tract; Z80.42 Family history of malignant neoplasm of prostate
CPT/HCPCS: 36415; 71045; 80053; 82274; 84484; 85025; 85610; 85730; 86850; 86900; 86901; 93005; 96365

== ENCOUNTER → 2019-02-19 | Outpatient (CLI) | payer MEDICARE ==
[~2019-02-19] MED LIST changes: +CETI10TA20 PO; +DIGO250T15 PO; +DILT180C90 PO; +FURO20TA4 PO; -TRAM50TA2 PO; +TRM50T PO
--- NOTE | 2019-02-19 15:17 | Diagnostic Imaging Report ---
PROCEDURE: US venous upper extremity left. TECHNIQUE: Multiple realtime grayscale images were obtained of left upper extremity in various projections. Additional spectral analysis and color Doppler duplex images were also obtained. INDICATION: Left arm and hand swelling. FINDINGS: Left internal jugular as well as the left subclavian and axillary veins are patent. The brachial vein is patent. The basilic vein is patent. There is thrombus identified in the cephalic vein in the antecubital fossa extending distally. Radial and ulnar veins are patent. No fluid collections are seen. IMPRESSION: Cephalic vein thrombosis, as described. Dictated by: Dictated on workstation # [id number]
[2019-02-19 15:24] LABS: HEMOGLOBIN 9.3 G/DL (13.3-17.7); MEAN PLATELET VOLUME 10.3 FL (7.4-10.4); RED CELL DISTRIBUTION WIDTH 22.2 % (10.0-14.5)
== END ==
LOC: RAD 13:45
PROVIDERS: ATTEND Family Medicine
DX: I82.612 Acute embolism and thrombosis of superficial veins of left upper extremity (principal); D64.9 Anemia, unspecified
CPT/HCPCS: 36415; 85027

== ENCOUNTER 2019-03-20 11:13 | Inpatient (IN) | payer MEDICARE ==
[~2019-03-20] VITALS: Ht 167.7 cm; Wt 50.1 kg
[~2019-03-20 11:13] MED LIST changes: +DILT-28 PO; -DILT180C90 PO
[2019-03-20 11:36] LABS: BASOPHILS # (AUTO) 0.1 10^3/uL (0.0-0.1); BASOPHILS % (AUTO) 1 % (0-10); EOSINOPHILS % (AUTO) 1 % (0-10); HEMATOCRIT 22 % (40-54); LYMPHOCYTES # (AUTO) 0.9 X 10^3 (1.0-4.0); LYMPHOCYTES % (AUTO) 13 % (12-44); MEAN CORPUSCULAR HEMOGLOBIN 24 PG (25-34); MEAN CORPUSCULAR HGB CONC 29 G/DL (32-36); MEAN CORPUSCULAR VOLUME 83 FL (80-99); MEAN PLATELET VOLUME 10.1 FL (7.4-10.4); MONOCYTES # (AUTO) 0.7 X 10^3 (0.0-1.0); MONOCYTES % (AUTO) 10 % (0-12); NEUTROPHILS # (AUTO) 5.5 X 10^3 (1.8-7.8); NEUTROPHILS % (AUTO) 76 % (42-75); PLATELET COUNT 311 10^3/uL (130-400); RED CELL DISTRIBUTION WIDTH 20.5 % (10.0-14.5); WHITE BLOOD COUNT 7.3 10^3/uL (4.3-11.0)
[2019-03-20 11:37] LABS: HEMOGLOBIN 6.2 G/DL (13.3-17.7)
[2019-03-20 11:57] LABS: ALBUMIN 3.1 GM/DL (3.2-4.5); BILIRUBIN,TOTAL 0.2 MG/DL (0.1-1.0); CALCIUM 8.5 MG/DL (8.5-10.1); CREATININE SERUM 1.31 MG/DL (0.60-1.30); POTASSIUM 4.4 MMOL/L (3.6-5.0); TOTAL PROTEIN 6.7 GM/DL (6.4-8.2)
--- NOTE | 2019-03-20 12:18 | NUR ---
Pt taken another warm blanket at this time.
[2019-03-20 12:21] LABS: BILIRUBIN,URINE NEGATIVE (NEGATIVE); CLARITY,URINE CLEAR; COLOR,URINE YELLOW; GLUCOSE, URINE (UA) NEGATIVE (NEGATIVE); KETONES,URINE NEGATIVE (NEGATIVE); LEUKOCYTE ESTERASE ,URINE NEGATIVE (NEGATIVE); NITRITE,URINE NEGATIVE (NEGATIVE); PROTEIN,URINE NEGATIVE (NEGATIVE)
[2019-03-20 12:28] LABS: BACTERIA,URINE NEGATIVE /HPF
[2019-03-20 12:29] LABS: HYALINE CASTS, URINE RARE /LPF
--- NOTE | 2019-03-20 12:40 | ED General ---
General Chief Complaint: General Problems/Pain Stated Complaint: GENERALIZED WEAKNESS Nursing Triage Note: Pt to ED via EMS for weakness. Pt reports Dr. Clancy sent pt to ED. Pt reports recent 40 pound weightloss. Pt appears frail and pale. Nursing Sepsis Screen: No Definite Risk Source of Information: Patient, EMS Exam Limitations: No Limitations History of Present Illness Date Seen by Provider: Mar 20, 2019 Time Seen by Provider: 11:27 Initial Comments 89-year-old male who was brought into the emergency room by [facility] for generalized weakness. He tried to make an appointment with Dr. Clancy the Dr. Clancy's and to the emergency room to be evaluated. Patient reports that he's had a 40 pound weight loss over short amount of time. She has recently needed blood transfusions and had a recent diagnosis of atrial fibrillation at the end of January last year. He denies any nausea, vomiting, diarrhea. She denies any lorena blood in his stools. He does report that he's had a lump in his left lower quadrant for the past year since his colon resection. Timing/Duration: 1 Week Associated Systoms: Weakness Allergies and Home Medications Allergies Coded Allergies: shellfish derived (Verified Allergy, Severe, HIVES/SWELLING, 06/25/17) Home Medications Albuterol Sulfate 1 Puff Puff, 2 PUFF IH QID PRN for SHORTNESS OF BREATH, (Reported) Cetirizine HCl 10 Mg Tablet, 10 MG PO DAILY, (Reported) Digoxin 250 Mcg Tablet, 0.25 MG PO DAILY Prescribed by: SY BLANKENSHIP on 02/15/19 1350 Diltiazem HCl 180 Mg Cap.er.24h, 180 MG PO BID Prescribed by: SY BLANKENSHIP on 02/15/19 1350 Furosemide 20 Mg Tablet, 20 MG PO DAILY, (Reported) Hydrocodone/Acetaminophen 1 Each Tablet, 1 TAB PO HS PRN for PAIN-MODERATE (5- 7), (Reported) Lisinopril 40 Mg Tablet, 20 MG PO DAILY, (Reported) TAKES 1/2 (40MG) TABLET Loratadine 10 Mg Tablet, 10 MG PO DAILY, (Reported) Pravastatin Sodium 40 Mg Tablet, 40 MG PO HS, (Reported) Patient Home Medication List Home Medication List Reviewed: Yes Review of Systems Review of Systems Constitutional: see HPI; No chills, No fever; weakness Gastrointestinal: see HPI; No hematemesis, No melena; other (abdominal "Lump") All Other Systems Reviewed Negative Unless Noted: Yes Past Zyewfpg-Iwiotf-Qgknbu Hx Past Med/Social Hx: Reviewed Nursing Past Med/Soc Hx Patient Social History Alcohol Use: Occasionally Uses Alcohol Beverage of Choice: Whiskey Recreational Drug Use: No Smoking Status: Former Smoker Type Used: Cigarettes Former Smoker, Quit: Jun 05, 1992 2nd Hand Smoke Exposure: No Recent Foreign Travel: No Contact w/Someone Who Travel: No Recent Infectious Disease Expo: No Recent Hopitalizations: Yes Immunizations Up To Date Tetanus Booster (TDap): Unknown PED Vaccines UTD: No Date of Pneumonia Vaccine: Nov 16, 2015 Date of Influenza Vaccine: Nov 14, 2018 Seasonal Allergies Seasonal Allergies: No Past Medical History Surgeries: Yes (AMPUTATION OF BIG TOE, SKIN CA REMOVED FROM ARM) Amputation, Appendectomy, Bowel Surgery, Orthopedic, Prostatectomy Respiratory: No (USES INHALER, BUT UNSURE WHY) Currently Using CPAP: No Currently Using BIPAP: No Cardiac: Yes High Cholesterol, Hypertension, Peripheral Vascular Neurological: No Reproductive Disorders: No Genitourinary: Yes Prostate Problems Gastrointestinal: Yes (diverticulitis ) Diverticulosis Musculoskeletal: Yes (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) Arthritis Endocrine: No HEENT: Yes Hearing Impairment: Hard of Hearing Cancer: Yes Prostate, Colon Did You Recieve Any Treatments: Yes What Type of Treatment Did You: Surgical Intervention Psychosocial: No Integumentary: Yes Recent Skin Changes Blood Disorders: No Adverse Reaction/Blood Tranf: No Family Medical History Reviewed Nursing Family Hx Completed stroke G8 SISTER Diabetes mellitus 19 MOTHER FH: prostate cancer 19 FATHER Cancer, Diabetes Physical Exam Vital Signs Vital Signs - First Documented 03/20/19 11:13 Temp 37.0 Pulse 92 Resp 19 B/P (MAP) 117/61 (79) Pulse Ox 96 O2 Delivery Room Air Capillary Refill : Less Than 3 Seconds Height, Weight, BMI Height: 5'4.00" Weight: 135lbs. 0.0oz. 61.010889rt; 19.00 BMI Method:Stated General Appearance: No Apparent Distress, WD/WN Eyes: Bilateral Eye PERRL, Bilateral Eye EOMI, Bilateral Eye Conjunctivae Pale HEENT: Moist Mucous Membranes, Pale Conjunctivae (L), Pale Conjunctivae (R) Respiratory: Chest Non Tender, Lungs Clear, Normal Breath Sounds, No Accessory Muscle Use, No Respiratory Distress Cardiovascular: Regular Rate, Rhythm, No Edema, No Gallop, No JVD, No Murmur, Normal Peripheral Pulses Gastrointestinal: Normal Bowel Sounds, No Organomegaly, Soft, Mass (left lower quadrant abdominal mass. Patient reports that his been here for one year since his colon resection.) Rectal: Normal Rectal Tone, Heme Positive Stool Extremity: Normal Capillary Refill, Normal Inspection, Normal Range of Motion Neurologic/Psychiatric: Alert, Oriented x3, Normal Mood/Affect Skin: Normal Color, Warm/Dry Progress/Results/Core Measures Suspected Sepsis Recent Fever Within 48 Hours: No Infection Criteria Present: None New/Unexplained Altered Menta: No Sepsis Screen: No Definite Risk SIRS Temperature: Pulse: 92 Respiratory Rate: 19 Laboratory Tests 03/20/19 11:15: White Blood Count 7.3 Blood Pressure 117 /61 Mean: 79 Laboratory Tests 03/20/19 11:15: Creatinine 1.31H, Platelet Count 311, Total Bilirubin 0.2 Results/Orders Lab Results Laboratory Tests Test 03/20/19 11:15 03/20/19 12:14 Range/Units White Blood Count 7.3 4.3-11.0 10^3/uL Red Blood Count 2.59 L 4.35-5.85 10^6/uL Hemoglobin 6.2 *L 13.3-17.7 G/DL Hematocrit 22 L 40-54 % Mean Corpuscular Volume 83 80-99 FL Mean Corpuscular Hemoglobin 24 L 25-34 PG Mean Corpuscular Hemoglobin Concent 29 L 32-36 G/DL Red Cell Distribution Width 20.5 H 10.0-14.5 % Platelet Count 311 130-400 10^3/uL Mean Platelet Volume 10.1 7.4-10.4 FL Neutrophils (%) (Auto) 76 H 42-75 % Lymphocytes (%) (Auto) 13 12-44 % Monocytes (%) (Auto) 10 0-12 % Eosinophils (%) (Auto) 1 0-10 % Basophils (%) (Auto) 1 0-10 % Neutrophils # (Auto) 5.5 1.8-7.8 X 10^3 Lymphocytes # (Auto) 0.9 L 1.0-4.0 X 10^3 Monocytes # (Auto) 0.7 0.0-1.0 X 10^3 Eosinophils # (Auto) 0.0 0.0-0.3 10^3/uL Basophils # (Auto) 0.1 0.0-0.1 10^3/uL Sodium Level 141 135-145 MMOL/L Potassium Level 4.4 3.6-5.0 MMOL/L Chloride Level 109 H 98-107 MMOL/L Carbon Dioxide Level 24 21-32 MMOL/L Anion Gap 8 5-14 MMOL/L Blood Urea Nitrogen 36 H 7-18 MG/DL Creatinine 1.31 H 0.60-1.30 MG/DL Estimat Glomerular Filtration Rate 52 BUN/Creatinine Ratio 27 Glucose Level 126 H 70-105 MG/DL Calcium Level 8.5 8.5-10.1 MG/DL Corrected Calcium 9.2 8.5-10.1 MG/DL Total Bilirubin 0.2 0.1-1.0 MG/DL Aspartate Amino Transf (AST/SGOT) 17 5-34 U/L Alanine Aminotransferase (ALT/SGPT) 11 0-55 U/L Alkaline Phosphatase 76 40-136 U/L B-Type Natriuretic Peptide 356.1 H <100.0 PG/ML Total Protein 6.7 6.4-8.2 GM/DL Albumin 3.1 L 3.2-4.5 GM/DL Urine Color YELLOW Urine Clarity CLEAR Urine pH 5.0 5-9 Urine Specific Pierce 1.015 L 1.016-1.022 Urine Protein NEGATIVE NEGATIVE Urine Glucose (UA) NEGATIVE NEGATIVE Urine Ketones NEGATIVE NEGATIVE Urine Nitrite NEGATIVE NEGATIVE Urine Bilirubin NEGATIVE NEGATIVE Urine Urobilinogen 0.2 < = 1.0 MG/DL Urine Leukocyte Esterase NEGATIVE NEGATIVE Urine RBC (Auto) NEGATIVE NEGATIVE Urine RBC NONE /HPF Urine WBC NONE /HPF Urine Squamous Epithelial Cells NONE /HPF Urine Crystals NONE /LPF Urine Bacteria NEGATIVE /HPF Urine Casts PRESENT /LPF Urine Hyaline Casts RARE /LPF Urine Mucus NEGATIVE /LPF Urine Culture Indicated NO Micro Results Microbiology 03/20/19 Influenza Types A,B Antigen (MATEUSZ) - Final, Complete My Orders Orders - ISAÍAS SANTIAGO Comprehensive Metabolic Panel (03/20/19 11:25) Ua Culture If Indicated (03/20/19 11:25) Ed Iv/Invasive Line Start (03/20/19 11:25) Cbc With Automated Diff (03/20/19 11:25) Influenza A And B Antigens (03/20/19 11:25) Ekg Tracing (03/20/19 11:25) BNP (03/20/19 12:12) Red Cells Leukocytes Reduced (03/20/19 12:31) Type And Screen (03/20/19 12:31) Ct Abdomen/Pelvis W (03/20/19 12:43) Ns Iv 1000 Ml (Sodium Chloride 0.9%) (03/20/19 12:45) Iohexol Injection (Omnipaque 350 Mg/Ml 1 (03/20/19 13:00) Received Contrast (Hold Metformin- Contr (03/20/19 13:00) Ns (Ivpb) (Sodium Chloride 0.9% Ivpb Bag (03/20/19 13:00) Medications Given in ED Current Medications Medications Dose Ordered Sig/Zoey Route Start Time Stop Time Status Last Admin Dose Admin Iohexol 100 ml ONCE ONCE IV 03/20/19 13:00 03/20/19 13:01 DC 03/20/19 13:18 100 ML Sodium Chloride 100 ml ONCE ONCE IV 03/20/19 13:00 03/20/19 13:01 DC 03/20/19 13:18 80 ML Vital Signs/I&O 03/20/19 03/20/19 03/20/19 03/20/19 15:38 16:13 16:13 17:00 Temp 37.0 36.8 36.8 36.7 Pulse 84 91 91 91 Resp 15 15 15 15 B/P (MAP) 121/57 (79) 107/64 107/64 (78) 107/64 Pulse Ox 96 96 96 96 O2 Delivery Room Air Room Air Room Air Room Air 03/20/19 03/20/19 03/20/19 03/20/19 17:20 20:00 20:27 21:03 Temp 36.7 36.8 37.4 37.4 Pulse 88 69 86 88 Resp 18 17 18 18 B/P (MAP) 158/88 123/56 (78) 109/62 Pulse Ox 95 97 97 96 O2 Delivery Room Air Room Air Room Air Room Air Capillary Refill : Less Than 3 Seconds Blood Pressure Mean: 79 Progress Note : Time: 12:38 Progress Note 1228: I have discussed the case with Dr. Clancy and he agrees to accept the patient to his services. He recommends giving 2 units of packed red blood cells. He also reports that he had an elevated CEA of 6.3 in office and would like a consult to oncology Dr. Tompkins. I will also consult Dr. Tong due to fecal occult bedside being positive. 1240: Dr. Tong recommends CT of abdomen and pelvis and will follow the patient on admission. Patient agrees with plan of care. ECG Initial ECG Impression Date: Mar 20, 2019 Initial ECG Impression Time: 11:31 Initial ECG Rate: 90 Initial ECG Rhythm: Normal Sinus Initial ECG Impression: Normal Initial ECG Comparisson: Changed Departure Communication (Admissions) Time/Spoke to Admitting Phy: 12:38 Dr Clancy Time/Spoke to Consulting Phy: 12:40 Dr. Tong Impression Primary Impression: Low hemoglobin Disposition: 01 HOME, SELF-CARE Condition: Stable/Unchanged Admissions Decision to Admit Reason: Admit from ER (General) Decision to Admit/Date: Mar 20, 2019 Time/Decision to Admit Time: 12:30 Departure-Patient Inst. Referrals: ROSY CLANCY DO (PCP/Family) Primary Care Physician ISAÍAS SANTIAGO Mar 20, 2019 12:39
[2019-03-20] MEDS ORDERED: NS IV 1000 ML 1,000 ML IV SCH (12:45)
[2019-03-20] MEDS ORDERED: IOHEXOL 350 MG/ML 100 ML (OMNIPAQUE 350) VIAL IV ONE (13:00)
[2019-03-20] MEDS ORDERED: NS 100 ML (IVPB) BAG IV ONE (13:00)
[2019-03-20] MEDS ORDERED: HOLD METFORMIN - RECEIVED CONTRAST 20 ML VIAL IV SCH (13:00)
[2019-03-20] MEDS ORDERED: NS IV 1000 ML 1,000 ML ONE (13:16)
--- NOTE | 2019-03-20 15:22 | NUR ---
attempted to call report
[2019-03-20 16:13] VITALS: BP 107/64
[2019-03-20 17:00] VITALS: BP 107/64
--- NOTE | 2019-03-20 17:05 | NUR ---
REA HE admitted to room 406-1, with an admitting diagnosis of GI bleed, on 03/20/19 from ED via , accompanied by Staff. REA HE introduced to surroundings, call light, bed controls, phone, TV, temperature control, lights, meal times, smoking policy, visitor policy, side rail policy, bathrooms and showers. Patient Rights given to patient in the handbook. REA HE verbalizes understanding that [facility] is not responsible for the loss or damage to any personal effects or valuables that are kept in the patients posession during their hospitalization. REA HE verbalizes understanding of Interdisciplinary Patient Education. Patient and/or family were informed about the Rapid Response Team and its purpose.
[2019-03-20] MEDS ORDERED: NS IV 500 ML 500 ML IV SCH (17:15)
[2019-03-20 17:20] VITALS: BP 158/88
--- NOTE | 2019-03-20 19:09 | History & Physical ---
History of Present Illness History of Present Illness Reason for visit/HPI I received a call from patient's stating that he is too weak to get around patient sent out to the emergency room. Patient's hemoglobin 6.2 hematocrit 22. Patient has a weight loss of 40 pounds recently. Patient has an elevated CEA of 6.3. Patient has a history of atrial fibrillation. Patient has history of peripheral artery disease with amputation of the left big toe. Patient also has asthma and needs his albuterol Date of Admission Mar 20, 2019 at 14:30 Time Seen by a Provider: 19:02 I consulted on this patient on 03/20/19 19:02 Attending Physician Lucas Clancy DO Admitting Physician Lucas Clancy DO Consult Allergies and Home Medications Allergies Coded Allergies: shellfish derived (Verified Allergy, Severe, HIVES/SWELLING, 06/25/17) Home Medications Albuterol Sulfate 1 Puff Puff, 2 PUFF IH QID PRN for SHORTNESS OF BREATH, (Reported) Cetirizine HCl 10 Mg Tablet, 10 MG PO DAILY, (Reported) Digoxin 250 Mcg Tablet, 0.25 MG PO DAILY Prescribed by: SY BLANKENSHIP on 02/15/19 1350 Diltiazem HCl 180 Mg Cap.er.24h, 180 MG PO BID Prescribed by: SY BLANKENSHIP on 02/15/19 1350 Furosemide 20 Mg Tablet, 20 MG PO DAILY, (Reported) Hydrocodone/Acetaminophen 1 Each Tablet, 1 TAB PO HS PRN for PAIN-MODERATE (5- 7), (Reported) Lisinopril 40 Mg Tablet, 20 MG PO DAILY, (Reported) TAKES 1/2 (40MG) TABLET Loratadine 10 Mg Tablet, 10 MG PO DAILY, (Reported) Pravastatin Sodium 40 Mg Tablet, 40 MG PO HS, (Reported) Patient Home Medication List Home Medication List Reviewed: No Past Bhyaqmo-Htgypz-Kzwsjl Hx Past Med/Social Hx: Reviewed Nursing Past Med/Soc Hx Patient Social History Marrital Status: Employed/Student: retired Alcohol Use: Occasionally Uses Alcohol Beverage of Choice: Whiskey Recreational Drug Use: No Smoking Status: Former Smoker Former Smoker, Quit: Jun 05, 1992 Type Used: Cigarettes 2nd Hand Smoke Exposure: No Physical Abuse Screen: No Sexual Abuse: No Recent Foreign Travel: No Contact w/other who traveled: No Recent Hopitalizations: Yes Recent Infectious Disease Expo: No Immunizations Up To Date Tetanus Booster (TDap): Unknown Pediatric: No Date of Pneumonia Vaccine: Nov 16, 2015 Date of Influenza Vaccine: Nov 14, 2018 Seasonal Allergies Seasonal Allergies: No Past Medical History Surgeries: Amputation, Appendectomy, Bowel Surgery, Orthopedic, Prostatectomy Respiratory: Asthma Currently Using CPAP: No Currently Using BIPAP: No Cardiac: High Cholesterol, Hypertension, Peripheral Vascular Reproductive: No Genitourinary: Prostate Problems Gastrointestinal: Diverticulosis Musculoskeletal: Arthritis Hearing Impairment: Hard of Hearing Cancer: Prostate, Colon Did You Recieve Any Treatments: Yes What Type of Treatment Did You: Surgical Intervention Skin/Integumentary: Recent Skin Changes History of Blood Disorders: No Adverse Reaction to Blood Linares: No Family History Reviewed Nursing Family Hx Completed stroke G8 SISTER Diabetes mellitus 19 MOTHER FH: prostate cancer 19 FATHER Cancer, Diabetes Review of Systems Constitutional: malaise, weakness EENTM: no symptoms reported Respiratory: no symptoms reported Cardiovascular: no symptoms reported Gastrointestinal: no symptoms reported, other (Weight loss) Genitourinary: no symptoms reported Physical Exam Vital Signs Vital Signs - First Documented 03/20/19 11:13 Temp 37.0 Pulse 92 Resp 19 B/P (MAP) 117/61 (79) Pulse Ox 96 O2 Delivery Room Air Capillary Refill : Less Than 3 Seconds Height, Weight, BMI Height: 5'4.00" Weight: 135lbs. 0.0oz. [id number]; 17.81 BMI Method:Stated General Appearance: No Apparent Distress, Thin HEENT: Normal ENT Inspection Neck: Normal Inspection Respiratory: No Accessory Muscle Use, No Respiratory Distress Cardiovascular: Regular Rate, Rhythm Gastrointestinal: Mass Assessment/Plan Assessment and Plan Anemia severe. Abdominal mass. Elevated CEA. Peripheral artery disease Admission Diagnosis Admission Status: Inpatient Order (span 2 midnights) Reason for Inpatient Admission: Anemia severe. Abdominal mass. Weakness Clinical Quality Measures DVT/VTE Risk/Contraindication: Risk Factor Score Per Nursin RFS Level Per Nursing on Admit: 4+=Very High Contraindications-Pharm: Other *list below* Contraindications-Mechi: Other *list below* LUCAS CLANCY DO Mar 20, 2019 19:09
[2019-03-20] MEDS ORDERED: RT-ALBUTEROL SULF 2.5 MG/3 ML PRE-MIX VIAL IH PRN (19:30)
[2019-03-20 20:00] VITALS: BP 123/56
[2019-03-20 21:03] VITALS: BP 109/62
--- NOTE | 2019-03-20 21:19 | CONSULTATION REPORT ---
DATE OF SERVICE: 03/20/2019 The patient is admitted to room 406. PRIMARY PHYSICIAN AND REFERRING PHYSICIAN: Lucas Mello DO IMPRESSION: 1. An 89-year-old male admitted with increasing weakness and severe anemia. 2. The patient was noted to be significantly anemic in late January and mid February receiving packed red blood cell transfusion during both admissions. Hemoccult positive during last admission from two weeks ago. 3. Previous history of colon cancer in mid 2017, status post resection. 4. Remote history of prostate cancer. 5. Painful solid nodule in the left mid abdomen and new lung nodule by recent chest x-ray. Rule out metastatic disease. RECOMMENDATIONS: 1. Agree with PRBC transfusion because of symptomatic anemia. 2. We will obtain serum iron studies from the blood work drawn prior to transfusion. 3. Consult surgery regarding source of blood loss as patient is positive hemoccult. 4. Once he is stable from anemia standpoint, he will need a PET CT scan to evaluate the lung nodule as well as the abdominal nodule on an outpatient basis. 5. We will obtain a CEA level along with other lab work. BRIEF HISTORY: The patient is an 89-year-old male, who came to the emergency room with complaints of increasing weakness. He was noted to have significant anemia with hemoglobin level of 6.2. He was admitted to the hospital for packed red blood cell transfusion and further workup. Hematology consultation was requested for concurrent care. The patient was noted to be significantly anemic in late January 2019 as well as mid February 2019 and received PRBC transfusion during both occasions. Hemoccult was positive during most recent admission. The patient denied any obvious hematochezia or melena. No other bleeding or bruising. PAST MEDICAL HISTORY: Significant for hypertension, hypercholesterolemia, coronary artery disease with DC and congestive heart failure. He has peripheral vascular disease requiring left great toe amputation. He has remote history of prostate cancer requiring a prostatectomy. He was diagnosed with colon cancer in 09/2017, underwent a hemicolectomy with positive lymph nodes as well as an abdominal tumor deficit. Other surgeries include appendectomy in the remote past. SOCIAL HISTORY: The patient is and lives in [place], [place] with his . He has a son who lives in [place]. One of his grandson's lives in [facility] and checks on them. Denied any tobacco or recreational drug use. He has used alcohol socially, but not on a regular basis. He has worked as a [employer] for 40 years for [employer] in various cities and retired. No significant exposure to any chemicals that he knows of. FAMILY HISTORY: Significant for prostate cancer in his father at an elderly age. No other malignancies in the family that the patient knows of. Mother had diabetes mellitus type 2 and sister had a CVA. No other medical problems in the family that the patient knows of. PHYSICAL EXAMINATION: GENERAL: Today showed an elderly male, well developed and nourished, awake and oriented, in mild discomfort because of shortness of breath. VITAL SIGNS: His temperature was 36.7, pulse rate of 91, respirations 15, blood pressure 107/64 with oxygen saturation of 96% on room air. HEENT: Normocephalic with male pattern baldness, extraocular muscles intact, conjunctivae pale, oral mucosa moist. NECK: Supple, with no JVD. No cervical, supraclavicular or axillary lymphadenopathy palpable. CHEST: Symmetrical. LUNGS: Fairly clear to auscultation without wheezes or rales. CARDIOVASCULAR: Regular in rate and rhythm with occasional missed beats. No murmurs heard. ABDOMEN: Soft with tenderness in the left side of the abdomen. A 2 inch x 1 inch solid nodule was palpable in the left mid abdominal area that was tender and mobile. There is no erythema of the overlying skin. No definite hepatosplenomegaly or other masses palpable. EXTREMITIES: Showed amputation of left great toe. Trace edema around the ankles. NEUROLOGIC: Showed no focal motor deficits. Overall, motor strength was 4/5 bilaterally. LABORATORY DATA: CBC done today showed WBC 7.3, hemoglobin 6.2, MCV 83, platelet count 311,000 with neutrophil count 5.5, lymphocyte count 0.9, and monocyte count 0.7. Chemistry panel showed relatively normal electrolytes. BUN was 36 and creatinine 1.31 with GFR 52 mL per minute. Nonfasting glucose was 126. Liver function studies were within normal limits except albumin level of 3.1. BNP was 356.1. Urinalysis was unremarkable. Most recent chest x-ray from 02/15/2019 showed a 1.4 cm nodular density overlying the right upper lung. This was not seen on the previous imaging from 2016. Increasing bibasilar atelectasis and/or pneumonitis with trace left pleural effusion. Cardiac silhouette was slightly more prominent. Thank you for allowing me to participate in this patient's care. I will follow the patient with you and make appropriate recommendations. Job ID: [id number] DocumentID: [id number] Dictated Date: 03/20/2019 18:41:00 Insurance Follow Up Specialist Date: 03/20/2019 21:19:26 Dictated By: PAPO MATHEW MD
[2019-03-21] VITALS (10 sets, daily range): BP systolic 114–148; BP diastolic 48–65
[2019-03-21] MEDS: SIMvastatin 20 MG (ZOCOR) TAB PO SCH ×2 (01:03→21:27)
[2019-03-21 05:59] LABS: BASOPHILS # (AUTO) 0.1 10^3/uL (0.0-0.1); BASOPHILS % (AUTO) 1 % (0-10); EOSINOPHILS # (AUTO) 0.2 10^3/uL (0.0-0.3); EOSINOPHILS % (AUTO) 4 % (0-10); HEMATOCRIT 25 % (40-54); HEMOGLOBIN 7.6 G/DL (13.3-17.7); LYMPHOCYTES # (AUTO) 0.8 X 10^3 (1.0-4.0); LYMPHOCYTES % (AUTO) 13 % (12-44); MEAN CORPUSCULAR HEMOGLOBIN 26 PG (25-34); MEAN CORPUSCULAR HGB CONC 31 G/DL (32-36); MEAN CORPUSCULAR VOLUME 83 FL (80-99); MEAN PLATELET VOLUME 10.1 FL (7.4-10.4); MONOCYTES # (AUTO) 0.7 X 10^3 (0.0-1.0); MONOCYTES % (AUTO) 12 % (0-12); NEUTROPHILS # (AUTO) 4.1 X 10^3 (1.8-7.8); NEUTROPHILS % (AUTO) 70 % (42-75); PLATELET COUNT 225 10^3/uL (130-400); RED CELL DISTRIBUTION WIDTH 17.7 % (10.0-14.5); WHITE BLOOD COUNT 5.9 10^3/uL (4.3-11.0)
[2019-03-21 06:34] LABS: BUN/CREATININE RATIO 31; CALCIUM 7.9 MG/DL (8.5-10.1); CARBON DIOXIDE 21 MMOL/L (21-32); CHLORIDE 111 MMOL/L (98-107); CREATININE SERUM 1.01 MG/DL (0.60-1.30); GFR ESTIMATED > 60; GLUCOSE 86 MG/DL (70-105); POTASSIUM 4.1 MMOL/L (3.6-5.0); SODIUM 139 MMOL/L (135-145)
--- NOTE | 2019-03-21 07:53 | Progress Note ---
Subjective Time Seen by a Provider: 07:51 Subjective/Events-last exam Patient feeling better this morning. Hemoglobin 7.6. Patient said he had a CAT scan of the abdomen yesterday but none seen on the chart. Objective Exam Vital Signs Date Time Temp Pulse Resp B/P (MAP) Pulse Ox O2 Delivery O2 Flow Rate FiO2 03/21/19 03:38 37.3 83 18 139/60 (86) 94 Room Air 03/21/19 00:00 36.4 66 18 148/65 (92) 93 Room Air 03/20/19 21:03 37.4 88 18 109/62 96 Room Air 03/20/19 20:27 37.4 86 18 97 Room Air 03/20/19 20:00 96 Room Air 03/20/19 20:00 36.8 69 17 123/56 (78) 97 Room Air 03/20/19 17:20 36.7 88 18 158/88 95 Room Air 03/20/19 17:00 36.7 91 15 107/64 96 Room Air 03/20/19 16:13 36.8 91 15 107/64 (78) 96 Room Air 03/20/19 16:13 36.8 91 15 107/64 96 Room Air 03/20/19 15:38 37.0 84 15 121/57 (79) 96 Room Air 03/20/19 11:13 37.0 92 19 117/61 (79) 96 Room Air I & O 03/21/19 07:00 Intake Total 2240 ml Output Total 201 ml Balance 2039 ml Capillary Refill : Less Than 3 Seconds General Appearance: No Apparent Distress, WD/WN HEENT: Normal ENT Inspection Neck: Full Range of Motion Respiratory: Chest Non Tender, Lungs Clear, No Accessory Muscle Use, No Respiratory Distress Cardiovascular: Regular Rate, Rhythm, No Murmur Gastrointestinal: non tender, soft Results Lab Laboratory Tests 03/20/19 11:15 03/21/19 05:30 Laboratory Tests 03/20/19 11:15: White Blood Count 7.3, Red Blood Count 2.59L, Hemoglobin 6.2*L, Hematocrit 22L, Mean Corpuscular Volume 83, Mean Corpuscular Hemoglobin 24L, Mean Corpuscular Hemoglobin Concent 29L, Red Cell Distribution Width 20.5H, Platelet Count 311, Mean Platelet Volume 10.1, Neutrophils (%) (Auto) 76H, Lymphocytes (%) (Auto) 13, Monocytes (%) (Auto) 10, Eosinophils (%) (Auto) 1, Basophils (%) (Auto) 1, Neutrophils # (Auto) 5.5, Lymphocytes # (Auto) 0.9L, Monocytes # (Auto) 0.7, Eosinophils # (Auto) 0.0, Basophils # (Auto) 0.1, Sodium Level 141, Potassium Level 4.4, Chloride Level 109H, Carbon Dioxide Level 24, Anion Gap 8, Blood Urea Nitrogen 36H, Creatinine 1.31H, Estimat Glomerular Filtration Rate 52, BUN/Creatinine Ratio 27, Glucose Level 126H, Calcium Level 8.5, Corrected Calcium 9.2, Total Bilirubin 0.2, Aspartate Amino Transf (AST/SGOT) 17, Alanine Aminotransferase (ALT/SGPT) 11, Alkaline Phosphatase 76, B-Type Natriuretic Pe ptide 356.1H, Total Protein 6.7, Albumin 3.1L 03/20/19 12:14: Urine Color YELLOW, Urine Clarity CLEAR, Urine pH 5.0, Urine Specific Julian 1.015L, Urine Protein NEGATIVE, Urine Glucose (UA) NEGATIVE, Urine Ketones NEGATIVE, Urine Nitrite NEGATIVE, Urine Bilirubin NEGATIVE, Urine Urobilinogen 0.2, Urine Leukocyte Esterase NEGATIVE, Urine RBC (Auto) NEGATIVE, Urine RBC NONE, Urine WBC NONE, Urine Squamous Epithelial Cells NONE, Urine Crystals NONE, Urine Bacteria NEGATIVE, Urine Casts PRESENT, Urine Hyaline Casts RARE, Urine Mucus NEGATIVE, Urine Culture Indicated NO 03/21/19 05:30: White Blood Count 5.9, Red Blood Count 2.98L, Hemoglobin 7.6#L, Hematocrit 25L, Mean Corpuscular Volume 83, Mean Corpuscular Hemoglobin 26, Mean Corpuscular Hemoglobin Concent 31L, Red Cell Distribution Width 17.7H, Platelet Count 225, Mean Platelet Volume 10.1, Neutrophils (%) (Auto) 70, Lymphocytes (%) (Auto) 13, Monocytes (%) (Auto) 12, Eosinophils (%) (Auto) 4, Basophils (%) (Auto) 1, Neutrophils # (Auto) 4.1, Lymphocytes # (Auto) 0.8L, Monocytes # (Auto) 0.7, Eosinophils # (Auto) 0.2, Basophils # (Auto) 0.1, Sodium Level 139, Potassium Level 4.1, Chloride Level 111H, Carbon Dioxide Level 21, Anion Gap 7, Blood Urea Nitrogen 31H, Creatinine 1.01, Estimat Glomerular Filtration Rate > 60, BUN/Creatinine Ratio 31, Glucose Level 86, Calcium Level 7.9L Microbiology 03/20/19 Influenza Types A,B Antigen (MATEUSZ) - Final, Complete Assessment/Plan Assessment/Plan Assess & Plan/Chief Complaint Severe anemia. Weakness. Occult blood positive. Elevated CEA. Clinical Quality Measures Admission Status Admission Dx Anemia severe. Abdominal mass. Elevated CEA. Peripheral artery disease DVT/VTE Risk/Contraindication: Risk Factor Score Per Nursin RFS Level Per Nursing on Admit: 4+=Very High Contraindications-Pharm: Other *list below* Contraindications-Mechi: Other *list below* ROSY CLANCY DO Mar 21, 2019 07:53
[2019-03-21] MEDS: DIGOXIN 0.25 MG (LANOXIN) TAB PO SCH (08:19)
--- NOTE | 2019-03-21 09:18 | Consultation - Surgery ---
[facility] 03/21/19 0918: History of Present Illness History of Present Illness Patient Consulted On(mercedes/time) 03/21/19 09:12 Date Seen by Provider: Mar 21, 2019 Time Seen by Provider: 07:35 History of Present Illness Patient had weakness that occurred unexpectedly yesterday morning. Patient had a similar episode two weeks ago and received 3 blood transfusions. Patient also r eported having diarrhea two weeks ago. States that he has adequate nutrition at home. Patient received a colonoscopy in 2018 with noted colon cancer and received a colon resection. Patient recently had an X-ray on 02/15/19 and had a lung nodule in the Right Upper lung. Patient has currently had 2 transfusions and was receiving another one this morning. Patient is not on any blood thi nners. Denies any other recent changes in his stool Allergies and Home Medications Allergies Coded Allergies: shellfish derived (Verified Allergy, Severe, HIVES/SWELLING, 06/25/17) Home Medications Albuterol Sulfate 1 Puff Puff, 2 PUFF IH QID PRN for SHORTNESS OF BREATH, (Reported) Cetirizine HCl 10 Mg Tablet, 10 MG PO DAILY, (Reported) Digoxin 250 Mcg Tablet, 250 MCG PO DAILY, (Reported) Diltiazem HCl 180 Mg Cap.er.24h, 180 MG PO BID, (Reported) Furosemide 20 Mg Tablet, 20 MG PO DAILY, (Reported) Lisinopril 40 Mg Tablet, 20 MG PO DAILY, (Reported) TAKES 1/2 (40MG) TABLET Loratadine 10 Mg Tablet, 10 MG PO DAILY, (Reported) Pravastatin Sodium 40 Mg Tablet, 40 MG PO HS, (Reported) LAST FILLED 11-12-2018 #90 Past Jrfulox-Ubtwfk-Wfltak Hx Patient Social History Alcohol Use: Occasionally Uses Recreational Drug Use: No Smoking Status: Former Smoker Former Smoker, Quit: Jun 05, 1992 Type Used: Cigarettes 2nd Hand Smoke Exposure: No Recent Foreign Travel: No Contact w/Someone Who Travel: No Recent Infectious Disease Expo: No Recent Hopitalizations: Yes Physical Abuse Screen: No Sexual Abuse: No Immunizations Up To Date Tetanus Booster (TDap): Unknown PED Vaccines UTD: No Date of Pneumonia Vaccine: Nov 16, 2015 Date of Influenza Vaccine: Nov 14, 2018 Seasonal Allergies Seasonal Allergies: No Surgeries History of Surgeries: Yes (AMPUTATION OF BIG TOE, SKIN CA REMOVED FROM ARM) Surgeries: Appendectomy, Bowel Surgery, Prostatectomy Respiratory History of Respiratory Disorde: No (USES INHALER, BUT UNSURE WHY) Cardiovascular History of Cardiac Disorders: Yes Cardiac Disorders: High Cholesterol, Hypertension, Peripheral Vascular Neurological History of Neurological Disord: No Reproductive System Hx Reproductive Disorders: No Genitourinary History of Genitourinary Disor: Yes Genitourinary Disorders: Prostate Problems Gastrointestinal History of Gastrointestinal Di: Yes (diverticulitis ) Gastrointestinal Disorders: Diverticulosis Musculoskeletal History of Musculoskeletal Dis: Yes (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) Musculoskeletal Disorders: Arthritis Endocrine History of Endocrine Disorders: No HEENT History of HEENT Disorders: No Hearing Impairment: Hard of Hearing Cancer History of Cancer: Yes Cancer: Prostate, Colon Psychosocial History of Psychiatric Problem: No Integumentary History of Skin or Integumenta: Yes (for soa) Skin/Integumentary Disorders: Recent Skin Changes Blood Transfusions History of Blood Disorders: No Adverse Reaction to a Blood Tr: No Family Medical History Significant Family History: Cancer (Father of colon cancer), Diabetes Family Medial History: Completed stroke G8 SISTER Diabetes mellitus 19 MOTHER FH: prostate cancer 19 FATHER Review of Systems-General Constitutional: No chills, No fever; weakness EENTM: No ear pain, No eye pain, No throat pain Respiratory: No cough Cardiovascular: No chest pain, No edema, No palpitations Gastrointestinal: abdominal pain (Has a possible hernia from colon resection) Genitourinary: no symptoms reported Musculoskeletal: no symptoms reported Skin: change in color (Was pale but color is returning) Psychiatric/Neurological: Denies Headache Other No history of bruising or bleeding Physical Exam-General Problems Physical Exam Vital Signs Vital Signs - First Documented 03/20/19 11:13 Temp 37.0 Pulse 92 Resp 19 B/P (MAP) 117/61 (79) Pulse Ox 96 O2 Delivery Room Air Capillary Refill : Less Than 3 Seconds General Appearance: WD/WN, no apparent distress Respiratory: chest non-tender, lungs clear, normal breath sounds, no respiratory distress, no accessory muscle use Cardiovascular: normal peripheral pulses (2/4 radial pulse bilaterally), regular rate, rhythm, no murmur Gastrointestinal: soft, tenderness (in the RLQ with palpation) Extremities: no pedal edema, no calf tenderness Neurologic/Psychiatric: alert, normal mood/affect, oriented x 3 Skin: warm/dry, other (Color is returning) Data Review Labs Laboratory Tests 03/20/19 11:15: White Blood Count 7.3, Red Blood Count 2.59L, Hemoglobin 6.2*L, Hematocrit 22L, Mean Corpuscular Volume 83, Mean Corpuscular Hemoglobin 24L, Mean Corpuscular Hemoglobin Concent 29L, Red Cell Distribution Width 20.5H, Platelet Count 311, Mean Platelet Volume 10.1, Neutrophils (%) (Auto) 76H, Lymphocytes (%) (Auto) 13, Monocytes (%) (Auto) 10, Eosinophils (%) (Auto) 1, Basophils (%) (Auto) 1, Neutrophils # (Auto) 5.5, Lymphocytes # (Auto) 0.9L, Monocytes # (Auto) 0.7, Eo sinophils # (Auto) 0.0, Basophils # (Auto) 0.1, Sodium Level 141, Potassium Level 4.4, Chloride Level 109H, Carbon Dioxide Level 24, Anion Gap 8, Blood Urea Nitrogen 36H, Creatinine 1.31H, Estimat Glomerular Filtration Rate 52, BUN/Creatinine Ratio 27, Glucose Level 126H, Calcium Level 8.5, Corrected Calcium 9.2, Total Bilirubin 0.2, Aspartate Amino Transf (AST/SGOT) 17, Alanine Aminotransferase (ALT/SGPT) 11, Alkaline Phosphatase 76, B-Type Natriuretic Peptide 356.1H, Total Protein 6.7, Albumin 3.1L 03/20/19 12:14: Urine Color YELLOW, Urine Clarity CLEAR, Urine pH 5.0, Urine Specific [place] 1.015L, Urine Protein NEGATIVE, Urine Glucose (UA) NEGATIVE, Urine Ketones NEGATIVE, Urine Nitrite NEGATIVE, Urine Bilirubin NEGATIVE, Urine Urobilinogen 0.2, Urine Leukocyte Esterase NEGATIVE, Urine RBC (Auto) NEGATIVE, Urine RBC NONE, Urine WBC NONE, Urine Squamous Epithelial Cells NONE, Urine Crystals NONE, Urine Bacteria NEGATIVE, Urine Casts PRESENT, Urine Hyaline Casts RARE, Urine Mucus NEGATIVE, Urine Culture Indicated NO 03/21/19 05:30: White Blood Count 5.9, Red Blood Count 2.98L, Hemoglobin 7.6#L, Hematocrit 25L, Mean Corpuscular Volume 83, Mean Corpuscular Hemoglobin 26, Mean Corpuscular Hemoglobin Concent 31L, Red Cell Distribution Width 17.7H, Platelet Count 225, Mean Platelet Volume 10.1, Neutrophils (%) (Auto) 70, Lymphocytes (%) (Auto) 13, Monocytes (%) (Auto) 12, Eosinophils (%) (Auto) 4, Basophils (%) (Auto) 1, Neutrophils # (Auto) 4.1, Lymphocytes # (Auto) 0.8L, Monocytes # (Auto) 0.7, Eosinophils # (Auto) 0.2, Basophils # (Auto) 0.1, Sodium Level 139, Potassium Level 4.1, Chloride Level 111H, Carbon Dioxide Level 21, Anion Gap 7, Blood Urea Nitrogen 31H, Creatinine 1.01, Estimat Glomerular Filtration Rate > 60, BUN/Creatinine Ratio 31, Glucose Level 86, Calcium Level 7.9L Microbiology 03/20/19 Influenza Types A,B Antigen (MATEUSZ) - Final, Complete Assessment/Plan Assessment/Plan Assessment/Plan Severe anemia. Weakness. Occult blood was positive Patient needs a PET scan and a CT scan of abdomen and pelvis for recent anemic episodes Receiving 3rd blood transfusion. EGD possibly warranted if CT and PET scan negative. Clinical Quality Measures DVT/VTE Risk/Contraindication: Risk Factor Score Per Nursin RFS Level Per Nursing on Admit: 4+=Very High Contraindications-Pharm: Other *list below* Contraindications-Mechi: Other *list below* CARLOS TONG DO 03/21/19 1657: History of Present Illness History of Present Illness Time Seen by Provider: 12:06 History of Present Illness Pt seen and examined, states he is feeling stronger after the blood transfusions. Pt denies any abdominal pain, but is having pain "at bump in left lower abdomen". He states pain at this site when it is pushed on or if he hunches over it. Allergies and Home Medications Allergies Coded Allergies: shellfish derived (Verified Allergy, Severe, HIVES/SWELLING, 06/25/17) Home Medications Albuterol Sulfate 1 Puff Puff, 2 PUFF IH QID PRN for SHORTNESS OF BREATH, (Reported) Cetirizine HCl 10 Mg Tablet, 10 MG PO DAILY, (Reported) Digoxin 250 Mcg Tablet, 250 MCG PO DAILY, (Reported) Diltiazem HCl 180 Mg Cap.er.24h, 180 MG PO BID, (Reported) Furosemide 20 Mg Tablet, 20 MG PO DAILY, (Reported) Lisinopril 40 Mg Tablet, 20 MG PO DAILY, (Reported) TAKES 1/2 (40MG) TABLET Loratadine 10 Mg Tablet, 10 MG PO DAILY, (Reported) Pravastatin Sodium 40 Mg Tablet, 40 MG PO HS, (Reported) LAST FILLED 11-12-2018 #90 Patient Home Medication List Home Medication List Reviewed: Yes Past Rkrgfex-Sdvwex-Jujsfp Hx Family Medical History Family Medial History: Completed stroke G8 SISTER Diabetes mellitus 19 MOTHER FH: prostate cancer 19 FATHER Review of Systems-General Constitutional: malaise EENTM: No mouth swelling Respiratory: No hemoptysis Genitourinary: No dysuria, No frequency, No hematuria Musculoskeletal: joint pain, joint swelling, muscle stiffness Skin: change in color (Was pale but color is returning); No change in hair/nails, No lesions Psychiatric/Neurological: Denies Anxiety, Denies Depressed, Denies Seizure, Denies Tingling Physical Exam-General Problems Physical Exam Eyes: Bilateral Eye PERRL, Bilateral Eye EOMI HEENT: pharynx normal; No scleral icterus (R), No scleral icterus (L) Neck: non-tender, supple Respiratory: lungs clear, normal breath sounds, no respiratory distress Cardiovascular: regular rate, rhythm, no murmur Gastrointestinal: soft, no organomegaly, tenderness (in the LLQ with palpation over mass), hernia (small incisional hernia, just left of midline) Rectal: black stool, heme positive stool Back: no CVA tenderness, no vertebral tenderness Extremities: no pedal edema, no calf tenderness Neurologic/Psychiatric: technician support association II-XII nml as tested, alert, normal mood/affect, oriented x 3 Skin: normal color, warm/dry Lymphatic: no adenopathy (neck, axilla or groin) Assessment/Plan Assessment/Plan Assessment/Plan Anemia Hx of Colon CA Mass in LLQ Pt was placed on clears and started on bowel prep for planned colonoscopy tomorrow; will also do EGD at the same time because of melena (rule out upper GI cause). Consent ordered, continue IV fluids and pain meds as needed. Discussed procedure with risks and complications not limited to pain, bleeding, infection, scar, intestinal or esophageal perforation and need for further procedure. All questions answered to his satisfaction. Will try to discuss with Dr. Gudino and radiology whether open bx or core bx would be better. Supervisory-Addendum Brief Verification & Attestation Participated in pt care: history, MDM, physical Personally performed: exam, history, MDM Care discussed with: Medical Student Procedures: n/a Verification and Attestation of Medical Student E/M Service A medical student performed and documented this service in my presence. I reviewed and verified all information documented by the medical student and made modifications to such information, when appropriate. I personally performed the physical exam and medical decision making. Carlos Tong, Mar 21, 2019,17:09 DUN[facility] B[facility]NETT Mar 21, 2019 09:18 CARLOS TONG DO Mar 21, 2019 16:57
--- NOTE | 2019-03-21 09:28 | Diagnostic Imaging Report ---
PROCEDURE: CT abdomen and pelvis with contrast. TECHNIQUE: Multiple contiguous axial images were obtained through the abdomen and pelvis after administration of intravenous contrast. Auto Exposure Controls were utilized during the CT exam to meet ALARA standards for radiation dose reduction. INDICATION: Abdominal pain. COMPARISON is made with prior CT from 04/26/2018. Imaging through the lung bases demonstrates a 2 cm nodule in the medial aspect of the right middle lobe. It is not definitely seen on prior CT. No discrete liver mass is identified. The gallbladder is unremarkable. No biliary ductal dilatation is seen. The pancreas and spleen are unremarkable. No adrenal mass is detected. Kidneys are unremarkable. Aorta is heavily calcified but non-aneurysmal. Small and large bowel loops are normal caliber. There is no ascites. There is a large lymph node in the left inguinal region measuring 2.1 x 1.2 cm. There is a soft tissue mass identified in the anterior abdominal wall of the left lower quadrant measuring 3.0 x 2.6 cm. There was a tiny nodule at this location on prior exam measuring approximately 1 cm. There are postsurgical changes in the pelvis from prostatectomy. No iliac lymphadenopathy is seen. The bladder is unremarkable. No definite central retroperitoneal or mesenteric lymphadenopathy is detected. The bony structures are nonacute. IMPRESSION: 1. Development of 2 cm right middle lobe pulmonary nodule. In addition, the patient has developed a mass in the anterior abdominal wall of the left lower quadrant as well as prominent lymph nodes in the left inguinal region. Neoplastic process is suspected. PET study would BE useful for further evaluation. Dictated by: Dictated on workstation # [id number]
[2019-03-21] MEDS ORDERED: RX-HYDROCODONE/APAP 5/325 MG #4 TAB PK PO PRN (10:00)
[2019-03-21] MEDS ORDERED: RT-ALBUTEROL SULF 2.5 MG/3 ML PRE-MIX VIAL IH PRN (10:15)
[2019-03-21] MEDS ORDERED: DILT180C85 PO (10:57)
[2019-03-21] MEDS ORDERED: DIGO250T3 PO (10:57)
--- NOTE | 2019-03-21 11:00 | Diagnostic Imaging Report ---
INDICATION: Abdominal pain. TIME OF EXAM: 10:10 a.m. COMPARISON: Correlation is made with prior chest from 02/15/2019. FINDINGS: Heart size is normal. There are nodular densities identified in the right upper lung field. Largest is in the right suprahilar location measuring 16 mm. No effusion or pneumothorax is seen. Pulmonary vascularity is normal. IMPRESSION: Right lung nodules. Metastatic disease cannot be entirely excluded. Dedicated CT of the chest could be performed for further evaluation. Dictated by: Dictated on workstation # [id number]
--- NOTE | 2019-03-21 11:04 | NUR ---
SPOKE WITH THE PT WENT THRU THE EXT MED HISTORY WELL CALL [facility] TO COMPLETE THE MED REC. PT WAS ABLE TO TELL ME THE NAMES OF HIS MEDS AND HOW/WHEN HE TAKES EACH ONE. LISINOPRIL 40MG: DIRECTIONS FROM [facility] SAY " 1TAB DAILY" HOWEVER THE PT SAID HE ONLY TAKES TAB DAILY AND HIS PCP TOLD HIM TO DECREASE TO DOSE. TAMSULOSIN (FILLED 12-18-2018 #90) AND MONTELUKAST (FILLED 10-24-2018 #90) PT SAYS HE IS NO LONGER TAKING THESE MEDICATIONS. THE FOLLOWING ARE FILL DATES THAT ARE NOT INCLUDED IN THE EXT MED HISTORY: 11-12-2018 PRAVASTATIN 40MG #90/90DS- THIS IS PAST DUE I NOTED THIS ON THE MED REC AND ALSO SPOKE WITH THE PT ABOUT IT- HE THINKS HE HAD EXTRAS FROM PAST FILLS. 12-30-2018 LISINOPRIL 40MG #90/180DS (SEE ABOUT NOTE) 01-24-2019 ALBUTEROL HFA #1 02-27-2019 FUROSEMIDE 20MG #90/90DS 03-04-2019 DIGOXIN 250MCG #90/90DS Addendum: 03/21/19 at 1110 by ESTHER PIERRE CPhT PT TAKES ZYRTEC [facility]
--- NOTE | 2019-03-21 12:51 | Progress Note ---
Standard Progress Note Progress Notes/Assess & Plan Date Seen by a Provider: Mar 21, 2019 Time Seen by a Provider: 12:47 Progress/Assessment & Plan 89-year-old male admitted with symptomatic anemia, status post transfusion with 2 units of packed red blood cells yesterday. Hemoglobin 7.6 today morning and receiving another unit of blood. Patient required blood transfusion in late January and mid February with positive Hemoccult indicating GI bleeding. He has previous history of colon cancer stage III and underwent hemicolectomy in September 2017. No adjuvant treatment or oncology follow-up. Currently has a left lower abdominal wall mass. Completed CT scan which showed solitary lung nodule, left lower abdominal wall mass and left inguinal lymph node raising possibility of metastatic disease. May consider excisional biopsy of the left lower abdominal wall mass for tissue diagnosis. Patient will also need EGD and colonoscopy if continued bleeding to identify a source of blood loss. Monitor CBC serially. Dr. Cox is international marketing specialist this weekend and will follow the patient. PAPO MATHEW Mar 21, 2019 12:51
--- NOTE | 2019-03-21 13:37 | NUR ---
RD ASSESSMENT PMHx: hypercholesterolemia; HTN; PVD; diverticulosis; CA(prostate;colon) PT INTERACTION: Pt was awake and pleasant during nutrition consult for MST score. Pt states current appetite is not good and has been this way for 3months. Note PO intake of 100% x1meal, per chart review. Pt states following a regular diet at home and has no issues with chewing/swallowing food. Pt states no recent issues with n/v at this time. Pt states having frequent episodes of diarrhea, and that his last BM was 03/21. Note pt not currently on bowel regimen per chart review. Pt states recent wt loss, but unsure of amount/timeframe. Pt states though it is "a lot." Note recent 24# wt loss x1mon, per chart review. This is significant wt loss at 18% x1mon. Upon visual exam, pt appears to undernourished with visible signs of muscle/fat wasting and a BMI of 17.8. Given pt's poor PO intake and wt hx, pt meets criteria for malnutrition per ASPEN guidelines. ABNORMAL NUTRITION-RELATED LAB VALUES LOW: Ca 7.9 HIGH: Cl 111; BUN 31 Est. kcal needs: 7786-2154 kcal | 30-35 kcal/kg Est. Pro needs: 50-60 g Pro | 1.0-1.2 g Pro/kg PES STATEMENT: Inadequate oral intake (NI-2.1) related to loss of appetite | diarrhea as evidenced by pt interview INTERVENTION: Continue with current diet order of Clear Liquid diet. Switch current supplementation order from Ensure Enlive with meals TID to Ensure Clear with meals TID, for increased kcal intake. Ensure Clear provides 250 kcal and 8 g Pro per serving. Will continue to follow and reassess as pt needs and status change. MONITOR/EVALUATE: PO Intake; Plan of Care; Hydration Status; Weight Status; Lab Values Wilton Olea, MS, RD, LD
[2019-03-21] MEDS ORDERED: BISACODYL 5 MG (DULCOLAX) TABLET PO SCH (15:00)
[2019-03-21] MEDS ORDERED: polyethylene glycoL POWDER 17 GM (MIRALAX) PACK PO SCH (18:00)
--- NOTE | 2019-03-21 19:45 | NUR ---
NOTIFIED DR. BROCK THAT PATIENT WAS TO BE NPO AT 0000 AND DOES NOT HAVE ANY MAINTENANCE FLUID RUNNING. NEW ORDERS TO FOR LR @ 125 ML/HR.
[2019-03-21] MEDS: HYDROcodone/APAP 5 MG/325 MG (LORTAB) TAB PO PRN (21:27)
[2019-03-22] VITALS (9 sets, daily range): BP systolic 93–165; BP diastolic 51–72
[2019-03-22] MEDS: LACTATED RINGERS 1,000 ML IV SCH (05:35)
[2019-03-22 06:45] LABS: HEMOGLOBIN 8.4 G/DL (13.3-17.7); MEAN PLATELET VOLUME 10.2 FL (7.4-10.4); RED CELL DISTRIBUTION WIDTH 18.3 % (10.0-14.5); WHITE BLOOD COUNT 6.2 10^3/uL (4.3-11.0)
[2019-03-22 07:02] LABS: ALANINE AMINOTRANSFERASE 13 U/L (0-55); ALBUMIN 2.7 GM/DL (3.2-4.5); ALKALINE PHOSPHATASE 73 U/L (40-136); BILIRUBIN,TOTAL 0.4 MG/DL (0.1-1.0); BUN/CREATININE RATIO 25; CALCIUM 7.9 MG/DL (8.5-10.1); CARBON DIOXIDE 21 MMOL/L (21-32); CHLORIDE 115 MMOL/L (98-107); CREATININE SERUM 0.87 MG/DL (0.60-1.30); GFR ESTIMATED > 60; GLUCOSE 72 MG/DL (70-105); POTASSIUM 3.6 MMOL/L (3.6-5.0); SODIUM 143 MMOL/L (135-145); TOTAL PROTEIN 5.5 GM/DL (6.4-8.2)
[2019-03-22] MEDS ORDERED: lisINopril 40 MG (PRINIVIL) TABLET PO SCH (09:00)
[2019-03-22] MEDS ORDERED: NON-FORMULARY MEDICATION 1 EA EA (Cetirizine HCl (Zyrtec) 10 MG) PO SCH (09:00)
[2019-03-22] MEDS ORDERED: PROPOFOL INJECTION 50 ML IV ONE (09:14)
[2019-03-22] MEDS ORDERED: LACTATED RINGERS 1,000 ML IV ONE ×2 (09:14→09:30)
[2019-03-22] MEDS ORDERED: KETAMINE/NaCl 50 MG/5 ML SYRINGE (ED ONLY) ONE (09:15)
--- NOTE | 2019-03-22 09:19 | Progress Note - Surgery ---
[facility] 03/22/19 0919: Subjective Date Seen by a Provider: Mar 22, 2019 Time Seen by a Provider: 09:05 Objective Exam Vital Signs Date Time Temp Pulse Resp B/P (MAP) Pulse Ox O2 Delivery O2 Flow Rate FiO2 03/22/19 08:27 37.1 70 18 127/60 (82) 95 Room Air 03/22/19 04:00 36.6 65 18 129/65 (86) 97 Room Air 03/21/19 23:55 36.6 67 16 115/48 (70) 97 Room Air 03/21/19 23:10 92 Room Air 03/21/19 21:00 97 Room Air 03/21/19 20:33 37.0 96 18 121/55 (77) 93 Room Air 03/21/19 15:55 37.2 80 20 122/50 (74) 98 Room Air 03/21/19 14:14 37.2 78 120/49 03/21/19 12:00 37.2 81 18 114/49 (70) 97 Room Air 03/21/19 11:10 37.4 93 127/49 03/21/19 10:52 37.2 79 124/63 03/21/19 10:40 92 Room Air I & O 03/22/19 07:00 Intake Total 3180 ml Balance 3180 ml Capillary Refill : Less Than 3 Seconds General Appearance: No Apparent Distress, WD/WN HEENT: Normal ENT Inspection Neck: Full Range of Motion Respiratory: Chest Non Tender, Lungs Clear, No Accessory Muscle Use, No Re spiratory Distress Cardiovascular: Regular Rate, Rhythm, No Murmur Gastrointestinal: soft, no organomegaly, tenderness (in the LLQ with palpation over mass), hernia (small incisional hernia, just left of midline) Extremity: Normal Capillary Refill, Normal Inspection, Normal Range of Motion Neurologic/Psychiatric: Alert, Oriented x3, Normal Mood/Affect Skin: Normal Color, Warm/Dry Results Lab Laboratory Tests 03/21/19 11:55: Stool Occult Blood Immunoassay POSITIVEH 03/22/19 05:37: White Blood Count 6.2, Red Blood Count 3.26L, Hemoglobin 8.4L, Hematocrit 28L, M kerrie Corpuscular Volume 84, Mean Corpuscular Hemoglobin 26, Mean Corpuscular Hemoglobin Concent 31L, Red Cell Distribution Width 18.3H, Platelet Count 200, Mean Platelet Volume 10.2, Sodium Level 143, Potassium Level 3.6, Chloride Level 115H, Carbon Dioxide Level 21, Anion Gap 7, Blood Urea Nitrogen 22H, Creatinine 0.87, Estimat Glomerular Filtration Rate > 60, BUN/Creatinine Ratio 25, Glucose Level 72, Calcium Level 7.9L, Corrected Calcium 8.9, Total Bilirubin 0.4, Aspartate Amino Transf (AST/SGOT) 18, Alanine Aminotransferase (ALT/SGPT) 13, Alkaline Phosphatase 73, Total Protein 5.5L, Albumin 2.7L Microbiology 03/21/19 C. difficile GDH Antigen & Toxins - Final, Complete 03/20/19 Influenza Types A,B Antigen (MATEUSZ) - Final, Complete Assessment/Plan Assessment/Plan Assessment/Plan Anemia Hx of Colon CA Mass in LLQ Pt was placed on clears and started on bowel prep for planned colonoscopy tomorrow; will also do EGD at the same time because of melena (rule out upper GI cause). Consent ordered, continue IV fluids and pain meds as needed. Discussed procedure with risks and complications not limited to pain, bleeding, infection, scar, intestinal or esophageal perforation and need for further procedure. All questions answered to his satisfaction. Will try to discuss with Dr. Gudino and radiology whether open bx or core bx would be better. Clinical Quality Measures DVT/VTE Risk/Contraindication: Risk Factor Score Per Nursin RFS Level Per Nursing on Admit: 4+=Very High Contraindications-Pharm: Other *list below* Contraindications-Mechi: Other *list below* CARLOS TONG DO 03/22/19 0943: Subjective Time Seen by a Provider: 09:32 Subjective/Events-last exam Pt seen and examined, denies abdominal pain; states he is ready for scopes today. Review of Systems General: No Chills, No Night Sweats Pulmonary: No Dyspnea, No Cough Cardiovascular: No: Chest Pain, Palpitations Gastrointestinal: No: Nausea, Vomiting, Abdominal Pain Objective Exam General Appearance: No Apparent Distress, WD/WN Respiratory: Lungs Clear, Normal Breath Sounds, No Accessory Muscle Use Cardiovascular: Regular Rate, Rhythm, No Murmur Gastrointestinal: non tender (in abdomen), soft, no organomegaly, tenderness (in the LLQ with palpation over mass) Assessment/Plan Assessment/Plan Assessment/Plan Plan for EGD and colonosocpy today, may do core biopsy of LLQ mass at bedside. Pt had no questions today before procedures. Supervisory-Addendum Brief Verification & Attestation Participated in pt care: history, MDM, physical Personally performed: exam, history, MDM Care discussed with: Medical Student Procedures: n/a Verification and Attestation of Medical Student E/M Service A medical student performed and documented this service in my presence. I reviewed and verified all information documented by the medical student and made modifications to such information, when appropriate. I personally performed the physical exam and medical decision making. Carlos Tong, Mar 22, 2019,09:42 DUNG BURNETT Mar 22, 2019 09:19 CARLOS TONG DO Mar 22, 2019 09:43
[2019-03-22] MEDS ORDERED: HURRICAINE EXT TUBE (BENZOCAINE) XX ONE (09:30)
[2019-03-22] MEDS ORDERED: HURRICAINE EXT TUBE (BENZOCAINE) ONE (09:37)
[2019-03-22] MEDS: FUROSEMIDE 20 MG (LASIX) TAB PO SCH (10:54)
[2019-03-22] MEDS: DIGOXIN 0.25 MG (LANOXIN) TAB PO SCH (10:54)
[2019-03-22] MEDS: LORATADINE (CLARITIN) 10 MG TAB PO SCH (10:54)
[2019-03-22] MEDS: lisINopril 20 MG (PRINIVIL) TABLET PO SCH (10:56)
--- NOTE | 2019-03-22 11:00 | NUR ---
1050: Patient arrived back on floor from procedure. 1100: Patient given coffee and saltines. Tolerating well. 0900 meds given at this time.
--- NOTE | 2019-03-22 11:14 | Anesthesia-General Post-Op ---
MAC Patient Condition Mental Status/LOC: Same as Preop Cardiovascular: Satisfactory Nausea/Vomiting: Absent Respiratory: Satisfactory Pain: Controlled Complications: Absent Post Op Complications Complications None Follow Up Care/Instructions Patient Instructions None needed. Anesthesiology Discharge Order Discharge Order Patient is doing well, no complaints, stable vital signs, no apparent adverse anesthesia problems. No complications reported per nursing. CRIS DENNIS CRNA Mar 22, 2019 11:14
[2019-03-22] MEDS ORDERED: BISACODYL 5 MG (DULCOLAX) TABLET PO SCH (12:00)
--- NOTE | 2019-03-22 12:05 | Progress Note-Post Operative ---
Post-Operative Progess Note Surgeon (s)/Computer Equipment Repairer (s) Surgeon CARLOS BROCK DO Computer Equipment Repairer: CHADWICK Valdez Pre-Operative Diagnosis Anemia Post-Operative Diagnosis Gastritis Esophagitis Esophageal ulcer Poor prep Anastomotic irritation Diverticula Procedure & Operative Findings Date of Procedure 03/22/19 Procedure Performed/Findings EGD with bx Colon with hot bx Anesthesia Type IV sedation by MOLD CLAMPER Estimated Blood Loss Estimated blood loss (mL): scant Specimens/Packing Specimens Removed Antral bx GE jxn bx Colon/TI anastomosis CARLOS Bojorquez DO Mar 22, 2019 12:05
--- NOTE | 2019-03-22 13:23 | Progress Note ---
Standard Progress Note Progress Notes/Assess & Plan Date Seen by a Provider: Mar 22, 2019 Time Seen by a Provider: 13:13 Progress/Assessment & Plan 89-year-old male admitted with symptomatic anemia, status post transfusion of 3 units PRBCs, last one given yesterday. Patient required blood transfusion in late January and mid February with positive Hemoccult indicating GI bleeding. He has previous history of colon cancer stage III and underwent hemicolectomy in September 2017. No adjuvant treatment or oncology follow-up. Currently has a left lower abdominal wall mass that is tender. Completed CT scan which showed solitary lung nodule, left lower abdominal wall mass and left inguinal lymph node raising possibility of metastatic disease. This morning, patient had upper and lower endoscopy showing gastritis, esophagitis, esophageal ulcer, and anastomotic irritation but no actively bleeding sites. Multiple biopsies were taken. Good response to transfusion yesterday, with hgb improved to 8.4 g/dl this morning. Mixed picture on the iron panel, but it suggests anemia of chronic disease plus iron deficiency. Patient tolerated the procedure well and says he feels very good after a shave this morning. He still has tenderness about the mass in his abdomen. Awaiting biopsy of the abdominal wall mass. Hig h suspicion for recurrent colon cancer. Will follow. ARMANI MENDEZ MD Mar 22, 2019 13:23
--- NOTE | 2019-03-22 13:58 | Progress Note ---
Subjective Subjective Date Seen by Provider: Mar 22, 2019 Time Seen by Provider: 08:10 No overnight events He is having a EGD/Colonoscopy today to further evaluate his GI bleed. -He denies any complaints this AM except he has to pee. Review of Systems General: No Chills, No Night Sweats Pulmonary: No Dyspnea, No Cough Cardiovascular: No: Chest Pain, Palpitations Gastrointestinal: No: Nausea, Vomiting, Abdominal Pain All Other Systems Reviewed All Other Systems Reviewed: Yes Objective Exam Vital Signs Vital Signs Date Time Temp Pulse Resp B/P (MAP) Pulse Ox O2 Delivery O2 Flow Rate FiO2 03/22/19 11:58 79 20 155/61 (92) 100 Room Air 03/22/19 10:46 36.7 70 20 165/72 (103) 96 Room Air 03/22/19 10:34 62 16 97 Room Air 03/22/19 10:30 59 16 97 OxyMask 8 03/22/19 10:25 60 16 97 OxyMask 8 03/22/19 09:00 100 Room Air 8.00 03/22/19 08:27 37.1 70 18 127/60 (82) 95 Room Air 03/22/19 04:00 36.6 65 18 129/65 (86) 97 Room Air 03/21/19 23:55 36.6 67 16 115/48 (70) 97 Room Air 03/21/19 23:10 92 Room Air 03/21/19 21:00 97 Room Air 03/21/19 20:33 37.0 96 18 121/55 (77) 93 Room Air 03/21/19 15:55 37.2 80 20 122/50 (74) 98 Room Air 03/21/19 14:14 37.2 78 120/49 I & O 03/22/19 07:00 Intake Total 3180 ml Balance 3180 ml General Appearance: No Apparent Distress, WD/WN Eyes: Bilateral Eye PERRL, Bilateral Eye EOMI, Bilateral Eye Conjunctivae Pale HEENT: Normal ENT Inspection Neck: Full Range of Motion Respiratory: Lungs Clear, Normal Breath Sounds, No Accessory Muscle Use Cardiovascular: Regular Rate, Rhythm, No Murmur Gastrointestinal: Normal Bowel Sounds, No Organomegaly, Soft, Mass (left lower quadrant abdominal mass. Patient reports that his been here for one year since his colon resection.) Rectal: Deferred, Heme Positive Stool Extremity: Normal Capillary Refill, Normal Inspection, Normal Range of Motion Neurologic/Psychiatric: Alert, Oriented x3, Normal Mood/Affect Skin: Normal Color, Warm/Dry Results Lab Laboratory Tests 03/22/19 05:37: White Blood Count 6.2, Red Blood Count 3.26L, Hemoglobin 8.4L, Hematocrit 28L, Mean Corpuscular Volume 84, Mean Corpuscular Hemoglobin 26, Mean Corpuscular Hemoglobin Concent 31L, Red Cell Distribution Width 18.3H, Platelet Count 200, Mean Platelet Volume 10.2, Sodium Level 143, Potassium Level 3.6, Chloride Level 115H, Carbon Dioxide Level 21, Anion Gap 7, Blood Urea Nitrogen 22H, Creatinine 0.87, Estimat Glomerular Filtration Rate > 60, BUN/Creatinine Ratio 25, Glucose Level 72, Calcium Level 7.9L, Corrected Calcium 8.9, Total Bilirubin 0.4, Aspartate Amino Transf (AST/SGOT) 18, Alanine Aminotransferase (ALT/SGPT) 13, Alkaline Phosphatase 73, Total Protein 5.5L, Albumin 2.7L Microbiology 03/21/19 C. difficile GDH Antigen & Toxins - Final, Complete 03/20/19 Influenza Types A,B Antigen (MATEUSZ) - Final, Complete Assessment/Plan Assessment/Plan Assessment and Plan 03/22/19- EGD, colonoscopy did not show any active bleeding besides gastritis, esophagitis/ulcer and irritation of anastomosis- suspect metastatic colon cancer in his groin lymph nodes and abdominal mass. -s/p 3 units of pRBC- monitoring hgb. Problems: (1) Iron (Fe) deficiency anemia (2) Anemia of chronic disease (3) Colon cancer (4) Hypertension Assessment & Plan: continue current regimen Clinical Quality Measures DVT/VTE Risk/Contraindication: Risk Factor Score Per Nursin RFS Level Per Nursing on Admit: 4+=Very High Contraindications-Pharm: Other *list below* Contraindications-Mechi: Other *list below* ZOILA ORTEGA MD Mar 22, 2019 13:57
--- NOTE | 2019-03-22 16:02 | OPERATIVE REPORT ---
DATE OF SERVICE: PREOPERATIVE DIAGNOSIS: Anemia. POSTOPERATIVE DIAGNOSES: Gastritis, esophagitis, esophageal ulcer, poor prep, anastomotic irritation and diverticula. PROCEDURE: 1. EGD with biopsy. 2. Colonoscopy with hot biopsy. SURGEON: Erasmo Tong DO SHOW HOST: Kindra Pelaez MS3. ANESTHESIA: IV sedation by ME[employer] MARKET MANAGER. SPECIMEN: Biopsy from the antrum, biopsy from the GE junction and biopsy from the colonic TIA anastomosis. BLOOD LOSS: Scant. FLUIDS: Per anesthesia. POSTOPERATIVE CONDITION: Stable. INDICATION FOR PROCEDURE: The patient is an 89-year-old male who came in with severe anemia and needed a workup. History of colon cancer. FINDINGS: The patient had some esophageal ulcers that did not look like there was bleeding that had healed over, had some mild gastritis. Some pretty severe esophagitis. In the colon he had noted some diverticula. He had a very poor prep unfortunately, so could not really see much, but we got to the anastomosis looked like it was very irritated and inflamed, and we did a biopsy here. PROCEDURE NOTE: After informed consent was obtained, the patient was brought to the endoscopy suite and placed in the bed in left lateral decubitus position. He was administered IV sedation by the MEAT MARKET MANAGER who then monitored his vitals the entire time, heart rate, blood pressure and pulse ox and started with the EGD placing scope down the mouth through the esophagus and stomach on the way down in the esophagus noted multiple ulcers that had looked like that healed, they are little mild fibrin over them. No active bleeding. Pushed into the stomach, pushed towards the antrum and then into the duodenum. Duodenum looked fine, took a picture, backed up into the antrum. Antrum had some mild gastritis, took a biopsy here. Retroflexed the scope, very minimal inflammation in the stomach and then pulled the scope up into the esophagus at the GE junction, noted some pretty severe inflammation, did two biopsies here. Suctioned the air out of the stomach, elected not to do a biopsy of the esophageal ulcers and then at this point pulled the scope up the esophagus and out the mouth. Switched camera, switched gloves, went down below, started the colonoscopy. Unfortunately, the patient had very poor prep, lot of retained fecal material, able to suction some of this up and then get past this and on the way in noted diverticula, get all the way to the anastomosis, which was probably right at the transverse colon and terminal ileum, took a picture, it looked very inflamed and irritated. Like to do two biopsies here, did hot biopsies. Some scant bleeding from this and then slowly withdrew the scope insufflating looked circumferentially at the cote looking at the transverse colon to the splenic flexure, then down the descending colon into the sigmoid and into the rectum. Again, throughout here had a lot of retained liquid fecal and solid vegetable matter, so could not really clear anything for any polyps and then pulled the scope out. The patient tolerated the procedure, was recovered in endoscopy suite. Job ID: [id number] DocumentID: [id number] Dictated Date: 03/22/2019 12:05:39 [employer] Worker Date: 03/22/2019 16:01:50 Dictated By: ERASMO TONG DO
[2019-03-22] MEDS: SIMvastatin 20 MG (ZOCOR) TAB PO SCH (21:40)
[2019-03-22] MEDS: HYDROcodone/APAP 5 MG/325 MG (LORTAB) TAB PO PRN (21:40)
[2019-03-23] VITALS: BP 108/46
[2019-03-23 04:00] VITALS: BP 111/53
[2019-03-23 05:21] LABS: BASOPHILS # (AUTO) 0.1 10^3/uL (0.0-0.1); BASOPHILS % (AUTO) 1 % (0-10); EOSINOPHILS # (AUTO) 0.4 10^3/uL (0.0-0.3); EOSINOPHILS % (AUTO) 7 % (0-10); HEMATOCRIT 27 % (40-54); HEMOGLOBIN 8.1 G/DL (13.3-17.7); LYMPHOCYTES # (AUTO) 1.3 X 10^3 (1.0-4.0); LYMPHOCYTES % (AUTO) 23 % (12-44); MEAN CORPUSCULAR HEMOGLOBIN 26 PG (25-34); MEAN CORPUSCULAR HGB CONC 31 G/DL (32-36); MEAN CORPUSCULAR VOLUME 85 FL (80-99); MEAN PLATELET VOLUME 10.4 FL (7.4-10.4); MONOCYTES # (AUTO) 0.8 X 10^3 (0.0-1.0); MONOCYTES % (AUTO) 14 % (0-12); NEUTROPHILS # (AUTO) 3.2 X 10^3 (1.8-7.8); NEUTROPHILS % (AUTO) 55 % (42-75); PLATELET COUNT 195 10^3/uL (130-400); RED CELL DISTRIBUTION WIDTH 18.3 % (10.0-14.5); WHITE BLOOD COUNT 5.8 10^3/uL (4.3-11.0)
[2019-03-23 07:41] VITALS: BP 131/67
--- NOTE | 2019-03-23 08:10 | Progress Note ---
Subjective Subjective Date Seen by Provider: Mar 23, 2019 Time Seen by Provider: 09:10 89 yo M sitting up in bed- reports he is doing alright. -EGD/Colonoscopy- done yesterday- poor prep so not a thorough eval of his distal colon as his bowel movements do have blood in them and his room smells of blood. Hemoglobin still in the 8s. Patient would like to know why he is losing blood and needing 10 units in the past year. -Patient understands that we would like to know what the painful mass is in his left lower abdomen- and is agreeable to surgery/biopsy- But he will decline a colostomy and chemotherapy if it turns out to be cancer-mets. Review of Systems General: No Chills, No Night Sweats Pulmonary: No Dyspnea, No Cough Cardiovascular: No: Chest Pain, Palpitations Gastrointestinal: No: Nausea, Vomiting, Abdominal Pain Neurological: Weakness All Other Systems Reviewed All Other Systems Reviewed: Yes Objective Exam Vital Signs Vital Signs Date Time Temp Pulse Resp B/P (MAP) Pulse Ox O2 Delivery O2 Flow Rate FiO2 03/23/19 07:41 37.1 77 20 131/67 (88) 94 Room Air 03/23/19 04:00 37.2 58 16 111/53 (72) 94 Room Air 03/23/19 00:00 37.5 67 18 108/46 (66) 94 Room Air 03/22/19 21:00 Room Air 03/22/19 20:00 37.8 80 20 125/65 (85) 93 Room Air 03/22/19 16:00 37.4 67 18 112/66 (81) 96 Room Air 03/22/19 11:58 79 20 155/61 (92) 100 Room Air 03/22/19 10:46 36.7 70 20 165/72 (103) 96 Room Air 03/22/19 10:34 62 16 97 Room Air 03/22/19 10:30 59 16 97 OxyMask 8 03/22/19 10:25 60 16 97 OxyMask 8 03/22/19 09:00 100 Room Air 8.00 03/22/19 08:27 37.1 70 18 127/60 (82) 95 Room Air I & O 03/23/19 07:00 Intake Total 1310 ml Balance 1310 ml General Appearance: No Apparent Distress, WD/WN Eyes: Bilateral Eye PERRL, Bilateral Eye EOMI, Bilateral Eye Conjunctivae Pale HEENT: Normal ENT Inspection Neck: Full Range of Motion Respiratory: Lungs Clear, Normal Breath Sounds, No Accessory Muscle Use Cardiovascular: Regular Rate, Rhythm, No Murmur Gastrointestinal: Normal Bowel Sounds, No Organomegaly, Soft, Mass, Tenderness (left lower quadrant- where the mass is.) Rectal: Deferred, Heme Positive Stool Extremity: Normal Capillary Refill, Normal Inspection, Normal Range of Motion Neurologic/Psychiatric: Alert, Oriented x3, Normal Mood/Affect Skin: Normal Color, Warm/Dry Results Lab Laboratory Tests 03/23/19 04:35: White Blood Count 5.8, Red Blood Count 3.11L, Hemoglobin 8.1L, Hematocrit 27L, Mean Corpuscular Volume 85, Mean Corpuscular Hemoglobin 26, Mean Corpuscular Hemoglobin Concent 31L, Red Cell Distribution Width 18.3H, Platelet Count 195, Mean Platelet Volume 10.4, Neutrophils (%) (Auto) 55, Lymphocytes (%) (Auto) 23, Monocytes (%) (Auto) 14H, Eosinophils (%) (Auto) 7, Basophils (%) (Auto) 1, Neutrophils # (Auto) 3.2, Lymphocytes # (Auto) 1.3, Monocytes # (Auto) 0.8, Eosinophils # (Auto) 0.4H, Basophils # (Auto) 0.1 Microbiology 03/21/19 C. difficile GDH Antigen & Toxins - Final, Complete 03/20/19 Influenza Types A,B Antigen (MATEUSZ) - Final, Complete Assessment/Plan Assessment/Plan Assessment and Plan 03/22/19- EGD, colonoscopy did not show any active bleeding besides gastritis, esophagitis/ulcer and irritation of anastomosis- suspect metastatic colon cancer in his groin lymph nodes and abdominal mass. -s/p 3 units of pRBC this admission; monitoring hgb. 03/23/2019- LLQ mass to be further evaluated- Surgery, heme/onc is following along. Appears he is losing more blood via GI than his bone marrow is producing. Surgery to get a sample of the mass to find out if it is reoccurrence/mets colon cancer. Dispo: guarded. Dr. Mello will return to cover 03/24/2019 Problems: (1) Iron (Fe) deficiency anemia Qualifiers: Qualified Codes: D50.8 - Other iron deficiency anemias (2) Anemia of chronic disease (3) Colon cancer (4) Hypertension Qualifiers: Qualified Codes: I10 - Essential (primary) hypertension Assessment & Plan: continue current regimen Clinical Quality Measures DVT/VTE Risk/Contraindication: Risk Factor Score Per Nursin RFS Level Per Nursing on Admit: 4+=Very High Contraindications-Pharm: Other *list below* Contraindications-Mechi: Other *list below* ZOILA ORTEGA MD Mar 23, 2019 08:10
[2019-03-23] MEDS: lisINopril 20 MG (PRINIVIL) TABLET PO SCH (08:23)
[2019-03-23] MEDS: DIGOXIN 0.25 MG (LANOXIN) TAB PO SCH (08:23)
[2019-03-23] MEDS: LORATADINE (CLARITIN) 10 MG TAB PO SCH (08:23)
[2019-03-23] MEDS: FUROSEMIDE 20 MG (LASIX) TAB PO SCH (08:24)
[2019-03-23 11:42] VITALS: BP 121/58
--- NOTE | 2019-03-23 13:10 | Progress Note - Surgery ---
Subjective Time Seen by a Provider: 12:01 Subjective/Events-last exam Pt seen and examined, no new complaints and states he feels better but still has pain at the lump. Review of Systems General: No Chills, No Night Sweats Pulmonary: No Dyspnea, No Cough Cardiovascular: No: Chest Pain Gastrointestinal: No: Nausea, Vomiting Objective Exam Vital Signs Date Time Temp Pulse Resp B/P (MAP) Pulse Ox O2 Delivery O2 Flow Rate FiO2 03/23/19 11:42 37.2 65 18 121/58 (79) 94 Room Air 03/23/19 09:06 94 Room Air 03/23/19 09:00 94 Room Air 8.00 03/23/19 07:41 37.1 77 20 131/67 (88) 94 Room Air 03/23/19 04:00 37.2 58 16 111/53 (72) 94 Room Air 03/23/19 00:00 37.5 67 18 108/46 (66) 94 Room Air 03/22/19 21:00 Room Air 03/22/19 20:00 37.8 80 20 125/65 (85) 93 Room Air 03/22/19 16:00 37.4 67 18 112/66 (81) 96 Room Air I & O 03/23/19 07:00 Intake Total 1310 ml Balance 1310 ml Capillary Refill : Less Than 3 Seconds General Appearance: No Apparent Distress, Thin HEENT: Moist Mucous Membranes Respiratory: Lungs Clear, Normal Breath Sounds, No Accessory Muscle Use Cardiovascular: Regular Rate, Rhythm, No Murmur Gastrointestinal: non tender (in abdomen), soft, no organomegaly, tenderness (in the LLQ with palpation over mass) Extremity: Normal Capillary Refill, Normal Inspection, Normal Range of Motion Neurologic/Psychiatric: Alert, Oriented x3, Normal Mood/Affect Results Lab Laboratory Tests 03/23/19 04:35: White Blood Count 5.8, Red Blood Count 3.11L, Hemoglobin 8.1L, Hematocrit 27L, Mean Corpuscular Volume 85, Mean Corpuscular Hemoglobin 26, Mean Corpuscular Hemoglobin Concent 31L, Red Cell Distribution Width 18.3H, Platelet Count 195, Mean Platelet Volume 10.4, Neutrophils (%) (Auto) 55, Lymphocytes (%) (Auto) 23, Monocytes (%) (Auto) 14H, Eosinophils (%) (Auto) 7, Basophils (%) (Auto) 1, Neutrophils # (Auto) 3.2, Lymphocytes # (Auto) 1.3, Monocytes # (Auto) 0.8, Eosinophils # (Auto) 0.4H, Basophils # (Auto) 0.1 Microbiology 03/21/19 C. difficile GDH Antigen & Toxins - Final, Complete 03/20/19 Influenza Types A,B Antigen (MATEUSZ) - Final, Complete Assessment/Plan Assessment/Plan Assessment/Plan Esophageal Ulcers Irritation at [place]-entero anastomosis Anemia - probably due to above LLQ mass I asked pt about getting a core biopsy at the bedside to send to pathology; he asked to please do it tomorrow, so we will plan that. Pt encouraged to increase PO intake, ambulate and may benefit from an Iron Transfusion. Ulcers are most likely cause of his anemia and he is on a soft diet, plus will add carafate and protonix. Clinical Quality Measures DVT/VTE Risk/Contraindication: Risk Factor Score Per Nursin RFS Level Per Nursing on Admit: 4+=Very High Contraindications-Pharm: Other *list below* Contraindications-Mechi: Other *list below* CARLOS BROCK DO Mar 23, 2019 13:10
[2019-03-23] MEDS: PANTOPRAZOLE 40 MG (PROTONIX) VIAL IV SCH (13:38)
[2019-03-23] MEDS: SUCRALFATE 1 GM (CARAFATE) TAB PO SCH ×2 (15:52→20:47)
[2019-03-23 16:00] VITALS: BP 119/58
[2019-03-23 20:00] VITALS: BP 114/56
[2019-03-23] MEDS: HYDROcodone/APAP 5 MG/325 MG (LORTAB) TAB PO PRN (20:47)
[2019-03-23] MEDS: SIMvastatin 20 MG (ZOCOR) TAB PO SCH (20:47)
[2019-03-24] VITALS: BP 128/61
[2019-03-24 04:00] VITALS: BP 129/60
[2019-03-24] MEDS: SUCRALFATE 1 GM (CARAFATE) TAB PO SCH ×4 (05:44→21:34)
--- NOTE | 2019-03-24 07:25 | Progress Note ---
Subjective Time Seen by a Provider: 07:19 Subjective/Events-last exam I spoke to patient today about the abdominal mass. Patient states if it is malignant he's willing to have surgery. Patient looks good this morning. Patient to have procedure done today Objective Exam Vital Signs Date Time Temp Pulse Resp B/P (MAP) Pulse Ox O2 Delivery O2 Flow Rate FiO2 03/24/19 04:00 37.8 65 18 129/60 (83) 92 Room Air 03/24/19 00:00 37.6 68 18 128/61 (83) 92 Room Air 03/23/19 23:30 Room Air 03/23/19 21:00 Room Air 03/23/19 20:00 37.5 63 18 114/56 (75) 93 Room Air 03/23/19 16:00 37.3 67 18 119/58 (78) 92 Room Air 03/23/19 11:42 37.2 65 18 121/58 (79) 94 Room Air 03/23/19 09:06 94 Room Air 03/23/19 09:00 94 Room Air 8.00 03/23/19 07:41 37.1 77 20 131/67 (88) 94 Room Air I & O 03/24/19 07:00 Intake Total 1300 ml Balance 1300 ml Capillary Refill : Less Than 3 Seconds General Appearance: No Apparent Distress, Thin HEENT: Normal ENT Inspection Neck: Full Range of Motion, Normal Inspection Respiratory: No Accessory Muscle Use, No Respiratory Distress Cardiovascular: Regular Rate, Rhythm, No Murmur Gastrointestinal: soft, mass Results Lab Microbiology 03/21/19 C. difficile GDH Antigen & Toxins - Final, Complete 03/20/19 Influenza Types A,B Antigen (MATEUSZ) - Final, Complete Assessment/Plan Assessment/Plan Assess & Plan/Chief Complaint Severe anemia. Weakness. Occult blood positive. Elevated CEA.. . 03/24/2019. Right lung nodule. Abdominal mass. History of colon cancer. Hypertension. Gastritis. Peripheral artery disease. Esophagitis. For ulcer. Patient to have procedure today and is malignant willing to have surgery Clinical Quality Measures Admission Status Admission Dx Anemia severe. Abdominal mass. Elevated CEA. Peripheral artery disease DVT/VTE Risk/Contraindication: Risk Factor Score Per Nursin RFS Level Per Nursing on Admit: 4+=Very High Contraindications-Pharm: Other *list below* Contraindications-Mechi: Other *list below* ROSY CLANCY DO Mar 24, 2019 07:25
--- NOTE | 2019-03-24 08:20 | Progress Note - Surgery ---
[facility] 03/24/19 0820: Subjective Date Seen by a Provider: Mar 24, 2019 Time Seen by a Provider: 07:15 Subjective/Events-last exam Patient seen and examined. Patient states that he is doing much better and only complains of the LLQ mass. Review of Systems General: No Chills, No Other (fevers) HEENT: No Eye Pain, No Ear Pain Pulmonary: No Dyspnea, No Cough Cardiovascular: No: Chest Pain, Palpitations Gastrointestinal: Abdominal Pain (LLQ mass); No: Nausea, Vomiting Objective Exam Vital Signs Date Time Temp Pulse Resp B/P (MAP) Pulse Ox O2 Delivery O2 Flow Rate FiO2 03/24/19 04:00 37.8 65 18 129/60 (83) 92 Room Air 03/24/19 00:00 37.6 68 18 128/61 (83) 92 Room Air 03/23/19 23:30 Room Air 03/23/19 21:00 Room Air 03/23/19 20:00 37.5 63 18 114/56 (75) 93 Room Air 03/23/19 16:00 37.3 67 18 119/58 (78) 92 Room Air 03/23/19 11:42 37.2 65 18 121/58 (79) 94 Room Air 03/23/19 09:06 94 Room Air 03/23/19 09:00 94 Room Air 8.00 I & O 03/24/19 07:00 Intake Total 1300 ml Balance 1300 ml Capillary Refill : Less Than 3 Seconds General Appearance: No Apparent Distress, Thin Neck: Non Tender Respiratory: Chest Non Tender, Lungs Clear, Normal Breath Sounds, No Accessory Muscle Use, No Respiratory Distress Cardiovascular: Regular Rate, Rhythm, No Murmur, Normal Peripheral Pulses (2/4 radila pulse bilaterally) Gastrointestinal: soft; No distended; mass (LLQ) Extremity: No Calf Tenderness Neurologic/Psychiatric: Alert, Oriented x3, Normal Mood/Affect Skin: Normal Color, Warm/Dry Results Lab Microbiology 03/21/19 C. difficile GDH Antigen & Toxins - Final, Complete 03/20/19 Influenza Types A,B Antigen (MATEUSZ) - Final, Complete Assessment/Plan Assessment/Plan Assessment/Plan LLQ mass will be biopsied today at bedside. Will send to pathology for a pathology report Clinical Quality Measures DVT/VTE Risk/Contraindication: Risk Factor Score Per Nursin RFS Level Per Nursing on Admit: 4+=Very High Contraindications-Pharm: Other *list below* Contraindications-Mechi: Other *list below* CARLOS TONG DO 03/25/19 0935: Subjective Time Seen by a Provider: 15:59 Subjective/Events-last exam Pt seen and examined, states he is ready for biopsy today. No complaints. Objective Exam General Appearance: No Apparent Distress, Thin Respiratory: Lungs Clear, Normal Breath Sounds, No Accessory Muscle Use Cardiovascular: Regular Rate, Rhythm, No Murmur Gastrointestinal: soft; No distended; tenderness (at mass), mass (LLQ) Assessment/Plan Assessment/Plan Assessment/Plan LLQ mass True cut bx at bedside, consent obtained and discussed procedure with pt (risks and complications not limited to pain, bleeding, infection, scar and need for further procedure). Supervisory-Addendum Brief Verification & Attestation Participated in pt care: history, MDM, physical Personally performed: exam, history, MDM Care discussed with: Medical Student Procedures: n/a Verification and Attestation of Medical Student E/M Service A medical student performed and documented this service in my presence. I reviewed and verified all information documented by the medical student and made modifications to such information, when appropriate. I personally performed the physical exam and medical decision making. Carlos Tong, Mar 25, 2019,09:35 [facility] [employer] Mar 24, 2019 08:20 CARLOS TONG DO Mar 25, 2019 09:35
[2019-03-24 08:25] LABS: HEMOGLOBIN 9.3 G/DL (13.3-17.7); MEAN PLATELET VOLUME 10.2 FL (7.4-10.4); RED CELL DISTRIBUTION WIDTH 19.3 % (10.0-14.5); WHITE BLOOD COUNT 7.7 10^3/uL (4.3-11.0)
[2019-03-24 08:27] VITALS: BP 105/47
[2019-03-24 08:45] LABS: CALCIUM 8.3 MG/DL (8.5-10.1); CREATININE SERUM 1.23 MG/DL (0.60-1.30); POTASSIUM 4.4 MMOL/L (3.6-5.0)
[2019-03-24] MEDS: PANTOPRAZOLE 40 MG (PROTONIX) VIAL IV SCH (09:37)
[2019-03-24] MEDS: lisINopril 20 MG (PRINIVIL) TABLET PO SCH (09:38)
[2019-03-24] MEDS: LORATADINE (CLARITIN) 10 MG TAB PO SCH (09:38)
[2019-03-24] MEDS: FUROSEMIDE 20 MG (LASIX) TAB PO SCH (09:38)
[2019-03-24] MEDS: DIGOXIN 0.25 MG (LANOXIN) TAB PO SCH (09:41)
[2019-03-24 12:00] VITALS: BP 114/53
[2019-03-24] MEDS ORDERED: LIDOCAINE 1% INJ 20 ML 20 ML VIAL ONE (15:46)
[2019-03-24 16:00] VITALS: BP 126/59
--- NOTE | 2019-03-24 18:12 | Progress Note ---
Standard Progress Note Progress Notes/Assess & Plan Date Seen by a Provider: Mar 24, 2019 Time Seen by a Provider: 18:08 Progress/Assessment & Plan 89-year-old male admitted with symptomatic anemia, status post transfusion with 3 units of packed red blood cells with improvement in blood counts. Patient required blood transfusion in late January and mid February with positive Hemoccult test. He has previous history of colon cancer stage III-IV and underwent right hemicolectomy in September 2017. No adjuvant treatment or oncology follow-up. Currently has a left lower abdominal wall mass. Completed CT scan which showed solitary lung nodule, left lower abdominal wall mass and left inguinal lymph node raising possibility of metastatic disease. Patient completed needle biopsy of left lower abdominal wall mass this evening for tissue diagnosis. Will await pathology results before making any recommendations. PAPO MATHEW Mar 24, 2019 18:12
[2019-03-24 20:00] VITALS: BP 112/58
[2019-03-24] MEDS: SIMvastatin 20 MG (ZOCOR) TAB PO SCH (21:34)
[2019-03-25 00:10] VITALS: BP 128/61
[2019-03-25 04:10] VITALS: BP 121/54
[2019-03-25] MEDS: SUCRALFATE 1 GM (CARAFATE) TAB PO SCH ×2 (05:27→12:19)
[2019-03-25 05:31] LABS: MEAN PLATELET VOLUME 10.4 FL (7.4-10.4); WHITE BLOOD COUNT 6.5 10^3/uL (4.3-11.0)
[2019-03-25 05:52] LABS: BUN/CREATININE RATIO 26; CALCIUM 7.9 MG/DL (8.5-10.1); CARBON DIOXIDE 27 MMOL/L (21-32); CHLORIDE 106 MMOL/L (98-107); CREATININE SERUM 1.03 MG/DL (0.60-1.30); GFR ESTIMATED > 60; GLUCOSE 85 MG/DL (70-105); POTASSIUM 4.4 MMOL/L (3.6-5.0); SODIUM 140 MMOL/L (135-145)
[2019-03-25 07:52] VITALS: BP 115/54
[2019-03-25] MEDS: LORATADINE (CLARITIN) 10 MG TAB PO SCH (08:23)
[2019-03-25] MEDS: DIGOXIN 0.25 MG (LANOXIN) TAB PO SCH (08:24)
[2019-03-25] MEDS: lisINopril 20 MG (PRINIVIL) TABLET PO SCH (08:24)
[2019-03-25] MEDS: FUROSEMIDE 20 MG (LASIX) TAB PO SCH (08:24)
[2019-03-25] MEDS: PANTOPRAZOLE 40 MG (PROTONIX) VIAL IV SCH (08:24)
--- NOTE | 2019-03-25 08:27 | Progress Note ---
Subjective Time Seen by a Provider: 08:24 Subjective/Events-last exam Patient had pain last night where had the biopsy. Patient's hemoglobin 8 this a.m. Patient to receive another unit of blood today Objective Exam Vital Signs Date Time Temp Pulse Resp B/P (MAP) Pulse Ox O2 Delivery O2 Flow Rate FiO2 03/25/19 07:52 37.0 69 18 115/54 (74) 96 Room Air 03/25/19 04:10 37.0 67 18 121/54 (76) 93 Room Air 03/25/19 00:10 37.2 69 16 128/61 (83) 94 Room Air 03/24/19 20:15 95 Room Air 03/24/19 20:00 37.6 63 20 112/58 (76) 95 Room Air 03/24/19 18:25 Room Air 03/24/19 16:00 37.6 61 18 126/59 (81) 94 Room Air 03/24/19 12:00 37.4 61 20 114/53 (73) 98 Room Air 03/24/19 09:45 Room Air 03/24/19 08:27 37.1 66 20 105/47 (66) 96 Room Air I & O 03/25/19 07:00 Intake Total 1240 ml Balance 1240 ml Capillary Refill : Less Than 3 Seconds General Appearance: No Apparent Distress, Thin HEENT: Normal ENT Inspection Neck: Full Range of Motion, Normal Inspection Respiratory: Lungs Clear, No Accessory Muscle Use, No Respiratory Distress Cardiovascular: Regular Rate, Rhythm Gastrointestinal: tenderness Results Lab Laboratory Tests 03/25/19 04:50 Laboratory Tests 03/25/19 04:50: White Blood Count 6.5, Red Blood Count 3.05L, Hemoglobin 8.0L, Hematocrit 26L, Mean Corpuscular Volume 87, Mean Corpuscular Hemoglobin 26, Mean Corpuscular Hemoglobin Concent 30L, Red Cell Distribution Width 19.0H, Platelet Count 170, Mean Platelet Volume 10.4, Sodium Level 140, Potassium Level 4.4, Chloride Level 106, Carbon Dioxide Level 27, Anion Gap 7, Blood Urea Nitrogen 27H, Creatinine 1.03, Estimat Glomerular Filtration Rate > 60, BUN/Creatinine Ratio 26, Glucose Level 85, Calcium Level 7.9L Microbiology 03/21/19 C. difficile GDH Antigen & Toxins - Final, Complete 03/20/19 Influenza Types A,B Antigen (MATEUSZ) - Final, Complete Assessment/Plan Assessment/Plan Assess & Plan/Chief Complaint Severe anemia. Weakness. Occult blood positive. Elevated CEA.. . 03/24/2019. Right lung nodule. Abdominal mass. History of colon cancer. Hypertension. Gastritis. Peripheral artery disease. Esophagitis. For ulcer. Patient to have procedure today and is malignant willing to have surgery. . 03/25/2019. Abdominal mass. Right lung nodule. History of colon cancer. Hypertension. Peripheral artery disease. Patient had biopsy yesterday. Hemoglobin 8 this a.m. Patient to receive a unit of blood today Clinical Quality Measures Admission Status Admission Dx Anemia severe. Abdominal mass. Elevated CEA. Peripheral artery disease DVT/VTE Risk/Contraindication: Risk Factor Score Per Nursin RFS Level Per Nursing on Admit: 4+=Very High Contraindications-Pharm: Other *list below* Contraindications-Mechi: Other *list below* ROSY CLANCY DO Mar 25, 2019 08:27
--- NOTE | 2019-03-25 08:59 | Progress Note - Surgery ---
Subjective Date Seen by a Provider: Mar 25, 2019 Time Seen by a Provider: 08:30 Subjective/Events-last exam Patient experience an episode of abdominal pain while he was sleeping. Patient believes he possibly touched the Mass in his LLQ causing him pain for 4-5 minutes. Patient does not report any other symptoms at this time. He is curious about the Biopsy results and wants Dr. Tong to perform the surgery if possible. Dr. Tong Pt seen and examined at 11:27. State he is doing better now, no abdominal pain. Review of Systems General: No Chills, No Other (fevers) Pulmonary: No Dyspnea, No Cough Cardiovascular: No: Chest Pain, Edema Gastrointestinal: Abdominal Pain; No: Nausea, Vomiting Objective Exam Vital Signs Date Time Temp Pulse Resp B/P (MAP) Pulse Ox O2 Delivery O2 Flow Rate FiO2 03/25/19 07:52 37.0 69 18 115/54 (74) 96 Room Air 03/25/19 04:10 37.0 67 18 121/54 (76) 93 Room Air 03/25/19 00:10 37.2 69 16 128/61 (83) 94 Room Air 03/24/19 20:15 95 Room Air 03/24/19 20:00 37.6 63 20 112/58 (76) 95 Room Air 03/24/19 18:25 Room Air 03/24/19 16:00 37.6 61 18 126/59 (81) 94 Room Air 03/24/19 12:00 37.4 61 20 114/53 (73) 98 Room Air 03/24/19 09:45 Room Air I & O 03/25/19 07:00 Intake Total 1240 ml Balance 1240 ml Capillary Refill : Less Than 3 Seconds General Appearance: No Apparent Distress, Thin Respiratory: Chest Non Tender, Lungs Clear, Normal Breath Sounds, No Accessory Muscle Use, No Respiratory Distress Cardiovascular: Regular Rate, Rhythm, No Murmur, Normal Peripheral Pulses (2/4 radial pulse bilaterally) Gastrointestinal: soft; No distended; tenderness (LLQ), mass (LLQ) Extremity: No Calf Tenderness Neurologic/Psychiatric: Alert, Oriented x3, Normal Mood/Affect Skin: Normal Color, Warm/Dry Results Lab Laboratory Tests 03/25/19 04:50: White Blood Count 6.5, Red Blood Count 3.05L, Hemoglobin 8.0L, Hematocrit 26L, Mean Corpuscular Volume 87, Mean Corpuscular Hemoglobin 26, Mean Corpuscular Hemoglobin Concent 30L, Red Cell Distribution Width 19.0H, Platelet Count 170, Mean Platelet Volume 10.4, Sodium Level 140, Potassium Level 4.4, Chloride Level 106, Carbon Dioxide Level 27, Anion Gap 7, Blood Urea Nitrogen 27H, Creatinine 1.03, Estimat Glomerular Filtration Rate > 60, BUN/Creatinine Ratio 26, Glucose Level 85, Calcium Level 7.9L Microbiology 03/21/19 C. difficile GDH Antigen & Toxins - Final, Complete 03/20/19 Influenza Types A,B Antigen (MATEUSZ) - Final, Complete Assessment/Plan Assessment/Plan Assessment/Plan LLQ mass. Anemia Abdominal pain. Waiting for the biopsy results at this time to decide the next step in care for Mr. Mcguire. Dr. Tong Ok for pt to go home and follow up in my clinic to go over biopsy and plan surgery. He had no questions. Clinical Quality Measures DVT/VTE Risk/Contraindication: Risk Factor Score Per Nursin RFS Level Per Nursing on Admit: 4+=Very High Contraindications-Pharm: Other *list below* Contraindications-Mechi: Other *list below* Supervisory-Addendum Brief Verification & Attestation Participated in pt care: history, MDM, physical Personally performed: exam, history, MDM Care discussed with: Medical Student Procedures: n/a Verification and Attestation of Medical Student E/M Service A medical student performed and documented this service in my presence. I reviewed and verified all information documented by the medical student and made modifications to such information, when appropriate. I personally performed the physical exam and medical decision making. Erasmo Tong, Mar 25, 2019,14:23 DUNG BURNETT Mar 25, 2019 08:59 ERASMO TONG DO Mar 25, 2019 14:23
--- NOTE | 2019-03-25 09:36 | Progress Note-Post Operative ---
Post-Operative Progess Note Surgeon (s)/Knitted Garment Finisher (s) Surgeon CARLOS BROCK DO Knitted Garment Finisher: none Pre-Operative Diagnosis LLQ mass Post-Operative Diagnosis same pending path Procedure & Operative Findings Date of Procedure 03/24/19 Procedure Performed/Findings True cut needle biopsy Anesthesia Type Local lidocaine Estimated Blood Loss Estimated blood loss (mL): scant Specimens/Packing Specimens Removed bx of LLQ mass CARLOS BROCK DO Mar 25, 2019 09:36
[2019-03-25 11:26] VITALS: BP 120/43
[2019-03-25 14:50] VITALS: BP 120/43
--- NOTE | 2019-03-26 06:28 | Discharge Summary ---
Diagnosis/Chief Complaint Date of Admission Mar 20, 2019 at 19:09 Date of Discharge Mar 25, 2019 at 15:05 Discharge Time: 06:24 Discharge Diagnosis Abnormal weight loss. 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 Coronary artery disease. DO NOT RESUSCITATE. Hypertensive heart disease. Severe anemia. Left lower quadrant abdominal mass. Peripheral artery disease. History of cancer of the colon. History of cancer prostate. History of nicotine dependence. Hyperlipidemia. Right middle lobe pulmonary nodule. Asthma. Moderately differentiated colonic adenocarcinoma. Severe anemia Reason Hospital Visit I received a call from patient's stating that he is too weak to get around patient sent out to the emergency room. Patient's hemoglobin 6.2 hematocrit 22. Patient has a weight loss of 40 pounds recently. Patient has an elevated CEA of 6.3. Patient has a history of atrial fibrillation. Patient has history of peripheral artery disease with amputation of the left big toe. Patient also has asthma and needs his albuterol Discharge Summary Procedures Surgeon biopsies Consultations Surgeon. Oncologist Discharge Physical Examination Allergies: Coded Allergies: shellfish derived (Verified Allergy, Severe, HIVES/SWELLING, 06/25/17) Vitals & I&Os Vital Signs Date Time Temp Pulse Resp B/P (MAP) Pulse Ox O2 Delivery O2 Flow Rate FiO2 03/25/19 14:50 37.0 59 18 120/43 92 Room Air 03/23/19 09:00 8.00 Hospital Course Patient hospital did okay. Patient to follow up by me in office. Patient to follow-up with surgeon. Patient to follow-up with oncologist Labs (last 24 hrs) Laboratory Tests 03/20/19 11:15: White Blood Count 7.3, Red Blood Count 2.59L, Hemoglobin 6.2*L, Hematocrit 22L, Mean Corpuscular Volume 83, Mean Corpuscular Hemoglobin 24L, Mean Corpuscular Hemoglobin Concent 29L, Red Cell Distribution Width 20.5H, Platelet Count 311, Mean Platelet Volume 10.1, Neutrophils (%) (Auto) 76H, Lymphocytes (%) (Auto) 13, Monocytes (%) (Auto) 10, Eosinophils (%) (Auto) 1, Basophils (%) (Auto) 1, Neutrophils # (Auto) 5.5, Lymphocytes # (Auto) 0.9L, Monocytes # (Auto) 0.7, Eosinophils # (Auto) 0.0, Basophils # (Auto) 0.1, Sodium Level 141, Potassium Level 4.4, Chloride Level 109H, Carbon Dioxide Level 24, Anion Gap 8, Blood Urea Nitrogen 36H, Creatinine 1.31H, Estimat Glomerular Filtration Rate 52, BUN/Creatinine Ratio 27, Glucose Level 126H, Calcium Level 8.5, Corrected Calcium 9.2, Total Bilirubin 0.2, Aspartate Amino Transf (AST/SGOT) 17, Alanine Aminotransferase (ALT/SGPT) 11, Alkaline Phosphatase 76, B-Type Natriuretic Peptide 356.1H, Total Protein 6.7, Albumin 3.1L 03/20/19 12:14: Urine Color YELLOW, Urine Clarity CLEAR, Urine pH 5.0, Urine Specific Burton 1.015L, Urine Protein NEGATIVE, Urine Glucose (UA) NEGATIVE, Urine Ketones NEGATIVE, Urine Nitrite NEGATIVE, Urine Bilirubin NEGATIVE, Urine Urobilinogen 0.2, Urine Leukocyte Esterase NEGATIVE, Urine RBC (Auto) NEGATIVE, Urine RBC NONE, Urine WBC NONE, Urine Squamous Epithelial Cells NONE, Urine Crystals NONE, Urine Bacteria NEGATIVE, Urine Casts PRESENT, Urine Hyaline Casts RARE, Urine Mucus NEGATIVE, Urine Culture Indicated NO 03/21/19 05:30: White Blood Count 5.9, Red Blood Count 2.98L, Hemoglobin 7.6#L, Hematocrit 25L, Mean Corpuscular Volume 83, Mean Corpuscular Hemoglobin 26, Mean Corpuscular Hemoglobin Concent 31L, Red Cell Distribution Width 17.7H, Platelet Count 225, Mean Platelet Volume 10.1, Neutrophils (%) (Auto) 70, Lymphocytes (%) (Auto) 13, Monocytes (%) (Auto) 12, Eosinophils (%) (Auto) 4, Basophils (%) (Auto) 1, Neutrophils # (Auto) 4.1, Lymphocytes # (Auto) 0.8L, Monocytes # (Auto) 0.7, Eosinophils # (Auto) 0.2, Basophils # (Auto) 0.1, Sodium Level 139, Potassium Level 4.1, Chloride Level 111H, Carbon Dioxide Level 21, Anion Gap 7, Blood Urea Nitrogen 31H, Creatinine 1.01, Estimat Glomerular Filtration Rate > 60, BUN/Creatinine Ratio 31, Glucose Level 86, Calcium Level 7.9L, Iron Level 306H, Total Iron Binding Capacity 376, Unsaturated Iron Binding Capacity 70, Transferrin % Saturation 81H, Ferritin 10.4L, Carcinoembryonic Antigen 4.2 03/21/19 11:55: Stool Occult Blood Immunoassay POSITIVEH 03/22/19 05:37: White Blood Count 6.2, Red Blood Count 3.26L, Hemoglobin 8.4L, Hematocrit 28L, Mean Corpuscular Volume 84, Mean Corpuscular Hemoglobin 26, Mean Corpuscular Hemoglobin Concent 31L, Red Cell Distribution Width 18.3H, Platelet Count 200, Mean Platelet Volume 10.2, Sodium Level 143, Potassium Level 3.6, Chloride Level 115H, Carbon Dioxide Level 21, Anion Gap 7, Blood Urea Nitrogen 22H, Creatinine 0.87, Estimat Glomerular Filtration Rate > 60, BUN/Creatinine Ratio 25, Glucose Level 72, Calcium Level 7.9L, Corrected Calcium 8.9, Total Bilirubin 0.4, Aspartate Amino Transf (AST/SGOT) 18, Alanine Aminotransferase (ALT/SGPT) 13, Alkaline Phosphatase 73, Total Protein 5.5L, Albumin 2.7L 03/23/19 04:35: White Blood Count 5.8, Red Blood Count 3.11L, Hemoglobin 8.1L, Hematocrit 27L, Mean Corpuscular Volume 85, Mean Corpuscular Hemoglobin 26, Mean Corpuscular Hemoglobin Concent 31L, Red Cell Distribution Width 18.3H, Platelet Count 195, Mean Platelet Volume 10.4, Neutrophils (%) (Auto) 55, Lymphocytes (%) (Auto) 23, Monocytes (%) (Auto) 14H, Eosinophils (%) (Auto) 7, Basophils (%) (Auto) 1, Neutrophils # (Auto) 3.2, Lymphocytes # (Auto) 1.3, Monocytes # (Auto) 0.8, Eosinophils # (Auto) 0.4H, Basophils # (Auto) 0.1 03/24/19 08:00: White Blood Count 7.7, Red Blood Count 3.61L, Hemoglobin 9.3L, Hematocrit 31L, Mean Corpuscular Volume 86, Mean Corpuscular Hemoglobin 26, Mean Corpuscular Hemoglobin Concent 30L, Red Cell Distribution Width 19.3H, Platelet Count 232, Mean Platelet Volume 10.2, Sodium Level 142, Potassium Level 4.4, Chloride Level 110H, Carbon Dioxide Level 24, Anion Gap 8, Blood Urea Nitrogen 25H, Creatinine 1.23, Estimat Glomerular Filtration Rate 56, BUN/Creatinine Ratio 20, Glucose Level 123H, Calcium Level 8.3L 03/25/19 04:50: White Blood Count 6.5, Red Blood Count 3.05L, Hemoglobin 8.0L, Hematocrit 26L, Mean Corpuscular Volume 87, Mean Corpuscular Hemoglobin 26, Mean Corpuscular Hemoglobin Concent 30L, Red Cell Distribution Width 19.0H, Platelet Count 170, Mean Platelet Volume 10.4, Sodium Level 140, Potassium Level 4.4, Chloride Level 106, Carbon Dioxide Level 27, Anion Gap 7, Blood Urea Nitrogen 27H, Creatinine 1.03, Estimat Glomerular Filtration Rate > 60, BUN/Creatinine Ratio 26, Glucose Level 85, Calcium Level 7.9L Microbiology 03/21/19 C. difficile GDH Antigen & Toxins - Final, Complete 03/20/19 Influenza Types A,B Antigen (MATEUSZ) - Final, Complete Laboratory Tests 03/20/19 11:15 03/21/19 05:30 03/22/19 05:37 03/23/19 04:35 03/24/19 08:00 03/25/19 04:50 Pending Labs Microbiology Date/Time Source Procedure Growth Status 03/21/19 11:55 Stool C. difficile GDH Antigen & Toxins - Final Complete 03/20/19 11:20 Nasopharynx Influenza Types A,B Antigen (MATEUSZ) - Final Complete Laboratory Tests 03/20/19 11:15: White Blood Count 7.3, Red Blood Count 2.59, Hemoglobin 6.2, Hematocrit 22, Mean Corpuscular Volume 83, Mean Corpuscular Hemoglobin 24, Mean Corpuscular Hemoglobin Concent 29, Red Cell Distribution Width 20.5, Platelet Count 311, Mean Platelet Volume 10.1, Neutrophils (%) (Auto) 76, Lymphocytes (%) (Auto) 13, Monocytes (%) (Auto) 10, Eosinophils (%) (Auto) 1, Basophils (%) (Auto) 1, Neutrophils # (Auto) 5.5, Lymphocytes # (Auto) 0.9, Monocytes # (Auto) 0.7, Eosinophils # (Auto) 0.0, Basophils # (Auto) 0.1, Sodium Level 141, Potassium Level 4.4, Chloride Level 109, Carbon Dioxide Level 24, Anion Gap 8, Blood Urea Nitrogen 36, Creatinine 1.31, Estimat Glomerular Filtration Rate 52, BUN/Creati nine Ratio 27, Glucose Level 126, Calcium Level 8.5, Corrected Calcium 9.2, Total Bilirubin 0.2, Aspartate Amino Transf (AST/SGOT) 17, Alanine Aminotransferase (ALT/SGPT) 11, Alkaline Phosphatase 76, B-Type Natriuretic Peptide 356.1, Total Protein 6.7, Albumin 3.1 03/20/19 12:14: Urine Color YELLOW, Urine Clarity CLEAR, Urine pH 5.0, Urine Specific Burton 1.015, Urine Protein NEGATIVE, Urine Glucose (UA) NEGATIVE, Urine Ketones NEGATIVE, Urine Nitrite NEGATIVE, Urine Bilirubin NEGATIVE, Urine Urobilinogen 0.2, Urine Leukocyte Esterase NEGATIVE, Urine RBC (Auto) NEGATIVE, Urine RBC NONE, Urine WBC NONE, Urine Squamous Epithelial Cells NONE, Urine Crystals NONE, Urine Bacteria NEGATIVE, Urine Casts PRESENT, Urine Hyaline Casts RARE, Urine Mucus NEGATIVE, Urine Culture Indicated NO 03/21/19 05:30: White Blood Count 5.9, Red Blood Count 2.98, Hemoglobin 7.6, Hematocrit 25, Mean Corpuscular Volume 83, Mean Corpuscular Hemoglobin 26, Mean Corpuscular Hemoglobin Concent 31, Red Cell Distribution Width 17.7, Platelet Count 225, Mean Platelet Volume 10.1, Neutrophils (%) (Auto) 70, Lymphocytes (%) (Auto) 13, Monocytes (%) (Auto) 12, Eosinophils (%) (Auto) 4, Basophils (%) (Auto) 1, Neutrophils # (Auto) 4.1, Lymphocytes # (Auto) 0.8, Monocytes # (Auto) 0.7, Eosinophils # (Auto) 0.2, Basophils # (Auto) 0.1, Sodium Level 139, Potassium Level 4.1, Chloride Level 111, Carbon Dioxide Level 21, Anion Gap 7, Blood Urea Nitrogen 31, Creatinine 1.01, Estimat Glomerular Filtration Rate > 60, BUN/Creatinine Ratio 31, Glucose Level 86, Calcium Level 7.9, Iron Level 306, Total Iron Binding Capacity 376, Unsaturated Iron Binding Capacity 70, Transferrin % Saturation 81, Ferritin 10.4, Carcinoembryonic Antigen 4.2 03/21/19 11:55: Stool Occult Blood Immunoassay POSITIVE 03/22/19 05:37: White Blood Count 6.2, Red Blood Count 3.26, Hemoglobin 8.4, Hematocrit 28, Mean Corpuscular Volume 84, Mean Corpuscular Hemoglobin 26, Mean Corpuscular Hemoglobin Concent 31, Red Cell Distribution Width 18.3, Platelet Count 200, Mean Platelet Volume 10.2, Sodium Level 143, Potassium Level 3.6, Chloride Level 115, Carbon Dioxide Level 21, Anion Gap 7, Blood Urea Nitrogen 22, Creatinine 0.87, Estimat Glomerular Filtration Rate > 60, BUN/Creatinine Ratio 25, Glucose Level 72, Calcium Level 7.9, Corrected Calcium 8.9, Total Bilirubin 0.4, Aspartate Amino Transf (AST/SGOT) 18, Alanine Aminotransferase (ALT/SGPT) 13, Alkaline Phosphatase 73, Total Protein 5.5, Albumin 2.7 03/23/19 04:35: White Blood Count 5.8, Red Blood Count 3.11, Hemoglobin 8.1, Hematocrit 27, Mean Corpuscular Volume 85, Mean Corpuscular Hemoglobin 26, Mean Corpuscular Hemoglobin Concent 31, Red Cell Distribution Width 18.3, Platelet Count 195, Mean Platelet Volume 10.4, Neutrophils (%) (Auto) 55, Lymphocytes (%) (Auto) 23, Monocytes (%) (Auto) 14, Eosinophils (%) (Auto) 7, Basophils (%) (Auto) 1, Neutrophils # (Auto) 3.2, Lymphocytes # (Auto) 1.3, Monocytes # (Auto) 0.8, Eosinophils # (Auto) 0.4, Basophils # (Auto) 0.1 03/24/19 08:00: White Blood Count 7.7, Red Blood Count 3.61, Hemoglobin 9.3, Hematocrit 31, Mean Corpuscular Volume 86, Mean Corpuscular Hemoglobin 26, Mean Corpuscular Hemoglobin Concent 30, Red Cell Distribution Width 19.3, Platelet Count 232, Mean Platelet Volume 10.2, Sodium Level 142, Potassium Level 4.4, Chloride Level 110, Carbon Dioxide Level 24, Anion Gap 8, Blood Urea Nitrogen 25, Creatinine 1.23, Estimat Glomerular Filtration Rate 56, BUN/Creatinine Ratio 20, Glucose Le david 123, Calcium Level 8.3 03/25/19 04:50: White Blood Count 6.5, Red Blood Count 3.05, Hemoglobin 8.0, Hematocrit 26, Mean Corpuscular Volume 87, Mean Corpuscular Hemoglobin 26, Mean Corpuscular Hemoglobin Concent 30, Red Cell Distribution Width 19.0, Platelet Count 170, Mean Platelet Volume 10.4, Sodium Level 140, Potassium Level 4.4, Chloride Level 106, Carbon Dioxide Level 27, Anion Gap 7, Blood Urea Nitrogen 27, Creatinine 1.03, Estimat Glomerular Filtration Rate > 60, BUN/Creatinine Ratio 26, Glucose Level 85, Calcium Level 7.9 Discussion & Recommendations Patient willing to have surgery Discharge Home Medications: Active Scripts Active Reported Digoxin 250 Mcg Tablet 250 Mcg PO DAILY Diltiazem 24Hr ER (Diltiazem HCl) 180 Mg Cap.er.24h 180 Mg PO BID Loratadine 10 Mg Tablet 10 Mg PO DAILY Zyrtec (Cetirizine HCl) 10 Mg Tablet 10 Mg PO DAILY Pravastatin Sodium 40 Mg Tablet 40 Mg PO HS LAST FILLED 11-12-2018 #90 Furosemide 20 Mg Tablet 20 Mg PO DAILY Lisinopril 40 Mg Tablet 20 Mg PO DAILY TAKES 1/2 (40MG) TABLET Proair Hfa (Albuterol Sulfate) 1 Puff Puff 2 Puff IH QID PRN Instructions to patient/family Please see electronic discharge instructions given to patient. Clinical Quality Measures DVT/VTE Risk/Contraindication: Risk Factor Score Per Nursin RFS Level Per Nursing on Admit: 4+=Very High Contraindications-Pharm: Other *list below* Contraindications-Mechi: Other *list below* ROSY CLANCY DO Mar 26, 2019 06:28
--- NOTE | 2019-03-26 22:24 | OPERATIVE REPORT ---
DATE OF SERVICE: 03/24/2019 PREOPERATIVE DIAGNOSIS: Left lower quadrant mass. POSTOPERATIVE DIAGNOSIS: Left lower quadrant mass, pending pathology. PROCEDURE: Lucas-Cut needle biopsy. SURGEON: Erasmo Tong DO. SPECIAL SERVICES COORDINATOR: None. ANESTHESIA: Local lidocaine. BLOOD LOSS: Scant. SPECIMEN: Biopsy from the left lower quadrant mass. FLUIDS: None. INDICATION FOR PROCEDURE: The patient is an 89-year-old male with a history of colon cancer and he has a mass in the left lower quadrant, has been getting bigger and causing pain, needed a specimen for pathology diagnosis. FINDINGS: The patient had a mass, left lower quadrant. Lucas-Cut needle biopsy performed. Specimens were obtained and sent to pathology. PROCEDURE NOTE: After informed consent was obtained, the patient was in his bed. He was sterilely prepped and draped in normal fashion. Local lidocaine was used to infiltrate the area just above and around this left lower quadrant mass. I made a small stab incision with #11 blade and then advanced the Lucas-Cut needle, right towards the mass and then pushed the needle in, slid the outer portion of the Lucas-Cut needle over and then pulled this out. Got a small specimen, I did this 2 more times to get a couple more specimens. The patient tolerated the procedure. Bleeding was scant. This was passed off, put onto a Telfa and then into a sterile specimen container. The area was cleaned and dried, dressing placed. The patient was told to remain in his bed a little bit longer and walked down the specimen to pathology. Job ID: [id number] DocumentID: [id number] Dictated Date: 03/26/2019 14:30:20 Weather Observer Date: 03/26/2019 22:23:31 Dictated By: ERASMO TONG DO
== END 2019-03-25 15:05 | disposition home or self-care (01) | DRG 356 ==
LOC: EDUNIT# 11:13 → ER 11:15 → 4TH 14:30 → OBSVTOIN 19:09
PROVIDERS: ADMIT Family Medicine; ATTEND Family Medicine
PROC: 0DBL8ZX Excision of Transverse Colon, Via Natural or Artificial Opening Endoscopic, Diagnostic (ICD-10-PCS; 2019-03-22)
PROC: 0DBB8ZX Excision of Ileum, Via Natural or Artificial Opening Endoscopic, Diagnostic (ICD-10-PCS; 2019-03-22)
PROC: 0DB48ZX Excision of Esophagogastric Junction, Via Natural or Artificial Opening Endoscopic, Diagnostic (ICD-10-PCS; principal; 2019-03-22 09:34)
PROC: 0DB78ZX Excision of Stomach, Pylorus, Via Natural or Artificial Opening Endoscopic, Diagnostic (ICD-10-PCS; 2019-03-22 09:34)
PROC: 0WBF3ZX Excision of Abdominal Wall, Percutaneous Approach, Diagnostic (ICD-10-PCS; 2019-03-24)
DX: R19.04 Left lower quadrant abdominal swelling, mass and lump (principal); K28.4 Chronic or unspecified gastrojejunal ulcer with hemorrhage; K22.10 Ulcer of esophagus without bleeding; K20.9 Esophagitis, unspecified; K52.9 Noninfective gastroenteritis and colitis, unspecified; D50.0 Iron deficiency anemia secondary to blood loss (chronic); K29.70 Gastritis, unspecified, without bleeding; K57.90 Diverticulosis of intestine, part unspecified, without perforation or abscess without bleeding; Z66 Do not resuscitate; R91.1 Solitary pulmonary nodule; I25.10 Atherosclerotic heart disease of native coronary artery without angina pectoris; I25.2 Old myocardial infarction; I11.0 Hypertensive heart disease with heart failure; I50.9 Heart failure, unspecified; J45.909 Unspecified asthma, uncomplicated; R63.4 Abnormal weight loss; I48.91 Unspecified atrial fibrillation; E78.00 Pure hypercholesterolemia, unspecified; M19.91 Primary osteoarthritis, unspecified site; I73.9 Peripheral vascular disease, unspecified; Z85.038 Personal history of other malignant neoplasm of large intestine; Z85.46 Personal history of malignant neoplasm of prostate; Z85.828 Personal history of other malignant neoplasm of skin; Z90.79 Acquired absence of other genital organ(s); Z90.49 Acquired absence of other specified parts of digestive tract; Z87.891 Personal history of nicotine dependence; Z89.412 Acquired absence of left great toe
CPT/HCPCS: 36415; 71045; 74177; 80048; 80053; 81000; 82274; 82378; 82728; 83540; 83880; 85025; 85027; 86850; 86900; 86901; 86920; 87324; 87449; 87804; 88305; 93005; 94640; 94760; 96360

== ENCOUNTER → 2019-04-01 | Outpatient (CLI) | payer MEDICARE ==
[~2019-04-01] MED LIST changes: +DIGO250T3 PO; +DILT180C85 PO
--- NOTE | 2019-04-03 09:51 | Diagnostic Imaging Report ---
PET CT. INDICATION: Colon cancer. EXAMINATION: After intravenous administration of 13.31 mCi of [id number] injected into the right antecubital fossa, a series of overlapping emission and transmission PET images was obtained. In the coronal, transaxial and sagittal planes, the area imaged extended from the skull base through the upper thighs. His is height is 5' 6", weight 106, and blood glucose level is 112. All CT scans use one or more of the following dose optimizing techniques: automated exposure control, MA and/or KvP adjustment based on patient size and exam type or iterative reconstruction. COMPARISON: There are no prior PET/CT examinations available for comparison. FINDINGS: The recent CT abdomen/pelvis exam of 03/20/2019 noted a 2 cm right middle lobe pulmonary nodule. There was also a 2.6 x 3.0 cm mass in the anterior abdominal wall on the left and a few slightly enlarged lymph nodes are hypermetabolic as well with a maximum SUV of 9.2. On this exam there are multiple hypermetabolic masses involving both lungs. The mass in the right middle lobe is the largest and has a maximum SUV of 7.4. The other parenchymal masses also have SUVs in the 7-7.5 range. Consequently these findings should be considered neoplastic until proven otherwise. There is also a subcarinal node with a maximum SUV of 3.6. This finding is suspicious but not conclusive for neoplastic disease. The mass in the anterior abdominal wall on the left seen previously is also hypermetabolic with a maximum SUV of 8.9. The lymph nodes in the left axilla are also hypermetabolic with a maximum SUV of 9.1. In addition there is an intense focus of hypermetabolic activity in the right lower quadrant. This area measures approximately 5 cm in size and has a maximum SUV of 12.5. The CT images failed to show any sign of a mass in this area but there are surgical sutures in the region of patient's prior colon resection. Consequently this could represent recurrent neoplasm. There is no other hypermetabolic activity to suggest the presence of malignancy. There is generalized increased activity throughout the rectosigmoid and descending colon. This may well be physiologic in nature. Physiologic activity is also seen in the brain, the kidneys, the bowel and the bladder. IMPRESSION: 1. There are multiple hypermetabolic parenchymal lung masses. The mass in the anterior abdominal wall on the left and the left inguinal nodes are also hypermetabolic. All these findings should be considered neoplastic until proven otherwise. 2. The intense focus of hypermetabolic activity in the region of the cecum may be related to recurrent neoplasm. Endoscopy should be considered for further evaluation. Dictated by: Dictated on workstation # [id number]
== END ==
LOC: RAD 11:19
PROVIDERS: ATTEND Internal Medicine Hematology & Oncology
DX: C18.9 Malignant neoplasm of colon, unspecified (principal); R91.1 Solitary pulmonary nodule

== ENCOUNTER → 2019-06-25 | Outpatient (RCR) | payer MEDICARE ==
[2019-04-04 11:20] LABS: BASOPHILS # (AUTO) 0.1 10^3/uL (0.0-0.1); BASOPHILS % (AUTO) 1 % (0-10); EOSINOPHILS # (AUTO) 0.2 10^3/uL (0.0-0.3); EOSINOPHILS % (AUTO) 3 % (0-10); HEMATOCRIT 24 % (40-54); HEMOGLOBIN 7.2 G/DL (13.3-17.7); LYMPHOCYTES # (AUTO) 0.9 X 10^3 (1.0-4.0); LYMPHOCYTES % (AUTO) 15 % (12-44); MEAN CORPUSCULAR HEMOGLOBIN 26 PG (25-34); MEAN CORPUSCULAR HGB CONC 30 G/DL (32-36); MEAN CORPUSCULAR VOLUME 88 FL (80-99); MEAN PLATELET VOLUME 10.2 FL (7.4-10.4); MONOCYTES # (AUTO) 0.7 X 10^3 (0.0-1.0); MONOCYTES % (AUTO) 11 % (0-12); NEUTROPHILS # (AUTO) 4.2 X 10^3 (1.8-7.8); NEUTROPHILS % (AUTO) 70 % (42-75); PLATELET COUNT 285 10^3/uL (130-400); RED CELL DISTRIBUTION WIDTH 19.1 % (10.0-14.5); WHITE BLOOD COUNT 5.9 10^3/uL (4.3-11.0)
[2019-04-16 10:03] LABS: BASOPHILS # (AUTO) 0.1 10^3/uL (0.0-0.1); BASOPHILS % (AUTO) 1 % (0-10); EOSINOPHILS # (AUTO) 0.1 10^3/uL (0.0-0.3); EOSINOPHILS % (AUTO) 2 % (0-10); HEMATOCRIT 29 % (40-54); HEMOGLOBIN 8.7 G/DL (13.3-17.7); LYMPHOCYTES # (AUTO) 0.9 X 10^3 (1.0-4.0); LYMPHOCYTES % (AUTO) 16 % (12-44); MEAN CORPUSCULAR HEMOGLOBIN 26 PG (25-34); MEAN CORPUSCULAR HGB CONC 30 G/DL (32-36); MEAN CORPUSCULAR VOLUME 89 FL (80-99); MEAN PLATELET VOLUME 9.8 FL (7.4-10.4); MONOCYTES # (AUTO) 0.7 X 10^3 (0.0-1.0); MONOCYTES % (AUTO) 12 % (0-12); NEUTROPHILS # (AUTO) 3.9 X 10^3 (1.8-7.8); NEUTROPHILS % (AUTO) 69 % (42-75); PLATELET COUNT 249 10^3/uL (130-400); RED CELL DISTRIBUTION WIDTH 18.3 % (10.0-14.5); WHITE BLOOD COUNT 5.7 10^3/uL (4.3-11.0)
[2019-06-11 13:47] LABS: BASOPHILS % (AUTO) 0 % (0-10); EOSINOPHILS % (AUTO) 0 % (0-10); HEMATOCRIT 22 % (40-54); LYMPHOCYTES # (AUTO) 0.8 X 10^3 (1.0-4.0); LYMPHOCYTES % (AUTO) 10 % (12-44); MEAN CORPUSCULAR HEMOGLOBIN 23 PG (25-34); MEAN CORPUSCULAR HGB CONC 28 G/DL (32-36); MEAN CORPUSCULAR VOLUME 82 FL (80-99); MONOCYTES # (AUTO) 0.9 X 10^3 (0.0-1.0); MONOCYTES % (AUTO) 11 % (0-12); NEUTROPHILS # (AUTO) 5.8 X 10^3 (1.8-7.8); NEUTROPHILS % (AUTO) 78 % (42-75); PLATELET COUNT 182 10^3/uL (130-400); RED CELL DISTRIBUTION WIDTH 17.8 % (10.0-14.5); WHITE BLOOD COUNT 7.5 10^3/uL (4.3-11.0)
[2019-06-11 13:48] LABS: HEMOGLOBIN 6.1 G/DL (13.3-17.7)
[2019-06-11 14:02] LABS: ALBUMIN 2.6 GM/DL (3.2-4.5); BILIRUBIN,TOTAL 0.5 MG/DL (0.1-1.0); CREATININE SERUM 1.49 MG/DL (0.60-1.30); TOTAL PROTEIN 5.6 GM/DL (6.4-8.2)
[2019-06-11 14:04] LABS: CALCIUM 5.9 MG/DL (8.5-10.1)
[2019-06-18 11:45] LABS: BASOPHILS % (AUTO) 0 % (0-10); EOSINOPHILS # (AUTO) 0.1 10^3/uL (0.0-0.3); EOSINOPHILS % (AUTO) 1 % (0-10); HEMATOCRIT 23 % (40-54); LYMPHOCYTES # (AUTO) 0.7 X 10^3 (1.0-4.0); LYMPHOCYTES % (AUTO) 10 % (12-44); MEAN CORPUSCULAR HEMOGLOBIN 24 PG (25-34); MEAN CORPUSCULAR HGB CONC 29 G/DL (32-36); MEAN CORPUSCULAR VOLUME 82 FL (80-99); MEAN PLATELET VOLUME 10.2 FL (7.4-10.4); MONOCYTES # (AUTO) 0.6 X 10^3 (0.0-1.0); MONOCYTES % (AUTO) 9 % (0-12); NEUTROPHILS # (AUTO) 5.4 X 10^3 (1.8-7.8); NEUTROPHILS % (AUTO) 79 % (42-75); PLATELET COUNT 192 10^3/uL (130-400); RED CELL DISTRIBUTION WIDTH 19.5 % (10.0-14.5); WHITE BLOOD COUNT 6.8 10^3/uL (4.3-11.0)
[2019-06-18 11:46] LABS: HEMOGLOBIN 6.6 G/DL (13.3-17.7)
[2019-06-18 12:00] LABS: CALCIUM 6.2 MG/DL (8.5-10.1); CREATININE SERUM 1.34 MG/DL (0.60-1.30)
[2019-06-18 12:14] LABS: POTASSIUM 2.5 MMOL/L (3.6-5.0)
[~2019-06-25] MED LIST changes: -CETI10TA20 PO; +CETI10TA21 PO; +HYDR-34 PO; -HYDR-3812 PO; -HYDR-3816 PO; -MONT10TA24 PO; +MONT10TA26 PO; +NS (IVPB) CANCER CENTER 250 ML ONE; +NS IV 500 ML (CANCER CENTER) 500 ML ONE; +NS IV ONE; +POTASSIUM CHL IV ONE
[2019-06-25 10:37] LABS: BASOPHILS % (AUTO) 0 % (0-10); EOSINOPHILS % (AUTO) 1 % (0-10); HEMATOCRIT 30 % (40-54); HEMOGLOBIN 8.9 G/DL (13.3-17.7); LYMPHOCYTES % (AUTO) 19 % (12-44); MEAN CORPUSCULAR HEMOGLOBIN 25 PG (25-34); MEAN CORPUSCULAR HGB CONC 30 G/DL (32-36); MEAN CORPUSCULAR VOLUME 83 FL (80-99); MONOCYTES # (AUTO) 0.5 X 10^3 (0.0-1.0); MONOCYTES % (AUTO) 9 % (0-12); NEUTROPHILS # (AUTO) 3.9 X 10^3 (1.8-7.8); NEUTROPHILS % (AUTO) 72 % (42-75); PLATELET COUNT 160 10^3/uL (130-400); RED CELL DISTRIBUTION WIDTH 21.8 % (10.0-14.5); WHITE BLOOD COUNT 5.4 10^3/uL (4.3-11.0)
== END | disposition home or self-care (01) ==
LOC: ONC 03-27 12:41
PROVIDERS: ATTEND Internal Medicine Hematology & Oncology
DX: C18.9 Malignant neoplasm of colon, unspecified (principal); D50.0 Iron deficiency anemia secondary to blood loss (chronic); C78.02 Secondary malignant neoplasm of left lung; C78.01 Secondary malignant neoplasm of right lung; C77.4 Secondary and unspecified malignant neoplasm of inguinal and lower limb lymph nodes; C79.2 Secondary malignant neoplasm of skin; I10 Essential (primary) hypertension; E78.2 Mixed hyperlipidemia; I73.9 Peripheral vascular disease, unspecified; R91.1 Solitary pulmonary nodule
CPT/HCPCS: 36415; 36430; 80048; 80053; 85025; 86850; 86900; 86901; 86920; 96365; 96366; 99213

== ENCOUNTER 2019-07-09 10:14 | Outpatient (RCR) | payer MEDICARE ==
[2019-07-02 11:08] LABS: BASOPHILS % (AUTO) 0 % (0-10); EOSINOPHILS % (AUTO) 0 % (0-10); HEMATOCRIT 32 % (40-54); HEMOGLOBIN 9.6 G/DL (13.3-17.7); LYMPHOCYTES # (AUTO) 0.8 X 10^3 (1.0-4.0); LYMPHOCYTES % (AUTO) 12 % (12-44); MEAN CORPUSCULAR HEMOGLOBIN 25 PG (25-34); MEAN CORPUSCULAR HGB CONC 30 G/DL (32-36); MEAN CORPUSCULAR VOLUME 83 FL (80-99); MONOCYTES # (AUTO) 0.9 X 10^3 (0.0-1.0); MONOCYTES % (AUTO) 13 % (0-12); NEUTROPHILS # (AUTO) 4.9 X 10^3 (1.8-7.8); NEUTROPHILS % (AUTO) 75 % (42-75); PLATELET COUNT 264 10^3/uL (130-400); RED CELL DISTRIBUTION WIDTH 23.3 % (10.0-14.5); WHITE BLOOD COUNT 6.6 10^3/uL (4.3-11.0)
[~2019-07-09 10:14] MED LIST changes: -NS (IVPB) CANCER CENTER 250 ML ONE; -NS IV 500 ML (CANCER CENTER) 500 ML ONE; -NS IV ONE; -POTASSIUM CHL IV ONE
[2019-07-09 10:30] LABS: BASOPHILS % (AUTO) 1 % (0-10); EOSINOPHILS # (AUTO) 0.1 10^3/uL (0.0-0.3); EOSINOPHILS % (AUTO) 2 % (0-10); HEMATOCRIT 27 % (40-54); HEMOGLOBIN 7.7 G/DL (13.3-17.7); LYMPHOCYTES % (AUTO) 15 % (12-44); MEAN CORPUSCULAR HEMOGLOBIN 25 PG (25-34); MEAN CORPUSCULAR HGB CONC 29 G/DL (32-36); MEAN CORPUSCULAR VOLUME 86 FL (80-99); MEAN PLATELET VOLUME 10.6 FL (7.4-10.4); MONOCYTES # (AUTO) 0.7 X 10^3 (0.0-1.0); MONOCYTES % (AUTO) 11 % (0-12); NEUTROPHILS # (AUTO) 4.5 X 10^3 (1.8-7.8); NEUTROPHILS % (AUTO) 72 % (42-75); PLATELET COUNT 228 10^3/uL (130-400); RED CELL DISTRIBUTION WIDTH 23.7 % (10.0-14.5); WHITE BLOOD COUNT 6.3 10^3/uL (4.3-11.0)
[2019-07-09 10:51] LABS: ALANINE AMINOTRANSFERASE 9 U/L (0-55); ALBUMIN 2.2 GM/DL (3.2-4.5); ALKALINE PHOSPHATASE 88 U/L (40-136); BILIRUBIN,TOTAL 0.3 MG/DL (0.1-1.0); BUN/CREATININE RATIO 16; CALCIUM 6.9 MG/DL (8.5-10.1); CARBON DIOXIDE 30 MMOL/L (21-32); CHLORIDE 107 MMOL/L (98-107); CREATININE SERUM 1.02 MG/DL (0.60-1.30); GFR ESTIMATED > 60; GLUCOSE 101 MG/DL (70-105); POTASSIUM 3.4 MMOL/L (3.6-5.0); SODIUM 144 MMOL/L (135-145); TOTAL PROTEIN 5.5 GM/DL (6.4-8.2)
[2019-07-09] MEDS ORDERED: NS IV 500 ML (CANCER CENTER) 0 ML ONE (11:11)
== END 2019-07-22 12:44 | disposition home or self-care (01) ==
LOC: ONC 10:14
PROVIDERS: ATTEND Internal Medicine Hematology & Oncology
DX: C18.9 Malignant neoplasm of colon, unspecified (principal); D50.0 Iron deficiency anemia secondary to blood loss (chronic); C78.02 Secondary malignant neoplasm of left lung; C78.01 Secondary malignant neoplasm of right lung; C77.4 Secondary and unspecified malignant neoplasm of inguinal and lower limb lymph nodes; C79.2 Secondary malignant neoplasm of skin; I10 Essential (primary) hypertension; E78.2 Mixed hyperlipidemia; I73.9 Peripheral vascular disease, unspecified; R91.1 Solitary pulmonary nodule
CPT/HCPCS: 80053; 85025; 99213